=== PATIENT | female | born 1975 | race Caucasian/White ===

== ENCOUNTER 2016-11-03 12:12 | Emergency (ER) | payer OTHER, SELFPAY ==
[2016-11-03 12:19] VITALS: BP 146/96
[2016-11-03] MEDS ORDERED: Ondansetron 4 MG/2 ML SDV IVPUSH ONE (12:40)
[2016-11-03] MEDS ORDERED: Ketorolac 30 MG/ML SDV IVPUSH ONE (12:40)
[2016-11-03] MEDS ORDERED: Lactated Ringers 1,000 ML IV ONE (12:40)
[2016-11-03] MEDS ORDERED: Sodium Chloride 0.9% 10 ML Syringe FLUSH PRN (12:40)
--- NOTE | 2016-11-03 12:46 | EDM.PDOC ---
ED HPI HEADACHE COMPLAINT - General Chief Complaint: Headache Stated Complaint: HEADACHE Time Seen by Provider: 11/03/16 12:27 Source of Information: Reports: Patient History Limitations: Reports: Language barrier (patient primarly speaks cypriot , poor yi) - History of Present Illness INITIAL COMMENTS - FREE TEXT/NARRATIVE: Patient presents for evaluation and treatment of a headache. Headache is located in the frontal side. States that the headache began on Dejuan, 2 days ago. She states that it is a 7 out of 10 and describes it as a pressure. She reports associated symptoms of photophobia, phonophobia, diaphoresis, hot and cold flashes, nausea and vomiting. Reports vomiting only a small amount. She reports some spots in her vision. She also states that she's been coughing and has epigastric abdominal pain. Patient has not taken her temp at home. Patient has been seen in our ER on numerous occasions for the abdominal pain. This is a chronic problem for her and she reports no change with this. Patient reports that she does not have migraines frequently. Patient is known to consume alcohol. She states that she has not had any alcohol since last week. Treatments prior to arrival in the ER include Tylenol and ibuprofen. - Related Data Allergies/ADRs: Allergies Allergy/AdvReac Type Severity Reaction Status Date / Time Penicillins Allergy Severe Airway Verified 08/19/16 20:00 Tightness Sulfa (Sulfonamide Allergy Airway Verified 08/19/16 20:00 Antibiotics) Tightness Home Meds: Home Meds Levothyroxine 125 mcg PO DAILY 10/19/14 [History] Lisinopril/Hydrochlorothiazide [Lisinopril-Hctz 20-12.5 mg Tab] 12.5 - 25 mg PO DAILY 08/03/15 [History] Esomeprazole Magnesium [Nexium] 1 cap PO BID PRN 06/25/16 [History] Levofloxacin [Levaquin] 500 mg PO Q24H #6 tablet 11/03/16 [Rx] Potassium Chloride 20 meq PO DAILY #7 tablet.er 11/03/16 [Rx] Past Medical History HEENT History: Reports: None Cardiovascular History: Reports: High cholesterol, Hypertension Respiratory History: Reports: None Gastrointestinal History: Reports: GERD, Pancreatitis Other Gastrointestinal History: epigastric pain, adhesions Genitourinary History: Reports: Acute renal failure, Pyelonephritis, UTI, recurrent Other Genitourinary History: renal failure 10 yrs ago--was given chemo for thyroid CA. 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 States was washing dishes and lacerated hand. Neurological History: Reports: None Psychiatric History: Reports: Addiction Endocrine/Metabolic History: Reports: Hypothyroidism Hematologic History: Reports: Anemia, Iron deficiency Oncologic (Cancer) History: Reports: Thyroid Other Oncologic History: thyroid removed due to CA. Dermatologic History: Reports: None - Infectious Disease History Infectious Disease History: Reports: None - Past Surgical History Cardiovascular Surgical History: Reports: None GI Surgical History: Reports: Appendectomy, Cholecystectomy, Colonoscopy, EGD Female Surgical History: Reports: Hysterectomy Endocrine Surgical History: Reports: None Musculoskeletal Surgical History: Reports: None Social & Family History - Family History OBGYN: Reports: Endocrine/Metabolic: Reports: Diabetes, type II Immunologic: Reports: None Oncologic: Reports: Breast, Uterine - Tobacco Use Smoking Status *Q: Current Every Day Smoker Years of Tobacco use: 1 Packs/Tins Daily: 0.2 Used Tobacco, but Quit: Yes Month Tobacco Last Used: 2008 Second Hand Smoke Exposure: No - Caffeine Use Caffeine Use: Reports: Energy drinks, Soda - Alcohol Use Days Per Week of Alcohol Use: 7 Number of Drinks Per Day: 1 Total Drinks Per Week: 7 - Recreational Drug Use Recreational Drug Use: No - Living Situation & Occupation Living situation: Reports: Occupation: unemployed ED ROS GENERAL - Review of Systems Review Of Systems: See Below Constitutional: Reports: chills, diaphoresis, other (photophobia, phonophobia). Denies: fever HEENT: Reports: Vision change (reports "spots" it her vision) Respiratory: Reports: Cough GI/Abdominal: Reports: Abdominal pain (chronic, epigastric), Nausea, Vomiting : Denies: dysuria, hematuria - Physical Exam Exam: See Below Exam Limited By: No limitations General Appearance: alert, WD/WN, no apparent distress Ears: normal external exam, normal canal, hearing grossly normal, normal TMs Nose: normal inspection Throat/Mouth: Normal inspection, Normal voice, No airway compromise Head Exam: atraumatic, normocephalic Neck: normal inspection, non-tender, full range of motion Respiratory/Chest: no respiratory distress, lungs clear, normal breath sounds Cardiovascular: normal peripheral pulses, regular rate, rhythm, no murmur Neuro Exam (Abbreviated): alert, oriented, normal cognition Psychiatric: normal affect, normal mood Skin Exam: Warm, Dry, Normal color Course - Vital Signs Last Recorded V/S: Last Vital Signs Temp 38.8 C H 11/03/16 17:20 Pulse 87 11/03/16 12:18 Resp 20 11/03/16 12:18 BP 146/96 H 11/03/16 12:18 Pulse Ox 100 11/03/16 12:18 - Orders/Labs/Meds Orders: Active Orders 24 hr Category Date Time Status CULTURE URINE [RM] Stat Lab 11/03/16 16:45 Results Labs: Laboratory Tests 11/03/16 11/03/16 11/03/16 Range/Units 12:55 12:55 14:10 WBC 11.97 H (3.98-10.04) K/mm3 RBC 4.17 (3.98-5.22) M/mm3 Hgb 13.0 (11.2-15.7) gm/L Hct 38.3 (34.1-44.9) % MCV 91.8 (79.4-94.8) fl MCH 31.2 (25.6-32.2) pg MCHC 33.9 (32.2-35.5) g/dl RDW Std Deviation 51.6 H (36.4-46.3) fL Plt Count 198 (182-369) K/mm3 MPV 10.3 (9.4-12.3) fl Neut % (Auto) 85.1 H (34.0-71.1) % Lymph % (Auto) 6.0 L (19.3-51.7) % Sargent % (Auto) 8.0 (4.7-12.5) % Eos % (Auto) 0.1 L (0.7-5.8) Baso % (Auto) 0.2 (0.1-1.2) % Neut # (Auto) 10.19 H (1.56-6.13) K/mm3 Lymph # (Auto) 0.72 L (1.18-3.74) K/mm3 Sargent # (Auto) 0.96 H (0.24-0.36) K/mm3 Eos # (Auto) 0.01 L (0.04-0.36) K/mm3 Baso # (Auto) 0.02 (0.01-0.08) K/mm3 Manual Slide Review Normal smear Sodium 138 (136-145) mEq/L Potassium 2.8 L 2.9 L (3.5-5.1) mEq/L Chloride 99 (98-107) mEq/L Carbon Dioxide 25 (21-32) mEq/L Anion Gap 16.8 H (5-15) BUN 22 H (7-18) mg/dL Creatinine 1.0 (0.55-1.02) mg/dL Est Cr Clr Drug Dosing 52.64 mL/min Estimated GFR (MDRD) > 60 (>60) mL/min BUN/Creatinine Ratio 22.0 H (14-18) Glucose 120 H (74-106) mg/dL Calcium 9.6 (8.5-10.1) mg/dL Magnesium 2.1 (1.8-2.4) mg/dl Total Bilirubin 0.5 (0.2-1.0) mg/dL AST 46 H (15-37) U/L ALT 63 H (14-59) U/L Alkaline Phosphatase 106 (46-116) U/L C-Reactive Protein (<1.0) mg/dL Total Protein 8.4 H (6.4-8.2) g/dl Albumin 3.5 (3.4-5.0) g/dl Globulin 4.9 gm/dL Albumin/Globulin Ratio 0.7 L (1-2) Urine Color (Yellow) Urine Appearance (Clear) Urine pH (5.0-8.0) Ur Specific [place] (1.005-1.030) Urine Protein (Negative) Urine Glucose (UA) (Negative) Urine Ketones (Negative) Urine Occult Blood (Negative) Urine Nitrite (Negative) Urine Bilirubin (Negative) Urine Urobilinogen (0.2-1.0) Ur Leukocyte Esterase (Negative) Urine RBC (0-5) /hpf Urine WBC (0-5) /hpf Ur Epithelial Cells Ur Squamous Epith Cells (0-5) /hpf Urine Bacteria (FEW) /hpf Urine Mucus (FEW) /hpf Ethyl Alcohol 0.00 (0.00) gm% 11/03/16 11/03/16 Range/Units 14:10 16:45 WBC (3.98-10.04) K/mm3 RBC (3.98-5.22) M/mm3 Hgb (11.2-15.7) gm/L Hct (34.1-44.9) % MCV (79.4-94.8) fl MCH (25.6-32.2) pg MCHC (32.2-35.5) g/dl RDW Std Deviation (36.4-46.3) fL Plt Count (182-369) K/mm3 MPV (9.4-12.3) fl Neut % (Auto) (34.0-71.1) % Lymph % (Auto) (19.3-51.7) % Sargent % (Auto) (4.7-12.5) % Eos % (Auto) (0.7-5.8) Baso % (Auto) (0.1-1.2) % Neut # (Auto) (1.56-6.13) K/mm3 Lymph # (Auto) (1.18-3.74) K/mm3 Sargent # (Auto) (0.24-0.36) K/mm3 Eos # (Auto) (0.04-0.36) K/mm3 Baso # (Auto) (0.01-0.08) K/mm3 Manual Slide Review Sodium (136-145) mEq/L Potassium (3.5-5.1) mEq/L Chloride (98-107) mEq/L Carbon Dioxide (21-32) mEq/L Anion Gap (5-15) BUN (7-18) mg/dL Creatinine (0.55-1.02) mg/dL Est Cr Clr Drug Dosing mL/min Estimated GFR (MDRD) (>60) mL/min BUN/Creatinine Ratio (14-18) Glucose (74-106) mg/dL Calcium (8.5-10.1) mg/dL Magnesium (1.8-2.4) mg/dl Total Bilirubin (0.2-1.0) mg/dL AST (15-37) U/L ALT (14-59) U/L Alkaline Phosphatase (46-116) U/L C-Reactive Protein 54.5 H* (<1.0) mg/dL Total Protein (6.4-8.2) g/dl Albumin (3.4-5.0) g/dl Globulin gm/dL Albumin/Globulin Ratio (1-2) Urine Color Yellow (Yellow) Urine Appearance Slt cloudy H (Clear) Urine pH 7.0 (5.0-8.0) Ur Specific [place] 1.015 (1.005-1.030) Urine Protein 2+ H (Negative) Urine Glucose (UA) Negative (Negative) Urine Ketones Negative (Negative) Urine Occult Blood 2+ H (Negative) Urine Nitrite Positive H (Negative) Urine Bilirubin Negative (Negative) Urine Urobilinogen 4.0 H (0.2-1.0) Ur Leukocyte Esterase 1+ H (Negative) Urine RBC 0-5 (0-5) /hpf Urine WBC 50-75 H (0-5) /hpf Ur Epithelial Cells Not Reportable Ur Squamous Epith Cells 5-10 H (0-5) /hpf Urine Bacteria Moderate H (FEW) /hpf Urine Mucus Few (FEW) /hpf Ethyl Alcohol (0.00) gm% Meds: Medications Discontinued Medications Generic Name Dose Route Start Last Admin Trade Name Dominique PRN Reason Stop Dose Admin Acetaminophen 650 mg 11/03/16 17:09 11/03/16 17:20 Tylenol PO 11/03/16 17:10 650 mg NOW ONE Administration Diphenhydramine HCl 50 mg 11/03/16 13:56 11/03/16 14:02 Benadryl IVPUSH 11/03/16 13:57 50 mg ONETIME ONE Administration Haloperidol Lactate 5 mg 11/03/16 15:06 11/03/16 15:12 Haldol IM 11/03/16 15:07 5 mg ONETIME ONE Administration Lactated Ringer's 1,000 mls @ 999 mls/hr 11/03/16 12:40 11/03/16 12:59 Ringers, Lactated IV 11/03/16 13:40 999 mls/hr .BOLUS ONE Administration Levofloxacin/Dextrose 500 mg/ 100 mls @ 100 mls/hr 11/03/16 17:09 11/03/16 17 :19 Premix IV 11/03/16 18:08 100 mls/hr ONETIME ONE Administration Ketorolac Tromethamine 30 mg 11/03/16 12:40 11/03/16 12:59 Toradol IVPUSH 11/03/16 12:41 30 mg ONETIME ONE Administration Ondansetron HCl 4 mg 11/03/16 12:40 11/03/16 12:59 Zofran IVPUSH 11/03/16 12:41 4 mg ONETIME ONE Administration Orphenadrine Citrate 100 mg 11/03/16 13:56 11/03/16 14:02 Norflex PO 11/03/16 13:57 100 mg NOW STA Administration Potassium Bicarbonate 10 meq 11/03/16 13:31 11/03/16 13:39 Effer-K PO 11/03/16 13:32 10 meq ONETIME ONE Administration Sodium Chloride 10 ml 11/03/16 12:40 11/03/16 12:59 Saline Flush FLUSH 10 ml ASDIRECTED PRN Administration Keep Vein Open - Radiology Interpretation Free Text/Narrative:: Ct of the head without contrast impression per Vrad: Unremarkable study. CT Results Date: 11/03/16 - Re-Assessments/Exams Free Text/Narrative Re-Assessment/Exam: 11/03/16 13:58 Labs have returned. white Blood cell count is mildly elevated at 11.97, hgb is 13.0 platelets are 198. Alcohol is zero. Sodium is 138, potassium is low at 2.8, chloride is 99. Anion gap is 16.8. Glucose is 120. AST and ALT are mildly elevated at 46 and 63 respectively. Magnesium is within normal limits at 2.1. 10 mEq effer-k ordered for the hypokalemia. Reports no pain relief. She is asking for something "stronger for pain." She has been given toradol and a 1L LR bolus thus far. I suspect tension headache. Will give benadryl and norflex. 11/03/16 14:20 Patient was searched on the [place] prescription registry. 16 prescriptions from 3 different prescribers within the last year for controlled substances. Most recently received #60 hydrocortisone-acetaminophen 5/325 on 10-30-16. 11/03/16 15:04 Patient reports a worsening head pain. We will get a CT without contrast to rule out brain bleed as she has not had any pain relief and her symptoms are worsening. I am skeptical of her presentation. She keeps asking for pain medicine. I feel that she is likely drug seeking. We will obtained a head CT without contrast to rule out a brain bleed. Order Haldol 5 mg IM for her headache. Following headache protocol. 11/03/16 16:27 CT returned. Reviewd with patient. No brain bleed 11/03/16 16:44 Reports no change in headache. Now she feels she is developing fevers and chills. 11/03/16 16:55 I had nursing staff recheck temp. Now 101 temporal. Will check influenza and UA. CRP added to labs 11/03/16 17:18 UA returned with 2+ blood, positive nitrites and moderate amount of blood seen on microscopy. Leukocytes. Negative for glucose and ketones. The patient has a urinary tract infection. I will start her on IV Levaquin and have her take Levaquin outpatient as well some potassium for her hypokalemia. I Asked the patient about any urinary symptoms. She denies any dysuria, hematuria, change in urine odor or color. She reports headaches, nausea and chills. 11/03/16 17:48 influenza returned negative. CRP is elevated at 54.5 indicating she likely has a kidney infection. Patient was discharged home with levaquin. Follow-up with PCP this week. Return if symptoms change or worsen. Urine was sent for culture. No previous urine cultures on file for ric. Departure - Departure Time of Disposition: 17:43 Disposition: Home, Self-Care 01 Clinical Impression: Urinary tract infection, Pyelonephritis, Hypokalemia Prescriptions: Levofloxacin [Levaquin] 500 mg PO Q24H #6 tablet Potassium Chloride 20 meq PO DAILY #7 tablet.er Instructions: Urinary Tract Infection, Adult, [id number] Referrals: Enrique Brower Jr, MD [Primary Care Provider] - Forms: ED Department Discharge Additional Instructions: Take the Levaquin as prescribed. One tab daily. Your first dose was given in the ER. Start your prescription tomorrow. Potassium as prescribed. One tab daily. Followup with primary care provider this week for recheck. Make sure you're drinking plenty of fluids. [id number] Tylenol or Motrin as needed for your pain and headache relief. Please return to the ER should your symptoms change or worsen. - My Orders Last 24 Hours: My Active Orders 11/03/16 16:45 CULTURE URINE [RM] Stat - Assessment/Plan Last 24 Hours: My Active Orders 11/03/16 16:45 CULTURE URINE [RM] Stat
[2016-11-03] MEDS ORDERED: Potassium Bicarbonate/Cit Ac 10 MEQ Effervescent Tab PO ONE (13:31)
[2016-11-03] MEDS ORDERED: diphenhydrAMINE 50 MG/ML SDV IVPUSH ONE (13:56)
[2016-11-03] MEDS ORDERED: Orphenadrine 100 MG Tab.ER PO STA (13:56)
[2016-11-03] MEDS ORDERED: Haloperidol Lactate 5 MG/ML SDV IM ONE (15:06)
[2016-11-03] MEDS ORDERED: Acetaminophen 325 MG Tab PO ONE (17:09)
[2016-11-03] MEDS ORDERED: Levofloxacin/Dextrose 5%-Water 500 MG in Premix Bag 1 BAG IV ONE (17:09)
--- NOTE | 2016-11-04 07:43 | CT ---
Head CT Technique: Multiple axial sections through the brain were obtained. Intravenous contrast was not utilized. Comparison: No previous study. Findings: Ventricles along with basal cisterns and sulci over the convexities are within normal limits for the patient's age. No abnormal parenchymal densities are seen. No evidence of intracranial hemorrhage. No midline shift or mass effect is seen. Bone window settings were reviewed which show the visualized sinuses to appear clear. No acute calvarial abnormality is appreciated. Impression: 1. Nothing acute is identified on noncontrast head CT study. Diagnostic code #1 I agree with preliminary report issued by [employer] (preliminary report dictated on 11/03/16, 4:37 PM Central Time)
== END 2016-11-03 18:25 | disposition home or self-care (01) ==
LOC: JD.ED 12:12
DX: R51 Headache (principal); N39.0 Urinary tract infection, site not specified; N12 Tubulo-interstitial nephritis, not specified as acute or chronic; E87.6 Hypokalemia; I10 Essential (primary) hypertension; E78.00 Pure hypercholesterolemia, unspecified; K21.9 Gastro-esophageal reflux disease without esophagitis; M19.90 Unspecified osteoarthritis, unspecified site; G89.29 Other chronic pain; M54.9 Dorsalgia, unspecified; D03.9 Melanoma in situ, unspecified; D50.9 Iron deficiency anemia, unspecified; F17.200 Nicotine dependence, unspecified, uncomplicated
CPT/HCPCS: 36415; 70450; 80053; 81001; 83735; 84132; 85025; 86140; 87086; 87804; 96361; 96365; 96372; 96375; 99284; A9270; G0480; J1200; J1630; J1885; J1956; J2405; J7050; J7120; 87088; 87186

== ENCOUNTER 2017-06-05 10:10 | Emergency (ER) | payer SELFPAY ==
[2017-06-05 10:25] VITALS: BP 144/90
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
--- NOTE | 2017-06-05 11:50 | CR ---
Cervical spine: AP, lateral and odontoid views of the cervical spine were obtained. Comparison: No prior cervical spine study. Vertebral body heights and disc spaces are maintained. Prevertebral soft tissues are normal. No subluxation or fracture is seen. Impression: 1. No abnormality is identified on three-view cervical spine study. Diagnostic code #1
== END 2017-06-05 11:41 | disposition home or self-care (01) ==
LOC: JD.ED 10:10
DX: S16.1XXA Strain of muscle, fascia and tendon at neck level, initial encounter (principal); F17.210 Nicotine dependence, cigarettes, uncomplicated; I10 Essential (primary) hypertension; E78.00 Pure hypercholesterolemia, unspecified; K21.9 Gastro-esophageal reflux disease without esophagitis; E03.9 Hypothyroidism, unspecified; Z86.2 Personal history of diseases of the blood and blood-forming organs and certain disorders involving the immune mechanism; Z79.899 Other long term (current) drug therapy; Z88.0 Allergy status to penicillin; Z88.2 Allergy status to sulfonamides; V49.9XXA Car occupant (driver) (passenger) injured in unspecified traffic accident, initial encounter; Y92.410 Unspecified street and highway as the place of occurrence of the external cause
CPT/HCPCS: 72040; 72040-26; 99283; 99284

== ENCOUNTER 2017-08-17 05:48 | Emergency (ER) | payer SELFPAY ==
[2017-08-17 05:58] VITALS: BP 157/105
[2017-08-17] MEDS ORDERED: Famotidine 20 MG/2 ML SDV IVPUSH ONE (06:11)
[2017-08-17] MEDS ORDERED: Ondansetron 4 MG/2 ML SDV IVPUSH ONE (06:11)
[2017-08-17] MEDS ORDERED: Sodium Chloride 0.9% 1,000 ML IV SCH ×2 (06:15→08:15)
--- NOTE | 2017-08-17 06:15 | EDM.PDOC ---
<Jared Dueñas - Last Filed: 08/17/17 07:32> ED HPI GENERAL MEDICAL PROBLEM - General Chief Complaint: Abdominal Pain Stated Complaint: RIGHT SIDE PAIN Time Seen by Provider: 08/17/17 06:02 Source of Information: Reports: Patient History Limitations: Reports: No Limitations - History of Present Illness INITIAL COMMENTS - FREE TEXT/NARRATIVE: This is a 42-year-old female. She comes this morning because she's been having some upper abdominal pain and some nausea and vomiting. She states she's been having the stomach pain and vomiting for at least a week but apparently yesterday it got markedly worse and this morning she comes to the ER for evaluation. She states she has a history of pancreatitis. She did drink yesterday a little bit. She knows she shouldn't drink because that's what flares up her pancreatitis. She indicates that this pain she is having feels like her pancreatitis again. She denies any fever or chills she denies any diarrhea. She has not vomited up any blood. She does not have a gallbladder it is been removed. Right Upper Abdomen Pain Score (Numeric/FACES): 10 - Related Data Allergies Allergy/AdvReac Type Severity Reaction Status Date / Time Penicillins Allergy Severe Airway Verified 08/17/17 05:55 Tightness Sulfa (Sulfonamide Allergy Airway Verified 08/17/17 05:55 Antibiotics) Tightness Home Meds: Home Meds Levothyroxine 125 mcg PO DAILY 10/19/14 [History] Lisinopril/Hydrochlorothiazide [Lisinopril-Hctz 20-12.5 mg Tab] 12.5 - 25 mg PO DAILY 08/03/15 [History] Ibuprofen 800 mg PO ONCALL PRN 08/17/17 [History] Ondansetron HCl [Zofran] 4 mg PO Q8H PRN #12 tablet 08/17/17 [Rx] traMADol [Ultram] 50 mg PO Q6H PRN #12 tab 08/17/17 [Rx] Past Medical History HEENT History: Reports: None Cardiovascular History: Reports: High Cholesterol, Hypertension Respiratory History: Reports: None Gastrointestinal History: Reports: GERD, Pancreatitis Other Gastrointestinal History: epigastric pain, adhesions Genitourinary History: Reports: Pyelonephritis, UTI, Recurrent Other Genitourinary History: renal failure 10 yrs ago--was given chemo for thyroid CA. 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 States was washing dishes and lacerated hand. Neurological History: Reports: None Psychiatric History: Reports: Addiction Endocrine/Metabolic History: Reports: Hypothyroidism Hematologic History: Reports: Anemia, Iron Deficiency Oncologic (Cancer) History: Reports: Thyroid Other Oncologic History: thyroid removed due to CA. Dermatologic History: Reports: None - Infectious Disease History Infectious Disease History: Reports: None - Past Surgical History GI Surgical History: Reports: Appendectomy, Cholecystectomy, Colonoscopy, EGD Female Surgical History: Reports: Hysterectomy, Salpingo-Oophorectomy Endocrine Surgical History: Reports: None Social & Family History - Family History OBGYN: Reports: Endocrine/Metabolic: Reports: Diabetes, type II Immunologic: Reports: None Oncologic: Reports: Breast, Uterine - Tobacco Use Smoking Status *Q: Never Smoker Years of Tobacco use: 5 Packs/Tins Daily: 0.2 Used Tobacco, but Quit: Yes Month Tobacco Last Used: 2008 Second Hand Smoke Exposure: No - Caffeine Use Caffeine Use: Reports: Coffee, Soda - Alcohol Use Days Per Week of Alcohol Use: 7 Number of Drinks Per Day: 1 Total Drinks Per Week: 7 - Recreational Drug Use Recreational Drug Use: No - Living Situation & Occupation Living situation: Reports: Occupation: Unemployed ED ROS GENERAL - Review of Systems Review Of Systems: See Below Constitutional: Reports: Weakness. Denies: Fever, Chills HEENT: Reports: No Symptoms Respiratory: Reports: No Symptoms Cardiovascular: Reports: No Symptoms Endocrine: Reports: No Symptoms GI/Abdominal: Reports: Abdominal Pain, Nausea, Vomiting. Denies: Black Stool, Bloody Stool, Diarrhea : Reports: No Symptoms Musculoskeletal: Reports: No Symptoms Skin: Reports: No Symptoms Neurological: Reports: No Symptoms Psychiatric: Reports: No Symptoms Hematologic/Lymphatic: Reports: No Symptoms ED EXAM, GI/ABD - Physical Exam Exam: See Below Exam Limited By: No Limitations General Appearance: Alert, WD/WN, Mild Distress Eyes: Bilateral: Normal Appearance Ears: Normal External Exam Nose: Normal Inspection Throat/Mouth: Normal Inspection, Normal Lips, Normal Voice, No Airway Compromise Head: Normocephalic Neck: Supple Respiratory/Chest: No Respiratory Distress, Lungs Clear, Normal Breath Sounds Cardiovascular: Regular Rate, Rhythm, No Murmur GI/Abdominal Exam: Other (Abdomen is slightly distended and she has large, she is tender in the upper quadrants on palpation more so on the right upper quadrant with some mild guarding if I attempt to push too hard, she does not appear to have rebound at this time, I cannot feel any organomegaly due to her size) Back Exam: Full Range of Motion Extremities: Normal Inspection, Normal Range of Motion Neurological: Alert, Oriented Psychiatric: Anxious Skin Exam: Warm, Dry Course - Vital Signs Last Recorded V/S: Last Vital Signs Temp 35.9 C 08/17/17 05:57 Pulse 84 08/17/17 05:57 Resp 18 08/17/17 05:57 BP 157/105 H 08/17/17 05:57 Pulse Ox 99 08/17/17 05:57 - Orders/Labs/Meds Orders: Active Orders 24 hr Category Date Time Status Potassium Chloride [KCl 10 MEQ in Water 100 ML] 10 meq Med 08/17/17 08:15 Active Premix Bag 1 bag IV ASDIRECTED Sodium Chloride 0.9% [Normal Saline] 1,000 ml Med 08/17/17 06:15 Active IV ASDIRECTED Sodium Chloride 0.9% [Normal Saline] 1,000 ml Med 08/17/17 08:15 Active IV ASDIRECTED Medication Orders Sodium Chloride (Normal Saline) 1,000 mls @ 1,000 mls/hr IV ASDIRECTED BIBIANA Last Admin: 08/17/17 06:23 Dose: 1,000 mls/hr Sodium Chloride (Normal Saline) 1,000 mls @ 100 mls/hr IV ASDIRECTED BIBIANA Last Admin: 08/17/17 08:18 Dose: 100 mls/hr Potassium Chloride 10 meq/ (Premix) 100 mls @ 100 mls/hr IV ASDIRECTED BIBIANA Last Admin: 08/17/17 08:19 Dose: 100 mls/hr Labs: Laboratory Tests 08/17/17 08/17/17 Range/Units 06:17 06:17 WBC 5.37 (3.98-10.04) K/mm3 RBC 3.92 L (3.98-5.22) M/mm3 Hgb 12.0 (11.2-15.7) gm/L Hct 35.5 (34.1-44.9) % MCV 90.6 (79.4-94.8) fl MCH 30.6 (25.6-32.2) pg MCHC 33.8 (32.2-35.5) g/dl RDW Std Deviation 43.8 (36.4-46.3) fL Plt Count 225 (182-369) K/mm3 MPV 10.1 (9.4-12.3) fl Neut % (Auto) 46.2 (34.0-71.1) % Lymph % (Auto) 41.2 (19.3-51.7) % [place] % (Auto) 10.2 (4.7-12.5) % Eos % (Auto) 1.3 (0.7-5.8) Baso % (Auto) 0.9 (0.1-1.2) % Neut # (Auto) 2.48 (1.56-6.13) K/mm3 Lymph # (Auto) 2.21 (1.18-3.74) K/mm3 [place] # (Auto) 0.55 H (0.24-0.36) K/mm3 Eos # (Auto) 0.07 (0.04-0.36) K/mm3 Baso # (Auto) 0.05 (0.01-0.08) K/mm3 Sodium 146 H (136-145) mEq/L Potassium 3.3 L (3.5-5.1) mEq/L Chloride 110 H (98-107) mEq/L Carbon Dioxide 22 (21-32) mEq/L Anion Gap 17.3 H (5-15) BUN 20 H (7-18) mg/dL Creatinine 0.7 (0.55-1.02) mg/dL Est Cr Clr Drug Dosing 74.43 mL/min Estimated GFR (MDRD) > 60 (>60) mL/min BUN/Creatinine Ratio 28.6 H (14-18) Glucose 114 H (74-106) mg/dL Calcium 8.4 L (8.5-10.1) mg/dL Total Bilirubin 0.2 (0.2-1.0) mg/dL AST 41 H (15-37) U/L ALT 61 H (14-59) U/L Alkaline Phosphatase 88 (46-116) U/L Total Protein 7.8 (6.4-8.2) g/dl Albumin 3.7 (3.4-5.0) g/dl Globulin 4.1 gm/dL Albumin/Globulin Ratio 0.9 L (1-2) Amylase 73 (25-115) U/L Lipase 434 H (73-393) U/L Ethyl Alcohol 0.06 (0.00) gm% Meds: Medications Generic Name Dose Route Start Last Admin Trade Name Freq PRN Reason Stop Dose Admin Sodium Chloride 1,000 mls @ 1,000 mls/hr 08/17/17 06:15 08/17/17 06:23 Normal Saline IV 1,000 mls/hr ASDIRECTED BIBIANA Administration Sodium Chloride 1,000 mls @ 100 mls/hr 08/17/17 08:15 08/17/17 08:18 Normal Saline IV 100 mls/hr ASDIRECTED BIBIANA Administration Potassium Chloride 10 meq/ 100 mls @ 100 mls/hr 08/17/17 08:15 08/17/17 08:19 Premix IV 100 mls/hr ASDIRECTED BIBIANA Administration Discontinued Medications Generic Name Dose Route Start Last Admin Trade Name Dannyq PRN Reason Stop Dose Admin Famotidine 20 mg 08/17/17 06:11 08/17/17 06:25 Pepcid IVPUSH 08/17/17 06:12 20 mg ONETIME ONE Administration Hydromorphone HCl 0.5 mg 08/17/17 07:18 08/17/17 07:25 Dilaudid IVPUSH 08/17/17 07:19 0.5 mg ONETIME ONE Administration Hydromorphone HCl 0.5 mg 08/17/17 09:01 08/17/17 09:05 Dilaudid IVPUSH 08/17/17 09:02 0.5 mg ONETIME ONE Administration Potassium Chloride/Sodium Chloride 1,000 mls @ 500 mls/hr 08/17/17 07:30 07:37 Normal Saline With 20 Meq Kcl IV 500 mls/hr ASDIRECTED BIBIANA Administration Ondansetron HCl 4 mg 08/17/17 06:11 08/17/17 06:23 Zofran IVPUSH 08/17/17 06:12 4 mg ONETIME ONE Administration - Re-Assessments/Exams Free Text/Narrative Re-Assessment/Exam: 08/17/17 07:26 I spoke to the patient regarding her lab results. Her white count is normal her lipase is 434 she has a slightly low potassium and some mild abnormalities noted was some mildly elevated liver enzymes. She now tells me that she drank very heavily yesterday and that's why her alcohol level this morning is 0.06. I encouraged her not to drink because every time she does he is going to end up was some mild pancreatitis. She seems to understand this. 08/17/17 07:36 The nurses have orders for additional pain medications as she gets another liter of NS with 20 mEq of potassium over the next hour. If all is going well she will be discharged once the fluids are in. If there are complications then the nurses will talk with Dr. Lara and he will take over the patients care. Departure - Departure Disposition: Home, Self-Care 01 Condition: Fair Clinical Impression: Alcohol ingestion, Hypokalemia Acute pancreatitis Qualifiers: Pancreatitis type: unspecified pancreatitis type Acute pancreatitis complication: unspecified Qualified Code(s): K85.90 - Acute pancreatitis without necrosis or infection, unspecified Nausea & vomiting Qualifiers: Vomiting type: unspecified Vomiting Intractability: non-intractable Qualified Code(s): R11.2 - Nausea with vomiting, unspecified Abdominal pain Qualifiers: Abdominal location: right upper quadrant Qualified Code(s): R10.11 - Right upper quadrant pain - Discharge Information Prescriptions: Ondansetron HCl [Zofran] 4 mg PO Q8H PRN #12 tablet PRN Reason: Nausea traMADol [Ultram] 50 mg PO Q6H PRN #12 tab PRN Reason: Pain Instructions: Acute Pancreatitis Referrals: Enrique Brower Jr, MD [Primary Care Provider] - Forms: ED Department Discharge Additional Instructions: Home and rest, stay on Gatorade and Powerade and crackers only for the next 2-3 days, Do not eat meat, vegetables or oil/fatty foods, do not drink alcohol or you will get pancreatitis again, take the medicine for nausea and also medicine for pain as needed, follow up with your doctor this week for recheck, if your symptoms worsen return to the ER - My Orders Last 24 Hours: My Active Orders 08/17/17 08:15 Potassium Chloride [KCl 10 MEQ in Water 100 ML] 10 meq Premix Bag 1 bag IV ASDIRECTED Sodium Chloride 0.9% [Normal Saline] 1,000 ml IV ASDIRECTED - Assessment/Plan Last 24 Hours: My Active Orders 08/17/17 08:15 Potassium Chloride [KCl 10 MEQ in Water 100 ML] 10 meq Premix Bag 1 bag IV ASDIRECTED Sodium Chloride 0.9% [Normal Saline] 1,000 ml IV ASDIRECTED <Jamal Lara - Last Filed: 08/17/17 09:33> Course - Re-Assessments/Exams Free Text/Narrative Re-Assessment/Exam: 08/17/17 09:00 did receive 1 further dose of Dilaudid 0.5 mg IV for relief of pancreatitis pain. Dr. Dueñas has written discharge orders for her and once her potassium infusion has been completed she will be discharged to home. Departure - Departure Time of Disposition: 09:33
[2017-08-17] MEDS ORDERED: HYDROmorphone 0.5 MG/0.5 ML Syringe IVPUSH ONE ×2 (07:18→09:01)
[2017-08-17] MEDS ORDERED: NS + KCl 20mEq/L 1,000 ML IV SCH (07:30)
[2017-08-17] MEDS ORDERED: Potassium Chloride 10 MEQ in Premix Bag 1 BAG IV SCH (08:15)
== END 2017-08-17 09:55 | disposition home or self-care (01) ==
LOC: JD.ED 05:48
DX: K85.90 Acute pancreatitis without necrosis or infection, unspecified (principal); I10 Essential (primary) hypertension; E78.00 Pure hypercholesterolemia, unspecified; E03.9 Hypothyroidism, unspecified; Z79.899 Other long term (current) drug therapy; Z88.0 Allergy status to penicillin; Z88.2 Allergy status to sulfonamides
CPT/HCPCS: 36415; 80053; 82150; 83690; 85025; 96361; 96365; 96375; 96376; 99284; G0480; J1170; J2405; J3480; J7040

== ENCOUNTER 2017-11-19 18:34 | Emergency (ER) | payer SELFPAY ==
[2017-11-19 18:53] VITALS: BP 133/109
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
--- NOTE | 2017-11-20 08:12 | CR ---
Left second finger: Four views centered to the left second finger were obtained. Comparison: No previous study. Soft tissue swelling is identified. Mild degenerative changes noted within the DIP joint. No acute fracture or other bony abnormality is seen. Impression: 1. Soft tissue swelling. 2. Mild degenerative change within the DIP joint. Diagnostic code #3
--- NOTE | 2017-11-20 08:13 | CR ---
Chest: Two views of the chest were obtained. Comparison: Prior chest x-ray of 03/23/16. Heart size and mediastinum are normal. Lungs are clear. Slight scoliosis is noted within the spine. Surgical clips are seen from prior cholecystectomy. Impression: 1. Nothing acute is seen on two-view chest x-ray. Diagnostic code #2
== END 2017-11-19 20:15 | disposition home or self-care (01) ==
LOC: JD.ED 18:34
DX: S63.631A Sprain of interphalangeal joint of left index finger, initial encounter (principal); S20.221A Contusion of right back wall of thorax, initial encounter; S50.11XA Contusion of right forearm, initial encounter; S30.1XXA Contusion of abdominal wall, initial encounter; E78.00 Pure hypercholesterolemia, unspecified; I10 Essential (primary) hypertension; E03.9 Hypothyroidism, unspecified; Z88.0 Allergy status to penicillin; Z88.2 Allergy status to sulfonamides; Z79.899 Other long term (current) drug therapy; Z87.891 Personal history of nicotine dependence; Y04.2XXA Assault by strike against or bumped into by another person, initial encounter
CPT/HCPCS: 71046; 71046-26; 73140-26-F1; 73140-F1; 99283

== ENCOUNTER 2018-01-01 04:42 | Emergency (ER) | payer SELFPAY ==
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
[2018-01-01] MEDS ORDERED: HYDROmorphone 0.5 MG/0.5 ML SYRINGE IVPUSH ONE ×2 (05:04→06:18)
[2018-01-01] MEDS ORDERED: Phenazopyridine 95 MG Tab ONE (05:09)
[2018-01-01] MEDS ORDERED: Phenazopyridine 95 MG Tab PO ONE (05:11)
[2018-01-01] MEDS ORDERED: Sodium Chloride 0.9% 1,000 ML IV SCH (05:15)
[2018-01-01] MEDS ORDERED: Ketorolac 30 MG/ML SDV IVPUSH SCH (05:15)
[2018-01-01] MEDS ORDERED: cefTRIAXone 1 GM in Sodium Chloride 0.9% 100 ML IV ONE (06:16)
[2018-01-01] MEDS ORDERED: Metoclopramide 10 MG/2 ML SDV IVPUSH ONE (06:18)
[2018-01-01] MEDS ORDERED: Dextrose 5%-0.9% NaCl 1,000 ML IV SCH (06:30)
[2018-01-01 08:46] VITALS: BP 145/99
[2018-01-01] MEDS ORDERED: Phenazopyridine 95 MG Tab PO SCH (09:00)
== END 2018-01-01 08:30 | disposition home or self-care (01) ==
LOC: JD.ED 04:42
DX: N39.0 Urinary tract infection, site not specified (principal); E78.00 Pure hypercholesterolemia, unspecified; I10 Essential (primary) hypertension; E03.9 Hypothyroidism, unspecified; Z88.0 Allergy status to penicillin; Z88.2 Allergy status to sulfonamides
CPT/HCPCS: 36415; 80053; 81001; 85007; 85027; 87086; 96361; 96374; 96375; 96376; 99283; A9270; G0480; J0696; J1170; J1885; J2765; J7030; J7040; J7042; 99284

== ENCOUNTER 2018-02-09 02:56 | Inpatient (IN) | payer MEDICAID ==
[2018-02-09] MEDS ORDERED: Ondansetron 4 MG/2 ML SDV IVPUSH ONE ×2 (03:25→04:42)
[2018-02-09] MEDS ORDERED: Sodium Chloride 0.9% 1,000 ML IV SCH (03:30)
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
[2018-02-09] MEDS ORDERED: Potassium Chloride 10 MEQ in Premix Bag 1 BAG IV STA (04:13)
[2018-02-09] MEDS ORDERED: Magnesium Sulfate/Water 2 GM in Premix Bag 1 BAG IV ONE (05:07)
[2018-02-09] MEDS ORDERED: Sodium Chloride 0.9% 1,000 ML IV ONE (05:43)
[2018-02-09] MEDS ORDERED: Famotidine 20 MG/2 ML SDV IVPUSH ONE (05:54)
[2018-02-09] MEDS ORDERED: Alum Hydrox/Mag Hydrox/Simeth 30 ML, Lidocaine 2% 15 ML PO STA ×2 (05:55)
[2018-02-09] MEDS ORDERED: Sodium Chloride 0.9% 500 ML IV ONE (07:22)
[2018-02-09] MEDS ORDERED: Polyethylene Glycol 3350 Powder 17 GM Packet PO PRN (07:23)
[2018-02-09] MEDS ORDERED: Haloperidol Lactate 5 MG/ML SDV IM PRN (07:23)
[2018-02-09] MEDS ORDERED: Bisacodyl 5 MG Tab PO PRN (07:23)
[2018-02-09] MEDS ORDERED: Albuterol/Ipratropium 3.0-0.5 MG/3 ML Neb Soln NEB PRN (07:23)
[2018-02-09] MEDS ORDERED: Docusate Sodium 100 MG Cap PO PRN (07:23)
[2018-02-09] MEDS ORDERED: cloNIDine 0.1 MG Tab PO PRN (07:23)
[2018-02-09] MEDS ORDERED: LORazepam 2 MG/ML SDV IVPUSH PRN (07:31)
[2018-02-09] MEDS ORDERED: hydrALAZINE 20 MG/ML SDV IVPUSH PRN (07:31)
[2018-02-09] MEDS ORDERED: Pantoprazole 40 MG Vial IV ONE (08:00)
[2018-02-09] MEDS: HYDROmorphone 0.5 MG/0.5 ML SYRINGE IVPUSH PRN ×4 (08:06→21:10)
[2018-02-09] MEDS: Metoprolol Tartrate 5 MG/5 ML SDV IVPUSH PRN (08:21)
[2018-02-09] MEDS: Promethazine 12.5 MG in Sodium Chloride 0.9% 50 ML IV PRN (08:29)
[2018-02-09] MEDS ORDERED: QUEtiapine 25 MG Tab PO ONE (08:43)
[2018-02-09] MEDS: Multivitamins,Therapeutic Tab PO SCH (08:55)
[2018-02-09] MEDS: Folic Acid 1 MG Tab PO SCH (08:55)
[2018-02-09] MEDS: Topiramate 25 MG Tab PO SCH ×2 (08:59→20:17)
[2018-02-09] MEDS: Levothyroxine 125 MCG Tab PO SCH (08:59)
[2018-02-09] MEDS ORDERED: Thiamine 100 MG in Sodium Chloride 0.9% 50 ML IV ONE (09:00)
[2018-02-09] MEDS ORDERED: Nicotine 21 MG/24 Hr Patch TRDERM PRN (09:00)
--- NOTE | 2018-02-09 10:01 | PCM.HP ---
H&P History of Present Illness - General Date of Service: 02/09/18 Admit Problem/Dx: Admission Diagnosis/Problem Admission Diagnosis/Problem Hypokalemia Source of Information: Patient, Old Records, Provider, RN Notes Reviewed History Limitations: Reports: No Limitations - History of Present Illness Initial Comments - Free Text/Narative: This is a 42-year-old female with past medical history of hypertension , hyperlipidemia, GERD, history of acute renal failure, osteoarthritis, chronic back pain, hypothyroidism, iron deficiency anemia, fatty liver, and chronic alcohol and opioid dependence who comes in for evaluation of multiple complaints such as retrosternal chest pain, shortness of breath, diffuse body aches and pains, hyperventilation, chills, nausea and vomiting but primarily dry heaving. She also reports abdominal pain associated with watery diarrhea for the past 3 days. She denies eating or drinking unusual diet. Nothing improves or makes her symptoms better. She denies any DTs, Seizures, or Hallucinations. She carries a hx/o cholecystectomy but she denies any recent surgery or abdominal trauma. Patient reports similar history in the past. Per Iddiction, she has had multiple evaluations related to her chief of complaints and most if not all workup were negative. Patient admits to drinking daily, 1L of vodka. She has been drinking a lot this past week with no obvious precipitating factors. Patient denies any history of inpatient treatment. However she had been to outpatient treatment several months ago. But according to her, she stopped going to treatment when her went to retirement in [place]. Her initial workup in the emergency department shows a CBC remarkable for MCH of 32.6%, RDW of 49, platelet of 144, and monocytes of 13%. Her ABG shows a pH of 7.44, PCO2 of 21, PO2 of 79, HCO3 of 14.1, and O2 saturation of 95.3%, on room air. Her chemistry is significant for sodium of 133, potassium of 2.4, chloride of 88, carbon dioxide of 14, anion gap of 32.4, BUN of 25, creatinine of 1.4, glucose of 181, calcium of 8.1, magnesium of 1, AST of 496, ALT of 183, alkaline phosphatase of 168, LA of 7.6, and total protein of 9.5. Her UA is suggestive of moderate dehydration. Her UDS is positive for benzodiazepine. Her STEFANIE level is 0.09. Patient is being admitted for alcohol withdrawal symptoms and evaluation of abdominal pain. She is full code. Chest Pain Score (Numeric/FACES): 8 Upper Abdominal Pain Score (Numeric/FACES): 8 - Related Data Allergies/Adverse Reactions: Allergies Allergy/AdvReac Type Severity Reaction Status Date / Time Penicillins Allergy Severe Airway Verified 02/09/18 03:01 Tightness Sulfa (Sulfonamide Allergy Airway Verified 02/09/18 03:01 Antibiotics) Tightness Home Medications: Home Meds Levothyroxine 125 mcg PO DAILY 10/19/14 [History] Lisinopril/Hydrochlorothiazide [Lisinopril-Hctz 20-12.5 mg Tab] 12.5 - 25 mg PO DAILY 08/03/15 [History] LORazepam [Ativan] 1 mg PO DAILY 02/09/18 [History] Past Medical History HEENT History: Reports: None Cardiovascular History: Reports: High Cholesterol, Hypertension Respiratory History: Reports: None Gastrointestinal History: Reports: GERD Other Gastrointestinal History: epigastric pain, adhesions Genitourinary History: Reports: Acute Renal Failure Other Genitourinary History: renal failure 10 yrs ago--was given chemo for thyroid CA. 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 States was washing dishes and lacerated hand. Neurological History: Reports: None Psychiatric History: Reports: Addiction (alcohol) Endocrine/Metabolic History: Reports: Hypothyroidism, Obesity/BMI 30+ Hematologic History: Reports: Anemia, Iron Deficiency Oncologic (Cancer) History: Reports: Thyroid Other Oncologic History: thyroid removed due to CA. Dermatologic History: Reports: None - Infectious Disease History Infectious Disease History: Reports: None - Past Surgical History GI Surgical History: Reports: Appendectomy, Cholecystectomy, Colonoscopy, EGD Female Surgical History: Reports: Hysterectomy, Other (See Below) (Right ovarian cystectomy) Endocrine Surgical History: Reports: Thyroidectomy (for thyroid CA) Social & Family History - Family History OBGYN: Reports: Endocrine/Metabolic: Reports: Diabetes, type II Immunologic: Reports: None Oncologic: Reports: Breast, Uterine - Tobacco Use Smoking Status *Q: Former Smoker Years of Tobacco use: 19 Packs/Tins Daily: 1 Month/Year Tobacco Last Used: Quit around 2010 - Caffeine Use Caffeine Use: Reports: None - Alcohol Use Days Per Week of Alcohol Use: 5 Number of Drinks Per Day: 10 Total Drinks Per Week: 50 - Recreational Drug Use Recreational Drug Use: Yes Drug Use in Last 12 Months: No Recreational Drug Type: Reports: Methamphetamine (last used around 2007) - Living Situation & Occupation Living situation: Reports: , with Family (Daughter, son). Denies: with Spouse ( in retirement) Occupation: Unemployed H&P Review of Systems - Review of Systems: Review Of Systems: See Below General: Reports: Malaise, Weakness, Decreased Appetite. Denies: Fever, Chills , Fatigue HEENT: Reports: No Symptoms Pulmonary: Reports: Shortness of Breath Cardiovascular: Reports: Chest Pain, Palpitations. Denies: Dyspnea on Exertion , Lightheadedness, Syncope, Claudication, Blood Pressure Problem Gastrointestinal: Reports: Abdominal Pain, Diarrhea, Decreased Appetite, Flatus , Nausea, Vomiting. Denies: Black Stool, Bloody Stool, Distension Genitourinary: Reports: No Symptoms Musculoskeletal: Reports: No Symptoms Skin: Denies: Cyanosis, Jaundice, Mottled, Diaphoresis, Bruising, Rash, Erythema , Wound Psychiatric: Reports: Anxiety. Denies: Depression, Cravings, Hallucinations, Suicidal Ideation Neurological: Reports: Tremors, Gait Disturbance. Denies: Seizure, Difficulty Walking, Weakness Hematologic/Lymphatic: Reports: No Symptoms Immunologic: Reports: No Symptoms Exam - Exam Exam: See Below - Vital Signs Vital Signs: Last Vital Signs Temp 37.3 C 02/09/18 08:11 Pulse 129 H 02/09/18 08:21 Resp 20 02/09/18 08:11 BP 131/89 02/09/18 08:35 Pulse Ox 96 02/09/18 08:11 Weight: 72.121 kg - Exam General: Alert, Oriented, Cooperative, Moderate Distress, Other (smells alcohol) HEENT: Conjunctiva Clear, EACs Clear, Hearing Intact, Mucosa Moist & [place], Nares Patent, Normal Nasal Septum, Posterior Pharynx Clear, Pupils Equal, Pupils Reactive. No: EOMI Neck: Supple, Trachea Midline Lungs: Normal Respiratory Effort, Decreased Breath Sounds Cardiovascular: Tachycardia GI/Abdominal Exam: Normal Bowel Sounds, Soft, No Distention, No Abnormal Bruit, No Mass, Tender (mid abdomen), Hepatomegaly, Splenomegaly. No: Guarding, Rigid , Rebound (Female) Exam: Deferred Rectal (Female) Exam: Deferred Back Exam: Normal Inspection, Decreased Range of Motion Extremities: Normal Inspection, Normal Range of Motion, Non-Tender, No Pedal Edema, Normal Capillary Refill Peripheral Pulses: 2+: Posterior Tibial (L), Posterior Tibial (R), Dorsalis Pedis (L), Dorsalis Pedis (R) Skin: Warm, Dry, Intact Neuro Extensive - Mental Status: Normal Cognition, Memory Intact, Slow Response to Commands Neuro Extensive - Motor, Sensory, Reflexes: CN II-XII Intact (limited due to intoxication), Abnormal Gait Psychiatric: Alert, Normal Affect, Anxious, Withdrawal Symptoms. No: Suicidal Ideation, Hallucinations - Patient Data Lab Results Last 24 hrs: Laboratory Results - last 24 hr 02/09/18 02/09/18 02/09/18 Range/Units 03:10 03:10 03:10 WBC 6.04 (3.98-10.04) K/mm3 RBC 4.66 (3.98-5.22) M/mm3 Hgb 15.2 (11.2-15.7) gm/L Hct 42.8 (34.1-44.9) % MCV 91.8 (79.4-94.8) fl MCH 32.6 H (25.6-32.2) pg MCHC 35.5 (32.2-35.5) g/dl RDW Std Deviation 49.0 H (36.4-46.3) fL Plt Count 144 L (182-369) K/mm3 MPV 10.2 (9.4-12.3) fl Neutrophils % (Manual) 53 (40-60) % Band Neutrophils % 0 (0-10) % Lymphocytes % (Manual) 34 (20-40) % Atypical Lymphs % 0 % Monocytes % (Manual) 13 H (2-10) % Eosinophils % (Manual) 0 L (0.7-5.8) % Basophils % (Manual) 0 L (0.1-1.2) Platelet Estimate Adequate Plt Morphology Comment Normal RBC Morph Comment Normal Puncture Site ABG pH (7.35-7.45) ABG pCO2 (35.0-45.0) mmHg ABG pO2 (80.0-100.0) mmHg ABG HCO3 (22.0-26.0) meq/L ABG O2 Saturation (96.0-97.0) % ABG Base Excess (-2-2.0) Jese Test A-a Gradient mmHg O2 Delivery Device FiO2 (21.00-100.00) % Sodium 133 L (136-145) mEq/L Potassium 2.4 L* (3.5-5.1) mEq/L Chloride 88 L (98-107) mEq/L Carbon Dioxide 14 L (21-32) mEq/L Anion Gap 33.4 H (5-15) BUN 25 H (7-18) mg/dL Creatinine 1.4 H (0.55-1.02) mg/dL Est Cr Clr Drug Dosing TNP Estimated GFR (MDRD) 41 (>60) mL/min BUN/Creatinine Ratio 17.9 (14-18) Glucose 181 H (74-106) mg/dL Lactic Acid (0.4-2.0) mmol/L Calcium 8.1 L (8.5-10.1) mg/dL Magnesium 1.0 L (1.8-2.4) mg/dl Total Bilirubin 1.0 (0.2-1.0) mg/dL AST 496 H (15-37) U/L ALT 183 H (14-59) U/L Alkaline Phosphatase 168 H (46-116) U/L Troponin I < 0.017 (0.00-0.056) ng/mL Total Protein 9.5 H (6.4-8.2) g/dl Albumin 4.6 (3.4-5.0) g/dl Globulin 4.9 gm/dL Albumin/Globulin Ratio 0.9 L (1-2) Lipase 230 (73-393) U/L HCG, Qual (NEGATIVE) Urine Color (Yellow) Urine Appearance (Clear) Urine pH (5.0-8.0) Ur Specific [place] (1.005-1.030) Urine Protein (Negative) Urine Glucose (UA) (Negative) Urine Ketones (Negative) Urine Occult Blood (Negative) Urine Nitrite (Negative) Urine Bilirubin (Negative) Urine Urobilinogen (0.2-1.0) Ur Leukocyte Esterase (Negative) Urine RBC (0-5) /hpf Urine WBC (0-5) /hpf Ur Epithelial Cells (0-5) /hpf Amorphous Sediment (NOT SEEN) /hpf Urine Bacteria (FEW) /hpf Hyaline Casts (0-5) /lpf Urine Mucus (FEW) /hpf Urine Opiates Screen (NEGATIVE) Ur Buprenorphine Scrn (NEGATIVE) Ur Oxycodone Screen (NEGATIVE) Urine Methadone Screen (NEGATIVE) Ur Propoxyphene Screen (NEGATIVE) Ur Barbiturates Screen (NEGATIVE) Ur Tricyclics Screen (NEGATIVE) Ur Phencyclidine Scrn (NEGATIVE) Ur Amphetamine Screen (NEGATIVE) U Methamphetamines Scrn (NEGATIVE) U Benzodiazepines Scrn (NEGATIVE) U Cocaine Metab Screen (NEGATIVE) U Marijuana (THC) Screen (NEGATIVE) Ethyl Alcohol 0.09 (0.00) gm% Ketones (0.0-0.3) mM 02/09/18 02/09/18 02/09/18 Range/Units 03:10 03:44 03:44 WBC (3.98-10.04) K/mm3 RBC (3.98-5.22) M/mm3 Hgb (11.2-15.7) gm/L Hct (34.1-44.9) % MCV (79.4-94.8) fl MCH (25.6-32.2) pg MCHC (32.2-35.5) g/dl RDW Std Deviation (36.4-46.3) fL Plt Count (182-369) K/mm3 MPV (9.4-12.3) fl Neutrophils % (Manual) (40-60) % Band Neutrophils % (0-10) % Lymphocytes % (Manual) (20-40) % Atypical Lymphs % % Monocytes % (Manual) (2-10) % Eosinophils % (Manual) (0.7-5.8) % Basophils % (Manual) (0.1-1.2) Platelet Estimate Plt Morphology Comment RBC Morph Comment Puncture Site ABG pH (7.35-7.45) ABG pCO2 (35.0-45.0) mmHg ABG pO2 (80.0-100.0) mmHg ABG HCO3 (22.0-26.0) meq/L ABG O2 Saturation (96.0-97.0) % ABG Base Excess (-2-2.0) Jese Test A-a Gradient mmHg O2 Delivery Device FiO2 (21.00-100.00) % Sodium (136-145) mEq/L Potassium (3.5-5.1) mEq/L Chloride (98-107) mEq/L Carbon Dioxide (21-32) mEq/L Anion Gap (5-15) BUN (7-18) mg/dL Creatinine (0.55-1.02) mg/dL Est Cr Clr Drug Dosing Estimated GFR (MDRD) (>60) mL/min BUN/Creatinine Ratio (14-18) Glucose (74-106) mg/dL Lactic Acid (0.4-2.0) mmol/L Calcium (8.5-10.1) mg/dL Magnesium (1.8-2.4) mg/dl Total Bilirubin (0.2-1.0) mg/dL AST (15-37) U/L ALT (14-59) U/L Alkaline Phosphatase (46-116) U/L Troponin I (0.00-0.056) ng/mL Total Protein (6.4-8.2) g/dl Albumin (3.4-5.0) g/dl Globulin gm/dL Albumin/Globulin Ratio (1-2) Lipase (73-393) U/L HCG, Qual (NEGATIVE) Urine Color Dark yellow (Yellow) Urine Appearance Slt cloudy H (Clear) Urine pH 6.0 (5.0-8.0) Ur Specific [place] > or = 1.030 (1.005-1.030) Urine Protein 3+ H (Negative) Urine Glucose (UA) Negative (Negative) Urine Ketones Negative (Negative) Urine Occult Blood 1+ H (Negative) Urine Nitrite Negative (Negative) Urine Bilirubin 1+ H (Negative) Urine Urobilinogen 1.0 (0.2-1.0) Ur Leukocyte Esterase Negative (Negative) Urine RBC 0-5 (0-5) /hpf Urine WBC 0-5 (0-5) /hpf Ur Epithelial Cells 0-5 (0-5) /hpf Amorphous Sediment Moderate H (NOT SEEN) /hpf Urine Bacteria Rare (FEW) /hpf Hyaline Casts 0-5 (0-5) /lpf Urine Mucus Many H (FEW) /hpf Urine Opiates Screen Negative (NEGATIVE) Ur Buprenorphine Scrn Negative (NEGATIVE) Ur Oxycodone Screen Negative (NEGATIVE) Urine Methadone Screen Negative (NEGATIVE) Ur Propoxyphene Screen Negative (NEGATIVE) Ur Barbiturates Screen Negative (NEGATIVE) Ur Tricyclics Screen Negative (NEGATIVE) Ur Phencyclidine Scrn Negative (NEGATIVE) Ur Amphetamine Screen Negative (NEGATIVE) U Methamphetamines Scrn Negative (NEGATIVE) U Benzodiazepines Scrn Presumptive positive H (NEGATIVE) U Cocaine Metab Screen Negative (NEGATIVE) U Marijuana (THC) Screen Negative (NEGATIVE) Ethyl Alcohol (0.00) gm% Ketones 0.28 (0.0-0.3) mM 02/09/18 02/09/18 02/09/18 Range/Units 04:45 04:55 07:46 WBC (3.98-10.04) K/mm3 RBC (3.98-5.22) M/mm3 Hgb (11.2-15.7) gm/L Hct (34.1-44.9) % MCV (79.4-94.8) fl MCH (25.6-32.2) pg MCHC (32.2-35.5) g/dl RDW Std Deviation (36.4-46.3) fL Plt Count (182-369) K/mm3 MPV (9.4-12.3) fl Neutrophils % (Manual) (40-60) % Band Neutrophils % (0-10) % Lymphocytes % (Manual) (20-40) % Atypical Lymphs % % Monocytes % (Manual) (2-10) % Eosinophils % (Manual) (0.7-5.8) % Basophils % (Manual) (0.1-1.2) Platelet Estimate Plt Morphology Comment RBC Morph Comment Puncture Site Rt radial ABG pH 7.44 (7.35-7.45) ABG pCO2 21.0 L (35.0-45.0) mmHg ABG pO2 79.0 L (80.0-100.0) mmHg ABG HCO3 14.1 L (22.0-26.0) meq/L ABG O2 Saturation 95.3 L (96.0-97.0) % ABG Base Excess -7.5 L (-2-2.0) Jese Test Positive A-a Gradient 29 mmHg O2 Delivery Device Room air FiO2 21.00 (21.00-100.00) % Sodium (136-145) mEq/L Potassium (3.5-5.1) mEq/L Chloride (98-107) mEq/L Carbon Dioxide (21-32) mEq/L Anion Gap (5-15) BUN (7-18) mg/dL Creatinine (0.55-1.02) mg/dL Est Cr Clr Drug Dosing Estimated GFR (MDRD) (>60) mL/min BUN/Creatinine Ratio (14-18) Glucose (74-106) mg/dL Lactic Acid 7.6 H (0.4-2.0) mmol/L Calcium (8.5-10.1) mg/dL Magnesium (1.8-2.4) mg/dl Total Bilirubin (0.2-1.0) mg/dL AST (15-37) U/L ALT (14-59) U/L Alkaline Phosphatase (46-116) U/L Troponin I (0.00-0.056) ng/mL Total Protein (6.4-8.2) g/dl Albumin (3.4-5.0) g/dl Globulin gm/dL Albumin/Globulin Ratio (1-2) Lipase (73-393) U/L HCG, Qual Negative (NEGATIVE) Urine Color (Yellow) Urine Appearance (Clear) Urine pH (5.0-8.0) Ur Specific [place] (1.005-1.030) Urine Protein (Negative) Urine Glucose (UA) (Negative) Urine Ketones (Negative) Urine Occult Blood (Negative) Urine Nitrite (Negative) Urine Bilirubin (Negative) Urine Urobilinogen (0.2-1.0) Ur Leukocyte Esterase (Negative) Urine RBC (0-5) /hpf Urine WBC (0-5) /hpf Ur Epithelial Cells (0-5) /hpf Amorphous Sediment (NOT SEEN) /hpf Urine Bacteria (FEW) /hpf Hyaline Casts (0-5) /lpf Urine Mucus (FEW) /hpf Urine Opiates Screen (NEGATIVE) Ur Buprenorphine Scrn (NEGATIVE) Ur Oxycodone Screen (NEGATIVE) Urine Methadone Screen (NEGATIVE) Ur Propoxyphene Screen (NEGATIVE) Ur Barbiturates Screen (NEGATIVE) Ur Tricyclics Screen (NEGATIVE) Ur Phencyclidine Scrn (NEGATIVE) Ur Amphetamine Screen (NEGATIVE) U Methamphetamines Scrn (NEGATIVE) U Benzodiazepines Scrn (NEGATIVE) U Cocaine Metab Screen (NEGATIVE) U Marijuana (THC) Screen (NEGATIVE) Ethyl Alcohol (0.00) gm% Ketones (0.0-0.3) mM Result Diagrams: 07/16/18 03:10 02/09/18 03:10 EKG INTERPRETATION EKG Date: 02/09/18 Time: 03:37 Rhythm: Other (Sinus Tachycardia) Rate (Beats/Min): 121 [place]: Normal P-Wave: Present QRS: Normal ST-T: Normal QT: Prolonged Comparison: No Change Problem List Initiated/Reviewed/Updated: Yes Orders Last 24hrs: Active Orders 24 hr Category Date Time Status Patient Status [ADT] Routine ADT 02/09/18 09:37 Active CIWAA Assessment [RC] Q4HR Care 02/09/18 07:23 Active EKG Documentation Completion [RC] STAT Care 02/09/18 03:26 Active Height and Weight [RC] 04 Care 02/09/18 07:23 Active Intake and Output [RC] 04,16 Care 02/09/18 07:23 Active Notify Provider Consults [RC] ASDIRECTED Care 02/09/18 07:27 Active Notify Provider [RC] PRN Care 02/09/18 07:23 Active Oxygen Therapy [RC] PRN Care 02/09/18 07:23 Active RT Aerosol Therapy [RC] ASDIRECTED Care 02/09/18 07:25 Active Up ad Niala [RC] ASDIRECTED Care 02/09/18 07:23 Active VTE/DVT Education [RC] PER UNIT ROUTINE Care 02/09/18 07:23 Active Vital Signs [RC] Q4HR Care 02/09/18 07:23 Active Consult for Substance Abuse [CONS] Routine Cons 02/09/18 08:45 Active Consult to Case Management [CONS] Routine Cons 02/09/18 07:23 Active Consult to Wad Lubricator [CONS] Routine Cons 02/09/18 07:23 Active Consult to Physician [CONS] Routine Cons 02/09/18 07:23 Active Consult to Auto Suspension And Steering Mechanic [CONS] Routine Cons 02/09/18 07:23 Active Consult to Spiritual Care [CONS] Routine Cons 02/09/18 07:23 Active Nothing per Oral Now Diet [DIET] Diet 02/09/18 Breakfast Active Abdomen Pelvis w Cont [CT] Routine Exams 02/09/18 10:00 Ordered Chest 1V Frontal [CR] Stat Exams 02/09/18 03:26 Taken CBC WITH AUTO DIFF [HEME] AM Lab 02/10/18 05:11 Ordered CBC WITH AUTO DIFF [HEME] AM Lab 02/11/18 05:11 Ordered CBC WITH AUTO DIFF [HEME] AM Lab 02/12/18 05:11 Ordered COMPREHENSIVE METABOLIC PN,CMP [CHEM] AM Lab 02/10/18 05:11 Ordered COMPREHENSIVE METABOLIC PN,CMP [CHEM] AM Lab 02/11/18 05:11 Ordered COMPREHENSIVE METABOLIC PN,CMP [CHEM] AM Lab 02/12/18 05:11 Ordered DRUG SCREEN, URINE [URCHEM] Stat Lab 02/09/18 03:44 Ordered MAGNESIUM [CHEM] AM Lab 02/10/18 05:11 Ordered MAGNESIUM [CHEM] AM Lab 02/11/18 05:11 Ordered MAGNESIUM [CHEM] AM Lab 02/12/18 05:11 Ordered UA W/MICROSCOPIC [URIN] Stat Lab 02/09/18 03:44 Ordered Albuterol/Ipratropium [DuoNeb 3.0-0.5 MG/3 ML] Med 02/09/18 07:23 Active 3 ml NEB Q4H PRN Bisacodyl [Dulcolax] Med 02/09/18 07:23 Active 5 mg PO DAILY PRN Docusate Sodium [Colace] Med 02/09/18 07:23 Active 100 mg PO BID PRN Docusate Sodium/Sennosides [Senna Plus] Med 02/09/18 07:23 Active 1 tab PO BID PRN Famotidine [Pepcid] Med 02/09/18 21:00 Active 20 mg PO Q12H Folic Acid Med 02/09/18 09:00 Active 1 mg PO DAILY HYDROmorphone [Dilaudid] Med 02/09/18 07:23 Active 0.25 mg IVPUSH Q2H PRN Haloperidol Lactate [Haldol] Med 02/09/18 07:23 Active 2 mg IM Q4H PRN Ibuprofen [Motrin] Med 02/09/18 07:23 Active 600 mg PO Q6H PRN LORazepam [Ativan] Med 02/09/18 07:31 Active 2 mg IVPUSH Q4H PRN Levothyroxine Med 02/09/18 08:00 Active 125 mcg PO ACBREAKFAST Lisinopril/Hydrochlorothiazide [Lisinopril-Hctz 20-12.5 Med 02/09/18 09:00 Pending mg Tab] 12.5 - 25 mg PO DAILY Magnesium Rep Pharmacy to Dose [Pharmacy to Dose - Med 02/09/18 07:45 Active Magnesium Replacement] 0 dose .XX ASDIRECTED PRN Metoprolol Tartrate [Lopressor] Med 02/09/18 07:31 Active 5 mg IVPUSH Q4H PRN Multivitamins,Therapeutic [Thera] Med 02/09/18 09:00 Active 1 each PO DAILY Nicotine [Habitrol] Med 02/09/18 09:00 Active 21 mg TRDERM DAILY PRN Ondansetron [Zofran] Med 02/09/18 07:23 Active 4 mg IV Q6H PRN Polyethylene Glycol 3350 [MiraLAX] Med 02/09/18 07:23 Active 17 gm PO DAILY PRN Potassium Rep Pharmacy to Dose [Pharmacy to Dose - Med 02/09/18 07:45 Active Potassium Replacement] 0 dose .XX ASDIRECTED PRN Promethazine [Phenergan] 12.5 mg Med 02/09/18 07:23 Active Sodium Chloride 0.9% [Normal Saline] 50 ml IV Q6H QUEtiapine [SEROquel] Med 02/09/18 21:00 Active 50 mg PO BEDTIME Remove Patch Med 02/10/18 09:00 Active 0 ea TRDERM DAILY Thiamine [Vitamin B-1] Med 02/10/18 09:00 Active 100 mg PO DAILY Topiramate [Topamax] Med 02/09/18 09:00 Active 25 mg PO BID chlordiazePOXIDE [Librium] Med 02/09/18 07:23 Active 25 mg PO Q8H PRN cloNIDine [Catapres] Med 02/09/18 07:23 Active 0.1 mg PO Q4H PRN hydrALAZINE [Apresoline] Med 02/09/18 07:31 Active 20 mg IVPUSH Q4H PRN oxyCODONE Med 02/09/18 07:23 Active 5 mg PO Q4H PRN Seizure Precautions [OM.PC] Routine Oth 02/09/18 07:23 Ordered Sequential Compression Device [OM.PC] Per Unit Routine Oth 02/09/18 07:24 Ordered Resuscitation Status Routine Resus Stat 02/09/18 07:23 Ordered Medication Orders Albuterol/Ipratropium (Duoneb 3.0-0.5 Mg/3 Ml) 3 ml NEB Q4H PRN PRN Reason: Shortness Of Breath/wheezing Bisacodyl (Dulcolax) 5 mg PO DAILY PRN PRN Reason: Constipation Chlordiazepoxide HCl (Librium) 25 mg PO Q8H PRN PRN Reason: Withdrawal Symptoms Clonidine HCl (Catapres) 0.1 mg PO Q4H PRN PRN Reason: Agitation Last Admin: 02/09/18 08:34 Dose: 0.1 mg Docusate Sodium (Colace) 100 mg PO BID PRN PRN Reason: Constipation Famotidine (Pepcid) 20 mg PO Q12H [place] Folic Acid (Folic Acid) 1 mg PO DAILY [facility] Stop: 02/11/18 09:01 Last Admin: 02/09/18 08:55 Dose: 1 mg Haloperidol Lactate (Haldol) 2 mg IM Q4H PRN PRN Reason: Agitation Hydralazine HCl (Apresoline) 20 mg IVPUSH Q4H PRN PRN Reason: Hypertension Hydromorphone HCl (Dilaudid) 0.25 mg IVPUSH Q2H PRN PRN Reason: Pain (severe 7-10) Last Admin: 02/09/18 09:27 Dose: 0.25 mg Admin: 02/09/18 08:06 Dose: 0.25 mg Promethazine HCl 12.5 mg/ (Sodium Chloride) 50.5 mls @ 100 mls/hr IV Q6H PRN PRN Reason: Nausea/Vomiting Last Admin: 02/09/18 08:29 Dose: 100 mls/hr Ibuprofen (Motrin) 600 mg PO Q6H PRN PRN Reason: Pain (moderate 4-6) Levothyroxine Sodium (Levothyroxine) 125 mcg PO ACBREAKFAST [facility] Last Admin: 02/09/18 08:59 Dose: 125 mcg Lorazepam (Ativan) 2 mg IVPUSH Q4H PRN PRN Reason: Seizures Magnesium Sulfate (Pharmacy To Dose - Magnesium Replacement) 0 dose .XX ASDIRECTED PRN PRN Reason: RX TO WATCH MAG LEVELS Metoprolol Tartrate (Lopressor) 5 mg IVPUSH Q4H PRN PRN Reason: Tachycardia Last Admin: 02/09/18 08:21 Dose: 5 mg Miscellaneous Information (Remove Patch) 0 ea TRDERM DAILY [facility] Multivitamins (Thera) 1 each PO DAILY [place] Stop: 02/11/18 09:01 Last Admin: 02/09/18 08:55 Dose: 1 each Nicotine (Habitrol) 21 mg TRDERM DAILY PRN PRN Reason: Nicotine Dependence Non-Formulary Medication (Lisinopril/Hydrochlorothiazide [Lisinopril-Hctz 20- 12.5 Mg Tab]) 12.5 - 25 mg PO DAILY [facility] Ondansetron HCl (Zofran) 4 mg IV Q6H PRN PRN Reason: Nausea/Vomiting Oxycodone HCl (Oxycodone) 5 mg PO Q4H PRN PRN Reason: Pain (moderate 4-6) Polyethylene Glycol (Miralax) 17 gm PO DAILY PRN PRN Reason: Constipation Potassium Chloride (Pharmacy To Dose - Potassium Replacement) 0 dose .XX ASDIRECTED PRN PRN Reason: RX TO WATCH K LEVELS Quetiapine Fumarate (Seroquel) 50 mg PO BEDTIME [facility] Senna/Docusate Sodium (Senna Plus) 1 tab PO BID PRN PRN Reason: Constipation Thiamine HCl (Vitamin B-1) 100 mg PO DAILY [facility] Topiramate (Topamax) 25 mg PO BID [facility] Last Admin: 02/09/18 08:59 Dose: 25 mg Assessment/Plan Comment:: Assessment/Plan: Acute: ETOH Withdrawal Symptoms - STEFANIE level 0.09 - [facility] protocol: CIWA score is markedly elevated - Ativan/Librium/Clonidine/Topamax/Seroquel - Hydralazine and IVP BB for HR/BP control - Ativan for Abortive Seizure and Withdrawal Symptoms Opioid and Narcotic Dependence - UDS: Benzo - PDMP of [place] shows high level use of both drugs - Counseled on Substance Abuse - SA/Psych consult Chronic ETOH Use/Dependence - CIWA protocol - SA consult Transaminitis - AST/ALT: 496/183 - Likely 2/2 ETOH Abuse - Hepatitis panel ordered (this may take a week); she reports hx/o untreated hep C infection in the past - Abdomen/Pelvis CT scan report reads severe fatty infiltration throughout the liver - Drinks 1 L of vodka a day Electrolytes Abnormality - Hypokalemia - K 2.4 - 2/2 Poor nutritional state and oral intake - Replete and monitor - Hypomagnesemia - Mg 1.0 - 2/2 Poor nutritional state and oral intake - Replete and monitor Moderate Dehydration - 2/2 ETOH Abuse - BUN/Cr: 33.4/1.4 - US Specific gravity is > or = 1.030 Abdominal Pain - 2/2 Colitis - Abdomen/Pelvis CT scan report reads bowel edema within the right cecum and right colon suggesting colitis. No small bowel dilatation no free fluid or inflammatory changes seen. Chronic: HTN HLD GERD OA/DJD Back Pain Hypothyroidism Hepato-splenomegaly EV Fatty Infiltration 2/2 Chronic ETOH Use Hx/o Hepatitis C Infection w/o Treatment S/p Cholecystectomy Obesity Plan: Admit to ICU MVI, Folic Acid and Thiamine CIWA protocol Screen for DM Thyroid and Lipid Panel Hepatitis Panel Ativan for Abortive Seizure and Withdrawal Symptoms PRN meds for Withdrawal Symptoms Aspiration/Seizure Precautions SW/CM d/c planning SA/Psych consult Code Status: 1
[2018-02-09] MEDS ORDERED: Diatrizoate Meglumine/Diatrizoate Sodium 37% 120 ML Bottle PO ONE (10:06)
[2018-02-09] MEDS ORDERED: Iopamidol 612 MG/ML 100 ML Bottle IVPUSH ONE (10:06)
[2018-02-09] MEDS: Sodium Chloride 0.9% 10 ML Syringe FLUSH ONE ×2 (10:12→12:28)
[2018-02-09] MEDS: oxyCODONE 5 MG Tab PO PRN ×3 (11:01→20:16)
[2018-02-09] MEDS: chlordiazePOXIDE 25 MG Cap PO PRN (11:07)
--- NOTE | 2018-02-09 11:19 | CR ---
Chest: Portable view of the chest was obtained. Comparison: Prior chest x-ray of 11/19/17. Heart size and mediastinum are within normal limits. Lungs are clear with no acute parenchymal change. Bony structures are grossly intact. Minimal scoliosis is incidentally noted. Surgical clips are seen from prior cholecystectomy. Impression: 1. Incidental findings. Nothing acute is appreciated on portable chest x-ray. Diagnostic code #1
--- NOTE | 2018-02-09 11:19 | CT ---
CT abdomen and pelvis Technique: Multiple axial sections were obtained from above the dome of the diaphragm inferiorly through the pubic symphysis. Intravenous and oral contrast was utilized. Delayed images were also obtained through the bladder. Comparison: Prior CT of abdomen and pelvis exam of 02/21/16. Findings: Visualized lung bases show nothing acute. Incidental calcified granuloma is seen within the right base. Severe fatty infiltration is seen throughout the liver which is more prominent than on prior exam. Liver is also generous in size. Surgical clips seen from prior cholecystectomy. Spleen appears within normal limits. Adrenal glands show no nodule. Kidneys show symmetric contrast enhancement without hydronephrosis or mass. Pancreas appears within normal limits. Aorta shows no aneurysmal dilatation. No retroperitoneal adenopathy or mesenteric abnormalities are seen. No pelvic mass or adenopathy is seen. Colon is not well evaluated as no contrast is seen within the colon. There does appear to be bowel wall edema within the cecum and right colon suggesting colitis. No small bowel dilatation is seen. No free fluid or inflammatory change is seen. Impression: 1. Colon not well evaluated due to lack of contrast within the colon. 2. Appearance of wall edema within the cecum and right colon suspicious for colitis. 3. Severe fatty infiltration within the liver as well as hepatomegaly. 4. Other incidental findings as noted above. Diagnostic code #3
[2018-02-09] MEDS: Hydrochlorothiazide 12.5 MG Cap PO SCH (11:32)
[2018-02-09] MEDS: Lisinopril 20 MG Tab PO SCH (11:32)
[2018-02-09] MEDS ORDERED: diphenhydrAMINE 50 MG/ML SDV IVPUSH ONE (12:25)
[2018-02-09] MEDS ORDERED: Saccharomyces Boulardii (Probiotic) 250 MG Cap PO STA (12:48)
[2018-02-09] MEDS: metroNIDAZOLE/Normal Saline 500 MG in Premix Bag 1 BAG IV SCH ×2 (13:16→20:17)
[2018-02-09] MEDS ORDERED: Levofloxacin/Dextrose 5%-Water 500 MG in Premix Bag 1 BAG IV SCH (14:00)
[2018-02-09] MEDS: Famotidine 20 MG Tab PO SCH (20:17)
[2018-02-09] MEDS: QUEtiapine 25 MG Tab PO SCH (20:17)
[2018-02-10] MEDS: oxyCODONE 5 MG Tab PO PRN ×3 (02:18→18:17)
--- NOTE | 2018-02-10 04:59 | CONS ---
CONSULTING PHYSICIAN: Jared Vail MD DATE OF CONSULTATION: 02/09/2018 PSYCHIATRIC CONSULTATION This is a 60-minute inpatient clinical event. IDENTIFICATION: The patient is a 42-year-old female who was admitted to the MICU at [facility] in [place], [place]. She is seen for psychiatric evaluation. CHIEF COMPLAINT: "My stomach was hurting real bad. I have problems with depression." HISTORY OF PRESENT ILLNESS: The patient is a 42-year-old female who reports that she was having physical health issues involving stomach pains and cramping of her extremities. She states that she sought help because her physical health issues were getting so bad. She states that complicating her clinical picture is that she has been drinking alcohol quite heavily. She states that she drinks because "I have depression." She also states that she has anxiety. She states that the alcohol for a long time was the only thing that seemed to help her. She states that she tried to take "depression pills, but they made me feel so much worse." She wants to get help with the depression, but she is afraid that if she takes medications for her depression that she will feel worse again like she did when she took the antidepressants previously. She denies that she is suicidal or homicidal. She denies any psychotic, delusional, or paranoid symptoms, but she does report racing thoughts and ruminations off to the point of distraction. She reports poor sleep patterns and poor memory in general although she is alert and oriented x3. She is open to trying something as long as it will help her feel better and she does recognize that the drinking is an issue and she wants to stop drinking going forward. MEDICATIONS: At time of admission: 1. Ativan 1 mg daily. 2. Antihypertensive. ALLERGIES: 1. Penicillin. 2. Sulfa. PAST MEDICAL HISTORY: 1. History of colitis, particularly in the right cecum. 2. History of hypothyroidism. REVIEW OF SYSTEMS: Aside from GI and endocrine, all other major organ systems are negative at this point in time for acute difficulties or complications. FAMILY PSYCHIATRIC AND CD HISTORY: None reported. PAST PSYCHIATRIC AND CD HISTORY: The patient denies any previous psychiatric hospitalizations or chemical dependency treatments. She reports no past suicide attempts. States that she was taking antidepressants before for depression, but does not remember the names. Currently, taking Ativan for anxiety. SOCIAL HISTORY: The patient was born in [place]. She is currently living in [place] for the past number of years. She is . 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 MENTAL STATUS EXAM: The patient is a 42-year-old soft-spoken female in no apparent distress. Speech is of regular rate and rhythm. The patient is cognitively oriented x3. Psychomotor activity is within normal limits. There is no abnormal motor movements or tics observed. Gait and station are not observed. This patient is lying in bed during the course of the interview. Mood is depressed. Affect is consistent with stated mood, but cooperative overall for the purposes of the inpatient consult. There is no behavioral or stated evidence of acute suicidal or homicidal ideation or acute psychotic, delusional, or paranoid symptoms. Thought processes are significant for racing thoughts and ruminations. However, there are no acute manic symptoms or loose associations evident. Judgment and insight are perhaps poor into the severity of her alcohol dependence, but unimpaired overall. Motivation for help appears good. VITALS: 91/67, 88, 15, 97.8 degrees. IMPRESSION: Rutherford I: 1. Alcohol dependence F10.20. 2. Bipolar affective disease, mixed type F31.60. 3. Anxiety disorder, not otherwise specified F41.9. Rutherford II: None. Rutherford III: 1. Colitis complications particularly in the right cecum. 2. History of hypothyroidism. 3. Signs and symptoms of possible alcohol withdrawal. Rutherford IV: Severe. Rutherford V: 55 to 60. PLAN: 1. Sobriety. 2. AA rep to visit the patient while in unit. 3. CD consult to explore treatment resources for patients that also may be Malaysian-speaking in nature. 4. Pastoral guidance. 5. Ativan per CIWA protocol. 6. Thiamine supplementation. 7. Folic acid supplementation. 8. Begin Seroquel 50 mg at bedtime to help with clarity of thought, sleep initiation, and maintenance and anxiety reduction as well as mood stability. 9. Begin Topamax 25 mg b.i.d. for anxiety reduction and mood instability. 10.We will continue to follow up with the patient on an as-needed basis while she remains on the inpatient MICU. 11.We will follow up with the patient sooner if any complications in the interim. 12.Crisis plan is in place. MMODAL /[id number]
[2018-02-10] MEDS: metroNIDAZOLE/Normal Saline 500 MG in Premix Bag 1 BAG IV SCH (05:16)
[2018-02-10] MEDS: Levothyroxine 125 MCG Tab PO SCH (05:17)
[2018-02-10] MEDS: HYDROmorphone 0.5 MG/0.5 ML SYRINGE IVPUSH PRN ×3 (05:34→15:56)
--- NOTE | 2018-02-10 07:38 | PCM.PN ---
- General Info Date of Service: 02/10/18 Admission Dx/Problem (Free Text): Admission Diagnosis/Problem Admission Diagnosis/Problem Hypokalemia Subjective Update: Follow Up Functional Status: Reports: Pain Controlled, Ambulating, Urinating. Denies: Tolerating Diet - Review of Systems General: Denies: Fever, Chills HEENT: Reports: No Symptoms Pulmonary: Denies: Shortness of Breath Cardiovascular: Denies: Chest Pain Gastrointestinal: Reports: Abdominal Pain, Flatus. Denies: Difficulty Swallowing, Nausea, Vomiting Genitourinary: Reports: No Symptoms Musculoskeletal: Reports: No Symptoms Skin: Denies: Mottled, Pallor, Diaphoresis, Pruritis Neurological: Denies: Confusion, Dizziness, Numbness, Seizure, Tremors, Difficulty Walking, Weakness, Change in Speech, Gait Disturbance Psychiatric: Denies: Depression, Anxiety, Agitation, Cravings, Hallucinations Systems Review Comment:: She did not sleep well last night, only 4 hrs according to her. She still has abdominal pain and rates it at 9/10. She tells me her oral pill is not cutting her pain down and her night nurse informs me she has been asking for pain meds Q2H pretty much overnight. Her CIWA has been zero throughout the night. She is passing gas. Her BP remains in the borderline range. She wants more pain meds and request for a beef broth (omid). Her lipid panel is abnormal TSH is considerably high with FT4 level of 0.38. - Patient Data Vitals - Most Recent: Last Vital Signs Temp 36.8 C 02/10/18 03:45 Pulse 92 02/10/18 03:45 Resp 17 02/10/18 03:45 BP 100/71 02/10/18 03:45 Pulse Ox 96 02/10/18 03:45 Weight - Most Recent: 72.575 kg I&O - Last 24 Hours: Intake & Output 02/09/18 02/10/18 02/10/18 22:59 06:59 14:59 Intake Total 290 210 Output Total 200 1050 Balance 90 -840 Lab Results Last 24 Hours: Laboratory Results - last 24 hr 02/09/18 02/09/18 02/09/18 Range/Units 03:10 03:10 07:46 WBC (3.98-10.04) K/mm3 RBC (3.98-5.22) M/mm3 Hgb (11.2-15.7) gm/L Hct (34.1-44.9) % MCV (79.4-94.8) fl MCH (25.6-32.2) pg MCHC (32.2-35.5) g/dl RDW Std Deviation (36.4-46.3) fL Plt Count (182-369) K/mm3 MPV (9.4-12.3) fl Neut % (Auto) (34.0-71.1) % Lymph % (Auto) (19.3-51.7) % Bertie % (Auto) (4.7-12.5) % Eos % (Auto) (0.7-5.8) Baso % (Auto) (0.1-1.2) % Neut # (Auto) (1.56-6.13) K/mm3 Lymph # (Auto) (1.18-3.74) K/mm3 Bertie # (Auto) (0.24-0.36) K/mm3 Eos # (Auto) (0.04-0.36) K/mm3 Baso # (Auto) (0.01-0.08) K/mm3 Manual Slide Review Hemoglobin A1c 5.30 (4.50-6.20) % Free T4 0.38 L (0.76-1.46) ng/dL TSH 3rd Generation 61.610 H (0.358-3.74) uIU/mL HCG, Qual Negative (NEGATIVE) C.difficile [id number]-[id number] C. difficile Tox (PCR) 02/09/18 02/10/18 Range/Units 13:20 06:35 WBC 3.31 L (3.98-10.04) K/mm3 RBC 3.65 L (3.98-5.22) M/mm3 Hgb 11.9 (11.2-15.7) gm/L Hct 34.7 (34.1-44.9) % MCV 95.1 H (79.4-94.8) fl MCH 32.6 H (25.6-32.2) pg MCHC 34.3 (32.2-35.5) g/dl RDW Std Deviation 50.6 H (36.4-46.3) fL Plt Count 70 L (182-369) K/mm3 MPV 10.6 (9.4-12.3) fl Neut % (Auto) 49.5 (34.0-71.1) % Lymph % (Auto) 36.3 (19.3-51.7) % Bertie % (Auto) 12.7 H (4.7-12.5) % Eos % (Auto) 0.6 L (0.7-5.8) Baso % (Auto) 0.6 (0.1-1.2) % Neut # (Auto) 1.64 (1.56-6.13) K/mm3 Lymph # (Auto) 1.20 (1.18-3.74) K/mm3 Bertie # (Auto) 0.42 H (0.24-0.36) K/mm3 Eos # (Auto) 0.02 L (0.04-0.36) K/mm3 Baso # (Auto) 0.02 (0.01-0.08) K/mm3 Manual Slide Review Abnormal smear Hemoglobin A1c (4.50-6.20) % Free T4 (0.76-1.46) ng/dL TSH 3rd Generation (0.358-3.74) uIU/mL HCG, Qual (NEGATIVE) C.difficile [id number]-[id number] Presumptive negative C. difficile Tox (PCR) Positive H Med Orders - Current: Current Medications Albuterol/Ipratropium (Duoneb 3.0-0.5 Mg/3 Ml) 3 ml NEB Q4H PRN PRN Reason: Shortness Of Breath/wheezing Bisacodyl (Dulcolax) 5 mg PO DAILY PRN PRN Reason: Constipation Chlordiazepoxide HCl (Librium) 25 mg PO Q8H PRN PRN Reason: Withdrawal Symptoms Last Admin: 02/09/18 11:07 Dose: 25 mg Clonidine HCl (Catapres) 0.1 mg PO Q4H PRN PRN Reason: Agitation Last Admin: 02/09/18 08:34 Dose: 0.1 mg Docusate Sodium (Colace) 100 mg PO BID PRN PRN Reason: Constipation Famotidine (Pepcid) 20 mg PO Q12H [facility] Last Admin: 02/09/18 20:17 Dose: 20 mg Folic Acid (Folic Acid) 1 mg PO DAILY [facility] Stop: 02/11/18 09:01 Last Admin: 02/09/18 08:55 Dose: 1 mg Haloperidol Lactate (Haldol) 2 mg IM Q4H PRN PRN Reason: Agitation Hydralazine HCl (Apresoline) 20 mg IVPUSH Q4H PRN PRN Reason: Hypertension Hydrochlorothiazide (Hydrochlorothiazide) 12.5 mg PO DAILY [facility] Last Admin: 02/09/18 11:32 Dose: 12.5 mg Hydromorphone HCl (Dilaudid) 0.25 mg IVPUSH Q2H PRN PRN Reason: Pain (severe 7-10) Last Admin: 02/10/18 05:34 Dose: 0.25 mg Promethazine HCl 12.5 mg/ (Sodium Chloride) 50.5 mls @ 100 mls/hr IV Q6H PRN PRN Reason: Nausea/Vomiting Last Admin: 02/09/18 08:29 Dose: 100 mls/hr Levofloxacin/Dextrose 500 mg/ (Premix) 100 mls @ 100 mls/hr IV Q24H [facility] Last Admin: 02/09/18 14:17 Dose: 100 mls/hr Metronidazole 500 mg/ Premix 100 mls @ 100 mls/hr IV Q8H [facility] Last Admin: 02/10/18 05:16 Dose: 100 mls/hr Ibuprofen (Motrin) 600 mg PO Q6H PRN PRN Reason: Pain (moderate 4-6) Levothyroxine Sodium (Levothyroxine) 125 mcg PO ACBREAKFAST [facility] Last Admin: 02/10/18 05:17 Dose: 125 mcg Lisinopril (Prinivil) 20 mg PO DAILY [facility] Last Admin: 02/09/18 11:32 Dose: 20 mg Lorazepam (Ativan) 2 mg IVPUSH Q4H PRN PRN Reason: Seizures Magnesium Sulfate (Pharmacy To Dose - Magnesium Replacement) 0 dose .XX ASDIRECTED PRN PRN Reason: RX TO WATCH MAG LEVELS Metoprolol Tartrate (Lopressor) 5 mg IVPUSH Q4H PRN PRN Reason: Tachycardia Last Admin: 02/09/18 08:21 Dose: 5 mg Miscellaneous Information (Remove Patch) 0 ea TRDERM DAILY [facility] Multivitamins (Thera) 1 each PO DAILY [facility] Stop: 02/11/18 09:01 Last Admin: 02/09/18 08:55 Dose: 1 each Nicotine (Habitrol) 21 mg TRDERM DAILY PRN PRN Reason: Nicotine Dependence Ondansetron HCl (Zofran) 4 mg IV Q6H PRN PRN Reason: Nausea/Vomiting Oxycodone HCl (Oxycodone) 5 mg PO Q4H PRN PRN Reason: Pain (moderate 4-6) Last Admin: 02/10/18 02:18 Dose: 5 mg Polyethylene Glycol (Miralax) 17 gm PO DAILY PRN PRN Reason: Constipation Potassium Chloride (Pharmacy To Dose - Potassium Replacement) 0 dose .XX ASDIRECTED PRN PRN Reason: RX TO WATCH K LEVELS Quetiapine Fumarate (Seroquel) 50 mg PO BEDTIME [facility] Last Admin: 02/09/18 20:17 Dose: 50 mg Saccharomyces Boulardii (Florastor) 250 mg PO BID [facility] Senna/Docusate Sodium (Senna Plus) 1 tab PO BID PRN PRN Reason: Constipation Thiamine HCl (Vitamin B-1) 100 mg PO DAILY [facility] Topiramate (Topamax) 25 mg PO BID [facility] Last Admin: 02/09/18 20:17 Dose: 25 mg Discontinued Medications Al Hydroxide/Mg Hydroxide 30 (ml/ Lidocaine HCl 15 ml) 0 ml PO ONETIME STA Stop: 02/09/18 05:56 Last Admin: 02/09/18 06:15 Dose: 45 ml Diatrizoate Meglum/Diatrizoate Sod (Gastrografin 37%) 90 ml PO ONETIME ONE Stop: 02/09/18 10:07 Last Admin: 02/09/18 10:19 Dose: 90 ml Diphenhydramine HCl (Benadryl) 50 mg IVPUSH ONETIME ONE Stop: 02/09/18 12:26 Last Admin: 02/09/18 12:29 Dose: 50 mg Famotidine (Pepcid) 20 mg IVPUSH ONETIME ONE Stop: 02/09/18 05:55 Last Admin: 02/09/18 06:16 Dose: 20 mg Sodium Chloride (Normal Saline) 1,000 mls @ 150 mls/hr IV ASDIRECTED [facility] Last Admin: 02/09/18 03:37 Dose: 150 mls/hr Potassium Chloride 10 meq/ (Premix) 100 mls @ 100 mls/hr IV ONETIME STA Stop: 02/09/18 05:12 Last Admin: 02/09/18 04:21 Dose: 100 mls/hr Magnesium Sulfate 2 gm/ Premix 50 mls @ 50 mls/hr IV ONETIME ONE Stop: 02/09/18 06:06 Last Admin: 02/09/18 05:36 Dose: 50 mls/hr Sodium Chloride (Normal Saline) 1,000 mls @ 999 mls/hr IV ONETIME ONE Stop: 02/09/18 06:43 Last Admin: 02/09/18 06:26 Dose: 999 mls/hr Sodium Chloride (Normal Saline) 500 mls @ 999 mls/hr IV .BOLUS ONE Stop: 02/09/18 07:52 Last Admin: 02/09/18 08:07 Dose: 999 mls/hr Thiamine HCl 100 mg/ Sodium (Chloride) 51 mls @ 100 mls/hr IV ONETIME ONE Stop: 02/09/18 09:30 Last Admin: 02/09/18 09:00 Dose: 100 mls/hr Iopamidol (Isovue-300 (61%)) 100 ml IVPUSH ONETIME ONE Stop: 02/09/18 10:07 Last Admin: 02/09/18 10:12 Dose: 100 ml Ondansetron HCl (Zofran) 4 mg IVPUSH ONETIME ONE Stop: 02/09/18 03:26 Last Admin: 02/09/18 03:37 Dose: 4 mg Ondansetron HCl (Zofran) 4 mg IVPUSH ONETIME ONE Stop: 02/09/18 04:43 Last Admin: 02/09/18 04:48 Dose: 4 mg Pantoprazole Sodium (Protonix Iv) 40 mg IV ONETIME ONE Stop: 02/09/18 08:01 Last Admin: 02/09/18 08:20 Dose: 40 mg Quetiapine Fumarate (Seroquel) 50 mg PO ONETIME ONE Stop: 02/09/18 08:44 Last Admin: 02/09/18 08:58 Dose: 50 mg Saccharomyces Boulardii (Florastor) 250 mg PO NOW STA Stop: 02/09/18 12:49 Last Admin: 02/09/18 13:04 Dose: 250 mg Sodium Chloride (Saline Flush) 10 ml FLUSH ONETIME ONE Stop: 02/09/18 10:07 Last Admin: 02/09/18 12:28 Dose: 10 ml - Exam General: Alert, Oriented, Cooperative, No Acute Distress HEENT: Pupils Equal, Pupils Reactive, EOMI, Mucous Membr. Moist/[place] Neck: Supple, Trachea Midline Lungs: Normal Respiratory Effort, Decreased Breath Sounds Cardiovascular: Regular Rate, Regular Rhythm GI/Abdominal Exam: Normal Bowel Sounds, Soft, No Distention, No Abnormal Bruit, No Mass, Tender (RUQ), Hepatomegaly, Splenomegaly (Female) Exam: Deferred Back Exam: Normal Inspection, Decreased Range of Motion Extremities: Normal Inspection, Normal Range of Motion, Non-Tender, No Pedal Edema, Normal Capillary Refill Peripheral Pulses: 2+: Dorsalis Pedis (L), Dorsalis Pedis (R) Skin: Warm, Dry, Intact Neurological: No New Focal Deficit Psy/Mental Status: Alert, Normal Affect, Normal Mood. No: Anxious, Agitated, Suicidal Ideation, Hallucinations, Withdrawal Symptoms - Problem List Review Problem List Initiated/Reviewed/Updated: Yes - My Orders Last 24 Hours: My Active Orders 02/09/18 07:23 CIWAA Assessment [RC] Q4HR Height and Weight [RC] 04 Intake and Output [RC] 04,16 Notify Provider [RC] PRN Oxygen Therapy [RC] PRN Up ad Naila [RC] ASDIRECTED VTE/DVT Education [RC] PER UNIT ROUTINE Vital Signs [RC] Q4HR Consult to Case Management [CONS] Routine Consult to Legal Manager [CONS] Routine Consult to Physician [CONS] Routine Consult to Pipe Out Worker [CONS] Routine Consult to Spiritual Care [CONS] Routine Albuterol/Ipratropium [DuoNeb 3.0-0.5 MG/3 ML] 3 ml NEB Q4H PRN Bisacodyl [Dulcolax] 5 mg PO DAILY PRN Docusate Sodium [Colace] 100 mg PO BID PRN Docusate Sodium/Sennosides [Senna Plus] 1 tab PO BID PRN HYDROmorphone [Dilaudid] 0.25 mg IVPUSH Q2H PRN Haloperidol Lactate [Haldol] 2 mg IM Q4H PRN Ibuprofen [Motrin] 600 mg PO Q6H PRN Ondansetron [Zofran] 4 mg IV Q6H PRN Polyethylene Glycol 3350 [MiraLAX] 17 gm PO DAILY PRN Promethazine [Phenergan] 12.5 mg Sodium Chloride 0.9% [Normal Saline] 50 ml IV Q6H chlordiazePOXIDE [Librium] 25 mg PO Q8H PRN cloNIDine [Catapres] 0.1 mg PO Q4H PRN oxyCODONE 5 mg PO Q4H PRN Seizure Precautions [OM.PC] Routine Resuscitation Status Routine 02/09/18 07:24 Sequential Compression Device [OM.PC] Per Unit Routine 02/09/18 07:25 RT Aerosol Therapy [RC] ASDIRECTED 02/09/18 07:27 Notify Provider Consults [RC] ASDIRECTED 02/09/18 07:31 LORazepam [Ativan] 2 mg IVPUSH Q4H PRN Metoprolol Tartrate [Lopressor] 5 mg IVPUSH Q4H PRN hydrALAZINE [Apresoline] 20 mg IVPUSH Q4H PRN 02/09/18 07:45 Magnesium Rep Pharmacy to Dose [Pharmacy to Dose - Magnesium Replacement] 0 dose .XX ASDIRECTED PRN Potassium Rep Pharmacy to Dose [Pharmacy to Dose - Potassium Replacement] 0 dose .XX ASDIRECTED PRN 02/09/18 07:46 HEPATITIS PANEL (4) [REF] Stat 02/09/18 08:00 Levothyroxine 125 mcg PO ACBREAKFAST 02/09/18 08:45 Consult for Substance Abuse [CONS] Routine 02/09/18 09:00 Folic Acid 1 mg PO DAILY Multivitamins,Therapeutic [Thera] 1 each PO DAILY Nicotine [Habitrol] 21 mg TRDERM DAILY PRN Topiramate [Topamax] 25 mg PO BID 02/09/18 09:37 Patient Status [ADT] Routine 02/09/18 11:30 Hydrochlorothiazide 12.5 mg PO DAILY Lisinopril [Prinivil] 20 mg PO DAILY 02/09/18 13:00 metroNIDAZOLE/Normal Saline [Flagyl 500 MG in NS 100 ML] 500 mg Premix Bag 1 bag IV Q8H 02/09/18 13:20 C DIFFICILE BY PCR W/NAP1 [MOLEC] Stat 02/09/18 14:00 Levofloxacin/Dextrose 5%-Water [Levaquin in D5W 500 MG/100 ML] 500 mg Premix Bag 1 bag IV Q24H 02/09/18 21:00 Famotidine [Pepcid] 20 mg PO Q12H QUEtiapine [SEROquel] 50 mg PO BEDTIME 02/09/18 Breakfast Nothing per Oral Now Diet [DIET] 02/10/18 06:35 COMPREHENSIVE METABOLIC PN,CMP [CHEM] AM LIPID PANEL [CHEM] AM MAGNESIUM [CHEM] AM 02/10/18 09:00 Remove Patch 0 ea TRDERM DAILY Saccharomyces Boulardii [Florastor] 250 mg PO BID Thiamine [Vitamin B-1] 100 mg PO DAILY 02/11/18 05:11 CBC WITH AUTO DIFF [HEME] AM COMPREHENSIVE METABOLIC PN,CMP [CHEM] AM MAGNESIUM [CHEM] AM 02/12/18 05:11 CBC WITH AUTO DIFF [HEME] AM COMPREHENSIVE METABOLIC PN,CMP [CHEM] AM MAGNESIUM [CHEM] AM - Plan Plan:: Assessment/Plan: Acute: ETOH Withdrawal Symptoms - STEFANIE level 0.09 - CIWA protocol: CIWA score has significantly improved due to medications - Ativan/Librium/Clonidine/Topamax/Seroquel - Hydralazine and IVP BB for HR/BP control - Ativan for Abortive Seizure and Withdrawal Symptoms Opioid and Narcotic Dependence - UDS: Benzo - PDMP of [place] shows high level use of both drugs - Counseled on Substance Abuse - SA/Psych consult Chronic ETOH Use/Dependence - CIWA protocol - SA consult Transaminitis, Improving - AST/ALT: 496/183--> now 266/112 - Likely 2/2 ETOH Abuse - Hepatitis panel ordered (this may take a week); she reports hx/o untreated hep C infection in the past - Abdomen/Pelvis CT scan report reads severe fatty infiltration throughout the liver - Drinks 1 L of vodka a day Hypokalemia - K 2.4--> > level this AM - 2/2 Poor nutritional state and oral intake - Replete and monitor Abdominal Pain - 2/2 C. Diff Colitis - D/c IV Levaquin and Flagyl Q8H; Start Oral Vancomycin - Pending Stool studies - Abdomen/Pelvis CT scan report reads bowel edema within the right cecum and right colon suggesting colitis. No small bowel dilatation no free fluid or inflammatory changes seen. Severe Hypothyroidism - 2/2 Non-compliance - TSH 61.61 and FT4 is 0.38 - Per pharmacy she has an rx for levothyroxine of 125 mcg daily - Resume old home dose of 125 mcg po daily Dyslipidemia - Abnormal Lipid Panel - AHA once po with regular meal - Dietay consult - Low dose statin due to abnormal fatty liver Resolved: - S/p Hypomagnesemia - Mg 1.0--> now 2 - 2/2 Poor nutritional state and oral intake - Replete and monitor S/p Moderate Dehydration - 2/2 ETOH Abuse - BUN/Cr: 33.4/1.4 - US Specific gravity is > or = 1.030 Drug Seeking Behavior - Educated patient about narcotics and its side effects Relative Hypotension - 2/2 Medications - Monitor Chronic: HTN HLD GERD OA/DJD Back Pain Hypothyroidism Hepato-splenomegaly EV Fatty Infiltration 2/2 Chronic ETOH Use Hx/o Hepatitis C Infection w/o Treatment S/p Cholecystectomy Obesity Plan: She is much better clinically Continue: MVI, Folic Acid and Thiamine and CIWA protocol Screen for DM is negative: A1C is Consider clear liquid diet this afternoon Hepatitis Panel- pending Ativan for Abortive Seizure and Withdrawal Symptoms PRN meds for Withdrawal Symptoms Isolation Precautions for C. Diff Infection SW/CM d/c planning SA/Psych consult Code Status: 1
[2018-02-10] MEDS: Famotidine 20 MG Tab PO SCH ×2 (08:40→20:39)
[2018-02-10] MEDS: Saccharomyces Boulardii (Probiotic) 250 MG Cap PO SCH ×2 (08:40→20:40)
[2018-02-10] MEDS: Multivitamins,Therapeutic Tab PO SCH (08:40)
[2018-02-10] MEDS: Folic Acid 1 MG Tab PO SCH (08:41)
[2018-02-10] MEDS: chlordiazePOXIDE 25 MG Cap PO PRN ×2 (08:41→20:51)
[2018-02-10] MEDS: Hydrochlorothiazide 12.5 MG Cap PO SCH (08:41)
[2018-02-10] MEDS: Topiramate 25 MG Tab PO SCH ×2 (08:42→20:39)
[2018-02-10] MEDS: Lisinopril 20 MG Tab PO SCH (08:42)
[2018-02-10] MEDS: Thiamine 100 MG Tab PO SCH (08:47)
[2018-02-10] MEDS ORDERED: Levothyroxine 112 MCG Tab PO SCH (09:30)
[2018-02-10] MEDS: Vancomycin 50 MG/ML 150ML Oral Solution Kit PO SCH ×3 (13:33→20:38)
[2018-02-10] MEDS: Potassium Chloride 20 MEQ Tab.ER PO SCH ×3 (13:34→20:38)
[2018-02-10] MEDS: QUEtiapine 25 MG Tab PO SCH (20:39)
[2018-02-10] MEDS: Ibuprofen 600 MG Tab PO PRN (22:46)
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
[2018-02-10] MEDS: Metoprolol Tartrate 5 MG/5 ML SDV IVPUSH PRN (23:22)
[2018-02-11] MEDS: HYDROmorphone 0.5 MG/0.5 ML SYRINGE IVPUSH PRN (00:10)
[2018-02-11] MEDS: Levothyroxine 125 MCG Tab PO SCH (05:53)
[2018-02-11] MEDS: Topiramate 25 MG Tab PO SCH ×2 (08:39→20:47)
[2018-02-11] MEDS: Vancomycin 50 MG/ML 150ML Oral Solution Kit PO SCH ×4 (08:39→20:48)
[2018-02-11] MEDS: Folic Acid 1 MG Tab PO SCH (08:39)
[2018-02-11] MEDS: Thiamine 100 MG Tab PO SCH (08:39)
[2018-02-11] MEDS: Famotidine 20 MG Tab PO SCH ×2 (08:39→20:47)
[2018-02-11] MEDS: Multivitamins,Therapeutic Tab PO SCH (08:39)
[2018-02-11] MEDS: Hydrochlorothiazide 12.5 MG Cap PO SCH (08:39)
[2018-02-11] MEDS: Saccharomyces Boulardii (Probiotic) 250 MG Cap PO SCH ×2 (08:39→20:46)
[2018-02-11] MEDS: oxyCODONE 5 MG Tab PO PRN (08:40)
[2018-02-11] MEDS: Lisinopril 20 MG Tab PO SCH (08:41)
[2018-02-11] MEDS ORDERED: cloNIDine 0.1 MG Tab PO PRN (13:04)
[2018-02-11] MEDS ORDERED: hydrALAZINE 20 MG/ML SDV IVPUSH PRN (13:05)
[2018-02-11] MEDS: Ibuprofen 600 MG Tab PO PRN ×2 (14:35→20:47)
--- NOTE | 2018-02-11 18:25 | PCM.PN ---
- General Info Date of Service: 02/11/18 Functional Status: Reports: Tolerating Diet, Ambulating, Urinating - Review of Systems General: Reports: No Symptoms HEENT: Reports: No Symptoms Pulmonary: Reports: No Symptoms Cardiovascular: Reports: No Symptoms Gastrointestinal: Reports: No Symptoms Genitourinary: Reports: No Symptoms Musculoskeletal: Reports: No Symptoms Skin: Reports: No Symptoms Neurological: Reports: No Symptoms Psychiatric: Reports: No Symptoms - Patient Data Vitals - Most Recent: Last Vital Signs Temp 36.3 C 02/11/18 14:37 Pulse 96 02/11/18 14:37 Resp 20 02/11/18 14:37 BP 117/86 02/11/18 14:37 Pulse Ox 98 02/11/18 14:37 Weight - Most Recent: 72.121 kg I&O - Last 24 Hours: Intake & Output 02/11/18 02/11/18 02/11/18 06:59 14:59 22:59 Intake Total 280 380 300 Output Total 700 300 Balance -420 380 0 Lab Results Last 24 Hours: Laboratory Results - last 24 hr 02/11/18 02/11/18 Range/Units 05:52 05:52 WBC 4.80 (3.98-10.04) K/mm3 RBC 3.97 L (3.98-5.22) M/mm3 Hgb 13.0 (11.2-15.7) gm/L Hct 38.2 (34.1-44.9) % MCV 96.2 H (79.4-94.8) fl MCH 32.7 H (25.6-32.2) pg MCHC 34.0 (32.2-35.5) g/dl RDW Std Deviation 51.7 H (36.4-46.3) fL Plt Count 88 L (182-369) K/mm3 MPV 10.9 (9.4-12.3) fl Neut % (Auto) 61.1 (34.0-71.1) % Lymph % (Auto) 27.9 (19.3-51.7) % [place] % (Auto) 9.2 (4.7-12.5) % Eos % (Auto) 1.0 (0.7-5.8) Baso % (Auto) 0.6 (0.1-1.2) % Neut # (Auto) 2.93 (1.56-6.13) K/mm3 Lymph # (Auto) 1.34 (1.18-3.74) K/mm3 [place] # (Auto) 0.44 H (0.24-0.36) K/mm3 Eos # (Auto) 0.05 (0.04-0.36) K/mm3 Baso # (Auto) 0.03 (0.01-0.08) K/mm3 Manual Slide Review Abnormal smear Sodium 135 L (136-145) mEq/L Potassium 3.7 (3.5-5.1) mEq/L Chloride 101 (98-107) mEq/L Carbon Dioxide 21 (21-32) mEq/L Anion Gap 16.7 H (5-15) BUN 11 (7-18) mg/dL Creatinine 1.0 (0.55-1.02) mg/dL Est Cr Clr Drug Dosing 52.10 mL/min Estimated GFR (MDRD) > 60 (>60) mL/min BUN/Creatinine Ratio 11.0 L (14-18) Glucose 110 H (74-106) mg/dL Calcium 9.2 (8.5-10.1) mg/dL Magnesium 2.1 (1.8-2.4) mg/dl Total Bilirubin 1.0 (0.2-1.0) mg/dL AST 368 H (15-37) U/L ALT 137 H (14-59) U/L Alkaline Phosphatase 133 H (46-116) U/L Total Protein 8.5 H (6.4-8.2) g/dl Albumin 4.2 (3.4-5.0) g/dl Globulin 4.3 gm/dL Albumin/Globulin Ratio 1.0 (1-2) Zi Results Last 24 Hours: Microbiology 02/10/18 16:41 Stool Culture - Preliminary Stool / Feces - Final - Final 02/10/18 16:41 Stool for WBCs - Final Stool / Feces Med Orders - Current: Current Medications Albuterol/Ipratropium (Duoneb 3.0-0.5 Mg/3 Ml) 3 ml NEB Q4H PRN PRN Reason: Shortness Of Breath/wheezing Bisacodyl (Dulcolax) 5 mg PO DAILY PRN PRN Reason: Constipation Chlordiazepoxide HCl (Librium) 25 mg PO Q8H PRN PRN Reason: Withdrawal Symptoms Last Admin: 02/10/18 20:51 Dose: 25 mg Clonidine HCl (Catapres) 0.1 mg PO Q8H PRN PRN Reason: Agitation Docusate Sodium (Colace) 100 mg PO BID PRN PRN Reason: Constipation Famotidine (Pepcid) 20 mg PO Q12H [facility] Last Admin: 02/11/18 08:39 Dose: 20 mg Haloperidol Lactate (Haldol) 2 mg IM Q4H PRN PRN Reason: Agitation Hydralazine HCl (Apresoline) 20 mg IVPUSH Q6H PRN PRN Reason: Hypertension Hydrochlorothiazide (Hydrochlorothiazide) 12.5 mg PO DAILY [facility] Last Admin: 02/11/18 08:39 Dose: 12.5 mg Promethazine HCl 12.5 mg/ (Sodium Chloride) 50.5 mls @ 100 mls/hr IV Q6H PRN PRN Reason: Nausea/Vomiting Last Admin: 02/09/18 08:29 Dose: 100 mls/hr Ibuprofen (Motrin) 600 mg PO Q6H PRN PRN Reason: Pain (moderate 4-6) Last Admin: 02/11/18 14:35 Dose: 600 mg Levothyroxine Sodium (Levothyroxine) 125 mcg PO ACBREAKFAST [facility] Last Admin: 02/11/18 05:53 Dose: 125 mcg Lisinopril (Prinivil) 20 mg PO DAILY [facility] Last Admin: 02/11/18 08:41 Dose: 20 mg Lorazepam (Ativan) 2 mg IVPUSH Q4H PRN PRN Reason: Seizures Metoprolol Tartrate (Lopressor) 5 mg IVPUSH Q4H PRN PRN Reason: Tachycardia Last Admin: 02/10/18 23:22 Dose: 5 mg Miscellaneous Information (Remove Patch) 0 ea TRDERM DAILY [facility] Last Admin: 02/11/18 08:53 Dose: Not Given Nicotine (Habitrol) 21 mg TRDERM DAILY PRN PRN Reason: Nicotine Dependence Ondansetron HCl (Zofran) 4 mg IV Q6H PRN PRN Reason: Nausea/Vomiting Polyethylene Glycol (Miralax) 17 gm PO DAILY PRN PRN Reason: Constipation Quetiapine Fumarate (Seroquel) 50 mg PO BEDTIME [facility] Last Admin: 02/10/18 20:39 Dose: 50 mg Saccharomyces Boulardii (Florastor) 250 mg PO BID [facility] Last Admin: 02/11/18 08:39 Dose: 250 mg Senna/Docusate Sodium (Senna Plus) 1 tab PO BID PRN PRN Reason: Constipation Thiamine HCl (Vitamin B-1) 100 mg PO DAILY [facility] Last Admin: 02/11/18 08:39 Dose: 100 mg Topiramate (Topamax) 25 mg PO BID [facility] Last Admin: 02/11/18 08:39 Dose: 25 mg Vancomycin HCl (First-Vancomycin 50 Compounding Kit) 125 mg PO QID [facility] Last Admin: 02/11/18 17:19 Dose: 125 mg Discontinued Medications Clonidine HCl (Catapres) 0.1 mg PO Q4H PRN PRN Reason: Agitation Last Admin: 02/09/18 08:34 Dose: 0.1 mg Al Hydroxide/Mg Hydroxide 30 (ml/ Lidocaine HCl 15 ml) 0 ml PO ONETIME STA Stop: 02/09/18 05:56 Last Admin: 02/09/18 06:15 Dose: 45 ml Diatrizoate Meglum/Diatrizoate Sod (Gastrografin 37%) 90 ml PO ONETIME ONE Stop: 02/09/18 10:07 Last Admin: 02/09/18 10:19 Dose: 90 ml Diphenhydramine HCl (Benadryl) 50 mg IVPUSH ONETIME ONE Stop: 02/09/18 12:26 Last Admin: 02/09/18 12:29 Dose: 50 mg Famotidine (Pepcid) 20 mg IVPUSH ONETIME ONE Stop: 02/09/18 05:55 Last Admin: 02/09/18 06:16 Dose: 20 mg Folic Acid (Folic Acid) 1 mg PO DAILY [facility] Stop: 02/11/18 09:01 Last Admin: 02/11/18 08:39 Dose: 1 mg Hydralazine HCl (Apresoline) 20 mg IVPUSH Q4H PRN PRN Reason: Hypertension Hydromorphone HCl (Dilaudid) 0.25 mg IVPUSH Q2H PRN PRN Reason: Pain (severe 7-10) Last Admin: 02/11/18 00:10 Dose: 0.25 mg Sodium Chloride (Normal Saline) 1,000 mls @ 150 mls/hr IV ASDIRECTED BIBIANA Last Admin: 02/09/18 03:37 Dose: 150 mls/hr Potassium Chloride 10 meq/ (Premix) 100 mls @ 100 mls/hr IV ONETIME STA Stop: 02/09/18 05:12 Last Admin: 02/09/18 04:21 Dose: 100 mls/hr Magnesium Sulfate 2 gm/ Premix 50 mls @ 50 mls/hr IV ONETIME ONE Stop: 02/09/18 06:06 Last Admin: 02/09/18 05:36 Dose: 50 mls/hr Sodium Chloride (Normal Saline) 1,000 mls @ 999 mls/hr IV ONETIME ONE Stop: 02/09/18 06:43 Last Admin: 02/09/18 06:26 Dose: 999 mls/hr Sodium Chloride (Normal Saline) 500 mls @ 999 mls/hr IV .BOLUS ONE Stop: 02/09/18 07:52 Last Admin: 02/09/18 08:07 Dose: 999 mls/hr Thiamine HCl 100 mg/ Sodium (Chloride) 51 mls @ 100 mls/hr IV ONETIME ONE Stop: 02/09/18 09:30 Last Admin: 02/09/18 09:00 Dose: 100 mls/hr Levofloxacin/Dextrose 500 mg/ (Premix) 100 mls @ 100 mls/hr IV Q24H [facility] Last Admin: 02/09/18 14:17 Dose: 100 mls/hr Metronidazole 500 mg/ Premix 100 mls @ 100 mls/hr IV Q8H [facility] Last Admin: 02/10/18 05:16 Dose: 100 mls/hr Iopamidol (Isovue-300 (61%)) 100 ml IVPUSH ONETIME ONE Stop: 02/09/18 10:07 Last Admin: 02/09/18 10:12 Dose: 100 ml Levothyroxine Sodium (Levothyroxine) 112 mcg PO DAILY@0700 [facility] Magnesium Sulfate (Pharmacy To Dose - Magnesium Replacement) 0 dose .XX ASDIRECTED PRN PRN Reason: RX TO WATCH MAG LEVELS Multivitamins (Thera) 1 each PO DAILY [facility] Stop: 02/11/18 09:01 Last Admin: 02/11/18 08:39 Dose: 1 each Ondansetron HCl (Zofran) 4 mg IVPUSH ONETIME ONE Stop: 02/09/18 03:26 Last Admin: 02/09/18 03:37 Dose: 4 mg Ondansetron HCl (Zofran) 4 mg IVPUSH ONETIME ONE Stop: 02/09/18 04:43 Last Admin: 02/09/18 04:48 Dose: 4 mg Oxycodone HCl (Oxycodone) 5 mg PO Q4H PRN PRN Reason: Pain (moderate 4-6) Last Admin: 02/11/18 08:40 Dose: 5 mg Pantoprazole Sodium (Protonix Iv) 40 mg IV ONETIME ONE Stop: 02/09/18 08:01 Last Admin: 02/09/18 08:20 Dose: 40 mg Potassium Chloride (Pharmacy To Dose - Potassium Replacement) 0 dose .XX ASDIRECTED PRN PRN Reason: RX TO WATCH K LEVELS Potassium Chloride (Klor-Con M20) 40 meq PO Q4H [place] Stop: 02/10/18 21:31 Last Admin: 02/10/18 20:38 Dose: 40 meq Quetiapine Fumarate (Seroquel) 50 mg PO ONETIME ONE Stop: 02/09/18 08:44 Last Admin: 02/09/18 08:58 Dose: 50 mg Saccharomyces Boulardii (Florastor) 250 mg PO NOW STA Stop: 02/09/18 12:49 Last Admin: 02/09/18 13:04 Dose: 250 mg Sodium Chloride (Saline Flush) 10 ml FLUSH ONETIME ONE Stop: 02/09/18 10:07 Last Admin: 02/09/18 12:28 Dose: 10 ml - Exam Quality Assessment: DVT Prophylaxis General: Alert, Oriented, Cooperative HEENT: Pupils Equal, Pupils Reactive Neck: Trachea Midline, No JVD Lungs: Clear to Auscultation, Normal Respiratory Effort Cardiovascular: Regular Rate, Regular Rhythm GI/Abdominal Exam: Normal Bowel Sounds, Soft, Non-Tender, No Organomegaly, No Distention (Female) Exam: Deferred Back Exam: Normal Inspection Extremities: Normal Inspection, Normal Capillary Refill Skin: Warm Neurological: No New Focal Deficit, Normal Gait, Normal Speech Psy/Mental Status: Alert - Problem List Review Problem List Initiated/Reviewed/Updated: Yes - My Orders Last 24 Hours: My Active Orders 02/11/18 13:04 cloNIDine [Catapres] 0.1 mg PO Q8H PRN 02/11/18 13:05 hydrALAZINE [Apresoline] 20 mg IVPUSH Q6H PRN 02/11/18 Dinner Heart Healthy Diet [DIET] - Plan Plan:: Assessment/Plan: Acute: ETOH Withdrawal Symptoms - STEFANIE level 0.09 - CIWA protocol: CIWA score has significantly improved due to medications - Ativan/Librium/Clonidine/Topamax/Seroquel - Hydralazine and IVP BB for HR/BP control - Ativan for Abortive Seizure and Withdrawal Symptoms Opioid and Narcotic Dependence - UDS: Benzo - PDMP of [place] shows high level use of both drugs - Counseled on Substance Abuse - SA/Psych consult Chronic ETOH Use/Dependence - CIWA protocol - SA consult Transaminitis, Improving - AST/ALT: 496/183--> now 266/112 - Likely 2/2 ETOH Abuse - Hepatitis panel ordered (this may take a week); she reports hx/o untreated hep C infection in the past - Abdomen/Pelvis CT scan report reads severe fatty infiltration throughout the liver - Drinks 1 L of vodka a day Hypokalemia - Improving - 2/2 Poor nutritional state and oral intake - Replete and monitor Abdominal Pain - 2/2 C. Diff Colitis - D/c IV Levaquin and Flagyl Q8H; Start Oral Vancomycin - Pending Stool studies - Abdomen/Pelvis CT scan report reads bowel edema within the right cecum and right colon suggesting colitis. No small bowel dilatation no free fluid or inflammatory changes seen. Severe Hypothyroidism - 2/2 Non-compliance - TSH 61.61 and FT4 is 0.38 - Per pharmacy she has an rx for levothyroxine of 125 mcg daily - Resume old home dose of 125 mcg po daily Dyslipidemia - Abnormal Lipid Panel - AHA once po with regular meal - Dietay consult - Low dose statin due to abnormal fatty liver Resolved: - S/p Hypomagnesemia - Mg 1.0--> now 2 - 2/2 Poor nutritional state and oral intake - Replete and monitor S/p Moderate Dehydration - 2/2 ETOH Abuse - BUN/Cr: 33.4/1.4 - US Specific gravity is > or = 1.030 Drug Seeking Behavior - Educated patient about narcotics and its side effects Relative Hypotension - 2/2 Medications - Monitor Chronic: HTN HLD GERD OA/DJD Back Pain Hypothyroidism Hepato-splenomegaly EV Fatty Infiltration 2/2 Chronic ETOH Use Hx/o Hepatitis C Infection w/o Treatment S/p Cholecystectomy Obesity Plan: She is much better clinically Continue: MVI, Folic Acid and Thiamine and CIWA protocol Screen for DM is negative Consider clear liquid diet this afternoon Hepatitis Panel- pending Ativan for Abortive Seizure and Withdrawal Symptoms PRN meds for Withdrawal Symptoms Isolation Precautions for C. Diff Infection SW/CM d/c planning-->[facility] consult today SA/Psych consult Code Status: 1
[2018-02-11] MEDS: QUEtiapine 25 MG Tab PO SCH (20:47)
[2018-02-12] MEDS: Levothyroxine 125 MCG Tab PO SCH (05:52)
[2018-02-12] MEDS: Hydrochlorothiazide 12.5 MG Cap PO SCH (08:04)
[2018-02-12] MEDS: Topiramate 25 MG Tab PO SCH ×2 (08:04→20:14)
[2018-02-12] MEDS: Saccharomyces Boulardii (Probiotic) 250 MG Cap PO SCH ×2 (08:04→20:15)
[2018-02-12] MEDS: Famotidine 20 MG Tab PO SCH ×2 (08:05→20:14)
[2018-02-12] MEDS: Thiamine 100 MG Tab PO SCH (08:05)
[2018-02-12] MEDS: Ibuprofen 600 MG Tab PO PRN ×3 (08:14→22:00)
[2018-02-12] MEDS: Vancomycin 50 MG/ML 150ML Oral Solution Kit PO SCH ×4 (08:29→20:16)
[2018-02-12] MEDS: Lisinopril 20 MG Tab PO SCH (08:30)
[2018-02-12] MEDS: Ondansetron 4 MG/2 ML SDV IV PRN ×2 (09:10→18:03)
[2018-02-12] MEDS ORDERED: Acetaminophen 325 MG Tab PO STA (09:35)
[2018-02-12] MEDS ORDERED: Potassium Chloride 10% 20 MEQ/15 ML Soln 15 ML UD Cup PO SCH (10:30)
[2018-02-12] MEDS: Promethazine 12.5 MG in Sodium Chloride 0.9% 50 ML IV PRN (11:08)
--- NOTE | 2018-02-12 12:52 | PCM.PN ---
- General Info Date of Service: 02/12/18 Functional Status: Reports: Tolerating Diet, Ambulating, Urinating - Review of Systems General: Reports: No Symptoms HEENT: Reports: No Symptoms Pulmonary: Reports: No Symptoms Cardiovascular: Reports: No Symptoms Gastrointestinal: Reports: No Symptoms Genitourinary: Reports: No Symptoms Musculoskeletal: Reports: No Symptoms Skin: Reports: No Symptoms Neurological: Reports: No Symptoms Psychiatric: Reports: No Symptoms - Patient Data Vitals - Most Recent: Last Vital Signs Temp 36.3 C 02/12/18 08:32 Pulse 73 02/12/18 03:00 Resp 18 02/12/18 08:32 BP 105/76 02/12/18 08:32 Pulse Ox 96 02/12/18 08:32 Weight - Most Recent: 72.121 kg I&O - Last 24 Hours: Intake & Output 02/11/18 02/12/18 02/12/18 22:59 06:59 14:59 Intake Total 420 280 120 Output Total 300 460 Balance 120 -180 120 Lab Results Last 24 Hours: Laboratory Results - last 24 hr 02/09/18 02/12/18 02/12/18 Range/Units 07:46 05:48 05:48 WBC 3.77 L (3.98-10.04) K/mm3 RBC 3.89 L (3.98-5.22) M/mm3 Hgb 12.8 (11.2-15.7) gm/L Hct 38.0 (34.1-44.9) % MCV 97.7 H (79.4-94.8) fl MCH 32.9 H (25.6-32.2) pg MCHC 33.7 (32.2-35.5) g/dl RDW Std Deviation 53.3 H (36.4-46.3) fL Plt Count 92 L (182-369) K/mm3 MPV 11.0 (9.4-12.3) fl Neut % (Auto) 51.0 (34.0-71.1) % Lymph % (Auto) 35.8 (19.3-51.7) % [place] % (Auto) 9.5 (4.7-12.5) % Eos % (Auto) 2.4 (0.7-5.8) Baso % (Auto) 0.8 (0.1-1.2) % Neut # (Auto) 1.92 (1.56-6.13) K/mm3 Lymph # (Auto) 1.35 (1.18-3.74) K/mm3 [place] # (Auto) 0.36 (0.24-0.36) K/mm3 Eos # (Auto) 0.09 (0.04-0.36) K/mm3 Baso # (Auto) 0.03 (0.01-0.08) K/mm3 Manual Slide Review Abnormal smear Sodium 140 (136-145) mEq/L Potassium 3.1 L (3.5-5.1) mEq/L Chloride 104 (98-107) mEq/L Carbon Dioxide 23 (21-32) mEq/L Anion Gap 16.1 H (5-15) BUN 10 (7-18) mg/dL Creatinine 0.9 (0.55-1.02) mg/dL Est Cr Clr Drug Dosing 57.89 mL/min Estimated GFR (MDRD) > 60 (>60) mL/min BUN/Creatinine Ratio 11.1 L (14-18) Glucose 98 (74-106) mg/dL Calcium 9.6 (8.5-10.1) mg/dL Magnesium 2.0 (1.8-2.4) mg/dl Total Bilirubin 0.7 (0.2-1.0) mg/dL AST 260 H (15-37) U/L ALT 120 H (14-59) U/L Alkaline Phosphatase 124 H (46-116) U/L Total Protein 7.7 (6.4-8.2) g/dl Albumin 3.8 (3.4-5.0) g/dl Globulin 3.9 gm/dL Albumin/Globulin Ratio 1.0 (1-2) Lipase (73-393) U/L Hepatitis A IgM Ab Negative (Negative) Hep Bs Antigen Negative (Negative) Hep B Core IgM Ab Negative (Negative) Hepatitis C Antibody 0.2 (0.0-0.9) s/co ratio 02/12/18 02/12/18 Range/Units 05:48 10:34 WBC (3.98-10.04) K/mm3 RBC (3.98-5.22) M/mm3 Hgb (11.2-15.7) gm/L Hct (34.1-44.9) % MCV (79.4-94.8) fl MCH (25.6-32.2) pg MCHC (32.2-35.5) g/dl RDW Std Deviation (36.4-46.3) fL Plt Count (182-369) K/mm3 MPV (9.4-12.3) fl Neut % (Auto) (34.0-71.1) % Lymph % (Auto) (19.3-51.7) % [place] % (Auto) (4.7-12.5) % Eos % (Auto) (0.7-5.8) Baso % (Auto) (0.1-1.2) % Neut # (Auto) (1.56-6.13) K/mm3 Lymph # (Auto) (1.18-3.74) K/mm3 [place] # (Auto) (0.24-0.36) K/mm3 Eos # (Auto) (0.04-0.36) K/mm3 Baso # (Auto) (0.01-0.08) K/mm3 Manual Slide Review Sodium (136-145) mEq/L Potassium 3.3 L (3.5-5.1) mEq/L Chloride (98-107) mEq/L Carbon Dioxide (21-32) mEq/L Anion Gap (5-15) BUN (7-18) mg/dL Creatinine (0.55-1.02) mg/dL Est Cr Clr Drug Dosing mL/min Estimated GFR (MDRD) (>60) mL/min BUN/Creatinine Ratio (14-18) Glucose (74-106) mg/dL Calcium (8.5-10.1) mg/dL Magnesium (1.8-2.4) mg/dl Total Bilirubin (0.2-1.0) mg/dL AST (15-37) U/L ALT (14-59) U/L Alkaline Phosphatase (46-116) U/L Total Protein (6.4-8.2) g/dl Albumin (3.4-5.0) g/dl Globulin gm/dL Albumin/Globulin Ratio (1-2) Lipase 362 (73-393) U/L Hepatitis A IgM Ab (Negative) Hep Bs Antigen (Negative) Hep B Core IgM Ab (Negative) Hepatitis C Antibody (0.0-0.9) s/co ratio Zi Results Last 24 Hours: Microbiology 02/10/18 16:41 Stool Culture - Preliminary Stool / Feces - Final - Final 02/10/18 11:15 Cryptosporidium/Giardia - Final Stool / Feces Med Orders - Current: Current Medications Albuterol/Ipratropium (Duoneb 3.0-0.5 Mg/3 Ml) 3 ml NEB Q4H PRN PRN Reason: Shortness Of Breath/wheezing Bisacodyl (Dulcolax) 5 mg PO DAILY PRN PRN Reason: Constipation Chlordiazepoxide HCl (Librium) 25 mg PO Q8H PRN PRN Reason: Withdrawal Symptoms Last Admin: 02/10/18 20:51 Dose: 25 mg Clonidine HCl (Catapres) 0.1 mg PO Q8H PRN PRN Reason: Agitation Docusate Sodium (Colace) 100 mg PO BID PRN PRN Reason: Constipation Famotidine (Pepcid) 20 mg PO Q12H [facility] Last Admin: 02/12/18 08:05 Dose: 20 mg Haloperidol Lactate (Haldol) 2 mg IM Q4H PRN PRN Reason: Agitation Hydralazine HCl (Apresoline) 20 mg IVPUSH Q6H PRN PRN Reason: Hypertension Hydrochlorothiazide (Hydrochlorothiazide) 12.5 mg PO DAILY [facility] Last Admin: 02/12/18 08:04 Dose: 12.5 mg Promethazine HCl 12.5 mg/ (Sodium Chloride) 50.5 mls @ 100 mls/hr IV Q6H PRN PRN Reason: Nausea/Vomiting Last Admin: 02/12/18 11:08 Dose: 100 mls/hr Potassium Chloride 10 meq/ (Premix) 100 mls @ 100 mls/hr IV Q1H [facility] Stop: 02/12/18 16:59 Ibuprofen (Motrin) 600 mg PO Q6H PRN PRN Reason: Pain (moderate 4-6) Last Admin: 02/12/18 08:14 Dose: 600 mg Levothyroxine Sodium (Levothyroxine) 125 mcg PO ACBREAKFAST [facility] Last Admin: 02/12/18 05:52 Dose: 125 mcg Lisinopril (Prinivil) 20 mg PO DAILY [facility] Last Admin: 02/12/18 08:30 Dose: 20 mg Lorazepam (Ativan) 2 mg IVPUSH Q4H PRN PRN Reason: Seizures Metoprolol Tartrate (Lopressor) 5 mg IVPUSH Q4H PRN PRN Reason: Tachycardia Last Admin: 02/10/18 23:22 Dose: 5 mg Miscellaneous Information (Remove Patch) 0 ea TRDERM DAILY [facility] Last Admin: 02/12/18 08:31 Dose: Not Given Nicotine (Habitrol) 21 mg TRDERM DAILY PRN PRN Reason: Nicotine Dependence Ondansetron HCl (Zofran) 4 mg IV Q6H PRN PRN Reason: Nausea/Vomiting Last Admin: 02/12/18 09:10 Dose: 4 mg Polyethylene Glycol (Miralax) 17 gm PO DAILY PRN PRN Reason: Constipation Potassium Chloride (Potassium Chloride Solution) 60 meq PO TID [facility] Stop: 02/13/18 09:01 Last Admin: 02/12/18 11:27 Dose: 60 meq Quetiapine Fumarate (Seroquel) 50 mg PO BEDTIME [facility] Last Admin: 02/11/18 20:47 Dose: 50 mg Saccharomyces Boulardii (Florastor) 250 mg PO BID [facility] Last Admin: 02/12/18 08:04 Dose: 250 mg Senna/Docusate Sodium (Senna Plus) 1 tab PO BID PRN PRN Reason: Constipation Thiamine HCl (Vitamin B-1) 100 mg PO DAILY [facility] Last Admin: 02/12/18 08:05 Dose: 100 mg Topiramate (Topamax) 25 mg PO BID [facility] Last Admin: 02/12/18 08:04 Dose: 25 mg Vancomycin HCl (First-Vancomycin 50 Compounding Kit) 125 mg PO QID [facility] Last Admin: 02/12/18 08:29 Dose: 125 mg Discontinued Medications Acetaminophen (Tylenol) 650 mg PO NOW STA Stop: 02/12/18 09:36 Last Admin: 02/12/18 09:54 Dose: 650 mg Clonidine HCl (Catapres) 0.1 mg PO Q4H PRN PRN Reason: Agitation Last Admin: 02/09/18 08:34 Dose: 0.1 mg Al Hydroxide/Mg Hydroxide 30 (ml/ Lidocaine HCl 15 ml) 0 ml PO ONETIME STA Stop: 02/09/18 05:56 Last Admin: 02/09/18 06:15 Dose: 45 ml Diatrizoate Meglum/Diatrizoate Sod (Gastrografin 37%) 90 ml PO ONETIME ONE Stop: 02/09/18 10:07 Last Admin: 02/09/18 10:19 Dose: 90 ml Diphenhydramine HCl (Benadryl) 50 mg IVPUSH ONETIME ONE Stop: 02/09/18 12:26 Last Admin: 02/09/18 12:29 Dose: 50 mg Famotidine (Pepcid) 20 mg IVPUSH ONETIME ONE Stop: 02/09/18 05:55 Last Admin: 02/09/18 06:16 Dose: 20 mg Folic Acid (Folic Acid) 1 mg PO DAILY [facility] Stop: 02/11/18 09:01 Last Admin: 02/11/18 08:39 Dose: 1 mg Hydralazine HCl (Apresoline) 20 mg IVPUSH Q4H PRN PRN Reason: Hypertension Hydromorphone HCl (Dilaudid) 0.25 mg IVPUSH Q2H PRN PRN Reason: Pain (severe 7-10) Last Admin: 02/11/18 00:10 Dose: 0.25 mg Sodium Chloride (Normal Saline) 1,000 mls @ 150 mls/hr IV ASDIRECTED [facility] Last Admin: 02/09/18 03:37 Dose: 150 mls/hr Potassium Chloride 10 meq/ (Premix) 100 mls @ 100 mls/hr IV ONETIME STA Stop: 02/09/18 05:12 Last Admin: 02/09/18 04:21 Dose: 100 mls/hr Magnesium Sulfate 2 gm/ Premix 50 mls @ 50 mls/hr IV ONETIME ONE Stop: 02/09/18 06:06 Last Admin: 02/09/18 05:36 Dose: 50 mls/hr Sodium Chloride (Normal Saline) 1,000 mls @ 999 mls/hr IV ONETIME ONE Stop: 02/09/18 06:43 Last Admin: 02/09/18 06:26 Dose: 999 mls/hr Sodium Chloride (Normal Saline) 500 mls @ 999 mls/hr IV .BOLUS ONE Stop: 02/09/18 07:52 Last Admin: 02/09/18 08:07 Dose: 999 mls/hr Thiamine HCl 100 mg/ Sodium (Chloride) 51 mls @ 100 mls/hr IV ONETIME ONE Stop: 02/09/18 09:30 Last Admin: 02/09/18 09:00 Dose: 100 mls/hr Levofloxacin/Dextrose 500 mg/ (Premix) 100 mls @ 100 mls/hr IV Q24H [facility] Last Admin: 02/09/18 14:17 Dose: 100 mls/hr Metronidazole 500 mg/ Premix 100 mls @ 100 mls/hr IV Q8H [facility] Last Admin: 02/10/18 05:16 Dose: 100 mls/hr Iopamidol (Isovue-300 (61%)) 100 ml IVPUSH ONETIME ONE Stop: 02/09/18 10:07 Last Admin: 02/09/18 10:12 Dose: 100 ml Levothyroxine Sodium (Levothyroxine) 112 mcg PO DAILY@0700 [facility] Magnesium Sulfate (Pharmacy To Dose - Magnesium Replacement) 0 dose .XX ASDIRECTED PRN PRN Reason: RX TO WATCH MAG LEVELS Multivitamins (Thera) 1 each PO DAILY [facility] Stop: 02/11/18 09:01 Last Admin: 02/11/18 08:39 Dose: 1 each Ondansetron HCl (Zofran) 4 mg IVPUSH ONETIME ONE Stop: 02/09/18 03:26 Last Admin: 02/09/18 03:37 Dose: 4 mg Ondansetron HCl (Zofran) 4 mg IVPUSH ONETIME ONE Stop: 02/09/18 04:43 Last Admin: 02/09/18 04:48 Dose: 4 mg Oxycodone HCl (Oxycodone) 5 mg PO Q4H PRN PRN Reason: Pain (moderate 4-6) Last Admin: 02/11/18 08:40 Dose: 5 mg Pantoprazole Sodium (Protonix Iv) 40 mg IV ONETIME ONE Stop: 02/09/18 08:01 Last Admin: 02/09/18 08:20 Dose: 40 mg Potassium Chloride (Pharmacy To Dose - Potassium Replacement) 0 dose .XX ASDIRECTED PRN PRN Reason: RX TO WATCH K LEVELS Potassium Chloride (Klor-Con M20) 40 meq PO Q4H [facility] Stop: 02/10/18 21:31 Last Admin: 02/10/18 20:38 Dose: 40 meq Quetiapine Fumarate (Seroquel) 50 mg PO ONETIME ONE Stop: 02/09/18 08:44 Last Admin: 02/09/18 08:58 Dose: 50 mg Saccharomyces Boulardii (Florastor) 250 mg PO NOW STA Stop: 02/09/18 12:49 Last Admin: 02/09/18 13:04 Dose: 250 mg Sodium Chloride (Saline Flush) 10 ml FLUSH ONETIME ONE Stop: 02/09/18 10:07 Last Admin: 02/09/18 12:28 Dose: 10 ml - Exam Quality Assessment: DVT Prophylaxis General: Alert, Oriented, Cooperative HEENT: Pupils Equal, Pupils Reactive, EOMI Neck: Trachea Midline, No JVD Lungs: Normal Respiratory Effort Cardiovascular: Regular Rate, Regular Rhythm GI/Abdominal Exam: Normal Bowel Sounds, Soft, Non-Tender, No Organomegaly, No Distention (Female) Exam: Deferred Back Exam: Normal Inspection Extremities: Normal Inspection Skin: Warm Neurological: No New Focal Deficit, Normal Gait, Normal Speech Psy/Mental Status: Alert, Anxious - Problem List Review Problem List Initiated/Reviewed/Updated: Yes - My Orders Last 24 Hours: My Active Orders 02/11/18 13:04 cloNIDine [Catapres] 0.1 mg PO Q8H PRN 02/11/18 13:05 hydrALAZINE [Apresoline] 20 mg IVPUSH Q6H PRN 02/11/18 Dinner Heart Healthy Diet [DIET] 02/12/18 10:30 Potassium Chloride [Potassium Chloride Solution] 60 meq PO TID 02/12/18 13:00 Potassium Chloride [KCl 10 MEQ in Water 100 ML] 10 meq Premix Bag 1 bag IV Q1H - Plan Plan:: Assessment/Plan: Acute: ETOH Withdrawal Symptoms - STEFANIE level 0.09 - CIWA protocol: CIWA score has significantly improved due to medications - Ativan/Librium/Clonidine/Topamax/Seroquel - Hydralazine and IVP BB for HR/BP control - Ativan for Abortive Seizure and Withdrawal Symptoms Opioid and Narcotic Dependence - UDS: Benzo - PDMP of [place] shows high level use of both drugs - Counseled on Substance Abuse - SA/Psych consult Chronic ETOH Use/Dependence - CIWA protocol - SA consult Transaminitis, Improving - AST/ALT: 496/183--> now 266/112 - Likely 2/2 ETOH Abuse - Hepatitis panel ordered (this may take a week); she reports hx/o untreated hep C infection in the past - Abdomen/Pelvis CT scan report reads severe fatty infiltration throughout the liver - Drinks 1 L of vodka a day Hypokalemia - decreased, will replace as needed - 2/2 Poor nutritional state and oral intake - Replete and monitor Abdominal Pain - 2/2 C. Diff Colitis - D/c IV Levaquin and Flagyl Q8H; Start Oral Vancomycin - Pending Stool studies - Abdomen/Pelvis CT scan report reads bowel edema within the right cecum and right colon suggesting colitis. No small bowel dilatation no free fluid or inflammatory changes seen. Severe Hypothyroidism - 2/2 Non-compliance - TSH 61.61 and FT4 is 0.38 - Per pharmacy she has an rx for levothyroxine of 125 mcg daily - Resume old home dose of 125 mcg po daily Dyslipidemia - Abnormal Lipid Panel - AHA once po with regular meal - Dietay consult - Low dose statin due to abnormal fatty liver Resolved: - S/p Hypomagnesemia - Mg 1.0--> now 2 - 2/2 Poor nutritional state and oral intake - Replete and monitor S/p Moderate Dehydration - 2/2 ETOH Abuse - BUN/Cr: 33.4/1.4 - US Specific gravity is > or = 1.030 Drug Seeking Behavior - Educated patient about narcotics and its side effects Relative Hypotension - 2/2 Medications - Monitor Chronic: HTN HLD GERD OA/DJD Back Pain Hypothyroidism Hepato-splenomegaly EV Fatty Infiltration 2/2 Chronic ETOH Use Hx/o Hepatitis C Infection w/o Treatment S/p Cholecystectomy Obesity Plan: Postponed NDSH for lab abnormalities She is much better clinically Continue: MVI, Folic Acid and Thiamine and CIWA protocol Screen for DM is negative Consider clear liquid diet this afternoon Hepatitis Panel- pending Ativan for Abortive Seizure and Withdrawal Symptoms PRN meds for Withdrawal Symptoms Isolation Precautions for C. Diff Infection SW/CM d/c planning-->[place] consult today SA/Psych consult Code Status: 1
[2018-02-12] MEDS: Potassium Chloride 10 MEQ in Premix Bag 1 BAG IV SCH ×4 (13:07→20:49)
[2018-02-12] MEDS: QUEtiapine 25 MG Tab PO SCH (20:14)
[2018-02-12] MEDS ORDERED: Potassium Chloride 20 MEQ Tab.ER PO ONE (20:35)
[2018-02-13] MEDS: Levothyroxine 125 MCG Tab PO SCH (06:18)
[2018-02-13] MEDS: Saccharomyces Boulardii (Probiotic) 250 MG Cap PO SCH (08:18)
[2018-02-13] MEDS: Vancomycin 50 MG/ML 150ML Oral Solution Kit PO SCH ×2 (08:18→12:32)
[2018-02-13] MEDS: Thiamine 100 MG Tab PO SCH (08:19)
[2018-02-13] MEDS: Topiramate 25 MG Tab PO SCH (08:19)
[2018-02-13] MEDS: Famotidine 20 MG Tab PO SCH (08:19)
[2018-02-13] MEDS: Lisinopril 20 MG Tab PO SCH (08:20)
[2018-02-13] MEDS: Hydrochlorothiazide 12.5 MG Cap PO SCH (08:20)
[2018-02-13] MEDS: Ibuprofen 600 MG Tab PO PRN (09:44)
[2018-02-13 12:33] VITALS: BP 118/91
--- NOTE | 2018-02-13 12:38 | PCM.DCSUM1 ---
Discharge Summary - Hospital Course Free Text/Narrative:: The patient has been accepted at [facility] by Dr Staples; she will be treated for alcohol dependence/benzodiazepines as well as depression as indicated. The patient was C Diff positive, prior to confirmation, she received Levoquin and Flagyl. Thus she was treated a total of 5 days including the day of discharge for C Diff. An anticipated DC was postponed to correct her electrolytes which were within normal limit on the day of transfer. Additional adjustment or addition of medication occurred after the psychiatric consult with Dr Vail. The patient also had a consult by the substance abuse counselor, Davye Massey. HPI Initial Comments: This is a 42-year-old female with past medical history of hypertension , hyperlipidemia, GERD, history of acute renal failure, osteoarthritis, chronic back pain, hypothyroidism, iron deficiency anemia, fatty liver, and chronic alcohol and opioid dependence who comes in for evaluation of multiple complaints such as retrosternal chest pain, shortness of breath, diffuse body aches and pains, hyperventilation, chills, nausea and vomiting but primarily dry heaving. She also reports abdominal pain associated with watery diarrhea for the past 3 days. She denies eating or drinking unusual diet. Nothing improves or makes her symptoms better. She denies any DTs, Seizures, or Hallucinations. She carries a hx/o cholecystectomy but she denies any recent surgery or abdominal trauma. Patient reports similar history in the past. Per IES, she has had multiple evaluations related to her chief of complaints and most if not all workup were negative. Patient admits to drinking daily, 1L of vodka. She has been drinking a lot this past week with no obvious precipitating factors. Patient denies any history of inpatient treatment. However she had been to outpatient treatment several months ago. But according to her, she stopped going to treatment when her went to senior living in [place]. Her initial workup in the emergency department shows a CBC remarkable for MCH of 32.6%, RDW of 49, platelet of 144, and monocytes of 13%. Her ABG shows a pH of 7.44, PCO2 of 21, PO2 of 79, HCO3 of 14.1, and O2 saturation of 95.3%, on room air. Her chemistry is significant for sodium of 133, potassium of 2.4, chloride of 88, carbon dioxide of 14, anion gap of 32.4, BUN of 25, creatinine of 1.4, glucose of 181, calcium of 8.1, magnesium of 1, AST of 496, ALT of 183, alkaline phosphatase of 168, LA of 7.6, and total protein of 9.5. Her UA is suggestive of moderate dehydration. Her UDS is positive for benzodiazepine. Her STEFANIE level is 0.09. Patient is being admitted for alcohol withdrawal symptoms and evaluation of abdominal pain. She is full code. Diagnosis: Stroke: No - Discharge Data Discharge Date: 02/13/18 Discharge Disposition: DC/Tfer to Psych Hosp/Unit 65 Condition: Good - Patient Summary/Data Consults: Consultations 02/09/18 07:23 Consult to Case Management [CONS] Routine Consult to Leaf Fat Scraper [CONS] Routine Consult to Physician [CONS] Routine Consult to Safety Glass Installer [CONS] Routine Consult to Spiritual Care [CONS] Routine 02/09/18 08:45 Consult for Substance Abuse [CONS] Routine - Patient Instructions Diet: Heart Healthy Diet Activity: As Tolerated Driving: Do Not Drive Showering/Bathing: May Shower Notify Provider of: Fever, Increased Pain, Nausea and/or Vomiting - Discharge Plan *PRESCRIPTION DRUG MONITORING PROGRAM REVIEWED*: Not Applicable *COPY OF PRESCRIPTION DRUG MONITORING REPORT IN PATIENT HELENA: Not Applicable Prescriptions/Med Rec: Nicotine [Habitrol] 21 mg TRDERM DAILY PRN #14 patch PRN Reason: Nicotine Dependence QUEtiapine [SEROquel] 50 mg PO BEDTIME #30 tablet Saccharomyces Boulardii [Florastor] 250 mg PO BID #60 cap Thiamine [Vitamin B-1] 100 mg PO DAILY #30 tablet Topiramate [Topamax] 25 mg PO BID #60 tablet Vancomycin [First-Vancomycin 50 Compounding Kit] 125 mg PO QID #10 bottle Home Medications: Home Meds Levothyroxine 125 mcg PO DAILY 10/19/14 [History] Lisinopril/Hydrochlorothiazide [Lisinopril-Hctz 20-12.5 mg Tab] 12.5 - 25 mg PO DAILY 08/03/15 [History] Nicotine [Habitrol] 21 mg TRDERM DAILY PRN #14 patch 02/13/18 [Rx] QUEtiapine [SEROquel] 50 mg PO BEDTIME #30 tablet 02/13/18 [Rx] Saccharomyces Boulardii [Florastor] 250 mg PO BID #60 cap 02/13/18 [Rx] Thiamine [Vitamin B-1] 100 mg PO DAILY #30 tablet 02/13/18 [Rx] Topiramate [Topamax] 25 mg PO BID #60 tablet 02/13/18 [Rx] Vancomycin [First-Vancomycin 50 Compounding Kit] 125 mg PO QID #10 bottle [Rx] Patient Handouts: Alcoholic Liver Disease, What You Need to Know About Alcohol Abuse and Dependence, Adult, Hypokalemia, Recovering From Addiction Referrals: PCP,None [Primary Care Provider] - - Discharge Summary/Plan Comment DC Time >30 min.: No Discharge Summary/Plan Comment: Assessment/Plan: Acute: ETOH Withdrawal Symptoms - STEFANIE level 0.09 - CIWA protocol: CIWA score has significantly improved due to medications - Ativan/Librium/Clonidine/Topamax/Seroquel - Hydralazine and IVP BB for HR/BP control - Ativan for Abortive Seizure and Withdrawal Symptoms Opioid and Narcotic Dependence - UDS: Benzo - PDMP of [place] shows high level use of both drugs - Counseled on Substance Abuse - SA/Psych consult Chronic ETOH Use/Dependence - CIWA protocol - SA consult Transaminitis, Improving - AST/ALT: 496/183--> now 266/112 - Likely 2/2 ETOH Abuse - Hepatitis panel ordered (this may take a week); she reports hx/o untreated hep C infection in the past - Abdomen/Pelvis CT scan report reads severe fatty infiltration throughout the liver - Drinks 1 L of vodka a day Hypokalemia - decreased, will replace as needed - 2/2 Poor nutritional state and oral intake - Replete and monitor Abdominal Pain - 2/2 C. Diff Colitis - D/c IV Levaquin and Flagyl Q8H; Start Oral Vancomycin - Pending Stool studies - Abdomen/Pelvis CT scan report reads bowel edema within the right cecum and right colon suggesting colitis. No small bowel dilatation no free fluid or inflammatory changes seen. Severe Hypothyroidism - 2/2 Non-compliance - TSH 61.61 and FT4 is 0.38 - Per pharmacy she has an rx for levothyroxine of 125 mcg daily - Resume old home dose of 125 mcg po daily Dyslipidemia - Abnormal Lipid Panel - AHA once po with regular meal - Dietay consult - Low dose statin due to abnormal fatty liver Resolved: - S/p Hypomagnesemia - Mg 1.0--> now 2 - 2/2 Poor nutritional state and oral intake - Replete and monitor S/p Moderate Dehydration - 2/2 ETOH Abuse - BUN/Cr: 33.4/1.4 - US Specific gravity is > or = 1.030 Drug Seeking Behavior - Educated patient about narcotics and its side effects Relative Hypotension - 2/2 Medications - Monitor Chronic: HTN HLD GERD OA/DJD Back Pain Hypothyroidism Hepato-splenomegaly EV Fatty Infiltration 2/2 Chronic ETOH Use Hx/o Hepatitis C Infection w/o Treatment S/p Cholecystectomy Obesity Plan: Postponed NDSH for lab abnormalities-->corrected; medically stable for transfer via the [facility] for [facility]. She is much better clinically Continue: MVI, Folic Acid and Thiamine and CIWA protocol Screen for DM is negative Consider clear liquid diet this afternoon Hepatitis Panel- pending Ativan for Abortive Seizure and Withdrawal Symptoms PRN meds for Withdrawal Symptoms Isolation Precautions for C. Diff Infection SW/CM d/c planning-->see above. SA/Psych consult Code Status: 1 - General Info Date of Service: 02/09/18 Functional Status: Reports: Pain Controlled, Tolerating Diet, Ambulating, Urinating - Review of Systems General: Reports: No Symptoms HEENT: Reports: No Symptoms Pulmonary: Reports: No Symptoms Cardiovascular: Reports: No Symptoms Gastrointestinal: Reports: No Symptoms Genitourinary: Reports: No Symptoms Musculoskeletal: Reports: No Symptoms Skin: Reports: No Symptoms Neurological: Reports: No Symptoms Psychiatric: Reports: No Symptoms - Patient Data Vitals - Most Recent: Last Vital Signs Temp 36.3 C 02/13/18 12:31 Pulse 80 02/12/18 20:12 Resp 17 02/13/18 12:31 BP 118/91 H 02/13/18 12:31 Pulse Ox 100 02/13/18 12:31 Weight - Most Recent: 72.802 kg I&O - Last 24 hours: Intake & Output 02/12/18 02/13/18 02/13/18 22:59 06:59 14:59 Intake Total 1678 400 120 Output Total 300 200 Balance 1678 100 -80 Lab Results - Last 24 hrs: Laboratory Results - last 24 hr 02/13/18 02/13/18 Range/Units 08:40 08:40 WBC 4.31 (3.98-10.04) K/mm3 RBC 4.03 (3.98-5.22) M/mm3 Hgb 13.3 (11.2-15.7) gm/L Hct 40.2 (34.1-44.9) % MCV 99.8 H (79.4-94.8) fl MCH 33.0 H (25.6-32.2) pg MCHC 33.1 (32.2-35.5) g/dl RDW Std Deviation 57.5 H (36.4-46.3) fL Plt Count 126 L (182-369) K/mm3 MPV 10.4 (9.4-12.3) fl Neut % (Auto) 55.0 (34.0-71.1) % Lymph % (Auto) 29.9 (19.3-51.7) % [place] % (Auto) 10.7 (4.7-12.5) % Eos % (Auto) 3.0 (0.7-5.8) Baso % (Auto) 0.9 (0.1-1.2) % Neut # (Auto) 2.37 (1.56-6.13) K/mm3 Lymph # (Auto) 1.29 (1.18-3.74) K/mm3 [place] # (Auto) 0.46 H (0.24-0.36) K/mm3 Eos # (Auto) 0.13 (0.04-0.36) K/mm3 Baso # (Auto) 0.04 (0.01-0.08) K/mm3 Sodium 139 (136-145) mEq/L Potassium 3.8 (3.5-5.1) mEq/L Chloride 104 (98-107) mEq/L Carbon Dioxide 19 L (21-32) mEq/L Anion Gap 19.8 H (5-15) BUN 10 (7-18) mg/dL Creatinine 1.0 (0.55-1.02) mg/dL Est Cr Clr Drug Dosing 52.10 mL/min Estimated GFR (MDRD) > 60 (>60) mL/min BUN/Creatinine Ratio 10.0 L (14-18) Glucose 111 H (74-106) mg/dL Calcium 9.6 (8.5-10.1) mg/dL Total Bilirubin 0.7 (0.2-1.0) mg/dL AST 240 H (15-37) U/L ALT 130 H (14-59) U/L Alkaline Phosphatase 119 H (46-116) U/L Total Protein 8.0 (6.4-8.2) g/dl Albumin 3.9 (3.4-5.0) g/dl Globulin 4.1 gm/dL Albumin/Globulin Ratio 1.0 (1-2) JORDANA Results - Last 24 hrs: Microbiology 02/10/18 16:41 Stool Culture - Final Stool / Feces - Final - Final 02/10/18 11:15 Cryptosporidium/Giardia - Final Stool / Feces Med Orders - Current: Current Medications Albuterol/Ipratropium (Duoneb 3.0-0.5 Mg/3 Ml) 3 ml NEB Q4H PRN PRN Reason: Shortness Of Breath/wheezing Bisacodyl (Dulcolax) 5 mg PO DAILY PRN PRN Reason: Constipation Chlordiazepoxide HCl (Librium) 25 mg PO Q8H PRN PRN Reason: Withdrawal Symptoms Last Admin: 02/10/18 20:51 Dose: 25 mg Clonidine HCl (Catapres) 0.1 mg PO Q8H PRN PRN Reason: Agitation Docusate Sodium (Colace) 100 mg PO BID PRN PRN Reason: Constipation Famotidine (Pepcid) 20 mg PO Q12H [facility] Last Admin: 02/13/18 08:19 Dose: 20 mg Haloperidol Lactate (Haldol) 2 mg IM Q4H PRN PRN Reason: Agitation Hydralazine HCl (Apresoline) 20 mg IVPUSH Q6H PRN PRN Reason: Hypertension Hydrochlorothiazide (Hydrochlorothiazide) 12.5 mg PO DAILY [facility] Last Admin: 02/13/18 08:20 Dose: 12.5 mg Promethazine HCl 12.5 mg/ (Sodium Chloride) 50.5 mls @ 100 mls/hr IV Q6H PRN PRN Reason: Nausea/Vomiting Last Admin: 02/12/18 11:08 Dose: 100 mls/hr Ibuprofen (Motrin) 600 mg PO Q6H PRN PRN Reason: Pain (moderate 4-6) Last Admin: 02/13/18 09:44 Dose: 600 mg Levothyroxine Sodium (Levothyroxine) 125 mcg PO ACBREAKFAST [facility] Last Admin: 02/13/18 06:18 Dose: 125 mcg Lisinopril (Prinivil) 20 mg PO DAILY [facility] Last Admin: 02/13/18 08:20 Dose: 20 mg Lorazepam (Ativan) 2 mg IVPUSH Q4H PRN PRN Reason: Seizures Metoprolol Tartrate (Lopressor) 5 mg IVPUSH Q4H PRN PRN Reason: Tachycardia Last Admin: 02/10/18 23:22 Dose: 5 mg Miscellaneous Information (Remove Patch) 0 ea TRDERM DAILY [facility] Last Admin: 02/13/18 08:24 Dose: Not Given Nicotine (Habitrol) 21 mg TRDERM DAILY PRN PRN Reason: Nicotine Dependence Ondansetron HCl (Zofran) 4 mg IV Q6H PRN PRN Reason: Nausea/Vomiting Last Admin: 02/12/18 18:03 Dose: 4 mg Polyethylene Glycol (Miralax) 17 gm PO DAILY PRN PRN Reason: Constipation Quetiapine Fumarate (Seroquel) 50 mg PO BEDTIME [facility] Last Admin: 02/12/18 20:14 Dose: 50 mg Saccharomyces Boulardii (Florastor) 250 mg PO BID [facility] Last Admin: 02/13/18 08:18 Dose: 250 mg Senna/Docusate Sodium (Senna Plus) 1 tab PO BID PRN PRN Reason: Constipation Thiamine HCl (Vitamin B-1) 100 mg PO DAILY [facility] Last Admin: 02/13/18 08:19 Dose: 100 mg Topiramate (Topamax) 25 mg PO BID [facility] Last Admin: 02/13/18 08:19 Dose: 25 mg Vancomycin HCl (First-Vancomycin 50 Compounding Kit) 125 mg PO QID [facility] Last Admin: 02/13/18 12:32 Dose: 125 mg Discontinued Medications Acetaminophen (Tylenol) 650 mg PO NOW STA Stop: 02/12/18 09:36 Last Admin: 02/12/18 09:54 Dose: 650 mg Clonidine HCl (Catapres) 0.1 mg PO Q4H PRN PRN Reason: Agitation Last Admin: 02/09/18 08:34 Dose: 0.1 mg Al Hydroxide/Mg Hydroxide 30 (ml/ Lidocaine HCl 15 ml) 0 ml PO ONETIME STA Stop: 02/09/18 05:56 Last Admin: 02/09/18 06:15 Dose: 45 ml Diatrizoate Meglum/Diatrizoate Sod (Gastrografin 37%) 90 ml PO ONETIME ONE Stop: 02/09/18 10:07 Last Admin: 02/09/18 10:19 Dose: 90 ml Diphenhydramine HCl (Benadryl) 50 mg IVPUSH ONETIME ONE Stop: 02/09/18 12:26 Last Admin: 02/09/18 12:29 Dose: 50 mg Famotidine (Pepcid) 20 mg IVPUSH ONETIME ONE Stop: 02/09/18 05:55 Last Admin: 02/09/18 06:16 Dose: 20 mg Folic Acid (Folic Acid) 1 mg PO DAILY [facility] Stop: 02/11/18 09:01 Last Admin: 02/11/18 08:39 Dose: 1 mg Hydralazine HCl (Apresoline) 20 mg IVPUSH Q4H PRN PRN Reason: Hypertension Hydromorphone HCl (Dilaudid) 0.25 mg IVPUSH Q2H PRN PRN Reason: Pain (severe 7-10) Last Admin: 02/11/18 00:10 Dose: 0.25 mg Sodium Chloride (Normal Saline) 1,000 mls @ 150 mls/hr IV ASDIRECTED [facility] Last Admin: 02/09/18 03:37 Dose: 150 mls/hr Potassium Chloride 10 meq/ (Premix) 100 mls @ 100 mls/hr IV ONETIME STA Stop: 02/09/18 05:12 Last Admin: 02/09/18 04:21 Dose: 100 mls/hr Magnesium Sulfate 2 gm/ Premix 50 mls @ 50 mls/hr IV ONETIME ONE Stop: 02/09/18 06:06 Last Admin: 02/09/18 05:36 Dose: 50 mls/hr Sodium Chloride (Normal Saline) 1,000 mls @ 999 mls/hr IV ONETIME ONE Stop: 02/09/18 06:43 Last Admin: 02/09/18 06:26 Dose: 999 mls/hr Sodium Chloride (Normal Saline) 500 mls @ 999 mls/hr IV .BOLUS ONE Stop: 02/09/18 07:52 Last Admin: 02/09/18 08:07 Dose: 999 mls/hr Thiamine HCl 100 mg/ Sodium (Chloride) 51 mls @ 100 mls/hr IV ONETIME ONE Stop: 02/09/18 09:30 Last Admin: 02/09/18 09:00 Dose: 100 mls/hr Levofloxacin/Dextrose 500 mg/ (Premix) 100 mls @ 100 mls/hr IV Q24H [facility] Last Admin: 02/09/18 14:17 Dose: 100 mls/hr Metronidazole 500 mg/ Premix 100 mls @ 100 mls/hr IV Q8H [facility] Last Admin: 02/10/18 05:16 Dose: 100 mls/hr Potassium Chloride 10 meq/ (Premix) 100 mls @ 100 mls/hr IV Q1H [facility] Stop: 02/12/18 16:59 Last Admin: 02/12/18 20:49 Dose: Not Given Iopamidol (Isovue-300 (61%)) 100 ml IVPUSH ONETIME ONE Stop: 02/09/18 10:07 Last Admin: 02/09/18 10:12 Dose: 100 ml Levothyroxine Sodium (Levothyroxine) 112 mcg PO DAILY@0700 [facility] Magnesium Sulfate (Pharmacy To Dose - Magnesium Replacement) 0 dose .XX ASDIRECTED PRN PRN Reason: RX TO WATCH MAG LEVELS Multivitamins (Thera) 1 each PO DAILY [facility] Stop: 02/11/18 09:01 Last Admin: 02/11/18 08:39 Dose: 1 each Ondansetron HCl (Zofran) 4 mg IVPUSH ONETIME ONE Stop: 02/09/18 03:26 Last Admin: 02/09/18 03:37 Dose: 4 mg Ondansetron HCl (Zofran) 4 mg IVPUSH ONETIME ONE Stop: 02/09/18 04:43 Last Admin: 02/09/18 04:48 Dose: 4 mg Oxycodone HCl (Oxycodone) 5 mg PO Q4H PRN PRN Reason: Pain (moderate 4-6) Last Admin: 02/11/18 08:40 Dose: 5 mg Pantoprazole Sodium (Protonix Iv) 40 mg IV ONETIME ONE Stop: 02/09/18 08:01 Last Admin: 02/09/18 08:20 Dose: 40 mg Potassium Chloride (Pharmacy To Dose - Potassium Replacement) 0 dose .XX ASDIRECTED PRN PRN Reason: RX TO WATCH K LEVELS Potassium Chloride (Klor-Con M20) 40 meq PO Q4H [facility] Stop: 02/10/18 21:31 Last Admin: 02/10/18 20:38 Dose: 40 meq Potassium Chloride (Potassium Chloride Solution) 60 meq PO TID [facility] Stop: 02/13/18 09:01 Last Admin: 02/12/18 11:27 Dose: 60 meq Potassium Chloride (Klor-Con M20) 40 meq PO ONETIME ONE Stop: 02/12/18 20:36 Last Admin: 02/12/18 20:46 Dose: 40 meq Quetiapine Fumarate (Seroquel) 50 mg PO ONETIME ONE Stop: 02/09/18 08:44 Last Admin: 02/09/18 08:58 Dose: 50 mg Saccharomyces Boulardii (Florastor) 250 mg PO NOW STA Stop: 02/09/18 12:49 Last Admin: 02/09/18 13:04 Dose: 250 mg Sodium Chloride (Saline Flush) 10 ml FLUSH ONETIME ONE Stop: 02/09/18 10:07 Last Admin: 02/09/18 12:28 Dose: 10 ml - Exam Quality Assessment: Reports: DVT Prophylaxis General: Reports: Alert, Oriented, Cooperative, No Acute Distress HEENT: Reports: Pupils Equal, Pupils Reactive, EOMI Neck: Reports: Supple, Trachea Midline, No JVD Lungs: Reports: Clear to Auscultation, Normal Respiratory Effort Cardiovascular: Reports: Regular Rate, Regular Rhythm GI/Abdominal Exam: Normal Bowel Sounds, Soft, Non-Tender, No Organomegaly, No Distention (Female) Exam: Deferred Rectal (Female) Exam: Deferred Back Exam: Reports: Normal Inspection Extremities: Normal Inspection, Normal Range of Motion, Non-Tender, No Pedal Edema, Normal Capillary Refill Skin: Reports: Warm Neurological: Reports: No New Focal Deficit, Normal Gait, Normal Speech Psy/Mental Status: Reports: Alert, Anxious
== END 2018-02-13 13:21 | DRG 372 ==
LOC: JD.ED 02:56 → JD.MS 06:47 → JD.ICU 09:37
PROVIDERS: ADMIT Internal Medicine; ATTEND Internal Medicine
DX: A04.72 Enterocolitis due to Clostridium difficile, not specified as recurrent (principal); F13.20 Sedative, hypnotic or anxiolytic dependence, uncomplicated; F11.20 Opioid dependence, uncomplicated; F10.239 Alcohol dependence with withdrawal, unspecified; E87.2 Acidosis; N17.9 Acute kidney failure, unspecified; E87.3 Alkalosis; F31.60 Bipolar disorder, current episode mixed, unspecified; I10 Essential (primary) hypertension; E78.5 Hyperlipidemia, unspecified; K21.9 Gastro-esophageal reflux disease without esophagitis; M19.90 Unspecified osteoarthritis, unspecified site; G89.29 Other chronic pain; M54.9 Dorsalgia, unspecified; D50.9 Iron deficiency anemia, unspecified; E86.0 Dehydration; Y90.4 Blood alcohol level of 80-99 mg/100 ml; R74.0 Nonspecific elevation of levels of transaminase and lactic acid dehydrogenase [LDH]; E87.6 Hypokalemia; E83.42 Hypomagnesemia; I95.2 Hypotension due to drugs; R16.2 Hepatomegaly with splenomegaly, not elsewhere classified; K70.0 Alcoholic fatty liver; B19.20 Unspecified viral hepatitis C without hepatic coma; E89.0 Postprocedural hypothyroidism; R73.9 Hyperglycemia, unspecified; F41.9 Anxiety disorder, unspecified; F15.11 Other stimulant abuse, in remission; E78.00 Pure hypercholesterolemia, unspecified; K70.10 Alcoholic hepatitis without ascites; T50.905A Adverse effect of unspecified drugs, medicaments and biological substances, initial encounter; E66.9 Obesity, unspecified; Z68.31 Body mass index [BMI] 31.0-31.9, adult; Z85.850 Personal history of malignant neoplasm of thyroid; Z92.21 Personal history of antineoplastic chemotherapy; Z88.0 Allergy status to penicillin; Z76.5 Malingerer [conscious simulation]; Z91.14 Patient's other noncompliance with medication regimen; Z88.2 Allergy status to sulfonamides; Z90.710 Acquired absence of both cervix and uterus; Z87.891 Personal history of nicotine dependence; Z90.49 Acquired absence of other specified parts of digestive tract; Z79.899 Other long term (current) drug therapy
CPT/HCPCS: 36415; 36600; 71045; 71045-26; 74177; 74177-26; 80053; 80061; 80074; 80306; 81001; 82009; 82803; 83036; 83605; 83690; 83735; 84132; 84439; 84443; 84484; 84703; 85007; 85025; 85027; 87046; 87328; 87329; 87493; 89055; 93005; 93010; 96361; 96365; 96367; 96375; 96376; 99285-25; A9270-GY; C9113; G0480; J1170; J1200; J1956; J2405; J2550; J3370; J3411; J3475; J3480; J3490; J7040; J7050; Q9967

== ENCOUNTER 2018-11-14 09:09 | Inpatient (IN) | payer MEDICAID, OTHER ==
[2018-11-14] MEDS ORDERED: Ondansetron 4 MG/2 ML SDV IVPUSH ONE (09:32)
[2018-11-14] MEDS ORDERED: Sodium Chloride 0.9% 10 ML Syringe FLUSH PRN (09:32)
[2018-11-14] MEDS ORDERED: Sodium Chloride 0.9% 1,000 ML IV STA (09:32)
[2018-11-14] MEDS ORDERED: Pantoprazole 40 MG Vial IVPUSH ONE (09:34)
[2018-11-14] MEDS ORDERED: HYDROmorphone 1 MG/ML Syringe IVPUSH ONE ×2 (09:35→15:09)
[2018-11-14] MEDS ORDERED: Pantoprazole 80 MG in Sodium Chloride 0.9% 100 ML IV SCH (09:45)
--- NOTE | 2018-11-14 10:37 | EDM.PDOC ---
ED HPI GENERAL MEDICAL PROBLEM - General Chief Complaint: Abdominal Pain Stated Complaint: VOMITING BLOOD Time Seen by Provider: 11/14/18 09:17 Source of Information: Reports: Patient History Limitations: Reports: No Limitations - History of Present Illness INITIAL COMMENTS - FREE TEXT/NARRATIVE: The patient presents with upper abdominal pain, nausea, vomiting and bloody emesis. This all started a few days ago after she had taken some niquil for a cold. She says she has not had alcohol or a few months. She has a drinking problem and she quit. She had a cough, congestion and runny nose and took the niquil to help with the symptoms. She then had the pain and vomiting. There is blood tinged emesis but no ace blood. She says she had her gallbladder and appendix removed years ago. She has no diarrhea. She has chills but no fever. She has no chest pain or shortness of breath. Onset: Gradual Duration: Day(s): Location: Reports: Abdomen Quality: Reports: Sharp Severity: Moderate Improves with: Reports: None Worsens with: Reports: None Associated Symptoms: Reports: Fever/Chills, Nausea/Vomiting. Denies: Chest Pain , Cough, Headaches, Shortness of Breath Abdomen Pain Score (Numeric/FACES): 10 - Related Data Allergies Allergy/AdvReac Type Severity Reaction Status Date / Time Penicillins Allergy Severe Airway Verified 11/14/18 09:24 Tightness Sulfa (Sulfonamide Allergy Airway Verified 11/14/18 09:24 Antibiotics) Tightness Home Meds: Home Meds . [No Known Home Meds] 11/14/18 [History] Past Medical History HEENT History: Reports: None Cardiovascular History: Reports: High Cholesterol, Hypertension Respiratory History: Reports: None Gastrointestinal History: Reports: GERD Other Gastrointestinal History: epigastric pain, adhesions Genitourinary History: Reports: Acute Renal Failure Other Genitourinary History: renal failure 10 yrs ago--was given chemo for thyroid CA. BILINGUAL SOCIAL WORKER History: Reports: Other BIL[employer]UAL SOCIAL WORKER History: grav 4 para4, right ovarian cystecomy Musculoskeletal History: Reports: Arthritis, Back Pain, Chronic Other Musculoskeletal History: had bone infection to R) hand 4 yrs ago--states was hospitalized 3 months. States was washing dishes and lacerated hand. Neurological History: Reports: None Psychiatric History: Reports: Addiction Endocrine/Metabolic History: Reports: Hypothyroidism, Obesity/BMI 30+ Hematologic History: Reports: Anemia, Iron Deficiency Oncologic (Cancer) History: Reports: Thyroid Other Oncologic History: thyroid removed due to CA. Dermatologic History: Reports: None - Infectious Disease History Infectious Disease History: Reports: None - Past Surgical History GI Surgical History: Reports: Appendectomy, Cholecystectomy, Colonoscopy, EGD Female Surgical History: Reports: Hysterectomy, Other (See Below) Endocrine Surgical History: Reports: Thyroidectomy Social & Family History - Family History OBGYN: Reports: Endocrine/Metabolic: Reports: Diabetes, type II Immunologic: Reports: None Oncologic: Reports: Breast, Uterine - Tobacco Use Smoking Status *Q: Never Smoker - Caffeine Use Caffeine Use: Reports: Coffee, Energy Drinks, Soda, Tea - Recreational Drug Use Recreational Drug Use: No - Living Situation & Occupation Living situation: Reports: ( is in [facility]), with Family (Daughter, son). Denies: with Spouse ( in [facility]) Occupation: Unemployed ED ROS GENERAL - Review of Systems Review Of Systems: See Below Constitutional: Reports: Chills. Denies: Fever HEENT: Reports: No Symptoms Respiratory: Reports: No Symptoms Cardiovascular: Reports: No Symptoms Endocrine: Reports: No Symptoms GI/Abdominal: Reports: Abdominal Pain, Hematemesis, Nausea, Vomiting. Denies: Diarrhea : Reports: No Symptoms Musculoskeletal: Reports: No Symptoms Skin: Reports: No Symptoms ED EXAM, GI/ABD - Physical Exam Exam: See Below Exam Limited By: No Limitations General Appearance: Alert, No Apparent Distress Ears: Normal External Exam Nose: Normal Inspection Head: Atraumatic, Normocephalic Neck: Normal Inspection Respiratory/Chest: No Respiratory Distress, Lungs Clear, Normal Breath Sounds Cardiovascular: Regular Rate, Rhythm, No Edema, No Murmur GI/Abdominal Exam: Soft, No Organomegaly, No Mass, Tender (Moderate pain upon palpation) Back Exam: Normal Inspection Extremities: Normal Inspection Course - Vital Signs Last Recorded V/S: Last Vital Signs Temp 97.9 F 11/14/18 12:01 Pulse 88 11/14/18 12:01 Resp 16 11/14/18 12:01 BP 131/88 11/14/18 12:01 Pulse Ox 95 11/14/18 12:01 - Orders/Labs/Meds Orders: Active Orders 24 hr Category Date Time Status Peripheral IV Care [RC] . DIRECTED Care 11/14/18 09:33 Active Abdomen Series w Chest 1V [CR] Stat Exams 11/14/18 09:32 Taken INR,PT,PROTHROMBIN TIME [COAG] Stat Lab 11/14/18 12:09 Ordered Pantoprazole [ProTONIX IV] 80 mg Med 11/14/18 12:06 Ordered Sodium Chloride 0.9% [Normal Saline] 100 ml IV ONETIME Potassium Chloride [KCl 10 MEQ in Water 100 ML] 10 meq Med 11/14/18 11:15 Active Premix Bag 1 bag IV ONETIME Sodium Chloride 0.9% [Saline Flush] Med 11/14/18 09:32 Active 10 ml FLUSH ASDIRECTED PRN ED Antiemetic Medication Reflex [OM.PC] Stat Oth 11/14/18 09:33 Ordered Peripheral IV Insertion Adult [OM.PC] Stat Oth 11/14/18 09:32 Ordered Medication Orders Potassium Chloride 10 meq/ (Premix) 100 mls @ 100 mls/hr IV ONETIME ONE Stop: 11/14/18 12:14 Last Admin: 11/14/18 11:11 Dose: 100 mls/hr Pantoprazole Sodium 80 mg/ (Sodium Chloride) 100 mls @ 10 mls/hr IV ONETIME ONE Stop: 11/14/18 22:05 Sodium Chloride (Saline Flush) 10 ml FLUSH ASDIRECTED PRN PRN Reason: Keep Vein Open Last Admin: 11/14/18 11:12 Dose: 10 ml Labs: Laboratory Tests 11/14/18 11/14/18 Range/Units 09:48 09:48 WBC 5.33 (3.98-10.04) K/mm3 RBC 3.42 L (3.98-5.22) M/mm3 Hgb 10.8 L D (11.2-15.7) gm/L Hct 29.6 L (34.1-44.9) % MCV 86.5 (79.4-94.8) fl MCH 31.6 (25.6-32.2) pg MCHC 36.5 H (32.2-35.5) g/dl RDW Std Deviation 47.7 H (36.4-46.3) fL Plt Count 77 L (182-369) K/mm3 MPV 9.3 L (9.4-12.3) fl Neut % (Auto) 76.0 H (34.0-71.1) % Lymph % (Auto) 11.4 L (19.3-51.7) % Evans % (Auto) 11.3 (4.7-12.5) % Eos % (Auto) 0.9 (0.7-5.8) Baso % (Auto) 0.2 (0.1-1.2) % Neut # (Auto) 4.05 (1.56-6.13) K/mm3 Lymph # (Auto) 0.61 L (1.18-3.74) K/mm3 Evans # (Auto) 0.60 H (0.24-0.36) K/mm3 Eos # (Auto) 0.05 (0.04-0.36) K/mm3 Baso # (Auto) 0.01 (0.01-0.08) K/mm3 Manual Slide Review Abnormal smear Sodium 131 L (136-145) mEq/L Potassium 2.2 L* (3.5-5.1) mEq/L Chloride 91 L (98-107) mEq/L Carbon Dioxide 23 (21-32) mEq/L Anion Gap 19.2 H (5-15) BUN 11 (7-18) mg/dL Creatinine 0.9 (0.55-1.02) mg/dL Est Cr Clr Drug Dosing 57.30 mL/min Estimated GFR (MDRD) > 60 (>60) mL/min BUN/Creatinine Ratio 12.2 L (14-18) Glucose 136 H (74-106) mg/dL Calcium 8.5 (8.5-10.1) mg/dL Total Bilirubin 4.8 H (0.2-1.0) mg/dL AST 3690 H (15-37) U/L ALT 2033 H (14-59) U/L Alkaline Phosphatase 269 H (46-116) U/L Total Protein 8.3 H (6.4-8.2) g/dl Albumin 4.0 (3.4-5.0) g/dl Globulin 4.3 gm/dL Albumin/Globulin Ratio 0.9 L (1-2) Lipase 1089 H (73-393) U/L TSH 3rd Generation 50.407 H (0.358-3.74) uIU/mL Ethyl Alcohol 0.06 (0.00) gm% Meds: Medications Generic Name Dose Route Start Last Admin Trade Name Freq PRN Reason Stop Dose Admin Potassium Chloride 10 meq/ 100 mls @ 100 mls/hr 11/14/18 11:15 11/14/18 11:11 Premix IV 11/14/18 12:14 100 mls/hr ONETIME ONE Administration Pantoprazole Sodium 80 mg/ 100 mls @ 10 mls/hr 11/14/18 12:06 Sodium Chloride IV 11/14/18 22:05 ONETIME ONE Sodium Chloride 10 ml 11/14/18 09:32 11/14/18 11:12 Saline Flush FLUSH 10 ml ASDIRECTED PRN Administration Keep Vein Open Discontinued Medications Generic Name Dose Route Start Last Admin Trade Name Dannyq PRN Reason Stop Dose Admin Hydromorphone HCl 1 mg 11/14/18 09:35 11/14/18 09:51 Dilaudid IVPUSH 11/14/18 09:36 1 mg ONETIME ONE Administration Hydromorphone HCl 0.5 mg 11/14/18 11:53 11/14/18 11:59 Dilaudid IVPUSH 11/14/18 11:54 0.5 mg ONETIME ONE Administration Pantoprazole Sodium 80 mg/ 100 mls @ 100 mls/hr 11/14/18 09:45 11/14/18 09:52 Sodium Chloride IV 10 mls/hr Q10H BIB[place] Administration Sodium Chloride 1,000 mls @ 1,000 mls/hr 11/14/18 09:32 11/14/18 09:51 Normal Saline IV 11/14/18 10:31 1,000 mls/hr .BOLUS STA Administration Ondansetron HCl 4 mg 11/14/18 09:32 11/14/18 09:51 Zofran IVPUSH 11/14/18 09:33 4 mg ONETIME ONE Administration Pantoprazole Sodium 80 mg 11/14/18 09:34 11/14/18 09:52 Protonix Iv IVPUSH 11/14/18 09:35 Not Given BOLUS ONE Potassium Chloride 10 meq 11/14/18 11:00 11/14/18 11:12 Potassium Chloride IV 11/14/18 11:01 Not Given ONETIME ONE - Re-Assessments/Exams Free Text/Narrative Re-Assessment/Exam: 11/14/18 10:55 I ordered an IV NS 1L bolus, zofran 4mg IV, dilaudid 1mg IV, protonix 80mg IV push and then a drip at 8mg/hr, labs, and an x-ray of her abdomen. 11/14/18 11:07 Her Hgb is low at 10.8. It has gone down from 13.9 in June. Her platelets have also dropped to 77. Her Na is low at 131. Her K is low at 2.2. Her anion gap is elevated at 19.2. Her glucose is slightly elevated at 136. Her total bili is elevated at 4.8. Her ALT is elevated at 2033. Her AST is not back yet. Her lipase is elevated at 1089. Her TSH is elevated at 50.407. Her ETOH is elevated at 0.06. I ordered 10meq of KCl IV. 11/14/18 12:10 Her AST was elevated at 3690. I went back in to talk to the patient and she did admit to drinking heavily again. I informed her that the drinking she has been doing is affecting her liver almost to the point that she is in liver failure. She needs to stop drinking or she will . She needs to be admitted so I called Dr Guerrero and he agreed to the admission. She will need to go to the ICU. She had more pain so I ordered more dilaudid. Dr Guerrero did want an INR so I have ordered that just to see if her liver is still making clotting factors. Departure - Departure Time of Disposition: 12:20 Disposition: Home, Self-Care 01 Condition: Good Clinical Impression: Hypokalemia, Upper GI bleed, Liver disease due to alcohol, Thrombocytopenia, Alcoholism Pancreatitis Qualifiers: Chronicity: acute Pancreatitis type: alcohol induced Acute pancreatitis complication: no infection or necrosis Qualified Code(s): K85.20 - Alcohol induced acute pancreatitis without necrosis or infection Nausea & vomiting Qualifiers: Vomiting type: unspecified Vomiting Intractability: non-intractable Qualified Code(s): R11.2 - Nausea with vomiting, unspecified Alcohol intoxication Qualifiers: Complication of substance-induced condition: uncomplicated Qualified Code(s): F10.120 - Alcohol abuse with intoxication, uncomplicated - Discharge Information Referrals: Enrique Brower Jr, MD [Primary Care Provider] - Forms: ED Department Discharge - My Orders Last 24 Hours: My Active Orders 11/14/18 09:32 Abdomen Series w Chest 1V [CR] Stat Sodium Chloride 0.9% [Saline Flush] 10 ml FLUSH ASDIRECTED PRN Peripheral IV Insertion Adult [OM.PC] Stat 11/14/18 09:33 Peripheral IV Care [RC] . DIRECTED ED Antiemetic Medication Reflex [OM.PC] Stat 11/14/18 11:15 Potassium Chloride [KCl 10 MEQ in Water 100 ML] 10 meq Premix Bag 1 bag IV ONETIME 11/14/18 12:06 Pantoprazole [ProTONIX IV] 80 mg Sodium Chloride 0.9% [Normal Saline] 100 ml IV ONETIME 11/14/18 12:09 INR,PT,PROTHROMBIN TIME [COAG] Stat - Assessment/Plan Last 24 Hours: My Active Orders 11/14/18 09:32 Abdomen Series w Chest 1V [CR] Stat Sodium Chloride 0.9% [Saline Flush] 10 ml FLUSH ASDIRECTED PRN Peripheral IV Insertion Adult [OM.PC] Stat 11/14/18 09:33 Peripheral IV Care [RC] . DIRECTED ED Antiemetic Medication Reflex [OM.PC] Stat 11/14/18 11:15 Potassium Chloride [KCl 10 MEQ in Water 100 ML] 10 meq Premix Bag 1 bag IV ONETIME 11/14/18 12:06 Pantoprazole [ProTONIX IV] 80 mg Sodium Chloride 0.9% [Normal Saline] 100 ml IV ONETIME 11/14/18 12:09 INR,PT,PROTHROMBIN TIME [COAG] Stat
[2018-11-14] MEDS ORDERED: Potassium Chloride 10 MEQ/5 ML SDV IV ONE (11:00)
[2018-11-14] MEDS ORDERED: Potassium Chloride 10 MEQ in Premix Bag 1 BAG IV ONE (11:15)
[2018-11-14] MEDS ORDERED: HYDROmorphone 0.5 MG/0.5 ML Syringe IVPUSH ONE (11:53)
[2018-11-14] MEDS ORDERED: Pantoprazole 80 MG in Sodium Chloride 0.9% 100 ML IV ONE (12:06)
[2018-11-14] MEDS ORDERED: NS + KCl 20mEq/L 1,000 ML IV ONE (15:00)
[2018-11-14] MEDS: Potassium Chloride 10 MEQ in Premix Bag 1 BAG IV SCH ×7 (15:25→23:46)
[2018-11-14] MEDS ORDERED: Thiamine 100 MG in Sodium Chloride 0.9% 100 ML IV ONE (17:00)
[2018-11-14] MEDS: Thiamine 100 MG in Sodium Chloride 0.9% 100 ML IV ONE ×2 (17:16→17:17)
[2018-11-14] MEDS: HYDROmorphone 1 MG/ML Syringe IVPUSH PRN ×3 (18:09→22:33)
--- NOTE | 2018-11-14 19:54 | PCM.HP ---
H&P History of Present Illness - General Date of Service: 11/14/18 Admit Problem/Dx: Admission Diagnosis/Problem Admission Diagnosis/Problem Hypokalemia Source of Information: Patient - History of Present Illness Initial Comments - Free Text/Narative: 43-year-old female, Who is a poor historian, presents to the emergency room with abdominal pain, nausea, vomiting, and red possibly bloody emesis. Patient states that 3 days ago she started vomiting, and then developed abdominal pain, then yesterday started hematemesis. She states that she was taking red; had initially thought it was the NyQuil. Patient does admit to 2 shots of liquor yesterday morning and NyQuil last night. She states that she went to a drug rehabilitation center a few months ago and has not drunk since then except to use shots. Her blood alcohol level this morning was 0.06. She has had a cough, congestion, and runny nose. She has had an appendectomy and cholecystectomy. She denies any chest pain or shortness of breath. No fever or chills. The emergency room she was given 1 L normal saline bolus, Zofran, Dilaudid, Protonix 80 mg IV push and then a drip was hung at 8 mg per hour. Hemoglobin was 10.8 which is down from 13.9 in June. She has also had a drop in her platelets to 77,000. Potassium was critically low at 2.2 and her eye and iron Was elevated at 19.2 lipase was 1089 and her TSH was 50. She states she has not been taking her medications. Patient received only 10 mEq of KCl IV in the ER. She did admit to drinking heavily for the emergency room physician, but not me. AST is 3690, ALT 2033, alkaline phosphatase 269, bilirubin of 4.8, INR is normal at 1.23 Abdomen Pain Score (Numeric/FACES): 10 - Related Data Allergies/Adverse Reactions: Allergies Allergy/AdvReac Type Severity Reaction Status Date / Time Penicillins Allergy Severe Airway Verified 11/14/18 14:46 Tightness Sulfa (Sulfonamide Allergy Airway Verified 11/14/18 14:46 Antibiotics) Tightness Home Medications: Home Meds . [No Known Home Meds] 11/14/18 [History] Past Medical History HEENT History: Reports: None Cardiovascular History: Reports: High Cholesterol, Hypertension Respiratory History: Reports: None Gastrointestinal History: Reports: GERD, Pancreatitis Other Gastrointestinal History: epigastric pain, adhesions Genitourinary History: Reports: Acute Renal Failure Other Genitourinary History: renal failure 10 yrs ago--was given chemo for thyroid CA. 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 Dermatologic History: Reports: None - Infectious Disease History Infectious Disease History: Reports: None - Past Surgical History GI Surgical History: Reports: Appendectomy, Cholecystectomy, Colonoscopy, EGD Female Surgical History: Reports: Hysterectomy, Other (See Below) Endocrine Surgical History: Reports: Thyroidectomy Social & Family History - Family History OBGYN: Reports: Endocrine/Metabolic: Reports: Diabetes, type II Immunologic: Reports: None Oncologic: Reports: Breast, Uterine - Tobacco Use Smoking Status *Q: Never Smoker - Caffeine Use Caffeine Use: Reports: Coffee, Energy Drinks, Soda - Recreational Drug Use Recreational Drug Use: No - Living Situation & Occupation Living situation: Reports: ( is in [facility]pc), with Family (Daughter, son). Denies: with Spouse ( in fpc) Occupation: Unemployed H&P Review of Systems - Review of Systems: Review Of Systems: ROS reveals no pertinent complaints other than HPI. Exam - Exam Exam: See Below - Vital Signs Vital Signs: Last Vital Signs Temp 97.9 F 11/14/18 12:01 Pulse 88 11/14/18 12:01 Resp 20 11/14/18 16:14 BP 131/88 11/14/18 12:01 Pulse Ox 98 11/14/18 16:14 Weight: 185 lb 4.8 oz - Exam Quality Assessment: Supplemental Oxygen General: Alert, Oriented HEENT: Conjunctiva Clear, EOMI, Hearing Intact, Mucosa Moist & [place] Neck, Posterior Pharynx Clear Neck: Supple, Trachea Midline Lungs: Clear to Auscultation, Normal Respiratory Effort Cardiovascular: Regular Rate, Regular Rhythm, Normal S1, Normal S2 GI/Abdominal Exam: Normal Bowel Sounds, No Mass, Tender. No: Guarding, Rigid, Rebound Back Exam: Normal Inspection Extremities: Normal Inspection, Normal Range of Motion, Non-Tender, No Pedal Edema Skin: Warm, Dry, Intact Neuro Extensive - Mental Status: Alert Neuro Extensive - Motor, Sensory, Reflexes: CN II-XII Intact Psychiatric: Alert, Normal Affect, Normal Mood - Patient Data Lab Results Last 24 hrs: Laboratory Results - last 24 hr 11/14/18 11/14/18 11/14/18 Range/Units 09:48 09:48 09:48 WBC 5.33 (3.98-10.04) K/mm3 RBC 3.42 L (3.98-5.22) M/mm3 Hgb 10.8 L D (11.2-15.7) gm/L Hct 29.6 L (34.1-44.9) % MCV 86.5 (79.4-94.8) fl MCH 31.6 (25.6-32.2) pg MCHC 36.5 H (32.2-35.5) g/dl RDW Std Deviation 47.7 H (36.4-46.3) fL Plt Count 77 L (182-369) K/mm3 MPV 9.3 L (9.4-12.3) fl Neut % (Auto) 76.0 H (34.0-71.1) % Lymph % (Auto) 11.4 L (19.3-51.7) % [place] % (Auto) 11.3 (4.7-12.5) % Eos % (Auto) 0.9 (0.7-5.8) Baso % (Auto) 0.2 (0.1-1.2) % Neut # (Auto) 4.05 (1.56-6.13) K/mm3 Lymph # (Auto) 0.61 L (1.18-3.74) K/mm3 [place] # (Auto) 0.60 H (0.24-0.36) K/mm3 Eos # (Auto) 0.05 (0.04-0.36) K/mm3 Baso # (Auto) 0.01 (0.01-0.08) K/mm3 Manual Slide Review Abnormal smear PT 13.3 H (9.5-12.1) SECONDS INR 1.23 Puncture Site ABG pH (7.35-7.45) ABG pCO2 (35.0-45.0) mmHg ABG pO2 (80.0-100.0) mmHg ABG HCO3 (22.0-26.0) meq/L ABG O2 Saturation (96.0-97.0) % ABG Base Excess (-2-2.0) Jese Test A-a Gradient mmHg O2 Delivery Device Oxygen Flow Rate FiO2 (21.00-100.00) % Sodium 131 L (136-145) mEq/L Potassium 2.2 L* (3.5-5.1) mEq/L Chloride 91 L (98-107) mEq/L Carbon Dioxide 23 (21-32) mEq/L Anion Gap 19.2 H (5-15) BUN 11 (7-18) mg/dL Creatinine 0.9 (0.55-1.02) mg/dL Est Cr Clr Drug Dosing 57.30 mL/min Estimated GFR (MDRD) > 60 (>60) mL/min BUN/Creatinine Ratio 12.2 L (14-18) Glucose 136 H (74-106) mg/dL Calcium 8.5 (8.5-10.1) mg/dL Total Bilirubin 4.8 H (0.2-1.0) mg/dL AST 3690 H (15-37) U/L ALT 2033 H (14-59) U/L Alkaline Phosphatase 269 H (46-116) U/L Total Protein 8.3 H (6.4-8.2) g/dl Albumin 4.0 (3.4-5.0) g/dl Globulin 4.3 gm/dL Albumin/Globulin Ratio 0.9 L (1-2) Lipase 1089 H (73-393) U/L TSH 3rd Generation 50.407 H (0.358-3.74) uIU/mL Ethyl Alcohol 0.06 (0.00) gm% 11/14/18 Range/Units 16:10 WBC (3.98-10.04) K/mm3 RBC (3.98-5.22) M/mm3 Hgb (11.2-15.7) gm/L Hct (34.1-44.9) % MCV (79.4-94.8) fl MCH (25.6-32.2) pg MCHC (32.2-35.5) g/dl RDW Std Deviation (36.4-46.3) fL Plt Count (182-369) K/mm3 MPV (9.4-12.3) fl Neut % (Auto) (34.0-71.1) % Lymph % (Auto) (19.3-51.7) % [place] % (Auto) (4.7-12.5) % Eos % (Auto) (0.7-5.8) Baso % (Auto) (0.1-1.2) % Neut # (Auto) (1.56-6.13) K/mm3 Lymph # (Auto) (1.18-3.74) K/mm3 [place] # (Auto) (0.24-0.36) K/mm3 Eos # (Auto) (0.04-0.36) K/mm3 Baso # (Auto) (0.01-0.08) K/mm3 Manual Slide Review PT (9.5-12.1) SECONDS INR Puncture Site Rt radial ABG pH 7.40 (7.35-7.45) ABG pCO2 42.1 (35.0-45.0) mmHg ABG pO2 79.0 L (80.0-100.0) mmHg ABG HCO3 25.5 (22.0-26.0) meq/L ABG O2 Saturation 96.3 (96.0-97.0) % ABG Base Excess 1.1 (-2-2.0) Jese Test Positive A-a Gradient 22 mmHg O2 Delivery Device Nasal cannula Oxygen Flow Rate 1.0 FiO2 24.00 (21.00-100.00) % Sodium (136-145) mEq/L Potassium (3.5-5.1) mEq/L Chloride (98-107) mEq/L Carbon Dioxide (21-32) mEq/L Anion Gap (5-15) BUN (7-18) mg/dL Creatinine (0.55-1.02) mg/dL Est Cr Clr Drug Dosing mL/min Estimated GFR (MDRD) (>60) mL/min BUN/Creatinine Ratio (14-18) Glucose (74-106) mg/dL Calcium (8.5-10.1) mg/dL Total Bilirubin (0.2-1.0) mg/dL AST (15-37) U/L ALT (14-59) U/L Alkaline Phosphatase (46-116) U/L Total Protein (6.4-8.2) g/dl Albumin (3.4-5.0) g/dl Globulin gm/dL Albumin/Globulin Ratio (1-2) Lipase (73-393) U/L TSH 3rd Generation (0.358-3.74) uIU/mL Ethyl Alcohol (0.00) gm% Result Diagrams: 11/14/18 09:48 11/14/18 09:48 - Problem List (1) Alcoholism SNOMED Code(s): 9961176 ICD Code: F10.20 - ALCOHOL DEPENDENCE, UNCOMPLICATED Status: Acute Current Visit: Yes (2) Hypokalemia SNOMED Code(s): 56204417 ICD Code: E87.6 - HYPOKALEMIA Status: Acute Current Visit: Yes (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 SNOMED Code(s): 46345914 ICD Code: K70.9 - ALCOHOLIC LIVER DISEASE, UNSPECIFIED Status: Acute Current Visit: Yes (4) Pancreatitis SNOMED Code(s): 15821284 ICD Code: K85.90 - ACUTE PANCREATITIS WITHOUT NECROSIS OR INFECTION, UNSP Status: Acute Current Visit: Yes Qualifiers: Chronicity: acute Pancreatitis type: alcohol induced Acute pancreatitis complication: no infection or necrosis Qualified Code(s): K85.20 - Alcohol induced acute pancreatitis without necrosis or infection (5) Thrombocytopenia SNOMED Code(s): 289262451 ICD Code: D69.6 - THROMBOCYTOPENIA, UNSPECIFIED Status: Acute Current Visit: Yes (6) Upper GI bleed SNOMED Code(s): 91049984 ICD Code: K92.2 - GASTROINTESTINAL HEMORRHAGE, UNSPECIFIED Status: Acute Current Visit: Yes Problem List Initiated/Reviewed/Updated: Yes Orders Last 24hrs: Active Orders 24 hr Category Date Time Status Patient Status [ADT] Routine ADT 11/14/18 13:57 Active Bedrest Bathroom Privileges [RC] ASDIRECTED Care 11/14/18 15:35 Active Height and Weight [RC] DAILY Care 11/14/18 15:35 Active Intake and Output [RC] Q2HR Care 11/14/18 15:36 Active Oxygen Therapy [RC] PRN Care 11/14/18 15:35 Active Peripheral IV Care [RC] Q2HR Care 11/14/18 09:33 Active Up With Assistance [RC] ASDIRECTED Care 11/14/18 15:35 Active Urinary Catheter Assessment [RC] ASDIRECTED Care 11/14/18 15:35 Active VTE/DVT Education [RC] PER UNIT ROUTINE Care 11/14/18 15:35 Active Vital Signs [RC] Q4HR Care 11/14/18 15:35 Active Consult to Case Management/Fuel Cell Systems Engineer [CONS] Cons 11/14/18 15:35 Active Routine Nothing per Oral Now Diet [DIET] Diet 11/14/18 Dinner Active Abdomen Series w Chest 1V [CR] Stat Exams 11/14/18 09:32 Taken CBC WITH AUTO DIFF [HEME] AM Lab 11/15/18 05:11 Ordered COMPREHENSIVE METABOLIC PN,CMP [CHEM] AM Lab 11/15/18 05:11 Ordered COMPREHENSIVE METABOLIC PN,CMP [CHEM] Stat Lab 11/14/18 14:35 Ordered HEMOGLOBIN/HEMATOCRIT,HH [HEME] Stat Lab 11/14/18 14:50 Ordered MAGNESIUM [CHEM] Routine Lab 11/14/18 15:35 Ordered PTT,PARTIAL THROMBOPLSTIN TIME [COAG] Routine Lab 11/14/18 15:35 Ordered TRIGLYCERIDES [CHEM] Routine Lab 11/14/18 15:35 Ordered Dextrose 5%-Lactated Ringers 1,000 ml Med 11/14/18 18:00 Active IV ASDIRECTED HYDROmorphone [Dilaudid] Med 11/14/18 15:35 Active 0.5 mg IVPUSH Q2H PRN Levothyroxine Med 11/15/18 06:00 Active 125 mcg PO ACBREAKFAST Ondansetron [Zofran] Med 11/14/18 15:35 Active 4 mg IV Q4H PRN Pantoprazole [ProTONIX IV] 80 mg Med 11/14/18 12:06 Active Sodium Chloride 0.9% [Normal Saline] 100 ml IV ONETIME Sodium Chloride 0.9% [Saline Flush] Med 11/14/18 09:32 Active 10 ml FLUSH ASDIRECTED PRN ED Antiemetic Medication Reflex [OM.PC] Stat Oth 11/14/18 09:33 Ordered Peripheral IV Insertion Adult [OM.PC] Stat Oth 11/14/18 09:32 Ordered Resuscitation Status Routine Resus Stat 11/14/18 14:44 Ordered Medication Orders Hydromorphone HCl (Dilaudid) 0.5 mg IVPUSH Q2H PRN PRN Reason: Pain (severe 7-10) Last Admin: 11/14/18 18:09 Dose: 0.5 mg Pantoprazole Sodium 80 mg/ (Sodium Chloride) 100 mls @ 10 mls/hr IV ONETIME ONE Stop: 11/14/18 22:05 Last Admin: 11/14/18 12:54 Dose: 10 mls/hr Dextrose/Lactated Ringer's (Dextrose 5%-Lactated Ringers) 1,000 mls @ 250 mls/ hr IV ASDIRECTED [facility] Levothyroxine Sodium (Levothyroxine) 125 mcg PO ACBREAKFAST [place] Ondansetron HCl (Zofran) 4 mg IV Q4H PRN PRN Reason: Nausea/Vomiting Sodium Chloride (Saline Flush) 10 ml FLUSH ASDIRECTED PRN PRN Reason: Keep Vein Open Last Admin: 11/14/18 11:12 Dose: 10 ml Assessment/Plan Comment:: Neurologic * GCS 15 * Mild sedation secondary to Dilaudid in the ER * Moderate abdominal pain Cardiovascular * Hypovolemic * Blood pressure stable pulse normal rate * Mean arterial pressure greater than 65 Pulmonary * 2 L nasal cannula O2 to keep sats above 90% Gastrointestinal * Nothing by mouth * Bowel rest until pain-free. * Protonix 80 mg bolus in the emergency room * Emergency room physician switched her to a Protonix drip * This will be switched to IV when we're sure that she is no longer bleeding * Initial bilirubin 4.8, AST 3690, ALT 2033, alkaline phosphatase 289, albumin 4.0, lipase 1089, INR 1.23 Renal * Insure strict ins and outs * Urinary catheter for accurate output * Monitor creatinine and BUN closely. * Initial BUN 11 and creatinine 0.9 Infectious disease * Afebrile, white count 5.33 * Continue monitoring CBC and temp Hematology * Significant change in hemoglobin from June to today. In June hemoglobin was above 13 and today is 10.8. * Platelets have also dropped to 77,000. * DVT prophylaxis with SCDs Electrolytes * Severe hypokalemia of 2.2 * Received 10 units in the emergency room of potassium * Will receive another 4 units KCl rider * Will receive another liter of normal saline with 20 of KCl over 2 hours * After thiamine will switch to D5 LR 250 mL an hour for 1 L then decrease to 150 Length of stay at least 3-4 days.
--- NOTE | 2018-11-14 20:17 | CR ---
Abdominal series: Supine and upright views of the abdomen were obtained as well as frontal view of the chest. Comparison: Prior chest x-ray of 07/06/18 and prior abdominal x-ray of 07/08/16. Heart size and mediastinum are within normal limits. Lungs are clear. No free air is seen. Surgical clips are noted from prior cholecystectomy. Bowel gas pattern appears normal. No soft tissue finding is seen. Calcifications are noted within the pelvis which are felt compatible with phleboliths. No free air is seen. Impression: 1. Nothing acute is seen on abdominal series. Incidental findings. Diagnostic code #2
[2018-11-14] MEDS ORDERED: Magnesium Sulfate/Water 4 GM in Premix Bag 1 BAG IV ONE (21:22)
[2018-11-14] MEDS ORDERED: Sodium Chloride 0.9% 1,000 ML IV ONE (21:32)
[2018-11-14] MEDS: Dextrose 5%-Lactated Ringers 1,000 ML IV SCH (23:18)
[2018-11-15] MEDS: Potassium Chloride 10 MEQ in Premix Bag 1 BAG IV SCH ×7 (00:47→18:20)
[2018-11-15] MEDS: Ondansetron 4 MG/2 ML SDV IV PRN (00:49)
[2018-11-15] MEDS: Dextrose 5%-Lactated Ringers 1,000 ML IV SCH ×2 (03:24→07:25)
[2018-11-15] MEDS: HYDROmorphone 1 MG/ML Syringe IVPUSH PRN ×5 (03:39→20:00)
[2018-11-15] MEDS: Levothyroxine 125 MCG Tab PO SCH (05:30)
[2018-11-15] MEDS: Pantoprazole 80 MG in Sodium Chloride 0.9% 100 ML IV SCH ×2 (06:56→14:17)
[2018-11-15] MEDS: HYDROmorphone 0.5 MG/0.5 ML Syringe IVPUSH PRN ×2 (08:43→10:53)
[2018-11-15] MEDS: Lactated Ringers 1,000 ML IV SCH ×4 (10:53→19:51)
[2018-11-15] MEDS ORDERED: Magnesium Sulfate/Water 4 GM in Premix Bag 1 BAG IV ONE (16:17)
--- NOTE | 2018-11-15 17:54 | PCM.PN ---
- General Info Date of Service: 11/15/18 Admission Dx/Problem (Free Text): Admission Diagnosis/Problem Admission Diagnosis/Problem Hypokalemia Subjective Update: Patient continues to have abdominal pain. She is receiving 1 mg of Dilaudid every 2 hours. She has been on LR at 20 mg a day. Urine output over the afternoon has increased to approximate 50 mL per hour. Functional Status: Denies: Pain Controlled - Review of Systems General: Reports: No Symptoms HEENT: Reports: No Symptoms Pulmonary: Reports: No Symptoms. Denies: Shortness of Breath, Cough Cardiovascular: Reports: No Symptoms. Denies: Chest Pain, Palpitations Gastrointestinal: Reports: Abdominal Pain - Patient Data Vitals - Most Recent: Last Vital Signs Temp 97.5 F 11/15/18 15:41 Pulse 83 11/15/18 15:41 Resp 15 11/15/18 15:41 BP 121/83 11/15/18 15:41 Pulse Ox 97 11/15/18 15:41 Weight - Most Recent: 190 lb 4.8 oz I&O - Last 24 Hours: Intake & Output 11/15/18 11/15/18 11/15/18 06:59 14:59 22:59 Intake Total 2590 3157 Output Total 325 435 100 Balance 2265 2722 -100 Lab Results Last 24 Hours: Laboratory Results - last 24 hr 11/14/18 11/14/18 11/14/18 Range/Units 20:40 20:40 20:40 WBC (3.98-10.04) K/mm3 RBC (3.98-5.22) M/mm3 Hgb 9.4 L (11.2-15.7) gm/L Hct 26.8 L (34.1-44.9) % MCV (79.4-94.8) fl MCH (25.6-32.2) pg MCHC (32.2-35.5) g/dl RDW Std Deviation (36.4-46.3) fL Plt Count (182-369) K/mm3 MPV (9.4-12.3) fl Neut % (Auto) (34.0-71.1) % Lymph % (Auto) (19.3-51.7) % [place] % (Auto) (4.7-12.5) % Eos % (Auto) (0.7-5.8) Baso % (Auto) (0.1-1.2) % Neut # (Auto) (1.56-6.13) K/mm3 Lymph # (Auto) (1.18-3.74) K/mm3 [place] # (Auto) (0.24-0.36) K/mm3 Eos # (Auto) (0.04-0.36) K/mm3 Baso # (Auto) (0.01-0.08) K/mm3 Manual Slide Review APTT 32 H (24-31) SECONDS Sodium 133 L (136-145) mEq/L Potassium 3.0 L (3.5-5.1) mEq/L Chloride 98 (98-107) mEq/L Carbon Dioxide 23 (21-32) mEq/L Anion Gap 15.0 (5-15) BUN 11 (7-18) mg/dL Creatinine 1.0 (0.55-1.02) mg/dL Est Cr Clr Drug Dosing 51.57 mL/min Estimated GFR (MDRD) > 60 (>60) mL/min BUN/Creatinine Ratio 11.0 L (14-18) Glucose 200 H (74-106) mg/dL Calcium 7.1 L (8.5-10.1) mg/dL Magnesium (1.8-2.4) mg/dl Total Bilirubin 4.4 H (0.2-1.0) mg/dL AST 1998 H (15-37) U/L ALT 1503 H (14-59) U/L Alkaline Phosphatase 218 H (46-116) U/L Total Protein 7.0 (6.4-8.2) g/dl Albumin 3.3 L (3.4-5.0) g/dl Globulin 3.7 gm/dL Albumin/Globulin Ratio 0.9 L (1-2) Triglycerides (<150) mg/dL 11/14/18 11/15/18 11/15/18 Range/Units 20:40 05:25 05:25 WBC 4.47 (3.98-10.04) K/mm3 RBC 2.85 L (3.98-5.22) M/mm3 Hgb 9.0 L (11.2-15.7) gm/L Hct 26.0 L (34.1-44.9) % MCV 91.2 (79.4-94.8) fl MCH 31.6 (25.6-32.2) pg MCHC 34.6 (32.2-35.5) g/dl RDW Std Deviation 52.9 H (36.4-46.3) fL Plt Count 60 L (182-369) K/mm3 MPV 9.8 (9.4-12.3) fl Neut % (Auto) 71.6 H (34.0-71.1) % Lymph % (Auto) 11.6 L (19.3-51.7) % [place] % (Auto) 14.3 H (4.7-12.5) % Eos % (Auto) 1.6 (0.7-5.8) Baso % (Auto) 0.2 (0.1-1.2) % Neut # (Auto) 3.20 (1.56-6.13) K/mm3 Lymph # (Auto) 0.52 L (1.18-3.74) K/mm3 [place] # (Auto) 0.64 H (0.24-0.36) K/mm3 Eos # (Auto) 0.07 (0.04-0.36) K/mm3 Baso # (Auto) 0.01 (0.01-0.08) K/mm3 Manual Slide Review Abnormal smear APTT (24-31) SECONDS Sodium 132 L (136-145) mEq/L Potassium 2.9 L (3.5-5.1) mEq/L Chloride 98 (98-107) mEq/L Carbon Dioxide 23 (21-32) mEq/L Anion Gap 13.9 (5-15) BUN 9 (7-18) mg/dL Creatinine 0.9 (0.55-1.02) mg/dL Est Cr Clr Drug Dosing 57.30 mL/min Estimated GFR (MDRD) > 60 (>60) mL/min BUN/Creatinine Ratio 10.0 L (14-18) Glucose 205 H (74-106) mg/dL Calcium 6.9 L (8.5-10.1) mg/dL Magnesium 1.4 L (1.8-2.4) mg/dl Total Bilirubin 3.3 H (0.2-1.0) mg/dL AST 1469 H (15-37) U/L ALT 1256 H (14-59) U/L Alkaline Phosphatase 197 H (46-116) U/L Total Protein 6.5 (6.4-8.2) g/dl Albumin 3.0 L (3.4-5.0) g/dl Globulin 3.5 gm/dL Albumin/Globulin Ratio 0.9 L (1-2) Triglycerides 159 H (<150) mg/dL 11/15/18 11/15/18 Range/Units 05:25 15:35 WBC (3.98-10.04) K/mm3 RBC (3.98-5.22) M/mm3 Hgb (11.2-15.7) gm/L Hct (34.1-44.9) % MCV (79.4-94.8) fl MCH (25.6-32.2) pg MCHC (32.2-35.5) g/dl RDW Std Deviation (36.4-46.3) fL Plt Count (182-369) K/mm3 MPV (9.4-12.3) fl Neut % (Auto) (34.0-71.1) % Lymph % (Auto) (19.3-51.7) % [place] % (Auto) (4.7-12.5) % Eos % (Auto) (0.7-5.8) Baso % (Auto) (0.1-1.2) % Neut # (Auto) (1.56-6.13) K/mm3 Lymph # (Auto) (1.18-3.74) K/mm3 [place] # (Auto) (0.24-0.36) K/mm3 Eos # (Auto) (0.04-0.36) K/mm3 Baso # (Auto) (0.01-0.08) K/mm3 Manual Slide Review APTT (24-31) SECONDS Sodium 133 L (136-145) mEq/L Potassium 3.5 (3.5-5.1) mEq/L Chloride 102 (98-107) mEq/L Carbon Dioxide 23 (21-32) mEq/L Anion Gap 11.5 (5-15) BUN 8 (7-18) mg/dL Creatinine 0.8 (0.55-1.02) mg/dL Est Cr Clr Drug Dosing 64.46 mL/min Estimated GFR (MDRD) > 60 (>60) mL/min BUN/Creatinine Ratio 10.0 L (14-18) Glucose 105 (74-106) mg/dL Calcium 7.3 L (8.5-10.1) mg/dL Magnesium 2.0 1.7 L (1.8-2.4) mg/dl Total Bilirubin (0.2-1.0) mg/dL AST (15-37) U/L ALT (14-59) U/L Alkaline Phosphatase (46-116) U/L Total Protein (6.4-8.2) g/dl Albumin (3.4-5.0) g/dl Globulin gm/dL Albumin/Globulin Ratio (1-2) Triglycerides (<150) mg/dL Med Orders - Current: Current Medications Hydromorphone HCl (Dilaudid) 1 mg IVPUSH Q3H PRN PRN Reason: Pain Last Admin: 11/15/18 17:11 Dose: 1 mg Pantoprazole Sodium 80 mg/ (Sodium Chloride) 100 mls @ 10 mls/hr IV Q10H [facility] Last Admin: 11/15/18 14:17 Dose: 10 mls/hr Lactated Ringer's (Ringers, Lactated) 1,000 mls @ 150 mls/hr IV ASDIRECTED [facility] Last Admin: 11/15/18 15:26 Dose: 150 mls/hr Magnesium Sulfate 4 gm/ Premix 50 mls @ 12.5 mls/hr IV ONETIME ONE Stop: 11/15/18 20:16 Last Admin: 11/15/18 16:38 Dose: 12.5 mls/hr Potassium Chloride 10 meq/ (Premix) 100 mls @ 100 mls/hr IV Q1H [facility] Stop: 11/15/18 18:29 Last Admin: 11/15/18 16:38 Dose: 100 mls/hr Levothyroxine Sodium (Levothyroxine) 125 mcg PO ACBREAKFAST [facility] Last Admin: 11/15/18 05:30 Dose: 125 mcg Ondansetron HCl (Zofran) 4 mg IV Q4H PRN PRN Reason: Nausea/Vomiting Last Admin: 11/15/18 00:49 Dose: 4 mg Sodium Chloride (Saline Flush) 10 ml FLUSH ASDIRECTED PRN PRN Reason: Keep Vein Open Last Admin: 11/14/18 11:12 Dose: 10 ml Discontinued Medications Hydromorphone HCl (Dilaudid) 1 mg IVPUSH ONETIME ONE Stop: 11/14/18 09:36 Last Admin: 11/14/18 09:51 Dose: 1 mg Hydromorphone HCl (Dilaudid) 0.5 mg IVPUSH ONETIME ONE Stop: 11/14/18 11:54 Last Admin: 11/14/18 11:59 Dose: 0.5 mg Hydromorphone HCl (Dilaudid) 1 mg IVPUSH ONETIME ONE Stop: 11/14/18 15:10 Last Admin: 11/14/18 15:20 Dose: 1 mg Hydromorphone HCl (Dilaudid) 0.5 mg IVPUSH Q2H PRN PRN Reason: Pain (severe 7-10) Last Admin: 11/15/18 06:53 Dose: 0.5 mg Hydromorphone HCl (Dilaudid) 0.5 mg IVPUSH Q2H PRN PRN Reason: Pain (severe 7-10) Last Admin: 11/15/18 10:53 Dose: 0.5 mg Pantoprazole Sodium 80 mg/ (Sodium Chloride) 100 mls @ 100 mls/hr IV Q10H [facility] Last Admin: 11/14/18 09:52 Dose: 10 mls/hr Sodium Chloride (Normal Saline) 1,000 mls @ 1,000 mls/hr IV .BOLUS STA Stop: 11/14/18 10:31 Last Admin: 11/14/18 09:51 Dose: 1,000 mls/hr Potassium Chloride 10 meq/ (Premix) 100 mls @ 100 mls/hr IV ONETIME ONE Stop: 11/14/18 12:14 Last Admin: 11/14/18 11:11 Dose: 100 mls/hr Pantoprazole Sodium 80 mg/ (Sodium Chloride) 100 mls @ 10 mls/hr IV ONETIME ONE Stop: 11/14/18 22:05 Last Admin: 11/14/18 12:54 Dose: 10 mls/hr Potassium Chloride/Sodium Chloride (Normal Saline With 20 Meq Kcl) 1,000 mls @ 500 mls/hr IV ONETIME ONE Stop: 11/14/18 16:59 Last Admin: 11/14/18 14:55 Dose: 500 mls/hr Potassium Chloride 10 meq/ (Premix) 100 mls @ 100 mls/hr IV Q1H [facility] Stop: 11/14/18 19:29 Last Admin: 11/14/18 18:50 Dose: 100 mls/hr Thiamine HCl 100 mg/ Sodium (Chloride) 101 mls @ 202 mls/hr IV ONETIME ONE Stop: 11/14/18 17:01 Thiamine HCl 100 mg/ Sodium (Chloride) 101 mls @ 202 mls/hr IV DAILY ONE Stop: 11/14/18 17:44 Last Admin: 11/14/18 17:17 Dose: Not Given Dextrose/Lactated Ringer's (Dextrose 5%-Lactated Ringers) 1,000 mls @ 250 mls/ hr IV ASDIRECTED [facility] Last Admin: 11/15/18 07:25 Dose: 250 mls/hr Potassium Chloride 10 meq/ (Premix) 100 mls @ 100 mls/hr IV Q1H [facility] Stop: 11/15/18 01:29 Last Admin: 11/15/18 00:47 Dose: 100 mls/hr Magnesium Sulfate 4 gm/ Premix 50 mls @ 12.5 mls/hr IV ONETIME ONE Stop: 11/15/18 01:21 Last Admin: 11/14/18 21:50 Dose: 12.5 mls/hr Sodium Chloride (Normal Saline) 1,000 mls @ 999 mls/hr IV ONETIME ONE Stop: 11/14/18 22:32 Last Admin: 11/14/18 21:41 Dose: 999 mls/hr Potassium Chloride 10 meq/ (Premix) 100 mls @ 100 mls/hr IV Q1H [facility] Stop: 11/15/18 11:29 Last Admin: 11/15/18 11:13 Dose: 100 mls/hr Lactated Ringer's (Ringers, Lactated) 1,000 mls @ 250 mls/hr IV ASDIRECTED [facility] Last Admin: 11/15/18 14:00 Dose: 250 mls/hr Ondansetron HCl (Zofran) 4 mg IVPUSH ONETIME ONE Stop: 11/14/18 09:33 Last Admin: 11/14/18 09:51 Dose: 4 mg Pantoprazole Sodium (Protonix Iv) 80 mg IVPUSH BOLUS ONE Stop: 11/14/18 09:35 Last Admin: 11/14/18 09:52 Dose: Not Given Potassium Chloride (Potassium Chloride) 10 meq IV ONETIME ONE Stop: 11/14/18 11:01 Last Admin: 11/14/18 11:12 Dose: Not Given - Exam General: Alert, Oriented Lungs: Clear to Auscultation, Normal Respiratory Effort Cardiovascular: Regular Rate, Regular Rhythm GI/Abdominal Exam: Normal Bowel Sounds, Tender. 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 SNOMED Code(s): 51355842 Code(s): K70.9 - ALCOHOLIC LIVER DISEASE, UNSPECIFIED Status: Acute Current Visit: Yes (4) Pancreatitis SNOMED Code(s): 80897469 Code(s): K85.90 - ACUTE PANCREATITIS WITHOUT NECROSIS OR INFECTION, UNSP Status: Acute Current Visit: Yes Qualifiers: Chronicity: acute Pancreatitis type: alcohol induced Acute pancreatitis complication: no infection or necrosis Qualified Code(s): K85.20 - Alcohol induced acute pancreatitis without necrosis or infection (5) Thrombocytopenia SNOMED Code(s): 995612689 Code(s): D69.6 - THROMBOCYTOPENIA, UNSPECIFIED Status: Acute Current Visit: Yes (6) Upper GI bleed SNOMED Code(s): 70215435 Code(s): K92.2 - GASTROINTESTINAL HEMORRHAGE, UNSPECIFIED Status: Acute Current Visit: Yes - Problem List Review Problem List Initiated/Reviewed/Updated: Yes - My Orders Last 24 Hours: My Active Orders 11/14/18 Dinner Nothing per Oral Now Diet [DIET] 11/15/18 05:00 Pantoprazole [ProTONIX IV] 80 mg Sodium Chloride 0.9% [Normal Saline] 100 ml IV Q10H 11/15/18 06:00 Levothyroxine 125 mcg PO ACBREAKFAST 11/15/18 11:54 HYDROmorphone [Dilaudid] 1 mg IVPUSH Q3H PRN 11/15/18 14:56 Antiembolic Devices [RC] PER UNIT ROUTINE SCD [Sequential Compression Device] [OM.PC] Routine 11/15/18 15:22 Lactated Ringers [Ringers, Lactated] 1,000 ml IV ASDIRECTED 11/15/18 16:17 Magnesium Sulfate/Water [Magnesium Sulfate 4 GM in Water 50 ML] 4 gm Premix Bag 1 bag IV ONETIME 11/15/18 16:19 Consult for Substance Abuse [CONS] Routine 11/15/18 16:30 Potassium Chloride [KCl 10 MEQ in Water 100 ML] 10 meq Premix Bag 1 bag IV Q1H 11/16/18 05:11 CBC WITH AUTO DIFF [HEME] AM CMP [COMPREHENSIVE METABOLIC PN,CMP] [CHEM] AM MAGNESIUM [CHEM] AM - Plan Plan:: Neurologic * GCS 15 * Mild sedation secondary to Dilaudid in the ER * Moderate abdominal pain * Dilaudid 1 mg every 2 hours for pain. Cardiovascular * Hypovolemic * Blood pressure stable, heart rate normal * Mean arterial pressure greater than 65 Pulmonary * 2 L nasal cannula O2 to keep sats above 90% Gastrointestinal * Nothing by mouth * Bowel rest until pain-free. * Protonix 80 mg bolus in the emergency room * Emergency room physician switched her to a Protonix drip * This will be switched to IV bolus when we're sure that she is no longer bleeding * Initial bilirubin 4.8, AST 3690, ALT 2033, alkaline phosphatase 289, albumin 4.0, lipase 1089, INR 1.23 Renal * Insure strict ins and outs * Urinary catheter for accurate output * Monitor creatinine and BUN closely. * Initial BUN 11 and creatinine 0.9 Infectious disease * Afebrile, white count 5.33 * Continue monitoring CBC and temp Hematology * Significant change in hemoglobin from June to today. In June hemoglobin was above 13 and today is 10.8. * Platelets have also dropped to 77,000. * DVT prophylaxis with SCDs * WBC 4.47, hemoglobin of 9.0, platelets 60,000 Electrolytes * Severe hypokalemia of 2.2 - resolved * Sodium 133, potassium 3.5, magnesium 1.7, BUN 8, creatinine 0.8 * Will receive another 20 milliequivalents KCl rider * Magnesium 4 g IV rider * LR 150 mL an hour Length of stay at least 3-4 days.
[2018-11-15] MEDS ORDERED: Temazepam 15 MG Cap PO ONE (21:54)
[2018-11-16] MEDS: Pantoprazole 80 MG in Sodium Chloride 0.9% 100 ML IV SCH ×2 (00:10→14:15)
[2018-11-16] MEDS: Lactated Ringers 1,000 ML IV SCH ×4 (02:20→22:20)
[2018-11-16] MEDS: HYDROmorphone 1 MG/ML Syringe IVPUSH PRN ×4 (04:26→22:21)
[2018-11-16] MEDS: Levothyroxine 125 MCG Tab PO SCH (05:42)
[2018-11-16] MEDS: Ondansetron 4 MG/2 ML SDV IV PRN (10:49)
--- NOTE | 2018-11-16 17:09 | PCM.PN ---
- General Info Date of Service: 11/16/18 Functional Status: Reports: Pain Controlled, Urinating - Review of Systems General: Reports: No Symptoms HEENT: Reports: No Symptoms Pulmonary: Reports: No Symptoms Cardiovascular: Reports: No Symptoms Gastrointestinal: Reports: No Symptoms Genitourinary: Reports: No Symptoms Musculoskeletal: Reports: No Symptoms Skin: Reports: No Symptoms Neurological: Reports: No Symptoms Psychiatric: Reports: No Symptoms - Patient Data Vitals - Most Recent: Last Vital Signs Temp 37.0 C 11/16/18 12:00 Pulse 84 11/16/18 03:00 Resp 16 11/16/18 12:00 BP 97/63 11/16/18 12:00 Pulse Ox 92 L 11/16/18 12:00 Weight - Most Recent: 92.533 kg I&O - Last 24 Hours: Intake & Output 11/16/18 11/16/18 11/16/18 06:59 14:59 22:59 Intake Total 2201 Output Total 215 270 Balance 1985 Lab Results Last 24 Hours: Laboratory Results - last 24 hr 11/16/18 11/16/18 11/16/18 Range/Units 06:22 06:32 06:32 WBC 6.36 (3.98-10.04) K/mm3 RBC 3.00 L (3.98-5.22) M/mm3 Hgb 9.6 L (11.2-15.7) gm/L Hct 28.1 L (34.1-44.9) % MCV 93.7 (79.4-94.8) fl MCH 32.0 (25.6-32.2) pg MCHC 34.2 (32.2-35.5) g/dl RDW Std Deviation 58.0 H (36.4-46.3) fL Plt Count 71 L (182-369) K/mm3 MPV 10.0 (9.4-12.3) fl Neut % (Auto) 73.2 H (34.0-71.1) % Lymph % (Auto) 10.5 L (19.3-51.7) % [place] % (Auto) 11.0 (4.7-12.5) % Eos % (Auto) 3.6 (0.7-5.8) Baso % (Auto) 0.3 (0.1-1.2) % Neut # (Auto) 4.65 (1.56-6.13) K/mm3 Lymph # (Auto) 0.67 L (1.18-3.74) K/mm3 [place] # (Auto) 0.70 H (0.24-0.36) K/mm3 Eos # (Auto) 0.23 (0.04-0.36) K/mm3 Baso # (Auto) 0.02 (0.01-0.08) K/mm3 Manual Slide Review Abnormal smear Sodium 135 L (136-145) mEq/L Potassium 3.8 (3.5-5.1) mEq/L Chloride 102 (98-107) mEq/L Carbon Dioxide 27 (21-32) mEq/L Anion Gap 9.8 (5-15) BUN 7 (7-18) mg/dL Creatinine 0.9 (0.55-1.02) mg/dL Est Cr Clr Drug Dosing 57.30 mL/min Estimated GFR (MDRD) > 60 (>60) mL/min BUN/Creatinine Ratio 7.8 L (14-18) Glucose 96 (74-106) mg/dL Calcium 7.7 L (8.5-10.1) mg/dL Magnesium 2.1 (1.8-2.4) mg/dl Total Bilirubin 3.4 H (0.2-1.0) mg/dL AST 791 H (15-37) U/L ALT 925 H (14-59) U/L Alkaline Phosphatase 185 H (46-116) U/L Total Protein 6.3 L (6.4-8.2) g/dl Albumin 2.9 L (3.4-5.0) g/dl Globulin 3.4 gm/dL Albumin/Globulin Ratio 0.9 L (1-2) Lipase 465 H (73-393) U/L Med Orders - Current: Current Medications Hydromorphone HCl (Dilaudid) 1 mg IVPUSH Q3H PRN PRN Reason: Pain Last Admin: 11/16/18 14:17 Dose: 1 mg Lactated Ringer's (Ringers, Lactated) 1,000 mls @ 150 mls/hr IV ASDIRECTED [facility] Last Admin: 11/16/18 16:03 Dose: 150 mls/hr Levothyroxine Sodium (Levothyroxine) 125 mcg PO ACBREAKFAST [facility] Last Admin: 11/16/18 05:42 Dose: 125 mcg Ondansetron HCl (Zofran) 4 mg IV Q4H PRN PRN Reason: Nausea/Vomiting Last Admin: 11/16/18 10:49 Dose: 4 mg Pantoprazole Sodium (Protonix Iv) 40 mg IV Q12H [facility] Sodium Chloride (Saline Flush) 10 ml FLUSH ASDIRECTED PRN PRN Reason: Keep Vein Open Last Admin: 11/14/18 11:12 Dose: 10 ml Discontinued Medications Hydromorphone HCl (Dilaudid) 1 mg IVPUSH ONETIME ONE Stop: 11/14/18 09:36 Last Admin: 11/14/18 09:51 Dose: 1 mg Hydromorphone HCl (Dilaudid) 0.5 mg IVPUSH ONETIME ONE Stop: 11/14/18 11:54 Last Admin: 11/14/18 11:59 Dose: 0.5 mg Hydromorphone HCl (Dilaudid) 1 mg IVPUSH ONETIME ONE Stop: 11/14/18 15:10 Last Admin: 11/14/18 15:20 Dose: 1 mg Hydromorphone HCl (Dilaudid) 0.5 mg IVPUSH Q2H PRN PRN Reason: Pain (severe 7-10) Last Admin: 11/15/18 06:53 Dose: 0.5 mg Hydromorphone HCl (Dilaudid) 0.5 mg IVPUSH Q2H PRN PRN Reason: Pain (severe 7-10) Last Admin: 11/15/18 10:53 Dose: 0.5 mg Pantoprazole Sodium 80 mg/ (Sodium Chloride) 100 mls @ 100 mls/hr IV Q10H [facility] Last Admin: 11/14/18 09:52 Dose: 10 mls/hr Sodium Chloride (Normal Saline) 1,000 mls @ 1,000 mls/hr IV .BOLUS STA Stop: 11/14/18 10:31 Last Admin: 11/14/18 09:51 Dose: 1,000 mls/hr Potassium Chloride 10 meq/ (Premix) 100 mls @ 100 mls/hr IV ONETIME ONE Stop: 11/14/18 12:14 Last Admin: 11/14/18 11:11 Dose: 100 mls/hr Pantoprazole Sodium 80 mg/ (Sodium Chloride) 100 mls @ 10 mls/hr IV ONETIME ONE Stop: 11/14/18 22:05 Last Admin: 11/14/18 12:54 Dose: 10 mls/hr Potassium Chloride/Sodium Chloride (Normal Saline With 20 Meq Kcl) 1,000 mls @ 500 mls/hr IV ONETIME ONE Stop: 11/14/18 16:59 Last Admin: 11/14/18 14:55 Dose: 500 mls/hr Potassium Chloride 10 meq/ (Premix) 100 mls @ 100 mls/hr IV Q1H [facility] Stop: 11/14/18 19:29 Last Admin: 11/14/18 18:50 Dose: 100 mls/hr Thiamine HCl 100 mg/ Sodium (Chloride) 101 mls @ 202 mls/hr IV ONETIME ONE Stop: 11/14/18 17:01 Thiamine HCl 100 mg/ Sodium (Chloride) 101 mls @ 202 mls/hr IV DAILY ONE Stop: 11/14/18 17:44 Last Admin: 11/14/18 17:17 Dose: Not Given Dextrose/Lactated Ringer's (Dextrose 5%-Lactated Ringers) 1,000 mls @ 250 mls/ hr IV ASDIRECTED [facility] Last Admin: 11/15/18 07:25 Dose: 250 mls/hr Potassium Chloride 10 meq/ (Premix) 100 mls @ 100 mls/hr IV Q1H [facility] Stop: 11/15/18 01:29 Last Admin: 11/15/18 00:47 Dose: 100 mls/hr Magnesium Sulfate 4 gm/ Premix 50 mls @ 12.5 mls/hr IV ONETIME ONE Stop: 11/15/18 01:21 Last Admin: 11/14/18 21:50 Dose: 12.5 mls/hr Sodium Chloride (Normal Saline) 1,000 mls @ 999 mls/hr IV ONETIME ONE Stop: 11/14/18 22:32 Last Admin: 11/14/18 21:41 Dose: 999 mls/hr Pantoprazole Sodium 80 mg/ (Sodium Chloride) 100 mls @ 10 mls/hr IV Q10H [facility] Last Admin: 11/16/18 14:15 Dose: Not Given Potassium Chloride 10 meq/ (Premix) 100 mls @ 100 mls/hr IV Q1H [facility] Stop: 11/15/18 11:29 Last Admin: 11/15/18 11:13 Dose: 100 mls/hr Lactated Ringer's (Ringers, Lactated) 1,000 mls @ 250 mls/hr IV ASDIRECTED [facility] Last Admin: 11/15/18 14:00 Dose: 250 mls/hr Magnesium Sulfate 4 gm/ Premix 50 mls @ 12.5 mls/hr IV ONETIME ONE Stop: 11/15/18 20:16 Last Admin: 11/15/18 16:38 Dose: 12.5 mls/hr Potassium Chloride 10 meq/ (Premix) 100 mls @ 100 mls/hr IV Q1H [facility] Stop: 11/15/18 18:29 Last Admin: 11/15/18 18:20 Dose: 100 mls/hr Ondansetron HCl (Zofran) 4 mg IVPUSH ONETIME ONE Stop: 11/14/18 09:33 Last Admin: 11/14/18 09:51 Dose: 4 mg Pantoprazole Sodium (Protonix Iv) 80 mg IVPUSH BOLUS ONE Stop: 11/14/18 09:35 Last Admin: 11/14/18 09:52 Dose: Not Given Potassium Chloride (Potassium Chloride) 10 meq IV ONETIME ONE Stop: 11/14/18 11:01 Last Admin: 11/14/18 11:12 Dose: Not Given Temazepam (Restoril) 15 mg PO ONETIME ONE Stop: 11/15/18 21:55 Last Admin: 11/15/18 22:02 Dose: 15 mg - Exam Quality Assessment: Urine Catheter, DVT Prophylaxis General: Alert, Oriented, No Acute Distress HEENT: Pupils Equal, Pupils Reactive, EOMI Neck: Trachea Midline, No JVD Lungs: Normal Respiratory Effort Cardiovascular: Regular Rate, Regular Rhythm GI/Abdominal Exam: Normal Bowel Sounds, Soft, Non-Tender, No Organomegaly, No Distention (Female) Exam: Deferred Back Exam: Normal Inspection Extremities: Normal Inspection, Non-Tender, Normal Capillary Refill Skin: Warm Neurological: No New Focal Deficit Psy/Mental Status: Alert, Anxious - Problem List Review Problem List Initiated/Reviewed/Updated: Yes - My Orders Last 24 Hours: My Active Orders 11/16/18 21:00 Pantoprazole [ProTONIX IV] 40 mg IV Q12H - Plan Plan:: Neurologic * GCS 15 * Mild sedation secondary to Dilaudid in the ER * Moderate abdominal pain * Dilaudid 1 mg every 2 hours for pain. Cardiovascular * Hypovolemic * Blood pressure stable, heart rate normal * Mean arterial pressure greater than 65 Pulmonary * 2 L nasal cannula O2 to keep sats above 90% Gastrointestinal * Nothing by mouth * Bowel rest until pain-free. * Protonix 80 mg bolus in the emergency room * Emergency room physician switched her to a Protonix drip * This will be switched to IV bolus when we're sure that she is no longer bleeding * Initial bilirubin 4.8, AST 3690, ALT 2033, alkaline phosphatase 289, albumin 4.0, lipase 1089, INR 1.23 Renal * Insure strict ins and outs * Urinary catheter for accurate output * Monitor creatinine and BUN closely. * Initial BUN 11 and creatinine 0.9 Infectious disease * Afebrile, white count 5.33 * Continue monitoring CBC and temp Hematology * Significant change in hemoglobin from June to today. In June hemoglobin was above 13 and today is 10.8. * Platelets have also dropped to 77,000. * DVT prophylaxis with SCDs * WBC 4.47, hemoglobin of 9.0, platelets 60,000 Electrolytes * Severe hypokalemia of 2.2 - resolved * Sodium 133, potassium 3.5, magnesium 1.7, BUN 8, creatinine 0.8 * Will receive another 20 milliequivalents KCl rider * Magnesium 4 g IV rider * LR 150 mL an hour Length of stay at least 3-4 days. Commitment anticipated; also requires Psych consult prior to DC. Advance diet to clear liquids.
[2018-11-16] MEDS ORDERED: Temazepam 15 MG Cap PO PRN (20:23)
[2018-11-16] MEDS: Pantoprazole 40 MG Vial IV SCH (21:12)
[2018-11-17] MEDS: Lactated Ringers 1,000 ML IV SCH ×3 (05:13→18:34)
[2018-11-17] MEDS: Levothyroxine 125 MCG Tab PO SCH (05:27)
[2018-11-17] MEDS: HYDROmorphone 1 MG/ML Syringe IVPUSH PRN (09:43)
[2018-11-17] MEDS: Pantoprazole 40 MG Vial IV SCH (09:43)
[2018-11-17] MEDS ORDERED: HYDROmorphone 0.5 MG/0.5 ML Syringe IVPUSH PRN (11:24)
[2018-11-17] MEDS ORDERED: Metoprolol Tartrate 5 MG/5 ML SDV IVPUSH PRN (11:29)
[2018-11-17] MEDS ORDERED: hydrALAZINE 20 MG/ML SDV IVPUSH PRN (11:29)
[2018-11-17] MEDS: Multivitamins,Therapeutic Tab PO SCH (11:57)
[2018-11-17] MEDS: Thiamine 100 MG Tab PO SCH (11:57)
[2018-11-17] MEDS: Folic Acid 1 MG Tab PO SCH (11:57)
[2018-11-17] MEDS ORDERED: Magnesium Sulfate/Water 2 GM in Premix Bag 1 BAG IV ONE (14:47)
--- NOTE | 2018-11-17 14:53 | PCM.PN ---
- General Info Date of Service: 11/17/18 Admission Dx/Problem (Free Text): Admission Diagnosis/Problem Admission Diagnosis/Problem Hypokalemia Subjective Update: In to see Lisette. She is laying in bed resting. She reports she feels better but still has abdominal pain. Frequently requesting Dilaudid and she does have a history of narcotic abuse. We will change her pain medications to decrease frequency. Lipase and liver enzymes continued to trend down. I discussed her chronic drinking and initially she denies any alcohol use to me as well. I then told her that her labs and her alcohol test in the emergency room stay otherwise and she told me that she was drinking only a little bit. Will order Dr. Vail consult in addition to Davey Massey consult which is already ordered. Continue IV fluids. She reports she did okay on clear liquids. We'll advance diet to full liquids. Functional Status: Reports: Pain Controlled, Tolerating Diet, Ambulating, Urinating. Denies: New Symptoms - Review of Systems General: Reports: Weakness, Fatigue, Malaise. Denies: Fever, Chills HEENT: Reports: No Symptoms. Denies: Headaches, Sore Throat Pulmonary: Reports: No Symptoms. Denies: Shortness of Breath, Pleuritic Chest Pain, Cough, Sputum, Wheezing Cardiovascular: Reports: No Symptoms. Denies: Chest Pain, Palpitations, Dyspnea on Exertion, Edema, Lightheadedness Gastrointestinal: Reports: Abdominal Pain (upper quadrants ), Decreased Appetite. Denies: Constipation, Diarrhea, Nausea, Vomiting Genitourinary: Reports: No Symptoms. Denies: Pain Musculoskeletal: Reports: No Symptoms Skin: Reports: No Symptoms. Denies: Cyanosis Neurological: Reports: No Symptoms. Denies: Confusion Psychiatric: Reports: No Symptoms - Patient Data Vitals - Most Recent: Last Vital Signs Temp 97.2 F 11/17/18 12:11 Pulse 81 11/17/18 12:11 Resp 11 L 11/17/18 12:11 BP 145/97 H 11/17/18 12:11 Pulse Ox 98 11/17/18 12:11 Weight - Most Recent: 208 lb I&O - Last 24 Hours: Intake & Output 11/16/18 11/17/18 11/17/18 22:59 06:59 14:59 Intake Total 2343 1682 500 Output Total 475 1050 550 Balance 1868 632 -50 Lab Results Last 24 Hours: Laboratory Results - last 24 hr 11/17/18 11/17/18 11/17/18 Range/Units 05:30 11:50 11:50 WBC 7.25 (3.98-10.04) K/mm3 RBC 2.99 L (3.98-5.22) M/mm3 Hgb 9.7 L (11.2-15.7) gm/L Hct 28.4 L (34.1-44.9) % MCV 95.0 H (79.4-94.8) fl MCH 32.4 H (25.6-32.2) pg MCHC 34.2 (32.2-35.5) g/dl RDW Std Deviation 61.0 H (36.4-46.3) fL Plt Count 111 L (182-369) K/mm3 MPV 9.4 (9.4-12.3) fl Neut % (Auto) 73.1 H (34.0-71.1) % Lymph % (Auto) 10.1 L (19.3-51.7) % Runnels % (Auto) 12.0 (4.7-12.5) % Eos % (Auto) 2.9 (0.7-5.8) Baso % (Auto) 0.1 (0.1-1.2) % Neut # (Auto) 5.30 (1.56-6.13) K/mm3 Lymph # (Auto) 0.73 L (1.18-3.74) K/mm3 Runnels # (Auto) 0.87 H (0.24-0.36) K/mm3 Eos # (Auto) 0.21 (0.04-0.36) K/mm3 Baso # (Auto) 0.01 (0.01-0.08) K/mm3 Manual Slide Review Abnormal smear Sodium 140 (136-145) mEq/L Potassium 3.0 L (3.5-5.1) mEq/L Chloride 103 (98-107) mEq/L Carbon Dioxide 26 (21-32) mEq/L Anion Gap 14.0 (5-15) BUN 4 L (7-18) mg/dL Creatinine 0.8 (0.55-1.02) mg/dL Est Cr Clr Drug Dosing 64.46 mL/min Estimated GFR (MDRD) > 60 (>60) mL/min BUN/Creatinine Ratio 5.0 L (14-18) Glucose 115 H (74-106) mg/dL Calcium 8.1 L (8.5-10.1) mg/dL Magnesium 1.6 L (1.8-2.4) mg/dl C-Reactive Protein 6.9 H* (<1.0) mg/dL Lipase 426 H (73-393) U/L Med Orders - Current: Current Medications Folic Acid (Folic Acid) 1 mg PO DAILY [facility] Last Admin: 11/17/18 11:57 Dose: 1 mg Hydralazine HCl (Apresoline) 20 mg IVPUSH Q4H PRN PRN Reason: Hypertension Hydromorphone HCl (Dilaudid) 0.5 mg IVPUSH Q6H PRN PRN Reason: Pain Lactated Ringer's (Ringers, Lactated) 1,000 mls @ 150 mls/hr IV ASDIRECTED [facility] Last Admin: 11/17/18 11:58 Dose: 150 mls/hr Potassium Chloride 10 meq/ (Premix) 100 mls @ 100 mls/hr IV Q1H [place] Stop: 11/17/18 20:59 Magnesium Sulfate 2 gm/ Premix 50 mls @ 25 mls/hr IV ONETIME ONE Stop: 11/17/18 16:46 Levothyroxine Sodium (Levothyroxine) 125 mcg PO ACBREAKFAST [facility] Last Admin: 11/17/18 05:27 Dose: 125 mcg Magnesium Sulfate (Pharmacy To Dose - Magnesium Replacement) 0 dose .XX ASDIRECTED PRN PRN Reason: RX TO WATCH MAG Metoprolol Tartrate (Lopressor) 5 mg IVPUSH Q4H PRN PRN Reason: Tachycardia Multivitamins (Thera) 1 each PO DAILY [facility] Last Admin: 11/17/18 11:57 Dose: 1 each Ondansetron HCl (Zofran) 4 mg IV Q4H PRN PRN Reason: Nausea/Vomiting Last Admin: 11/16/18 10:49 Dose: 4 mg Oxycodone HCl (Oxycontin) 10 mg PO Q12HR [facility] Pantoprazole Sodium (Protonix) 40 mg PO BID [facility] Potassium Chloride (Pharmacy To Dose - Potassium Replacement) 0 dose .XX ASDIRECTED PRN PRN Reason: RX TO WATCH K Sodium Chloride (Saline Flush) 10 ml FLUSH ASDIRECTED PRN PRN Reason: Keep Vein Open Last Admin: 11/14/18 11:12 Dose: 10 ml Thiamine HCl (Vitamin B-1) 100 mg PO DAILY [facility] Last Admin: 11/17/18 11:57 Dose: 100 mg Discontinued Medications Hydromorphone HCl (Dilaudid) 1 mg IVPUSH ONETIME ONE Stop: 11/14/18 09:36 Last Admin: 11/14/18 09:51 Dose: 1 mg Hydromorphone HCl (Dilaudid) 0.5 mg IVPUSH ONETIME ONE Stop: 11/14/18 11:54 Last Admin: 11/14/18 11:59 Dose: 0.5 mg Hydromorphone HCl (Dilaudid) 1 mg IVPUSH ONETIME ONE Stop: 11/14/18 15:10 Last Admin: 11/14/18 15:20 Dose: 1 mg Hydromorphone HCl (Dilaudid) 0.5 mg IVPUSH Q2H PRN PRN Reason: Pain (severe 7-10) Last Admin: 11/15/18 06:53 Dose: 0.5 mg Hydromorphone HCl (Dilaudid) 0.5 mg IVPUSH Q2H PRN PRN Reason: Pain (severe 7-10) Last Admin: 11/15/18 10:53 Dose: 0.5 mg Hydromorphone HCl (Dilaudid) 1 mg IVPUSH Q3H PRN PRN Reason: Pain Last Admin: 11/17/18 09:43 Dose: 1 mg Pantoprazole Sodium 80 mg/ (Sodium Chloride) 100 mls @ 100 mls/hr IV Q10H [place] Last Admin: 11/14/18 09:52 Dose: 10 mls/hr Sodium Chloride (Normal Saline) 1,000 mls @ 1,000 mls/hr IV .BOLUS STA Stop: 11/14/18 10:31 Last Admin: 11/14/18 09:51 Dose: 1,000 mls/hr Potassium Chloride 10 meq/ (Premix) 100 mls @ 100 mls/hr IV ONETIME ONE Stop: 11/14/18 12:14 Last Admin: 11/14/18 11:11 Dose: 100 mls/hr Pantoprazole Sodium 80 mg/ (Sodium Chloride) 100 mls @ 10 mls/hr IV ONETIME ONE Stop: 11/14/18 22:05 Last Admin: 11/14/18 12:54 Dose: 10 mls/hr Potassium Chloride/Sodium Chloride (Normal Saline With 20 Meq Kcl) 1,000 mls @ 500 mls/hr IV ONETIME ONE Stop: 11/14/18 16:59 Last Admin: 11/14/18 14:55 Dose: 500 mls/hr Potassium Chloride 10 meq/ (Premix) 100 mls @ 100 mls/hr IV Q1H [facility] Stop: 11/14/18 19:29 Last Admin: 11/14/18 18:50 Dose: 100 mls/hr Thiamine HCl 100 mg/ Sodium (Chloride) 101 mls @ 202 mls/hr IV ONETIME ONE Stop: 11/14/18 17:01 Thiamine HCl 100 mg/ Sodium (Chloride) 101 mls @ 202 mls/hr IV DAILY ONE Stop: 11/14/18 17:44 Last Admin: 11/14/18 17:17 Dose: Not Given Dextrose/Lactated Ringer's (Dextrose 5%-Lactated Ringers) 1,000 mls @ 250 mls/ hr IV ASDIRECTED [facility] Last Admin: 11/15/18 07:25 Dose: 250 mls/hr Potassium Chloride 10 meq/ (Premix) 100 mls @ 100 mls/hr IV Q1H [facility] Stop: 11/15/18 01:29 Last Admin: 11/15/18 00:47 Dose: 100 mls/hr Magnesium Sulfate 4 gm/ Premix 50 mls @ 12.5 mls/hr IV ONETIME ONE Stop: 11/15/18 01:21 Last Admin: 11/14/18 21:50 Dose: 12.5 mls/hr Sodium Chloride (Normal Saline) 1,000 mls @ 999 mls/hr IV ONETIME ONE Stop: 11/14/18 22:32 Last Admin: 11/14/18 21:41 Dose: 999 mls/hr Pantoprazole Sodium 80 mg/ (Sodium Chloride) 100 mls @ 10 mls/hr IV Q10H [facility] Last Admin: 11/16/18 14:15 Dose: Not Given Potassium Chloride 10 meq/ (Premix) 100 mls @ 100 mls/hr IV Q1H [facility] Stop: 11/15/18 11:29 Last Admin: 11/15/18 11:13 Dose: 100 mls/hr Lactated Ringer's (Ringers, Lactated) 1,000 mls @ 250 mls/hr IV ASDIRECTED [facility] Last Admin: 11/15/18 14:00 Dose: 250 mls/hr Magnesium Sulfate 4 gm/ Premix 50 mls @ 12.5 mls/hr IV ONETIME ONE Stop: 11/15/18 20:16 Last Admin: 11/15/18 16:38 Dose: 12.5 mls/hr Potassium Chloride 10 meq/ (Premix) 100 mls @ 100 mls/hr IV Q1H [facility] Stop: 11/15/18 18:29 Last Admin: 11/15/18 18:20 Dose: 100 mls/hr Ondansetron HCl (Zofran) 4 mg IVPUSH ONETIME ONE Stop: 11/14/18 09:33 Last Admin: 11/14/18 09:51 Dose: 4 mg Pantoprazole Sodium (Protonix Iv) 80 mg IVPUSH BOLUS ONE Stop: 11/14/18 09:35 Last Admin: 11/14/18 09:52 Dose: Not Given Pantoprazole Sodium (Protonix Iv) 40 mg IV Q12H [facility] Last Admin: 11/17/18 09:43 Dose: 40 mg Potassium Chloride (Potassium Chloride) 10 meq IV ONETIME ONE Stop: 11/14/18 11:01 Last Admin: 11/14/18 11:12 Dose: Not Given Temazepam (Restoril) 15 mg PO ONETIME ONE Stop: 11/15/18 21:55 Last Admin: 11/15/18 22:02 Dose: 15 mg Temazepam (Restoril) 15 mg PO BEDTIME PRN PRN Reason: Sleep Last Admin: 11/16/18 21:12 Dose: 15 mg - Exam Quality Assessment: Supplemental Oxygen (1L ), DVT Prophylaxis General: Alert, Oriented, Cooperative, Mild Distress (Reports pain although very sleepy ), Sedated HEENT: Pupils Equal, Pupils Reactive, EOMI, Mucous Membr. Moist/[place] Neck: Supple, Trachea Midline, No JVD Lungs: Clear to Auscultation, Normal Respiratory Effort Cardiovascular: Regular Rhythm, Tachycardia GI/Abdominal Exam: Normal Bowel Sounds, Soft, No Distention, No Abnormal Bruit, Guarding, Tender (Upper quadrants ) (Female) Exam: Deferred Back Exam: Normal Inspection, Full Range of Motion Extremities: Normal Inspection, Normal Range of Motion, Non-Tender, No Pedal Edema, Normal Capillary Refill Peripheral Pulses: 3+: Radial (L), Radial (R), Dorsalis Pedis (L), Dorsalis Pedis (R) Skin: Warm, Dry, Intact Neurological: No New Focal Deficit Psy/Mental Status: Alert - Problem List & Annotations (1) Alcohol intoxication SNOMED Code(s): 79316167 Code(s): F10.129 - ALCOHOL ABUSE WITH INTOXICATION, UNSPECIFIED Status: Resolved Priority: High Current Visit: Yes Qualifiers: Complication of substance-induced condition: uncomplicated Qualified Code(s ): F10.920 - Alcohol use, unspecified with intoxication, uncomplicated (2) Alcoholism SNOMED Code(s): 7901044 Code(s): F10.20 - ALCOHOL DEPENDENCE, UNCOMPLICATED Status: Chronic Priority: High Current Visit: Yes (3) Hypokalemia SNOMED Code(s): 43665200 Code(s): E87.6 - HYPOKALEMIA Status: Acute Priority: High Current Visit : Yes (4) Liver disease due to alcohol SNOMED Code(s): 87582531 Code(s): K70.9 - ALCOHOLIC LIVER DISEASE, UNSPECIFIED Status: Acute Priority: High Current Visit: Yes (5) Nausea & vomiting SNOMED Code(s): 93080551 Code(s): R11.2 - NAUSEA WITH VOMITING, UNSPECIFIED Status: Resolved Priority: High Current Visit: Yes Qualifiers: Vomiting type: unspecified Vomiting Intractability: non-intractable Qualified Code(s): R11.2 - Nausea with vomiting, unspecified (6) Pancreatitis SNOMED Code(s): 34367765 Code(s): K85.90 - ACUTE PANCREATITIS WITHOUT NECROSIS OR INFECTION, UNSP Status: Acute Priority: High Current Visit: Yes Qualifiers: Chronicity: acute Pancreatitis type: alcohol induced Acute pancreatitis complication: no infection or necrosis Qualified Code(s): K85.20 - Alcohol induced acute pancreatitis without necrosis or infection (7) Thrombocytopenia SNOMED Code(s): 305460718 Code(s): D69.6 - THROMBOCYTOPENIA, UNSPECIFIED Status: Acute Priority: High Current Visit: Yes (8) Hypomagnesemia SNOMED Code(s): 214906427 Code(s): E83.42 - HYPOMAGNESEMIA Status: Acute Priority: High Current Visit: Yes (9) Transaminitis SNOMED Code(s): 963601332, 339687040 Code(s): R74.0 - NONSPEC ELEV OF LEVELS OF TRANSAMNS & LACTIC ACID DEHYDRGNSE Status: Acute Current Visit: Yes - Problem List Review Problem List Initiated/Reviewed/Updated: Yes - My Orders Last 24 Hours: My Active Orders 11/17/18 11:24 HYDROmorphone [Dilaudid] 0.5 mg IVPUSH Q6H PRN 11/17/18 11:25 Notify Provider Consults [RC] ASDIRECTED Consult to Physician [CONS] Routine 11/17/18 11:26 Ambulate [RC] QID 11/17/18 11:28 Consult to Occupational Therapy [OT Evaluation and Treatment] [CONS] Routine PT Evaluation and Treatment [CONS] Routine 11/17/18 11:29 Metoprolol Tartrate [Lopressor] 5 mg IVPUSH Q4H PRN hydrALAZINE [Apresoline] 20 mg IVPUSH Q4H PRN 11/17/18 11:30 Pharmacy to Dose - Magnesium R [Pharmacy to Dose - Magnesium Replacement] 0 dose .XX ASDIRECTED PRN Pharmacy to Dose - Potassium R [Pharmacy to Dose - Potassium Replacement] 0 dose .XX ASDIRECTED PRN 11/17/18 12:00 Folic Acid 1 mg PO DAILY Multivitamins,Therapeutic [Thera] 1 each PO DAILY Thiamine [Vitamin B-1] 100 mg PO DAILY 11/17/18 14:47 Magnesium Sulfate/Water [Magnesium Sulfate 2 GM in Water 50 ML] 2 gm Premix Bag 1 bag IV ONETIME 11/17/18 15:00 Potassium Chloride [KCl 10 MEQ in Water 100 ML] 10 meq Premix Bag 1 bag IV Q1H 11/17/18 21:00 Pantoprazole [ProTONIX] 40 mg PO BID oxyCODONE ER [OxyCONTIN] 10 mg PO Q12HR 11/18/18 05:11 CBC WITH AUTO DIFF [HEME] AM CMP [COMPREHENSIVE METABOLIC PN,CMP] [CHEM] AM CRP [C-REACTIVE PROTEIN] [CHEM] AM LIPASE [CHEM] AM MAGNESIUM [CHEM] AM 11/19/18 05:11 CBC WITH AUTO DIFF [HEME] AM CMP [COMPREHENSIVE METABOLIC PN,CMP] [CHEM] AM CRP [C-REACTIVE PROTEIN] [CHEM] AM LIPASE [CHEM] AM MAGNESIUM [CHEM] AM 11/20/18 05:11 CBC WITH AUTO DIFF [HEME] AM CMP [COMPREHENSIVE METABOLIC PN,CMP] [CHEM] AM CRP [C-REACTIVE PROTEIN] [CHEM] AM LIPASE [CHEM] AM MAGNESIUM [CHEM] AM 11/21/18 05:11 CBC WITH AUTO DIFF [HEME] AM CMP [COMPREHENSIVE METABOLIC PN,CMP] [CHEM] AM CRP [C-REACTIVE PROTEIN] [CHEM] AM LIPASE [CHEM] AM MAGNESIUM [CHEM] AM - Plan Plan:: I/P: Acute Pancreatitis -Reports abdominal pain -Longstanding history of ETOH abuse and chronic pancreatitis -Lipase 1089-->465-->426 -Pain medications as ordered -IV fluids as ordered -CRP 6.9 -No leukocytosis -NPO-->clear liquid diet--> advance as tolerated -Maddi's criteria - 1 point at admission (incomplete) -Triglycerides 159 -Ambulate QID Transaminitis/liver failure -AST 3690-->1998-->1469-->791 -ALT 2033-->1503-->1256-->925 -Alk Phos 269-->218-->197-->185 -2/2 chronic ETOH use -IV fluids as ordered -Avoid hepatotoxic meds -PT 13.3; INR 1.23, APTT 32 -Monitor Hypothyroidism -TSH 50.407 -T4 pending -Started on levothyroxine -Has been noted on several prior visits Hypokalemia -Supplemented -Pharmacy to monitor and supplement Hypomagnesemia -Supplemented -Pharmacy to monitor and supplement ETOH abuse -Longstanding history of ETOH abuse -No UDS performed in ED -ETOH 0.06 in ED -Liver enzymes as above -Initially reported to ED provider that she stopped drinking then admitted to drinking heavily once confronted with lab results -Thiamine/Folic Acid/Multivitamin -CM/SW -Psychiatry consult -LAD consult -CIWA protocol -> discontinued Chronic: HLD HTN GERD epigastric pain adhesions renal failure thyroid cancer arthritis chronic back pain addiction hypothyroidism iron deficiency anemia obesity Plan: Admit to ICU -> downgrade to floor Other orders as indicated above Home medications as ordered Routine AM labs CM/SW for discharge planning PT/OT Code status: Full Code; PCP: Dr. Brower
[2018-11-17] MEDS: Potassium Chloride 10 MEQ in Premix Bag 1 BAG IV SCH ×5 (17:20→23:43)
[2018-11-17] MEDS: Pantoprazole 40 MG Tab.CR PO SCH (20:39)
[2018-11-17] MEDS: oxyCODONE ER 10 MG TAB.ER PO SCH (20:40)
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
[2018-11-18] MEDS: Potassium Chloride 10 MEQ in Premix Bag 1 BAG IV SCH ×6 (01:09→19:35)
[2018-11-18] MEDS ORDERED: Lactated Ringers 1,000 ML IV SCH (02:15)
[2018-11-18] MEDS: Levothyroxine 125 MCG Tab PO SCH (06:03)
--- NOTE | 2018-11-18 07:00 | PCM.PN ---
- General Info Date of Service: 11/18/18 Admission Dx/Problem (Free Text): Admission Diagnosis/Problem Admission Diagnosis/Problem Hypokalemia Subjective Update: In to see Lissa with Dr. Tripathi. She reports she still having abdominal pain however she has been tolerating advancement of her diet. Lipase and liver enzymes continue to trend downward. IV fluids have been stopped. Diet is advanced to soft diet. States she did see Davey Massey who is not recommending treatment at this time. She we are still awaiting her see Dr. Vail. She has had good response to adjusted pain medications as she is not requesting Dilaudid nearly as much. Electrolytes have been supplemented. Functional Status: Reports: Pain Controlled, Tolerating Diet, Ambulating, Urinating. Denies: New Symptoms - Review of Systems General: Reports: Weakness, Fatigue. Denies: Fever, Malaise, Chills HEENT: Reports: No Symptoms. Denies: Headaches, Sore Throat Pulmonary: Reports: No Symptoms. Denies: Shortness of Breath, Cough, Sputum, Wheezing Cardiovascular: Reports: No Symptoms. Denies: Chest Pain, Palpitations, Dyspnea on Exertion, Edema Gastrointestinal: Reports: Abdominal Pain (Upper quadrants ), Diarrhea. Denies : Constipation, Nausea, Vomiting Genitourinary: Reports: No Symptoms. Denies: Pain Musculoskeletal: Reports: No Symptoms Skin: Reports: No Symptoms Neurological: Reports: No Symptoms. Denies: Confusion, Difficulty Walking Psychiatric: Reports: No Symptoms - Patient Data Vitals - Most Recent: Last Vital Signs Temp 98.1 F 11/17/18 23:46 Pulse 84 11/18/18 03:43 Resp 16 11/18/18 03:43 BP 136/90 11/18/18 03:43 Pulse Ox 100 11/18/18 03:43 Weight - Most Recent: 206 lb 12.8 oz I&O - Last 24 Hours: Intake & Output 11/17/18 11/18/18 11/18/18 22:59 06:59 14:59 Intake Total 1379 2260 Output Total 650 2100 Balance 729 160 Lab Results Last 24 Hours: Laboratory Results - last 24 hr 11/17/18 11/17/18 11/17/18 Range/Units 11:50 11:50 11:50 WBC 7.25 (3.98-10.04) K/mm3 RBC 2.99 L (3.98-5.22) M/mm3 Hgb 9.7 L (11.2-15.7) gm/L Hct 28.4 L (34.1-44.9) % MCV 95.0 H (79.4-94.8) fl MCH 32.4 H (25.6-32.2) pg MCHC 34.2 (32.2-35.5) g/dl RDW Std Deviation 61.0 H (36.4-46.3) fL Plt Count 111 L (182-369) K/mm3 MPV 9.4 (9.4-12.3) fl Neut % (Auto) 73.1 H (34.0-71.1) % Lymph % (Auto) 10.1 L (19.3-51.7) % [place] % (Auto) 12.0 (4.7-12.5) % Eos % (Auto) 2.9 (0.7-5.8) Baso % (Auto) 0.1 (0.1-1.2) % Neut # (Auto) 5.30 (1.56-6.13) K/mm3 Lymph # (Auto) 0.73 L (1.18-3.74) K/mm3 [place] # (Auto) 0.87 H (0.24-0.36) K/mm3 Eos # (Auto) 0.21 (0.04-0.36) K/mm3 Baso # (Auto) 0.01 (0.01-0.08) K/mm3 Manual Slide Review Abnormal smear Sodium 140 (136-145) mEq/L Potassium 3.0 L (3.5-5.1) mEq/L Chloride 103 (98-107) mEq/L Carbon Dioxide 26 (21-32) mEq/L Anion Gap 14.0 (5-15) BUN 4 L (7-18) mg/dL Creatinine 0.8 (0.55-1.02) mg/dL Est Cr Clr Drug Dosing 64.46 mL/min Estimated GFR (MDRD) > 60 (>60) mL/min BUN/Creatinine Ratio 5.0 L (14-18) Glucose 115 H (74-106) mg/dL Calcium 8.1 L (8.5-10.1) mg/dL Magnesium 1.6 L (1.8-2.4) mg/dl C-Reactive Protein 6.9 H* (<1.0) mg/dL Free T4 0.40 L (0.76-1.46) ng/dL 11/18/18 Range/Units 06:30 WBC 6.53 (3.98-10.04) K/mm3 RBC 3.04 L (3.98-5.22) M/mm3 Hgb 9.6 L (11.2-15.7) gm/L Hct 28.9 L (34.1-44.9) % MCV 95.1 H (79.4-94.8) fl MCH 31.6 (25.6-32.2) pg MCHC 33.2 (32.2-35.5) g/dl RDW Std Deviation 61.2 H (36.4-46.3) fL Plt Count 129 L (182-369) K/mm3 MPV 9.1 L (9.4-12.3) fl Neut % (Auto) 62.4 (34.0-71.1) % Lymph % (Auto) 17.8 L (19.3-51.7) % [place] % (Auto) 14.4 H (4.7-12.5) % Eos % (Auto) 2.8 (0.7-5.8) Baso % (Auto) 1.1 (0.1-1.2) % Neut # (Auto) 4.08 (1.56-6.13) K/mm3 Lymph # (Auto) 1.16 L (1.18-3.74) K/mm3 [place] # (Auto) 0.94 H (0.24-0.36) K/mm3 Eos # (Auto) 0.18 (0.04-0.36) K/mm3 Baso # (Auto) 0.07 (0.01-0.08) K/mm3 Manual Slide Review Sodium (136-145) mEq/L Potassium (3.5-5.1) mEq/L Chloride (98-107) mEq/L Carbon Dioxide (21-32) mEq/L Anion Gap (5-15) BUN (7-18) mg/dL Creatinine (0.55-1.02) mg/dL Est Cr Clr Drug Dosing mL/min Estimated GFR (MDRD) (>60) mL/min BUN/Creatinine Ratio (14-18) Glucose (74-106) mg/dL Calcium (8.5-10.1) mg/dL Magnesium (1.8-2.4) mg/dl C-Reactive Protein (<1.0) mg/dL Free T4 (0.76-1.46) ng/dL Med Orders - Current: Current Medications Folic Acid (Folic Acid) 1 mg PO DAILY [facility] Last Admin: 11/17/18 11:57 Dose: 1 mg Hydralazine HCl (Apresoline) 20 mg IVPUSH Q4H PRN PRN Reason: Hypertension Hydromorphone HCl (Dilaudid) 0.5 mg IVPUSH Q6H PRN PRN Reason: Pain Lactated Ringer's (Ringers, Lactated) 1,000 mls @ 30 mls/hr IV ASDIRECTED [facility] Last Admin: 11/18/18 02:15 Dose: 30 mls/hr Levothyroxine Sodium (Levothyroxine) 125 mcg PO ACBREAKFAST [facility] Last Admin: 11/18/18 06:03 Dose: 125 mcg Magnesium Sulfate (Pharmacy To Dose - Magnesium Replacement) 0 dose .XX ASDIRECTED PRN PRN Reason: RX TO WATCH MAG Metoprolol Tartrate (Lopressor) 5 mg IVPUSH Q4H PRN PRN Reason: Tachycardia Multivitamins (Thera) 1 each PO DAILY [facility] Last Admin: 11/17/18 11:57 Dose: 1 each Ondansetron HCl (Zofran) 4 mg IV Q4H PRN PRN Reason: Nausea/Vomiting Last Admin: 11/16/18 10:49 Dose: 4 mg Oxycodone HCl (Oxycontin) 10 mg PO Q12HR [facility] Last Admin: 11/17/18 20:40 Dose: 10 mg Pantoprazole Sodium (Protonix) 40 mg PO BID [facility] Last Admin: 11/17/18 20:39 Dose: 40 mg Potassium Chloride (Pharmacy To Dose - Potassium Replacement) 0 dose .XX ASDIRECTED PRN PRN Reason: RX TO WATCH K Sodium Chloride (Saline Flush) 10 ml FLUSH ASDIRECTED PRN PRN Reason: Keep Vein Open Last Admin: 11/14/18 11:12 Dose: 10 ml Thiamine HCl (Vitamin B-1) 100 mg PO DAILY [facility] Last Admin: 11/17/18 11:57 Dose: 100 mg Discontinued Medications Hydromorphone HCl (Dilaudid) 1 mg IVPUSH ONETIME ONE Stop: 11/14/18 09:36 Last Admin: 11/14/18 09:51 Dose: 1 mg Hydromorphone HCl (Dilaudid) 0.5 mg IVPUSH ONETIME ONE Stop: 11/14/18 11:54 Last Admin: 11/14/18 11:59 Dose: 0.5 mg Hydromorphone HCl (Dilaudid) 1 mg IVPUSH ONETIME ONE Stop: 11/14/18 15:10 Last Admin: 11/14/18 15:20 Dose: 1 mg Hydromorphone HCl (Dilaudid) 0.5 mg IVPUSH Q2H PRN PRN Reason: Pain (severe 7-10) Last Admin: 11/15/18 06:53 Dose: 0.5 mg Hydromorphone HCl (Dilaudid) 0.5 mg IVPUSH Q2H PRN PRN Reason: Pain (severe 7-10) Last Admin: 11/15/18 10:53 Dose: 0.5 mg Hydromorphone HCl (Dilaudid) 1 mg IVPUSH Q3H PRN PRN Reason: Pain Last Admin: 11/17/18 09:43 Dose: 1 mg Pantoprazole Sodium 80 mg/ (Sodium Chloride) 100 mls @ 100 mls/hr IV Q10H [facility] Last Admin: 11/14/18 09:52 Dose: 10 mls/hr Sodium Chloride (Normal Saline) 1,000 mls @ 1,000 mls/hr IV .BOLUS STA Stop: 11/14/18 10:31 Last Admin: 11/14/18 09:51 Dose: 1,000 mls/hr Potassium Chloride 10 meq/ (Premix) 100 mls @ 100 mls/hr IV ONETIME ONE Stop: 11/14/18 12:14 Last Admin: 11/14/18 11:11 Dose: 100 mls/hr Pantoprazole Sodium 80 mg/ (Sodium Chloride) 100 mls @ 10 mls/hr IV ONETIME ONE Stop: 11/14/18 22:05 Last Admin: 11/14/18 12:54 Dose: 10 mls/hr Potassium Chloride/Sodium Chloride (Normal Saline With 20 Meq Kcl) 1,000 mls @ 500 mls/hr IV ONETIME ONE Stop: 11/14/18 16:59 Last Admin: 11/14/18 14:55 Dose: 500 mls/hr Potassium Chloride 10 meq/ (Premix) 100 mls @ 100 mls/hr IV Q1H [facility] Stop: 11/14/18 19:29 Last Admin: 11/14/18 18:50 Dose: 100 mls/hr Thiamine HCl 100 mg/ Sodium (Chloride) 101 mls @ 202 mls/hr IV ONETIME ONE Stop: 11/14/18 17:01 Thiamine HCl 100 mg/ Sodium (Chloride) 101 mls @ 202 mls/hr IV DAILY ONE Stop: 11/14/18 17:44 Last Admin: 11/14/18 17:17 Dose: Not Given Dextrose/Lactated Ringer's (Dextrose 5%-Lactated Ringers) 1,000 mls @ 250 mls/ hr IV ASDIRECTED [facility] Last Admin: 11/15/18 07:25 Dose: 250 mls/hr Potassium Chloride 10 meq/ (Premix) 100 mls @ 100 mls/hr IV Q1H [facility] Stop: 11/15/18 01:29 Last Admin: 11/15/18 00:47 Dose: 100 mls/hr Magnesium Sulfate 4 gm/ Premix 50 mls @ 12.5 mls/hr IV ONETIME ONE Stop: 11/15/18 01:21 Last Admin: 11/14/18 21:50 Dose: 12.5 mls/hr Sodium Chloride (Normal Saline) 1,000 mls @ 999 mls/hr IV ONETIME ONE Stop: 11/14/18 22:32 Last Admin: 11/14/18 21:41 Dose: 999 mls/hr Pantoprazole Sodium 80 mg/ (Sodium Chloride) 100 mls @ 10 mls/hr IV Q10H [facility] Last Admin: 11/16/18 14:15 Dose: Not Given Potassium Chloride 10 meq/ (Premix) 100 mls @ 100 mls/hr IV Q1H [facility] Stop: 11/15/18 11:29 Last Admin: 11/15/18 11:13 Dose: 100 mls/hr Lactated Ringer's (Ringers, Lactated) 1,000 mls @ 250 mls/hr IV ASDIRECTED [facility] Last Admin: 11/15/18 14:00 Dose: 250 mls/hr Lactated Ringer's (Ringers, Lactated) 1,000 mls @ 150 mls/hr IV ASDIRECTED [facility] Last Admin: 11/17/18 18:34 Dose: 150 mls/hr Magnesium Sulfate 4 gm/ Premix 50 mls @ 12.5 mls/hr IV ONETIME ONE Stop: 11/15/18 20:16 Last Admin: 11/15/18 16:38 Dose: 12.5 mls/hr Potassium Chloride 10 meq/ (Premix) 100 mls @ 100 mls/hr IV Q1H [facility] Stop: 11/15/18 18:29 Last Admin: 11/15/18 18:20 Dose: 100 mls/hr Potassium Chloride 10 meq/ (Premix) 100 mls @ 100 mls/hr IV Q1H [facility] Stop: 11/17/18 20:59 Last Admin: 11/18/18 01:09 Dose: 100 mls/hr Magnesium Sulfate 2 gm/ Premix 50 mls @ 25 mls/hr IV ONETIME ONE Stop: 11/17/18 16:46 Last Admin: 11/17/18 17:13 Dose: 25 mls/hr Ondansetron HCl (Zofran) 4 mg IVPUSH ONETIME ONE Stop: 11/14/18 09:33 Last Admin: 11/14/18 09:51 Dose: 4 mg Pantoprazole Sodium (Protonix Iv) 80 mg IVPUSH BOLUS ONE Stop: 11/14/18 09:35 Last Admin: 11/14/18 09:52 Dose: Not Given Pantoprazole Sodium (Protonix Iv) 40 mg IV Q12H [facility] Last Admin: 11/17/18 09:43 Dose: 40 mg Potassium Chloride (Potassium Chloride) 10 meq IV ONETIME ONE Stop: 11/14/18 11:01 Last Admin: 11/14/18 11:12 Dose: Not Given Temazepam (Restoril) 15 mg PO ONETIME ONE Stop: 11/15/18 21:55 Last Admin: 11/15/18 22:02 Dose: 15 mg Temazepam (Restoril) 15 mg PO BEDTIME PRN PRN Reason: Sleep Last Admin: 11/16/18 21:12 Dose: 15 mg - Exam Quality Assessment: DVT Prophylaxis General: Alert, Oriented, Cooperative, No Acute Distress HEENT: Pupils Equal, Pupils Reactive, EOMI, Mucous Membr. Moist/[place] Neck: Supple, Trachea Midline, No JVD Lungs: Clear to Auscultation, Normal Respiratory Effort Cardiovascular: Regular Rate, Regular Rhythm GI/Abdominal Exam: Normal Bowel Sounds, Soft, No Distention, No Abnormal Bruit, No Mass, Tender (Upper quadrants ) (Female) Exam: Deferred Back Exam: Normal Inspection, Full Range of Motion Extremities: Normal Inspection, Normal Range of Motion, Non-Tender, No Pedal Edema, Normal Capillary Refill Peripheral Pulses: 3+: Radial (L), Radial (R), Dorsalis Pedis (L), Dorsalis Pedis (R) Skin: Warm, Dry, Intact Neurological: No New Focal Deficit Psy/Mental Status: Alert - Problem List & Annotations (1) Alcohol intoxication SNOMED Code(s): 52123752 Code(s): F10.129 - ALCOHOL ABUSE WITH INTOXICATION, UNSPECIFIED Status: Resolved Priority: High Current Visit: Yes Qualifiers: Complication of substance-induced condition: uncomplicated Qualified Code(s ): F10.920 - Alcohol use, unspecified with intoxication, uncomplicated (2) Alcoholism SNOMED Code(s): 8691001 Code(s): F10.20 - ALCOHOL DEPENDENCE, UNCOMPLICATED Status: Chronic Priority: High Current Visit: Yes (3) Hypokalemia SNOMED Code(s): 89095326 Code(s): E87.6 - HYPOKALEMIA Status: Acute Priority: High Current Visit : Yes (4) Liver disease due to alcohol SNOMED Code(s): 97499868 Code(s): K70.9 - ALCOHOLIC LIVER DISEASE, UNSPECIFIED Status: Acute Priority: High Current Visit: Yes (5) Nausea & vomiting SNOMED Code(s): 36336289 Code(s): R11.2 - NAUSEA WITH VOMITING, UNSPECIFIED Status: Resolved Priority: High Current Visit: Yes Qualifiers: Vomiting type: unspecified Vomiting Intractability: non-intractable Qualified Code(s): R11.2 - Nausea with vomiting, unspecified (6) Pancreatitis SNOMED Code(s): 47855526 Code(s): K85.90 - ACUTE PANCREATITIS WITHOUT NECROSIS OR INFECTION, UNSP Status: Acute Priority: High Current Visit: Yes Qualifiers: Chronicity: acute Pancreatitis type: alcohol induced Acute pancreatitis complication: no infection or necrosis Qualified Code(s): K85.20 - Alcohol induced acute pancreatitis without necrosis or infection (7) Thrombocytopenia SNOMED Code(s): 961816438 Code(s): D69.6 - THROMBOCYTOPENIA, UNSPECIFIED Status: Acute Priority: High Current Visit: Yes (8) Hypomagnesemia SNOMED Code(s): 314627650 Code(s): E83.42 - HYPOMAGNESEMIA Status: Acute Priority: High Current Visit: Yes (9) Transaminitis SNOMED Code(s): 161766572, 668155761 Code(s): R74.0 - NONSPEC ELEV OF LEVELS OF TRANSAMNS & LACTIC ACID DEHYDRGNSE Status: Acute Current Visit: Yes - Problem List Review Problem List Initiated/Reviewed/Updated: Yes - My Orders Last 24 Hours: My Active Orders 11/17/18 11:24 HYDROmorphone [Dilaudid] 0.5 mg IVPUSH Q6H PRN 11/17/18 11:25 Notify Provider Consults [RC] ASDIRECTED Consult to Physician [CONS] Routine 11/17/18 11:26 Ambulate [RC] QID 11/17/18 11:28 Consult to Occupational Therapy [OT Evaluation and Treatment] [CONS] Routine PT Evaluation and Treatment [CONS] Routine 11/17/18 11:29 Metoprolol Tartrate [Lopressor] 5 mg IVPUSH Q4H PRN hydrALAZINE [Apresoline] 20 mg IVPUSH Q4H PRN 11/17/18 11:30 Pharmacy to Dose - Magnesium R [Pharmacy to Dose - Magnesium Replacement] 0 dose .XX ASDIRECTED PRN Pharmacy to Dose - Potassium R [Pharmacy to Dose - Potassium Replacement] 0 dose .XX ASDIRECTED PRN 11/17/18 12:00 Folic Acid 1 mg PO DAILY Multivitamins,Therapeutic [Thera] 1 each PO DAILY Thiamine [Vitamin B-1] 100 mg PO DAILY 11/17/18 21:00 Pantoprazole [ProTONIX] 40 mg PO BID oxyCODONE ER [OxyCONTIN] 10 mg PO Q12HR 11/17/18 Dinner Full Liquid Diet [DIET] 11/18/18 06:30 CMP [COMPREHENSIVE METABOLIC PN,CMP] [CHEM] AM CRP [C-REACTIVE PROTEIN] [CHEM] AM LIPASE [CHEM] AM MAGNESIUM [CHEM] AM 11/19/18 05:11 CBC WITH AUTO DIFF [HEME] AM CMP [COMPREHENSIVE METABOLIC PN,CMP] [CHEM] AM CRP [C-REACTIVE PROTEIN] [CHEM] AM LIPASE [CHEM] AM MAGNESIUM [CHEM] AM 11/20/18 05:11 CBC WITH AUTO DIFF [HEME] AM CMP [COMPREHENSIVE METABOLIC PN,CMP] [CHEM] AM CRP [C-REACTIVE PROTEIN] [CHEM] AM LIPASE [CHEM] AM MAGNESIUM [CHEM] AM 11/21/18 05:11 CBC WITH AUTO DIFF [HEME] AM CMP [COMPREHENSIVE METABOLIC PN,CMP] [CHEM] AM CRP [C-REACTIVE PROTEIN] [CHEM] AM LIPASE [CHEM] AM MAGNESIUM [CHEM] AM - Plan Plan:: I/P: Acute Pancreatitis, improving -Reports abdominal pain -Longstanding history of ETOH abuse and chronic pancreatitis -Lipase 1089-->465-->426-->442 -Pain medications as ordered -IV fluids as ordered -CRP 6.9-->5.0 -No leukocytosis -NPO-->clear liquid diet--> advance as tolerated -Maddi's criteria - 1 point at admission (incomplete) -Triglycerides 159 -Ambulate QID Transaminitis/liver failure, improving -AST 3690-->1998-->1469-->791-->306 -ALT 2033-->1503-->1256-->925-->549 -Alk Phos 269-->218-->197-->185-->148 -2/2 chronic ETOH use -IV fluids as ordered -Avoid hepatotoxic meds -PT 13.3; INR 1.23, APTT 32 -Monitor Hypothyroidism -TSH 50.407 -T4 0.4 -Started on levothyroxine -Has been noted on several prior visits Hypokalemia -Supplemented -Pharmacy to monitor and supplement Hypomagnesemia -Supplemented -Pharmacy to monitor and supplement ETOH abuse -Longstanding history of ETOH abuse -No UDS performed in ED -ETOH 0.06 in ED -Liver enzymes as above -Initially reported to ED provider that she stopped drinking then admitted to drinking heavily once confronted with lab results -Thiamine/Folic Acid/Multivitamin -CM/SW -Psychiatry consult -LAD consult -CIWA protocol -> discontinued Chronic: HLD HTN GERD epigastric pain adhesions renal failure thyroid cancer arthritis chronic back pain addiction hypothyroidism iron deficiency anemia obesity Plan: Admit to ICU -> downgrade to floor Other orders as indicated above Home medications as ordered Routine AM labs CM/SW for discharge planning PT/OT Code status: Full Code; PCP: Dr. Brower
[2018-11-18] MEDS: Thiamine 100 MG Tab PO SCH (08:27)
[2018-11-18] MEDS: Multivitamins,Therapeutic Tab PO SCH (08:27)
[2018-11-18] MEDS: Folic Acid 1 MG Tab PO SCH (08:28)
[2018-11-18] MEDS: oxyCODONE ER 10 MG TAB.ER PO SCH ×2 (08:28→20:06)
[2018-11-18] MEDS: Pantoprazole 40 MG Tab.CR PO SCH ×2 (08:28→20:06)
[2018-11-18] MEDS ORDERED: Magnesium Sulfate/Water 4 GM in Premix Bag 1 BAG IV ONE (09:30)
[2018-11-18] MEDS ORDERED: Furosemide 40 MG/4 ML VIAL IVPUSH ONE (10:48)
[2018-11-18] MEDS ORDERED: Caffeine 200 MG Tab PO STA (11:04)
[2018-11-18] MEDS: FLUoxetine 20 MG Cap PO SCH (13:37)
[2018-11-18] MEDS: Caffeine 200 MG Tab PO SCH (18:25)
--- NOTE | 2018-11-18 19:05 | CONS ---
CONSULTING PHYSICIAN: Jared Vail MD DATE OF CONSULTATION: 11/18/2018 This is a 60-minute inpatient telemedicine event. Site where the services are provided is [facility] in [place], [place]. Site where the services are provided from our office is in [facility]. Length of time for this 60-minute inpatient clinical event is 60 minutes. IDENTIFICATION: The patient is a 43-year-old female, who is admitted to the inpatient Med/Surg Unit at [facility] in [place], [place] on 11/14/2018. She is seen for psychiatric consultation per the request of staff attending, Dr. Tripathi and his treatment team. CHIEF COMPLAINT: "Strong depression. I do not have the money to pay for the medications." HISTORY OF PRESENT ILLNESS: The patient is a 43-year-old female who was evidently admitted to the inpatient Med/Surg Unit at [facility] in [place], [place] on 11/14/2018 secondary to complications from pancreatitis involving nausea, vomiting, and emesis. The patient has a history of alcohol dependence and evidently had been sober for some time, but then recently relapsed. The patient is stating that she had been sober for about a year, but relapsed and drank vodka about 4 shots in a day a little over a week ago after learning that her was likely going to be deported. He is currently being detained by [facility] in [place] and she states that he is serving 14 months or as might be deported. The patient states she was struggling with depression because she is very close with her . When she received the news, she relapsed. She states she has also been having some problems with her sons who live in [place]. They are 17 and 18 years of age. She states that she is currently living in [place] with a niece and she is originally from [place]. She states that she is not working now and she also has no documentation and she does not want to be put on medications because of this fact. She states that she has taken depression medications in the past, they have helped her. She also states she has taken thyroid medication and that has really helped her, but the problem is she has been off medications for over a year because "I do not have any money" to buy the medications and she has no medical insurance either because of her status. She states that if she could get on 1 medication only, she would want the thyroid medication because she does state when her thyroid is well regulated, her mood tends to be pretty good and she is able to stay sober. She is denying that she is suicidal or homicidal. She denies any psychotic, delusional, or paranoid symptoms. In talking with the social work team, it is reported that [employer] will be involved with helping the patient get possible access to insurance and [facility] [employer] will help the patient also so she can get the needed medications going forward. For her part, again, the patient is considering going back to [place]. She states she is going to meet with a pest control service representative from the [facility] consulate in the next few weeks to explore the options to return to [place] from. She states she has family down there. Parents still live there and she has children who live there whom she would go to live with if she does decide to return to [place]. MEDICATIONS: At the time of admission, none. ALLERGIES: 1. Penicillin. 2. Sulfa. PAST MEDICAL HISTORY: 1. Hypothyroidism. 2. Pancreatitis. REVIEW OF SYSTEMS: Aside from endocrine and GI, all other major organ systems are negative at this point in time for acute difficulties or complications. FAMILY PSYCHIATRIC AND CD HISTORY: None reported. PAST PSYCHIATRIC AND CD HISTORY: Positive for being committed to the [facility] in [place] for CD treatment within the past couple of years. The patient has not reported any previous suicide attempts or self-injurious behaviors. She states she has been on antidepressant medications that have helped her, but she cannot remember what the names of the medications are. She states she had been sober for a year and then recently relapsed upon receiving bad news involving her 's immigration status. SOCIAL HISTORY: The patient is from [facility], but living in [place], [place] for the past 8 years. She is currently living with her niece in [place]. She is unemployed. She is . Her is being detained by [employer] over in the state of [place]. She was 2 children who are living in [place] with her, 17 and 18-year-old boys, and she has 4 children down in [place]. MENTAL STATUS EXAM: The patient is a 43-year-old female, in no apparent distress. Speech is of regular rate and rhythm. The patient is cognitively oriented. Psychomotor activity is within normal limits. There are no abnormal motor movements or tics observed. Gait and station are not observed. This patient is lying in bed during the course of the inpatient consult. There is no behavioral or stated evidence of acute suicidal or homicidal ideation or acute psychotic, delusional, or paranoid symptoms. Thought process is organized. There are no acute manic symptoms or loose associations evident. Judgment and insight appear unimpaired, but perhaps poor into the severity of her alcohol dependency issues. Motivation for help appears fair. VITALS: 146/96, 94, 18, 98.4 degrees. IMPRESSION: [place] I: 1. Alcohol dependence, F10.20. 2. Depression, not otherwise specified, F32.9. 3. Rule out major depressive disorder, recurrent. [place] II: None. [place] III: 1. Hypothyroidism. 2. Pancreatitis. [place] IV: Severe. [place] V: 55. PLAN: 1. Sobriety. 2. Begin Prozac 20 mg q.a.m. to help with symptoms of depression. 3. Folic acid supplementation. 4. Thiamine supplementation. 5. Recommend the patient's thyroid be managed possibly with Synthroid. This is per primary inpatient medical treatment team discretion. 6. AA rep to visit the patient while on unit. 7. Pastoral guidance. 8. Recommend that [employer] work with the patient to assist her so she can possibly receive needed medications when she is medically stabilized and discharged back to the community. 9. Recommend the patient to follow up with Outpatient Psychiatry to assess overall function and efficacy of her newly initiated antidepressant medication after she is discharged back to the community within 4 weeks. 10.Recommend the patient to follow up with outpatient CD services such as AA once she is medically stabilized and discharged back to community. 11.We will continue to follow up with the patient on an as-needed basis while she remains on the inpatient Med/Surg Unit. 12.We will follow up with the patient sooner if there are any complications in the interim. 13.If the patient is unable to maintain sobriety on her own, then we would recommend sending her to inpatient CD treatment if need be if she presents under similar circumstances going forward. 14.Crisis plan is in place. MMODAL /[id number]
[2018-11-19] MEDS: Levothyroxine 125 MCG Tab PO SCH (06:51)
[2018-11-19] MEDS: Caffeine 200 MG Tab PO SCH (06:52)
[2018-11-19] MEDS: Ondansetron 4 MG/2 ML SDV IV PRN ×2 (08:23→14:28)
[2018-11-19] MEDS: Multivitamins,Therapeutic Tab PO SCH (08:24)
[2018-11-19] MEDS: Thiamine 100 MG Tab PO SCH (08:24)
[2018-11-19] MEDS: Scopolamine 1.5 MG Transdermal Patch TRDERM PRN (08:24)
[2018-11-19] MEDS: Pantoprazole 40 MG Tab.CR PO SCH ×2 (08:24→20:39)
[2018-11-19] MEDS: Folic Acid 1 MG Tab PO SCH (08:24)
[2018-11-19] MEDS: oxyCODONE ER 10 MG TAB.ER PO SCH (08:24)
[2018-11-19] MEDS: FLUoxetine 20 MG Cap PO SCH (08:24)
--- NOTE | 2018-11-19 09:41 | PCM.PN ---
- General Info Date of Service: 11/19/18 Admission Dx/Problem (Free Text): Admission Diagnosis/Problem Admission Diagnosis/Problem Hypokalemia Subjective Update: Lissa reports she vomited a few times yesterday. Dr. Tripathi had tried some caffeine to perk her up which failed. She reports she vomited after taking this every time and they will be discontinued. We have decreased her pain medications as her pain has been pretty well controlled. IV fluids have been re- started. She reports her knees are swollen however we disagree. No pedal edema noted. Lipase has remained stable so this will be discontinued. Functional Status: Reports: Pain Controlled, Tolerating Diet, Ambulating, Urinating. Denies: New Symptoms - Review of Systems General: Reports: Weakness. Denies: Fever, Fatigue, Malaise HEENT: Reports: No Symptoms. Denies: Headaches, Sore Throat Pulmonary: Reports: No Symptoms. Denies: Shortness of Breath, Cough, Sputum, Wheezing Cardiovascular: Reports: No Symptoms. Denies: Chest Pain, Palpitations, Dyspnea on Exertion, Edema Gastrointestinal: Reports: Abdominal Pain (Upper quadrants ). Denies: Constipation, Diarrhea, Nausea, Vomiting (yesterday but none today) Genitourinary: Reports: No Symptoms. Denies: Pain Musculoskeletal: Reports: No Symptoms Skin: Reports: No Symptoms Neurological: Reports: No Symptoms Psychiatric: Reports: No Symptoms - Patient Data Vitals - Most Recent: Last Vital Signs Temp 98.1 F 11/19/18 04:25 Pulse 93 11/19/18 04:25 Resp 20 11/19/18 04:25 BP 137/94 H 11/19/18 04:25 Pulse Ox 93 L 11/19/18 04:25 Weight - Most Recent: 200 lb 14.4 oz I&O - Last 24 Hours: Intake & Output 11/18/18 11/19/18 11/19/18 22:59 06:59 14:59 Intake Total 490 650 Output Total 2400 Balance 490 -1750 Lab Results Last 24 Hours: Laboratory Results - last 24 hr 11/19/18 11/19/18 11/19/18 Range/Units 06:05 06:05 06:05 WBC 6.78 (3.98-10.04) K/mm3 RBC 3.02 L (3.98-5.22) M/mm3 Hgb 9.7 L (11.2-15.7) gm/L Hct 29.1 L (34.1-44.9) % MCV 96.4 H (79.4-94.8) fl MCH 32.1 (25.6-32.2) pg MCHC 33.3 (32.2-35.5) g/dl RDW Std Deviation 68.8 H (36.4-46.3) fL Plt Count 138 L (182-369) K/mm3 MPV 9.4 (9.4-12.3) fl Neut % (Auto) 67.1 (34.0-71.1) % Lymph % (Auto) 16.8 L (19.3-51.7) % [place] % (Auto) 13.7 H (4.7-12.5) % Eos % (Auto) 1.9 (0.7-5.8) Baso % (Auto) 0.1 (0.1-1.2) % Neut # (Auto) 4.54 (1.56-6.13) K/mm3 Lymph # (Auto) 1.14 L (1.18-3.74) K/mm3 [place] # (Auto) 0.93 H (0.24-0.36) K/mm3 Eos # (Auto) 0.13 (0.04-0.36) K/mm3 Baso # (Auto) 0.01 (0.01-0.08) K/mm3 Sodium 140 (136-145) mEq/L Potassium 2.9 L (3.5-5.1) mEq/L Chloride 103 (98-107) mEq/L Carbon Dioxide 29 (21-32) mEq/L Anion Gap 10.9 (5-15) BUN 2 L (7-18) mg/dL Creatinine 0.8 (0.55-1.02) mg/dL Est Cr Clr Drug Dosing 64.46 mL/min Estimated GFR (MDRD) > 60 (>60) mL/min BUN/Creatinine Ratio 2.5 L (14-18) Glucose 92 (74-106) mg/dL Calcium 7.6 L (8.5-10.1) mg/dL Magnesium 1.8 (1.8-2.4) mg/dl Total Bilirubin 1.7 H (0.2-1.0) mg/dL AST 210 H (15-37) U/L ALT 452 H (14-59) U/L Alkaline Phosphatase 146 H (46-116) U/L C-Reactive Protein 4.2 H* (<1.0) mg/dL Total Protein 6.1 L (6.4-8.2) g/dl Albumin 2.7 L (3.4-5.0) g/dl Globulin 3.4 gm/dL Albumin/Globulin Ratio 0.8 L (1-2) Lipase 524 H 524 H (73-393) U/L Med Orders - Current: Current Medications Caffeine (Caffeine) 200 mg PO BID@0700,1800 [facility] Stop: 11/20/18 07:01 Last Admin: 11/19/18 06:52 Dose: 200 mg Fluoxetine HCl (Prozac) 20 mg PO DAILY [facility] Last Admin: 11/19/18 08:24 Dose: 20 mg Folic Acid (Folic Acid) 1 mg PO DAILY [facility] Last Admin: 11/19/18 08:24 Dose: 1 mg Hydralazine HCl (Apresoline) 20 mg IVPUSH Q4H PRN PRN Reason: Hypertension Hydromorphone HCl (Dilaudid) 0.5 mg IVPUSH Q6H PRN PRN Reason: Pain Levothyroxine Sodium (Levothyroxine) 125 mcg PO ACBREAKFAST [facility] Last Admin: 11/19/18 06:51 Dose: 125 mcg Magnesium Sulfate (Pharmacy To Dose - Magnesium Replacement) 0 dose .XX ASDIRECTED PRN PRN Reason: RX TO WATCH MAG Metoprolol Tartrate (Lopressor) 5 mg IVPUSH Q4H PRN PRN Reason: Tachycardia Multivitamins (Thera) 1 each PO DAILY [facility] Last Admin: 11/19/18 08:24 Dose: 1 each Ondansetron HCl (Zofran) 4 mg IV Q4H PRN PRN Reason: Nausea/Vomiting Last Admin: 11/19/18 08:23 Dose: 4 mg Oxycodone HCl (Oxycontin) 10 mg PO Q12HR [facility] Last Admin: 11/19/18 08:24 Dose: 10 mg Pantoprazole Sodium (Protonix) 40 mg PO BID [facility] Last Admin: 11/19/18 08:24 Dose: 40 mg Potassium Chloride (Pharmacy To Dose - Potassium Replacement) 0 dose .XX ASDIRECTED PRN PRN Reason: RX TO WATCH K Scopolamine (Transderm-Scop) 1.5 mg TRDERM Q72H PRN PRN Reason: Nausea Last Admin: 11/19/18 08:24 Dose: 1.5 mg Sodium Chloride (Saline Flush) 10 ml FLUSH ASDIRECTED PRN PRN Reason: Keep Vein Open Last Admin: 11/14/18 11:12 Dose: 10 ml Thiamine HCl (Vitamin B-1) 100 mg PO DAILY [facility] Last Admin: 11/19/18 08:24 Dose: 100 mg Discontinued Medications Caffeine (Caffeine) 200 mg PO NOW STA Stop: 11/18/18 11:05 Last Admin: 11/18/18 12:10 Dose: 200 mg Furosemide (Lasix) 20 mg IVPUSH NOW ONE Stop: 11/18/18 10:49 Last Admin: 11/18/18 11:11 Dose: 20 mg Hydromorphone HCl (Dilaudid) 1 mg IVPUSH ONETIME ONE Stop: 11/14/18 09:36 Last Admin: 11/14/18 09:51 Dose: 1 mg Hydromorphone HCl (Dilaudid) 0.5 mg IVPUSH ONETIME ONE Stop: 11/14/18 11:54 Last Admin: 11/14/18 11:59 Dose: 0.5 mg Hydromorphone HCl (Dilaudid) 1 mg IVPUSH ONETIME ONE Stop: 11/14/18 15:10 Last Admin: 11/14/18 15:20 Dose: 1 mg Hydromorphone HCl (Dilaudid) 0.5 mg IVPUSH Q2H PRN PRN Reason: Pain (severe 7-10) Last Admin: 11/15/18 06:53 Dose: 0.5 mg Hydromorphone HCl (Dilaudid) 0.5 mg IVPUSH Q2H PRN PRN Reason: Pain (severe 7-10) Last Admin: 11/15/18 10:53 Dose: 0.5 mg Hydromorphone HCl (Dilaudid) 1 mg IVPUSH Q3H PRN PRN Reason: Pain Last Admin: 11/17/18 09:43 Dose: 1 mg Pantoprazole Sodium 80 mg/ (Sodium Chloride) 100 mls @ 100 mls/hr IV Q10H [facility] Last Admin: 11/14/18 09:52 Dose: 10 mls/hr Sodium Chloride (Normal Saline) 1,000 mls @ 1,000 mls/hr IV .BOLUS STA Stop: 11/14/18 10:31 Last Admin: 11/14/18 09:51 Dose: 1,000 mls/hr Potassium Chloride 10 meq/ (Premix) 100 mls @ 100 mls/hr IV ONETIME ONE Stop: 11/14/18 12:14 Last Admin: 11/14/18 11:11 Dose: 100 mls/hr Pantoprazole Sodium 80 mg/ (Sodium Chloride) 100 mls @ 10 mls/hr IV ONETIME ONE Stop: 11/14/18 22:05 Last Admin: 11/14/18 12:54 Dose: 10 mls/hr Potassium Chloride/Sodium Chloride (Normal Saline With 20 Meq Kcl) 1,000 mls @ 500 mls/hr IV ONETIME ONE Stop: 11/14/18 16:59 Last Admin: 11/14/18 14:55 Dose: 500 mls/hr Potassium Chloride 10 meq/ (Premix) 100 mls @ 100 mls/hr IV Q1H [facility] Stop: 11/14/18 19:29 Last Admin: 11/14/18 18:50 Dose: 100 mls/hr Thiamine HCl 100 mg/ Sodium (Chloride) 101 mls @ 202 mls/hr IV ONETIME ONE Stop: 11/14/18 17:01 Thiamine HCl 100 mg/ Sodium (Chloride) 101 mls @ 202 mls/hr IV DAILY ONE Stop: 11/14/18 17:44 Last Admin: 11/14/18 17:17 Dose: Not Given Dextrose/Lactated Ringer's (Dextrose 5%-Lactated Ringers) 1,000 mls @ 250 mls/ hr IV ASDIRECTED [facility] Last Admin: 11/15/18 07:25 Dose: 250 mls/hr Potassium Chloride 10 meq/ (Premix) 100 mls @ 100 mls/hr IV Q1H [facility] Stop: 11/15/18 01:29 Last Admin: 11/15/18 00:47 Dose: 100 mls/hr Magnesium Sulfate 4 gm/ Premix 50 mls @ 12.5 mls/hr IV ONETIME ONE Stop: 11/15/18 01:21 Last Admin: 11/14/18 21:50 Dose: 12.5 mls/hr Sodium Chloride (Normal Saline) 1,000 mls @ 999 mls/hr IV ONETIME ONE Stop: 11/14/18 22:32 Last Admin: 11/14/18 21:41 Dose: 999 mls/hr Pantoprazole Sodium 80 mg/ (Sodium Chloride) 100 mls @ 10 mls/hr IV Q10H [facility] Last Admin: 11/16/18 14:15 Dose: Not Given Potassium Chloride 10 meq/ (Premix) 100 mls @ 100 mls/hr IV Q1H [facility] Stop: 11/15/18 11:29 Last Admin: 11/15/18 11:13 Dose: 100 mls/hr Lactated Ringer's (Ringers, Lactated) 1,000 mls @ 250 mls/hr IV ASDIRECTED [facility] Last Admin: 11/15/18 14:00 Dose: 250 mls/hr Lactated Ringer's (Ringers, Lactated) 1,000 mls @ 150 mls/hr IV ASDIRECTED [facility] Last Admin: 11/17/18 18:34 Dose: 150 mls/hr Magnesium Sulfate 4 gm/ Premix 50 mls @ 12.5 mls/hr IV ONETIME ONE Stop: 11/15/18 20:16 Last Admin: 11/15/18 16:38 Dose: 12.5 mls/hr Potassium Chloride 10 meq/ (Premix) 100 mls @ 100 mls/hr IV Q1H [facility] Stop: 11/15/18 18:29 Last Admin: 11/15/18 18:20 Dose: 100 mls/hr Potassium Chloride 10 meq/ (Premix) 100 mls @ 100 mls/hr IV Q1H [facility] Stop: 11/17/18 20:59 Last Admin: 11/18/18 01:09 Dose: 100 mls/hr Magnesium Sulfate 2 gm/ Premix 50 mls @ 25 mls/hr IV ONETIME ONE Stop: 11/17/18 16:46 Last Admin: 11/17/18 17:13 Dose: 25 mls/hr Lactated Ringer's (Ringers, Lactated) 1,000 mls @ 30 mls/hr IV ASDIRECTED [facility] Last Admin: 11/18/18 02:15 Dose: 30 mls/hr Potassium Chloride 10 meq/ (Premix) 100 mls @ 100 mls/hr IV Q1H [facility] Stop: 11/18/18 14:29 Last Admin: 11/18/18 19:35 Dose: 75 mls/hr Magnesium Sulfate 4 gm/ Premix 50 mls @ 12.5 mls/hr IV ONETIME ONE Stop: 11/18/18 13:29 Last Admin: 11/18/18 12:25 Dose: 12.5 mls/hr Ondansetron HCl (Zofran) 4 mg IVPUSH ONETIME ONE Stop: 11/14/18 09:33 Last Admin: 11/14/18 09:51 Dose: 4 mg Pantoprazole Sodium (Protonix Iv) 80 mg IVPUSH BOLUS ONE Stop: 11/14/18 09:35 Last Admin: 11/14/18 09:52 Dose: Not Given Pantoprazole Sodium (Protonix Iv) 40 mg IV Q12H [facility] Last Admin: 11/17/18 09:43 Dose: 40 mg Potassium Chloride (Potassium Chloride) 10 meq IV ONETIME ONE Stop: 11/14/18 11:01 Last Admin: 11/14/18 11:12 Dose: Not Given Temazepam (Restoril) 15 mg PO ONETIME ONE Stop: 11/15/18 21:55 Last Admin: 11/15/18 22:02 Dose: 15 mg Temazepam (Restoril) 15 mg PO BEDTIME PRN PRN Reason: Sleep Last Admin: 11/16/18 21:12 Dose: 15 mg - Exam Quality Assessment: DVT Prophylaxis General: Alert, Oriented, Cooperative, No Acute Distress HEENT: Pupils Equal, Pupils Reactive, EOMI, Mucous Membr. Moist/[place] Neck: Supple, Trachea Midline Lungs: Clear to Auscultation, Normal Respiratory Effort Cardiovascular: Regular Rate, Regular Rhythm GI/Abdominal Exam: Normal Bowel Sounds, Soft, No Distention, Tender (Upper quadrants ). No: Guarding, Rigid, Rebound (Female) Exam: Deferred Extremities: Normal Inspection, Normal Range of Motion, Non-Tender, No Pedal Edema, Normal Capillary Refill Peripheral Pulses: 2+: Radial (L), Radial (R), Dorsalis Pedis (L), Dorsalis Pedis (R) Skin: Warm, Dry, Intact Neurological: No New Focal Deficit Psy/Mental Status: Alert, Normal Affect, Normal Mood - Problem List & Annotations (1) Alcohol intoxication SNOMED Code(s): 94648976 Code(s): F10.129 - ALCOHOL ABUSE WITH INTOXICATION, UNSPECIFIED Status: Resolved Priority: High Current Visit: Yes Qualifiers: Complication of substance-induced condition: uncomplicated Qualified Code(s ): F10.920 - Alcohol use, unspecified with intoxication, uncomplicated (2) Alcoholism SNOMED Code(s): 9276631 Code(s): F10.20 - ALCOHOL DEPENDENCE, UNCOMPLICATED Status: Chronic Priority: High Current Visit: Yes (3) Hypokalemia SNOMED Code(s): 87611085 Code(s): E87.6 - HYPOKALEMIA Status: Acute Priority: High Current Visit : Yes (4) Liver disease due to alcohol SNOMED Code(s): 37470791 Code(s): K70.9 - ALCOHOLIC LIVER DISEASE, UNSPECIFIED Status: Acute Priority: High Current Visit: Yes (5) Nausea & vomiting SNOMED Code(s): 67147947 Code(s): R11.2 - NAUSEA WITH VOMITING, UNSPECIFIED Status: Acute Priority : High Current Visit: Yes Qualifiers: Vomiting type: unspecified Vomiting Intractability: non-intractable Qualified Code(s): R11.2 - Nausea with vomiting, unspecified (6) Pancreatitis SNOMED Code(s): 10539785 Code(s): K85.90 - ACUTE PANCREATITIS WITHOUT NECROSIS OR INFECTION, UNSP Status: Acute Priority: High Current Visit: Yes Qualifiers: Chronicity: acute Pancreatitis type: alcohol induced Acute pancreatitis complication: no infection or necrosis Qualified Code(s): K85.20 - Alcohol induced acute pancreatitis without necrosis or infection (7) Thrombocytopenia SNOMED Code(s): 928782387 Code(s): D69.6 - THROMBOCYTOPENIA, UNSPECIFIED Status: Acute Priority: High Current Visit: Yes (8) Hypomagnesemia SNOMED Code(s): 249944382 Code(s): E83.42 - HYPOMAGNESEMIA Status: Acute Priority: High Current Visit: Yes (9) Transaminitis SNOMED Code(s): 680185534, 798010582 Code(s): R74.0 - NONSPEC ELEV OF LEVELS OF TRANSAMNS & LACTIC ACID DEHYDRGNSE Status: Acute Current Visit: Yes - Problem List Review Problem List Initiated/Reviewed/Updated: Yes - My Orders Last 24 Hours: My Active Orders 11/19/18 07:57 Scopolamine [Transderm-Scop] 1.5 mg TRDERM Q72H PRN 11/20/18 05:11 CBC WITH AUTO DIFF [HEME] AM CMP [COMPREHENSIVE METABOLIC PN,CMP] [CHEM] AM CRP [C-REACTIVE PROTEIN] [CHEM] AM LIPASE [CHEM] AM MAGNESIUM [CHEM] AM 11/21/18 05:11 CBC WITH AUTO DIFF [HEME] AM CMP [COMPREHENSIVE METABOLIC PN,CMP] [CHEM] AM CRP [C-REACTIVE PROTEIN] [CHEM] AM LIPASE [CHEM] AM MAGNESIUM [CHEM] AM - Plan Plan:: I/P: Acute Pancreatitis, improving -Reports abdominal pain -Longstanding history of ETOH abuse and chronic pancreatitis -Lipase 1089-->465-->426-->442-->524 -Pain medications as ordered -IV fluids as ordered -CRP 6.9-->5.0-->4.2 -No leukocytosis -NPO-->clear liquid diet--> advance as tolerated -Maddi's criteria - 1 point at admission (incomplete) -Triglycerides 159 -Ambulate QID Transaminitis/liver failure, improving -AST 3690-->1998-->1469-->791-->306-->210 -ALT 2033-->1503-->1256-->925-->549-->452 -Alk Phos 269-->218-->197-->185-->148-->146 -2/2 chronic ETOH use -IV fluids as ordered -Avoid hepatotoxic meds -PT 13.3; INR 1.23, APTT 32 -Monitor Hypothyroidism -TSH 50.407 -T4 0.4 -Started on levothyroxine -Has been noted on several prior visits -Endocrinology follow-up outpatient Hypokalemia, continued -Supplemented -Pharmacy to monitor and supplement ETOH abuse -Longstanding history of ETOH abuse -No UDS performed in ED -ETOH 0.06 in ED -Liver enzymes as above -Initially reported to ED provider that she stopped drinking then admitted to drinking heavily once confronted with lab results -Thiamine/Folic Acid/Multivitamin -CM/SW -Psychiatry consult -LAD consult -CIWA protocol -> discontinued Resolved: S/P Hypomagnesemia -Supplemented -Pharmacy to monitor and supplement Chronic: HLD HTN GERD epigastric pain adhesions renal failure thyroid cancer arthritis chronic back pain addiction hypothyroidism iron deficiency anemia obesity Plan: Admit to ICU -> downgrade to floor Other orders as indicated above Home medications as ordered Routine AM labs CM/SW for discharge planning PT/OT Code status: Full Code; PCP: Dr. Brower
[2018-11-19] MEDS ORDERED: Potassium Chloride 20 MEQ Tab.ER PO ONE (10:00)
[2018-11-19] MEDS ORDERED: Magnesium Oxide 400 MG Tab PO ONE (10:00)
[2018-11-19] MEDS ORDERED: Sodium Chloride 0.9% 1,000 ML IV SCH (11:00)
[2018-11-19] MEDS: Sodium Chloride 0.9% 1,000 ML IV SCH ×2 (11:18→19:13)
[2018-11-19] MEDS: Potassium Chloride 10 MEQ in Premix Bag 1 BAG IV SCH ×6 (11:18→17:26)
[2018-11-19] MEDS: Acetaminophen/HYDROcodone 325-5 MG Tab PO PRN ×2 (12:18→20:39)
[2018-11-19] MEDS: Dicyclomine 10 MG Cap PO PRN ×3 (14:28→22:02)
[2018-11-19] MEDS: Furosemide 40 MG Tab PO SCH (14:28)
[2018-11-20] MEDS ORDERED: traZODone 50 MG Tab PO ONE (02:02)
[2018-11-20] MEDS: Sodium Chloride 0.9% 1,000 ML IV SCH ×2 (02:55→11:03)
[2018-11-20] MEDS: Furosemide 40 MG Tab PO SCH ×2 (05:21→13:41)
[2018-11-20] MEDS: Dicyclomine 10 MG Cap PO PRN (05:22)
[2018-11-20] MEDS: Levothyroxine 125 MCG Tab PO SCH (05:22)
[2018-11-20] MEDS: Thiamine 100 MG Tab PO SCH (08:40)
[2018-11-20] MEDS: Multivitamins,Therapeutic Tab PO SCH (08:40)
[2018-11-20] MEDS: FLUoxetine 20 MG Cap PO SCH (08:40)
[2018-11-20] MEDS: Pantoprazole 40 MG Tab.CR PO SCH ×2 (08:41→21:19)
[2018-11-20] MEDS: Acetaminophen/HYDROcodone 325-5 MG Tab PO PRN ×3 (08:41→21:24)
[2018-11-20] MEDS: Folic Acid 1 MG Tab PO SCH (08:41)
--- NOTE | 2018-11-20 08:42 | PCM.PN ---
- General Info Date of Service: 11/20/18 Admission Dx/Problem (Free Text): Admission Diagnosis/Problem Admission Diagnosis/Problem Hypokalemia Subjective Update: In to see Lissa. She is tolerating her diet well. She had been advanced to soft diet. Once she is back to regular diet she should be ready for discharge. Discussed plan of care and labs. She reports she feels pretty good. No patient or nursing concerns. Functional Status: Reports: Pain Controlled, Tolerating Diet, Ambulating, Urinating. Denies: New Symptoms - Review of Systems General: Reports: No Symptoms. Denies: Fever, Weakness, Fatigue, Malaise, Chills HEENT: Reports: No Symptoms. Denies: Headaches, Sore Throat Pulmonary: Reports: No Symptoms. Denies: Shortness of Breath, Pleuritic Chest Pain, Cough, Sputum Cardiovascular: Reports: No Symptoms. Denies: Chest Pain, Palpitations, Dyspnea on Exertion, Edema Gastrointestinal: Reports: Abdominal Pain (upper quadrants - improved). Denies : Constipation, Diarrhea, Nausea, Vomiting Genitourinary: Reports: No Symptoms. Denies: Pain Musculoskeletal: Reports: No Symptoms Skin: Reports: No Symptoms. Denies: Cyanosis Neurological: Reports: No Symptoms Psychiatric: Reports: No Symptoms - Patient Data Vitals - Most Recent: Last Vital Signs Temp 98.4 F 11/20/18 05:24 Pulse 72 11/20/18 05:24 Resp 18 11/20/18 05:24 BP 118/81 11/20/18 05:24 Pulse Ox 95 11/20/18 05:24 Weight - Most Recent: 194 lb 11.2 oz I&O - Last 24 Hours: Intake & Output 11/19/18 11/20/18 11/20/18 22:59 06:59 14:59 Intake Total 1725 2873 Output Total 2200 3800 Balance -475 -027 Lab Results Last 24 Hours: Laboratory Results - last 24 hr 11/20/18 11/20/18 Range/Units 07:35 07:35 WBC 9.53 (3.98-10.04) K/mm3 RBC 3.37 L (3.98-5.22) M/mm3 Hgb 10.7 L (11.2-15.7) gm/L Hct 32.5 L (34.1-44.9) % MCV 96.4 H (79.4-94.8) fl MCH 31.8 (25.6-32.2) pg MCHC 32.9 (32.2-35.5) g/dl RDW Std Deviation 70.3 H (36.4-46.3) fL Plt Count 170 L (182-369) K/mm3 MPV 9.6 (9.4-12.3) fl Neut % (Auto) 70.2 (34.0-71.1) % Lymph % (Auto) 15.6 L (19.3-51.7) % [place] % (Auto) 12.4 (4.7-12.5) % Eos % (Auto) 1.2 (0.7-5.8) Baso % (Auto) 0.2 (0.1-1.2) % Neut # (Auto) 6.69 H (1.56-6.13) K/mm3 Lymph # (Auto) 1.49 (1.18-3.74) K/mm3 [place] # (Auto) 1.18 H (0.24-0.36) K/mm3 Eos # (Auto) 0.11 (0.04-0.36) K/mm3 Baso # (Auto) 0.02 (0.01-0.08) K/mm3 Sodium 140 (136-145) mEq/L Potassium 3.4 L (3.5-5.1) mEq/L Chloride 104 (98-107) mEq/L Carbon Dioxide 25 (21-32) mEq/L Anion Gap 14.4 (5-15) BUN 1 L (7-18) mg/dL Creatinine 0.8 (0.55-1.02) mg/dL Est Cr Clr Drug Dosing 64.46 mL/min Estimated GFR (MDRD) > 60 (>60) mL/min BUN/Creatinine Ratio 1.3 L (14-18) Glucose 83 (74-106) mg/dL Calcium 7.9 L (8.5-10.1) mg/dL Magnesium 1.6 L (1.8-2.4) mg/dl Total Bilirubin 1.7 H (0.2-1.0) mg/dL AST 196 H (15-37) U/L ALT 435 H (14-59) U/L Alkaline Phosphatase 143 H (46-116) U/L C-Reactive Protein 4.2 H* (<1.0) mg/dL Total Protein 7.1 (6.4-8.2) g/dl Albumin 3.2 L (3.4-5.0) g/dl Globulin 3.9 gm/dL Albumin/Globulin Ratio 0.8 L (1-2) Med Orders - Current: Current Medications Hydrocodone Bitart/Acetaminophen ([place] 325-5 Mg) 1 tab PO Q6H PRN PRN Reason: Pain Last Admin: 11/19/18 20:39 Dose: 1 tab Dicyclomine HCl (Bentyl) 10 mg PO QIDACANDBED PRN PRN Reason: Abdominal Pain Last Admin: 11/20/18 05:22 Dose: 10 mg Fluoxetine HCl (Prozac) 20 mg PO DAILY [facility] Last Admin: 11/19/18 08:24 Dose: 20 mg Folic Acid (Folic Acid) 1 mg PO DAILY [facility] Last Admin: 11/19/18 08:24 Dose: 1 mg Furosemide (Lasix) 40 mg PO BIDDIURETIC [facility] Stop: 11/21/18 06:01 Last Admin: 11/20/18 05:21 Dose: 40 mg Hydralazine HCl (Apresoline) 20 mg IVPUSH Q4H PRN PRN Reason: Hypertension Hydromorphone HCl (Dilaudid) 0.5 mg IVPUSH Q6H PRN PRN Reason: Pain Sodium Chloride (Normal Saline) 1,000 mls @ 125 mls/hr IV ASDIRECTED [facility] Last Admin: 11/20/18 02:55 Dose: 125 mls/hr Levothyroxine Sodium (Levothyroxine) 125 mcg PO ACBREAKFAST [facility] Last Admin: 11/20/18 05:22 Dose: 125 mcg Magnesium Sulfate (Pharmacy To Dose - Magnesium Replacement) 0 dose .XX ASDIRECTED PRN PRN Reason: RX TO WATCH MAG Metoprolol Tartrate (Lopressor) 5 mg IVPUSH Q4H PRN PRN Reason: Tachycardia Multivitamins (Thera) 1 each PO DAILY [facility] Last Admin: 11/19/18 08:24 Dose: 1 each Ondansetron HCl (Zofran) 4 mg IV Q4H PRN PRN Reason: Nausea/Vomiting Last Admin: 11/19/18 14:28 Dose: 4 mg Pantoprazole Sodium (Protonix) 40 mg PO BID [facility] Last Admin: 11/19/18 20:39 Dose: 40 mg Potassium Chloride (Pharmacy To Dose - Potassium Replacement) 0 dose .XX ASDIRECTED PRN PRN Reason: RX TO WATCH K Scopolamine (Transderm-Scop) 1.5 mg TRDERM Q72H PRN PRN Reason: Nausea Last Admin: 11/19/18 08:24 Dose: 1.5 mg Sodium Chloride (Saline Flush) 10 ml FLUSH ASDIRECTED PRN PRN Reason: Keep Vein Open Last Admin: 11/14/18 11:12 Dose: 10 ml Thiamine HCl (Vitamin B-1) 100 mg PO DAILY [facility] Last Admin: 11/19/18 08:24 Dose: 100 mg Discontinued Medications Caffeine (Caffeine) 200 mg PO BID@0700,1800 [facility] Stop: 11/20/18 07:01 Last Admin: 11/19/18 06:52 Dose: 200 mg Caffeine (Caffeine) 200 mg PO NOW STA Stop: 11/18/18 11:05 Last Admin: 11/18/18 12:10 Dose: 200 mg Furosemide (Lasix) 20 mg IVPUSH NOW ONE Stop: 11/18/18 10:49 Last Admin: 11/18/18 11:11 Dose: 20 mg Hydromorphone HCl (Dilaudid) 1 mg IVPUSH ONETIME ONE Stop: 11/14/18 09:36 Last Admin: 11/14/18 09:51 Dose: 1 mg Hydromorphone HCl (Dilaudid) 0.5 mg IVPUSH ONETIME ONE Stop: 11/14/18 11:54 Last Admin: 11/14/18 11:59 Dose: 0.5 mg Hydromorphone HCl (Dilaudid) 1 mg IVPUSH ONETIME ONE Stop: 11/14/18 15:10 Last Admin: 11/14/18 15:20 Dose: 1 mg Hydromorphone HCl (Dilaudid) 0.5 mg IVPUSH Q2H PRN PRN Reason: Pain (severe 7-10) Last Admin: 11/15/18 06:53 Dose: 0.5 mg Hydromorphone HCl (Dilaudid) 0.5 mg IVPUSH Q2H PRN PRN Reason: Pain (severe 7-10) Last Admin: 11/15/18 10:53 Dose: 0.5 mg Hydromorphone HCl (Dilaudid) 1 mg IVPUSH Q3H PRN PRN Reason: Pain Last Admin: 11/17/18 09:43 Dose: 1 mg Pantoprazole Sodium 80 mg/ (Sodium Chloride) 100 mls @ 100 mls/hr IV Q10H [place] Last Admin: 11/14/18 09:52 Dose: 10 mls/hr Sodium Chloride (Normal Saline) 1,000 mls @ 1,000 mls/hr IV .BOLUS STA Stop: 11/14/18 10:31 Last Admin: 11/14/18 09:51 Dose: 1,000 mls/hr Potassium Chloride 10 meq/ (Premix) 100 mls @ 100 mls/hr IV ONETIME ONE Stop: 11/14/18 12:14 Last Admin: 11/14/18 11:11 Dose: 100 mls/hr Pantoprazole Sodium 80 mg/ (Sodium Chloride) 100 mls @ 10 mls/hr IV ONETIME ONE Stop: 11/14/18 22:05 Last Admin: 11/14/18 12:54 Dose: 10 mls/hr Potassium Chloride/Sodium Chloride (Normal Saline With 20 Meq Kcl) 1,000 mls @ 500 mls/hr IV ONETIME ONE Stop: 11/14/18 16:59 Last Admin: 11/14/18 14:55 Dose: 500 mls/hr Potassium Chloride 10 meq/ (Premix) 100 mls @ 100 mls/hr IV Q1H [place] Stop: 11/14/18 19:29 Last Admin: 11/14/18 18:50 Dose: 100 mls/hr Thiamine HCl 100 mg/ Sodium (Chloride) 101 mls @ 202 mls/hr IV ONETIME ONE Stop: 11/14/18 17:01 Thiamine HCl 100 mg/ Sodium (Chloride) 101 mls @ 202 mls/hr IV DAILY ONE Stop: 11/14/18 17:44 Last Admin: 11/14/18 17:17 Dose: Not Given Dextrose/Lactated Ringer's (Dextrose 5%-Lactated Ringers) 1,000 mls @ 250 mls/ hr IV ASDIRECTED [facility] Last Admin: 11/15/18 07:25 Dose: 250 mls/hr Potassium Chloride 10 meq/ (Premix) 100 mls @ 100 mls/hr IV Q1H [facility] Stop: 11/15/18 01:29 Last Admin: 11/15/18 00:47 Dose: 100 mls/hr Magnesium Sulfate 4 gm/ Premix 50 mls @ 12.5 mls/hr IV ONETIME ONE Stop: 11/15/18 01:21 Last Admin: 11/14/18 21:50 Dose: 12.5 mls/hr Sodium Chloride (Normal Saline) 1,000 mls @ 999 mls/hr IV ONETIME ONE Stop: 11/14/18 22:32 Last Admin: 11/14/18 21:41 Dose: 999 mls/hr Pantoprazole Sodium 80 mg/ (Sodium Chloride) 100 mls @ 10 mls/hr IV Q10H [facility] Last Admin: 11/16/18 14:15 Dose: Not Given Potassium Chloride 10 meq/ (Premix) 100 mls @ 100 mls/hr IV Q1H [facility] Stop: 11/15/18 11:29 Last Admin: 11/15/18 11:13 Dose: 100 mls/hr Lactated Ringer's (Ringers, Lactated) 1,000 mls @ 250 mls/hr IV ASDIRECTED [facility] Last Admin: 11/15/18 14:00 Dose: 250 mls/hr Lactated Ringer's (Ringers, Lactated) 1,000 mls @ 150 mls/hr IV ASDIRECTED [facility] Last Admin: 11/17/18 18:34 Dose: 150 mls/hr Magnesium Sulfate 4 gm/ Premix 50 mls @ 12.5 mls/hr IV ONETIME ONE Stop: 11/15/18 20:16 Last Admin: 11/15/18 16:38 Dose: 12.5 mls/hr Potassium Chloride 10 meq/ (Premix) 100 mls @ 100 mls/hr IV Q1H [facility] Stop: 11/15/18 18:29 Last Admin: 11/15/18 18:20 Dose: 100 mls/hr Potassium Chloride 10 meq/ (Premix) 100 mls @ 100 mls/hr IV Q1H [facility] Stop: 11/17/18 20:59 Last Admin: 11/18/18 01:09 Dose: 100 mls/hr Magnesium Sulfate 2 gm/ Premix 50 mls @ 25 mls/hr IV ONETIME ONE Stop: 11/17/18 16:46 Last Admin: 11/17/18 17:13 Dose: 25 mls/hr Lactated Ringer's (Ringers, Lactated) 1,000 mls @ 30 mls/hr IV ASDIRECTED [facility] Last Admin: 11/18/18 02:15 Dose: 30 mls/hr Potassium Chloride 10 meq/ (Premix) 100 mls @ 100 mls/hr IV Q1H [facility] Stop: 11/18/18 14:29 Last Admin: 11/18/18 19:35 Dose: 75 mls/hr Magnesium Sulfate 4 gm/ Premix 50 mls @ 12.5 mls/hr IV ONETIME ONE Stop: 11/18/18 13:29 Last Admin: 11/18/18 12:25 Dose: 12.5 mls/hr Potassium Chloride 10 meq/ (Premix) 100 mls @ 100 mls/hr IV Q1H [facility] Stop: 11/19/18 15:59 Last Admin: 11/19/18 17:26 Dose: 100 mls/hr Sodium Chloride (Normal Saline) 1,000 mls @ 50 mls/hr IV ASDIRECTED [facility] Magnesium Oxide (Magnesium Oxide) 800 mg PO ONETIME ONE Stop: 11/19/18 10:01 Last Admin: 11/19/18 11:19 Dose: 800 mg Ondansetron HCl (Zofran) 4 mg IVPUSH ONETIME ONE Stop: 11/14/18 09:33 Last Admin: 11/14/18 09:51 Dose: 4 mg Oxycodone HCl (Oxycontin) 10 mg PO Q12HR [facility] Last Admin: 11/19/18 08:24 Dose: 10 mg Pantoprazole Sodium (Protonix Iv) 80 mg IVPUSH BOLUS ONE Stop: 11/14/18 09:35 Last Admin: 11/14/18 09:52 Dose: Not Given Pantoprazole Sodium (Protonix Iv) 40 mg IV Q12H [facility] Last Admin: 11/17/18 09:43 Dose: 40 mg Potassium Chloride (Potassium Chloride) 10 meq IV ONETIME ONE Stop: 11/14/18 11:01 Last Admin: 11/14/18 11:12 Dose: Not Given Potassium Chloride (Klor-Con M20) 40 meq PO ONETIME ONE Stop: 11/19/18 10:01 Last Admin: 11/19/18 11:19 Dose: 40 meq Temazepam (Restoril) 15 mg PO ONETIME ONE Stop: 11/15/18 21:55 Last Admin: 11/15/18 22:02 Dose: 15 mg Temazepam (Restoril) 15 mg PO BEDTIME PRN PRN Reason: Sleep Last Admin: 11/16/18 21:12 Dose: 15 mg Trazodone HCl (Trazodone) 50 mg PO ONETIME ONE Stop: 11/20/18 02:03 Last Admin: 11/20/18 02:17 Dose: 50 mg - Exam Quality Assessment: DVT Prophylaxis General: Alert, Oriented, Cooperative, No Acute Distress HEENT: Pupils Equal, Pupils Reactive, EOMI, Mucous Membr. Moist/[place] Neck: Supple, Trachea Midline Lungs: Clear to Auscultation, Normal Respiratory Effort Cardiovascular: Regular Rate, Regular Rhythm GI/Abdominal Exam: Normal Bowel Sounds, Soft, No Organomegaly, No Distention, Tender (Upper quadrants ) (Female) Exam: Deferred Back Exam: Normal Inspection, Full Range of Motion Extremities: Normal Inspection, Normal Range of Motion, Non-Tender, No Pedal Edema, Normal Capillary Refill Peripheral Pulses: 2+: Radial (L), Radial (R), Dorsalis Pedis (L), Dorsalis Pedis (R) Skin: Warm, Dry, Intact Neurological: No New Focal Deficit Psy/Mental Status: Alert, Normal Affect, Normal Mood - Problem List & Annotations (1) Alcohol intoxication SNOMED Code(s): 93924088 Code(s): F10.129 - ALCOHOL ABUSE WITH INTOXICATION, UNSPECIFIED Status: Resolved Priority: High Current Visit: Yes Qualifiers: Complication of substance-induced condition: uncomplicated Qualified Code(s ): F10.920 - Alcohol use, unspecified with intoxication, uncomplicated (2) Alcoholism SNOMED Code(s): 9610079 Code(s): F10.20 - ALCOHOL DEPENDENCE, UNCOMPLICATED Status: Chronic Priority: High Current Visit: Yes (3) Hypokalemia SNOMED Code(s): 11233033 Code(s): E87.6 - HYPOKALEMIA Status: Acute Priority: High Current Visit : Yes (4) Liver disease due to alcohol SNOMED Code(s): 94403479 Code(s): K70.9 - ALCOHOLIC LIVER DISEASE, UNSPECIFIED Status: Acute Priority: High Current Visit: Yes (5) Nausea & vomiting SNOMED Code(s): 85515949 Code(s): R11.2 - NAUSEA WITH VOMITING, UNSPECIFIED Status: Acute Priority : High Current Visit: Yes Qualifiers: Vomiting type: unspecified Vomiting Intractability: non-intractable Qualified Code(s): R11.2 - Nausea with vomiting, unspecified (6) Pancreatitis SNOMED Code(s): 54773643 Code(s): K85.90 - ACUTE PANCREATITIS WITHOUT NECROSIS OR INFECTION, UNSP Status: Acute Priority: High Current Visit: Yes Qualifiers: Chronicity: acute Pancreatitis type: alcohol induced Acute pancreatitis complication: no infection or necrosis Qualified Code(s): K85.20 - Alcohol induced acute pancreatitis without necrosis or infection (7) Thrombocytopenia SNOMED Code(s): 364614150 Code(s): D69.6 - THROMBOCYTOPENIA, UNSPECIFIED Status: Acute Priority: High Current Visit: Yes (8) Hypomagnesemia SNOMED Code(s): 854451533 Code(s): E83.42 - HYPOMAGNESEMIA Status: Acute Priority: High Current Visit: Yes (9) Transaminitis SNOMED Code(s): 486022182, 934285795 Code(s): R74.0 - NONSPEC ELEV OF LEVELS OF TRANSAMNS & LACTIC ACID DEHYDRGNSE Status: Acute Current Visit: Yes - Problem List Review Problem List Initiated/Reviewed/Updated: Yes - My Orders Last 24 Hours: My Active Orders 11/19/18 07:57 Scopolamine [Transderm-Scop] 1.5 mg TRDERM Q72H PRN 11/19/18 Dinner NPO Now [Nothing per Oral Now Diet] [DIET] 11/21/18 05:11 CBC WITH AUTO DIFF [HEME] AM CMP [COMPREHENSIVE METABOLIC PN,CMP] [CHEM] AM CRP [C-REACTIVE PROTEIN] [CHEM] AM MAGNESIUM [CHEM] AM - Plan Plan:: I/P: Acute Pancreatitis, improving -Reports abdominal pain -Longstanding history of ETOH abuse and chronic pancreatitis -Lipase 1089-->465-->426-->442-->524 -Pain medications as ordered -IV fluids as ordered -CRP 6.9-->5.0-->4.2 -No leukocytosis -NPO-->clear liquid diet -Hamilton's criteria - 1 point at admission (incomplete) -Triglycerides 159 -Ambulate QID Transaminitis/liver failure, improving -AST 3690-->1997-->1469-->791-->306-->210-->196 -ALT 2033-->1503-->1256-->925-->549-->452-->435 -Alk Phos 269-->218-->197-->185-->148-->146-->143 -2/2 chronic ETOH use -IV fluids as ordered -Avoid hepatotoxic meds -PT 13.3; INR 1.23, APTT 32 -Monitor Hypothyroidism -TSH 50.407 -T4 0.4 -Started on levothyroxine -Has been noted on several prior visits -Endocrinology follow-up outpatient Hypokalemia, continued -Supplemented -Pharmacy to monitor and supplement ETOH abuse -Longstanding history of ETOH abuse -No UDS performed in ED -ETOH 0.06 in ED -Liver enzymes as above -Initially reported to ED provider that she stopped drinking then admitted to drinking heavily once confronted with lab results -Thiamine/Folic Acid/Multivitamin -CM/SW -Psychiatry consult -LAD consult -CIWA protocol -> discontinued Hypomagnesemia -Supplemented -Pharmacy to monitor and supplement Chronic: HLD HTN GERD epigastric pain adhesions renal failure thyroid cancer arthritis chronic back pain addiction hypothyroidism iron deficiency anemia obesity Plan: Admit to ICU -> downgrade to floor Other orders as indicated above Home medications as ordered Routine AM labs CM/SW for discharge planning PT/OT Code status: Full Code; PCP: Dr. Brower
[2018-11-20] MEDS ORDERED: Magnesium Sulfate/Water 2 GM in Premix Bag 1 BAG IV ONE (09:30)
[2018-11-20] MEDS: Potassium Chloride 20 MEQ Tab.ER PO SCH ×3 (09:49→16:36)
[2018-11-20] MEDS: Ondansetron 4 MG/2 ML SDV IV PRN (16:41)
[2018-11-20] MEDS: traZODone 50 MG Tab PO PRN (21:19)
[2018-11-21] MEDS: Dicyclomine 10 MG Cap PO PRN ×2 (06:42→17:48)
[2018-11-21] MEDS: Furosemide 40 MG Tab PO SCH (06:44)
[2018-11-21] MEDS: Levothyroxine 125 MCG Tab PO SCH (06:44)
--- NOTE | 2018-11-21 07:09 | PCM.PN ---
- General Info Date of Service: 11/21/18 Admission Dx/Problem (Free Text): Admission Diagnosis/Problem Admission Diagnosis/Problem Hypokalemia Subjective Update: Follow Up Functional Status: Reports: Tolerating Diet, Ambulating, Urinating. Denies: Pain Controlled, New Symptoms - Review of Systems General: Denies: Fever HEENT: Denies: No Symptoms Pulmonary: Denies: Shortness of Breath Gastrointestinal: Reports: Abdominal Pain. Denies: Nausea, Vomiting Genitourinary: Reports: No Symptoms Musculoskeletal: Reports: Back Pain Skin: Denies: Cyanosis, Mottled, Pallor, Diaphoresis, Bruising, Other Neurological: Denies: Confusion, Difficulty Walking, Change in Speech Psychiatric: Denies: Confusion, Anxiety, Agitation, Hallucinations Systems Review Comment:: No significant overnight or acute issues. Slept good last night. She is tolerating current diet. She has been upgraded to regular meal. Her morning labs continue to improve. She has no new complaints. - Patient Data Vitals - Most Recent: Last Vital Signs Temp 37.1 C 11/20/18 19:20 Pulse 76 11/20/18 19:20 Resp 18 11/20/18 19:20 BP 106/58 L 11/20/18 19:20 Pulse Ox 96 11/20/18 19:20 Weight - Most Recent: 88.314 kg I&O - Last 24 Hours: Intake & Output 11/20/18 11/21/18 11/21/18 22:59 06:59 14:59 Intake Total 2211 Output Total 1400 Balance 811 Lab Results Last 24 Hours: Laboratory Results - last 24 hr 11/20/18 11/20/18 11/21/18 Range/Units 07:35 07:35 05:36 WBC 9.53 8.13 (3.98-10.04) K/mm3 RBC 3.37 L 3.09 L (3.98-5.22) M/mm3 Hgb 10.7 L 9.9 L (11.2-15.7) gm/L Hct 32.5 L 30.1 L (34.1-44.9) % MCV 96.4 H 97.4 H (79.4-94.8) fl MCH 31.8 32.0 (25.6-32.2) pg MCHC 32.9 32.9 (32.2-35.5) g/dl RDW Std Deviation 70.3 H 71.1 H (36.4-46.3) fL Plt Count 170 L 149 L (182-369) K/mm3 MPV 9.6 9.7 (9.4-12.3) fl Neut % (Auto) 70.2 65.8 (34.0-71.1) % Lymph % (Auto) 15.6 L 19.9 (19.3-51.7) % Cassia % (Auto) 12.4 12.1 (4.7-12.5) % Eos % (Auto) 1.2 1.8 (0.7-5.8) Baso % (Auto) 0.2 0.2 (0.1-1.2) % Neut # (Auto) 6.69 H 5.34 (1.56-6.13) K/mm3 Lymph # (Auto) 1.49 1.62 (1.18-3.74) K/mm3 Cassia # (Auto) 1.18 H 0.98 H (0.24-0.36) K/mm3 Eos # (Auto) 0.11 0.15 (0.04-0.36) K/mm3 Baso # (Auto) 0.02 0.02 (0.01-0.08) K/mm3 Sodium 140 (136-145) mEq/L Potassium 3.4 L (3.5-5.1) mEq/L Chloride 104 (98-107) mEq/L Carbon Dioxide 25 (21-32) mEq/L Anion Gap 14.4 (5-15) BUN 1 L (7-18) mg/dL Creatinine 0.8 (0.55-1.02) mg/dL Est Cr Clr Drug Dosing 64.46 mL/min Estimated GFR (MDRD) > 60 (>60) mL/min BUN/Creatinine Ratio 1.3 L (14-18) Glucose 83 (74-106) mg/dL Calcium 7.9 L (8.5-10.1) mg/dL Magnesium 1.6 L (1.8-2.4) mg/dl Total Bilirubin 1.7 H (0.2-1.0) mg/dL AST 196 H (15-37) U/L ALT 435 H (14-59) U/L Alkaline Phosphatase 143 H (46-116) U/L C-Reactive Protein 4.2 H* (<1.0) mg/dL Total Protein 7.1 (6.4-8.2) g/dl Albumin 3.2 L (3.4-5.0) g/dl Globulin 3.9 gm/dL Albumin/Globulin Ratio 0.8 L (1-2) 11/21/18 Range/Units 05:36 WBC (3.98-10.04) K/mm3 RBC (3.98-5.22) M/mm3 Hgb (11.2-15.7) gm/L Hct (34.1-44.9) % MCV (79.4-94.8) fl MCH (25.6-32.2) pg MCHC (32.2-35.5) g/dl RDW Std Deviation (36.4-46.3) fL Plt Count (182-369) K/mm3 MPV (9.4-12.3) fl Neut % (Auto) (34.0-71.1) % Lymph % (Auto) (19.3-51.7) % Cassia % (Auto) (4.7-12.5) % Eos % (Auto) (0.7-5.8) Baso % (Auto) (0.1-1.2) % Neut # (Auto) (1.56-6.13) K/mm3 Lymph # (Auto) (1.18-3.74) K/mm3 Cassia # (Auto) (0.24-0.36) K/mm3 Eos # (Auto) (0.04-0.36) K/mm3 Baso # (Auto) (0.01-0.08) K/mm3 Sodium 135 L (136-145) mEq/L Potassium 3.6 (3.5-5.1) mEq/L Chloride 100 (98-107) mEq/L Carbon Dioxide 25 (21-32) mEq/L Anion Gap 13.6 (5-15) BUN 3 L (7-18) mg/dL Creatinine 0.8 (0.55-1.02) mg/dL Est Cr Clr Drug Dosing 64.46 mL/min Estimated GFR (MDRD) > 60 (>60) mL/min BUN/Creatinine Ratio 3.8 L (14-18) Glucose 79 (74-106) mg/dL Calcium 8.0 L (8.5-10.1) mg/dL Magnesium 1.6 L (1.8-2.4) mg/dl Total Bilirubin 1.5 H (0.2-1.0) mg/dL AST 146 H (15-37) U/L ALT 348 H (14-59) U/L Alkaline Phosphatase 130 H (46-116) U/L C-Reactive Protein 3.4 H* (<1.0) mg/dL Total Protein 6.7 (6.4-8.2) g/dl Albumin 3.1 L (3.4-5.0) g/dl Globulin 3.6 gm/dL Albumin/Globulin Ratio 0.9 L (1-2) Med Orders - Current: Current Medications Hydrocodone Bitart/Acetaminophen ([place] 325-5 Mg) 1 tab PO Q6H PRN PRN Reason: Pain Last Admin: 11/20/18 21:24 Dose: 1 tab Dicyclomine HCl (Bentyl) 10 mg PO QIDACANDBED PRN PRN Reason: Abdominal Pain Last Admin: 11/21/18 06:42 Dose: 10 mg Fluoxetine HCl (Prozac) 20 mg PO DAILY COUNT INCLUDES THE [facility] Last Admin: 11/20/18 08:40 Dose: 20 mg Folic Acid (Folic Acid) 1 mg PO DAILY COUNT INCLUDES THE [facility] Last Admin: 11/20/18 08:41 Dose: 1 mg Hydralazine HCl (Apresoline) 20 mg IVPUSH Q4H PRN PRN Reason: Hypertension Hydromorphone HCl (Dilaudid) 0.5 mg IVPUSH Q6H PRN PRN Reason: Pain Levothyroxine Sodium (Levothyroxine) 125 mcg PO ACBREAKFAST COUNT INCLUDES THE [facility] Last Admin: 11/21/18 06:44 Dose: 125 mcg Magnesium Sulfate (Pharmacy To Dose - Magnesium Replacement) 0 dose .XX ASDIRECTED PRN PRN Reason: RX TO WATCH MAG Metoprolol Tartrate (Lopressor) 5 mg IVPUSH Q4H PRN PRN Reason: Tachycardia Miscellaneous Information (Remove Patch) 1 ea TRDERM Q72H COUNT INCLUDES THE [facility] Multivitamins (Thera) 1 each PO DAILY COUNT INCLUDES THE [facility] Last Admin: 11/20/18 08:40 Dose: 1 each Ondansetron HCl (Zofran) 4 mg IV Q4H PRN PRN Reason: Nausea/Vomiting Last Admin: 11/20/18 16:41 Dose: 4 mg Pantoprazole Sodium (Protonix) 40 mg PO BID BIB[place]NA Last Admin: 11/20/18 21:19 Dose: 40 mg Potassium Chloride (Pharmacy To Dose - Potassium Replacement) 0 dose .XX ASDIRECTED PRN PRN Reason: RX TO WATCH K Scopolamine (Transderm-Scop) 1.5 mg TRDERM Q72H PRN PRN Reason: Nausea Last Admin: 11/19/18 08:24 Dose: 1.5 mg Sodium Chloride (Saline Flush) 10 ml FLUSH ASDIRECTED PRN PRN Reason: Keep Vein Open Last Admin: 11/14/18 11:12 Dose: 10 ml Thiamine HCl (Vitamin B-1) 100 mg PO DAILY COUNT INCLUDES THE [facility] Last Admin: 11/20/18 08:40 Dose: 100 mg Trazodone HCl (Trazodone) 50 mg PO BEDTIME PRN PRN Reason: Sleep Last Admin: 11/20/18 21:19 Dose: 50 mg Discontinued Medications Caffeine (Caffeine) 200 mg PO BID@0700,1800 COUNT INCLUDES THE [facility] Stop: 11/20/18 07:01 Last Admin: 11/19/18 06:52 Dose: 200 mg Caffeine (Caffeine) 200 mg PO NOW STA Stop: 11/18/18 11:05 Last Admin: 11/18/18 12:10 Dose: 200 mg Furosemide (Lasix) 20 mg IVPUSH NOW ONE Stop: 11/18/18 10:49 Last Admin: 11/18/18 11:11 Dose: 20 mg Furosemide (Lasix) 40 mg PO BIDDIURETIC BIBIANA Stop: 11/21/18 06:01 Last Admin: 11/21/18 06:44 Dose: 40 mg Hydromorphone HCl (Dilaudid) 1 mg IVPUSH ONETIME ONE Stop: 11/14/18 09:36 Last Admin: 11/14/18 09:51 Dose: 1 mg Hydromorphone HCl (Dilaudid) 0.5 mg IVPUSH ONETIME ONE Stop: 11/14/18 11:54 Last Admin: 11/14/18 11:59 Dose: 0.5 mg Hydromorphone HCl (Dilaudid) 1 mg IVPUSH ONETIME ONE Stop: 11/14/18 15:10 Last Admin: 11/14/18 15:20 Dose: 1 mg Hydromorphone HCl (Dilaudid) 0.5 mg IVPUSH Q2H PRN PRN Reason: Pain (severe 7-10) Last Admin: 11/15/18 06:53 Dose: 0.5 mg Hydromorphone HCl (Dilaudid) 0.5 mg IVPUSH Q2H PRN PRN Reason: Pain (severe 7-10) Last Admin: 11/15/18 10:53 Dose: 0.5 mg Hydromorphone HCl (Dilaudid) 1 mg IVPUSH Q3H PRN PRN Reason: Pain Last Admin: 11/17/18 09:43 Dose: 1 mg Pantoprazole Sodium 80 mg/ (Sodium Chloride) 100 mls @ 100 mls/hr IV Q10H B[place] Last Admin: 11/14/18 09:52 Dose: 10 mls/hr Sodium Chloride (Normal Saline) 1,000 mls @ 1,000 mls/hr IV .BOLUS STA Stop: 11/14/18 10:31 Last Admin: 11/14/18 09:51 Dose: 1,000 mls/hr Potassium Chloride 10 meq/ (Premix) 100 mls @ 100 mls/hr IV ONETIME ONE Stop: 11/14/18 12:14 Last Admin: 11/14/18 11:11 Dose: 100 mls/hr Pantoprazole Sodium 80 mg/ (Sodium Chloride) 100 mls @ 10 mls/hr IV ONETIME ONE Stop: 11/14/18 22:05 Last Admin: 11/14/18 12:54 Dose: 10 mls/hr Potassium Chloride/Sodium Chloride (Normal Saline With 20 Meq Kcl) 1,000 mls @ 500 mls/hr IV ONETIME ONE Stop: 11/14/18 16:59 Last Admin: 11/14/18 14:55 Dose: 500 mls/hr Potassium Chloride 10 meq/ (Premix) 100 mls @ 100 mls/hr IV Q1H [place] Stop: 11/14/18 19:29 Last Admin: 11/14/18 18:50 Dose: 100 mls/hr Thiamine HCl 100 mg/ Sodium (Chloride) 101 mls @ 202 mls/hr IV ONETIME ONE Stop: 11/14/18 17:01 Thiamine HCl 100 mg/ Sodium (Chloride) 101 mls @ 202 mls/hr IV DAILY ONE Stop: 11/14/18 17:44 Last Admin: 11/14/18 17:17 Dose: Not Given Dextrose/Lactated Ringer's (Dextrose 5%-Lactated Ringers) 1,000 mls @ 250 mls/ hr IV ASDIRECTED COUNT INCLUDES THE [facility] Last Admin: 11/15/18 07:25 Dose: 250 mls/hr Potassium Chloride 10 meq/ (Premix) 100 mls @ 100 mls/hr IV Q1H [place] Stop: 11/15/18 01:29 Last Admin: 11/15/18 00:47 Dose: 100 mls/hr Magnesium Sulfate 4 gm/ Premix 50 mls @ 12.5 mls/hr IV ONETIME ONE Stop: 11/15/18 01:21 Last Admin: 11/14/18 21:50 Dose: 12.5 mls/hr Sodium Chloride (Normal Saline) 1,000 mls @ 999 mls/hr IV ONETIME ONE Stop: 11/14/18 22:32 Last Admin: 11/14/18 21:41 Dose: 999 mls/hr Pantoprazole Sodium 80 mg/ (Sodium Chloride) 100 mls @ 10 mls/hr IV Q10H COUNT INCLUDES THE [facility] Last Admin: 11/16/18 14:15 Dose: Not Given Potassium Chloride 10 meq/ (Premix) 100 mls @ 100 mls/hr IV Q1H COUNT INCLUDES THE [facility] Stop: 11/15/18 11:29 Last Admin: 11/15/18 11:13 Dose: 100 mls/hr Lactated Ringer's (Ringers, Lactated) 1,000 mls @ 250 mls/hr IV ASDIRECTED COUNT INCLUDES THE [facility] Last Admin: 11/15/18 14:00 Dose: 250 mls/hr Lactated Ringer's (Ringers, Lactated) 1,000 mls @ 150 mls/hr IV ASDIRECTED COUNT INCLUDES THE [facility] Last Admin: 11/17/18 18:34 Dose: 150 mls/hr Magnesium Sulfate 4 gm/ Premix 50 mls @ 12.5 mls/hr IV ONETIME ONE Stop: 11/15/18 20:16 Last Admin: 11/15/18 16:38 Dose: 12.5 mls/hr Potassium Chloride 10 meq/ (Premix) 100 mls @ 100 mls/hr IV Q1H COUNT INCLUDES THE [facility] Stop: 11/15/18 18:29 Last Admin: 11/15/18 18:20 Dose: 100 mls/hr Potassium Chloride 10 meq/ (Premix) 100 mls @ 100 mls/hr IV Q1H [place] Stop: 11/17/18 20:59 Last Admin: 11/18/18 01:09 Dose: 100 mls/hr Magnesium Sulfate 2 gm/ Premix 50 mls @ 25 mls/hr IV ONETIME ONE Stop: 11/17/18 16:46 Last Admin: 11/17/18 17:13 Dose: 25 mls/hr Lactated Ringer's (Ringers, Lactated) 1,000 mls @ 30 mls/hr IV ASDIRECTED BIB[place]NA Last Admin: 11/18/18 02:15 Dose: 30 mls/hr Potassium Chloride 10 meq/ (Premix) 100 mls @ 100 mls/hr IV Q1H COUNT INCLUDES THE [facility] Stop: 11/18/18 14:29 Last Admin: 11/18/18 19:35 Dose: 75 mls/hr Magnesium Sulfate 4 gm/ Premix 50 mls @ 12.5 mls/hr IV ONETIME ONE Stop: 11/18/18 13:29 Last Admin: 11/18/18 12:25 Dose: 12.5 mls/hr Potassium Chloride 10 meq/ (Premix) 100 mls @ 100 mls/hr IV Q1H COUNT INCLUDES THE [facility] Stop: 11/19/18 15:59 Last Admin: 11/19/18 17:26 Dose: 100 mls/hr Sodium Chloride (Normal Saline) 1,000 mls @ 125 mls/hr IV ASDIRECTED COUNT INCLUDES THE [facility] Last Admin: 11/20/18 11:03 Dose: 125 mls/hr Sodium Chloride (Normal Saline) 1,000 mls @ 50 mls/hr IV ASDIRECTED [place] Magnesium Sulfate 2 gm/ Premix 50 mls @ 25 mls/hr IV ONETIME ONE Stop: 11/20/18 11:29 Last Admin: 11/20/18 09:50 Dose: 25 mls/hr Magnesium Oxide (Magnesium Oxide) 800 mg PO ONETIME ONE Stop: 11/19/18 10:01 Last Admin: 11/19/18 11:19 Dose: 800 mg Ondansetron HCl (Zofran) 4 mg IVPUSH ONETIME ONE Stop: 11/14/18 09:33 Last Admin: 11/14/18 09:51 Dose: 4 mg Oxycodone HCl (Oxycontin) 10 mg PO Q12HR [place] Last Admin: 11/19/18 08:24 Dose: 10 mg Pantoprazole Sodium (Protonix Iv) 80 mg IVPUSH BOLUS ONE Stop: 11/14/18 09:35 Last Admin: 11/14/18 09:52 Dose: Not Given Pantoprazole Sodium (Protonix Iv) 40 mg IV Q12H [place] Last Admin: 11/17/18 09:43 Dose: 40 mg Potassium Chloride (Potassium Chloride) 10 meq IV ONETIME ONE Stop: 11/14/18 11:01 Last Admin: 11/14/18 11:12 Dose: Not Given Potassium Chloride (Klor-Con M20) 40 meq PO ONETIME ONE Stop: 11/19/18 10:01 Last Admin: 11/19/18 11:19 Dose: 40 meq Potassium Chloride (Klor-Con M20) 40 meq PO Q4H [place] Stop: 11/20/18 17:16 Last Admin: 11/20/18 16:36 Dose: 40 meq Temazepam (Restoril) 15 mg PO ONETIME ONE Stop: 11/15/18 21:55 Last Admin: 11/15/18 22:02 Dose: 15 mg Temazepam (Restoril) 15 mg PO BEDTIME PRN PRN Reason: Sleep Last Admin: 11/16/18 21:12 Dose: 15 mg Trazodone HCl (Trazodone) 50 mg PO ONETIME ONE Stop: 11/20/18 02:03 Last Admin: 11/20/18 02:17 Dose: 50 mg - Exam General: Alert, Oriented, Cooperative, No Acute Distress, Other (Obese) HEENT: Pupils Equal, Pupils Reactive, EOMI, Mucous Membr. Moist/[place] Neck: Supple, Other (short and thick) Lungs: Clear to Auscultation, Normal Respiratory Effort, Decreased Breath Sounds Cardiovascular: Regular Rate, Regular Rhythm GI/Abdominal Exam: Normal Bowel Sounds, Soft, No Organomegaly, No Distention, No Abnormal Bruit, Pelvis Stable, Tender, Other (right upper tenderness). No: Guarding, Rigid, Rebound (Female) Exam: Deferred Back Exam: Normal Inspection, Decreased Range of Motion Extremities: Normal Inspection, Normal Range of Motion, Non-Tender, No Pedal Edema, Normal Capillary Refill Skin: Warm, Dry, Intact, Ecchymosis (at injection/IV access line) Neurological: No New Focal Deficit. No: Normal Gait Psy/Mental Status: Alert, Normal Affect, Normal Mood - Problem List Review Problem List Initiated/Reviewed/Updated: Yes - My Orders Last 24 Hours: My Active Orders 11/20/18 20:41 traZODone 50 mg PO BEDTIME PRN 11/20/18 Dinner Soft Diet [DIET] - Plan Plan:: I/P: Acute Pancreatitis, Continues to improve -Reports abdominal pain -Longstanding history of ETOH abuse and chronic pancreatitis -Lipase 1089-->465-->426-->442-->524 -Pain medications as ordered -IV fluids as ordered -CRP 6.9-->5.0-->4.2-->3.4 -No leukocytosis -NPO-->clear liquid diet-->soft-->just advanced to regular -Maddi's criteria - 1 point at admission (incomplete) -Triglycerides 159 -Ambulate QID Transaminitis/liver failure, Continue to improve -AST 3690-->1997-->1469-->791-->306-->210-->196-->146 -ALT 2033-->1503-->1256-->925-->549-->452-->435-->348 -Alk Phos 269-->218-->197-->185-->148-->146-->143-->130 -2/2 chronic ETOH use -IV fluids as ordered -Avoid hepatotoxic meds -PT 13.3; INR 1.23, APTT 32 -Monitor Hypothyroidism -Patient [id number]; likely contributory to her obesity -TSH 50.407 -T4 0.4 -Continue levothyroxine -Has been noted on several prior visits -Endocrinology follow-up outpatient Hypomagnesemia, Persisted -Supplemented -Pharmacy to monitor and supplement Resolved: S/p Hypokalemia, continued -Supplemented -Pharmacy to monitor and supplement S/p ETOH abuse -Longstanding history of ETOH abuse -No UDS performed in ED -ETOH 0.06 in ED -Liver enzymes as above -Initially reported to ED provider that she stopped drinking then admitted to drinking heavily once confronted with lab results -Thiamine/Folic Acid/Multivitamin -CM/SW -Psychiatry consult -LAD consult -CIWA protocol -> discontinued Chronic: HLD HTN GERD epigastric pain adhesions renal failure thyroid cancer arthritis chronic back pain addiction hypothyroidism iron deficiency anemia obesity Plan: She remains clinically stable Other orders as indicated above Routine AM labs CM/SW for discharge planning Continue with routine ambulation Code status: Full Code; PCP: Dr. Brower Possible discharge in AM
[2018-11-21] MEDS: Thiamine 100 MG Tab PO SCH (09:01)
[2018-11-21] MEDS: Acetaminophen/HYDROcodone 325-5 MG Tab PO PRN ×3 (09:01→21:24)
[2018-11-21] MEDS: FLUoxetine 20 MG Cap PO SCH (09:01)
[2018-11-21] MEDS: Multivitamins,Therapeutic Tab PO SCH (09:01)
[2018-11-21] MEDS: Folic Acid 1 MG Tab PO SCH (09:01)
[2018-11-21] MEDS: Pantoprazole 40 MG Tab.CR PO SCH ×2 (09:02→20:34)
[2018-11-21] MEDS ORDERED: Magnesium Sulfate/Water 4 GM in Premix Bag 1 BAG IV ONE (10:30)
[2018-11-21] MEDS: Potassium Chloride 20 MEQ Tab.ER PO SCH ×3 (10:49→17:49)
[2018-11-21] MEDS: Ondansetron 4 MG/2 ML SDV IV PRN (14:19)
[2018-11-21] MEDS: traZODone 50 MG Tab PO PRN (20:36)
[2018-11-22] MEDS: Levothyroxine 125 MCG Tab PO SCH (05:05)
[2018-11-22] MEDS: Acetaminophen/HYDROcodone 325-5 MG Tab PO PRN ×3 (05:13→18:57)
--- NOTE | 2018-11-22 08:50 | PCM.PN ---
- General Info Date of Service: 11/22/18 Admission Dx/Problem (Free Text): Admission Diagnosis/Problem Admission Diagnosis/Problem Hypokalemia Subjective Update: Follow Up Functional Status: Reports: Pain Controlled, Tolerating Diet, Ambulating, Urinating. Denies: New Symptoms - Review of Systems General: Denies: Fever, Weakness, Fatigue, Chills, Appetite HEENT: Reports: No Symptoms Pulmonary: Denies: Shortness of Breath, Hemoptysis, Wheezing Cardiovascular: Denies: Chest Pain, Dyspnea on Exertion, Orthopnea, Lightheadedness Gastrointestinal: Reports: Abdominal Pain, Decreased Appetite, Flatus, Nausea. Denies: Vomiting Genitourinary: Reports: No Symptoms, Hematuria Musculoskeletal: Reports: No Symptoms Skin: Denies: Cyanosis, Diaphoresis, Dryness, Bruising, Rash Neurological: Denies: Dizziness, Weakness, Gait Disturbance Psychiatric: Denies: Depression, Agitation, Hallucinations Systems Review Comment:: She is did not tolerate lunch and supper yesterday. Her lipase is elevated this AM at 771. She still complains of right upper abdominal pain. No fever or chills noted overnight. - Patient Data Vitals - Most Recent: Last Vital Signs Temp 37.2 C 11/22/18 05:04 Pulse 77 11/22/18 05:04 Resp 20 11/22/18 05:04 BP 122/72 11/22/18 05:04 Pulse Ox 95 11/22/18 05:04 Weight - Most Recent: 84.051 kg I&O - Last 24 Hours: Intake & Output 11/21/18 11/22/18 11/22/18 22:59 06:59 14:59 Intake Total 910 1000 Balance 910 1000 Lab Results Last 24 Hours: Laboratory Results - last 24 hr 11/22/18 Range/Units 06:51 Lipase 771 H (73-393) U/L Med Orders - Current: Current Medications Hydrocodone Bitart/Acetaminophen ([place] 325-5 Mg) 1 tab PO Q6H PRN PRN Reason: Pain Last Admin: 11/22/18 05:13 Dose: 1 tab Dicyclomine HCl (Bentyl) 10 mg PO QIDACANDBED PRN PRN Reason: Abdominal Pain Last Admin: 11/21/18 17:48 Dose: 10 mg Fluoxetine HCl (Prozac) 20 mg PO DAILY [place] Last Admin: 11/21/18 09:01 Dose: 20 mg Folic Acid (Folic Acid) 1 mg PO DAILY [facility] Last Admin: 11/21/18 09:01 Dose: 1 mg Hydralazine HCl (Apresoline) 20 mg IVPUSH Q4H PRN PRN Reason: Hypertension Hydromorphone HCl (Dilaudid) 0.5 mg IVPUSH Q6H PRN PRN Reason: Pain Levothyroxine Sodium (Levothyroxine) 125 mcg PO ACBREAKFAST [facility] Last Admin: 11/22/18 05:05 Dose: 125 mcg Magnesium Sulfate (Pharmacy To Dose - Magnesium Replacement) 0 dose .XX ASDIRECTED PRN PRN Reason: RX TO WATCH MAG Metoprolol Tartrate (Lopressor) 5 mg IVPUSH Q4H PRN PRN Reason: Tachycardia Miscellaneous Information (Remove Patch) 1 ea TRDERM Q72H [facility] Multivitamins (Thera) 1 each PO DAILY [facility] Last Admin: 11/21/18 09:01 Dose: 1 each Ondansetron HCl (Zofran) 4 mg IV Q4H PRN PRN Reason: Nausea/Vomiting Last Admin: 11/21/18 14:19 Dose: 4 mg Pantoprazole Sodium (Protonix) 40 mg PO BID [facility] Last Admin: 11/21/18 20:34 Dose: 40 mg Potassium Chloride (Pharmacy To Dose - Potassium Replacement) 0 dose .XX ASDIRECTED PRN PRN Reason: RX TO WATCH K Scopolamine (Transderm-Scop) 1.5 mg TRDERM Q72H PRN PRN Reason: Nausea Last Admin: 11/19/18 08:24 Dose: 1.5 mg Sodium Chloride (Saline Flush) 10 ml FLUSH ASDIRECTED PRN PRN Reason: Keep Vein Open Last Admin: 11/14/18 11:12 Dose: 10 ml Thiamine HCl (Vitamin B-1) 100 mg PO DAILY [facility] Last Admin: 11/21/18 09:01 Dose: 100 mg Trazodone HCl (Trazodone) 50 mg PO BEDTIME PRN PRN Reason: Sleep Last Admin: 11/21/18 20:36 Dose: 50 mg Discontinued Medications Caffeine (Caffeine) 200 mg PO BID@0700,1800 [facility] Stop: 11/20/18 07:01 Last Admin: 11/19/18 06:52 Dose: 200 mg Caffeine (Caffeine) 200 mg PO NOW STA Stop: 11/18/18 11:05 Last Admin: 11/18/18 12:10 Dose: 200 mg Furosemide (Lasix) 20 mg IVPUSH NOW ONE Stop: 11/18/18 10:49 Last Admin: 11/18/18 11:11 Dose: 20 mg Furosemide (Lasix) 40 mg PO BIDDIURETIC [place] Stop: 11/21/18 06:01 Last Admin: 11/21/18 06:44 Dose: 40 mg Hydromorphone HCl (Dilaudid) 1 mg IVPUSH ONETIME ONE Stop: 11/14/18 09:36 Last Admin: 11/14/18 09:51 Dose: 1 mg Hydromorphone HCl (Dilaudid) 0.5 mg IVPUSH ONETIME ONE Stop: 11/14/18 11:54 Last Admin: 11/14/18 11:59 Dose: 0.5 mg Hydromorphone HCl (Dilaudid) 1 mg IVPUSH ONETIME ONE Stop: 11/14/18 15:10 Last Admin: 11/14/18 15:20 Dose: 1 mg Hydromorphone HCl (Dilaudid) 0.5 mg IVPUSH Q2H PRN PRN Reason: Pain (severe 7-10) Last Admin: 11/15/18 06:53 Dose: 0.5 mg Hydromorphone HCl (Dilaudid) 0.5 mg IVPUSH Q2H PRN PRN Reason: Pain (severe 7-10) Last Admin: 11/15/18 10:53 Dose: 0.5 mg Hydromorphone HCl (Dilaudid) 1 mg IVPUSH Q3H PRN PRN Reason: Pain Last Admin: 11/17/18 09:43 Dose: 1 mg Pantoprazole Sodium 80 mg/ (Sodium Chloride) 100 mls @ 100 mls/hr IV Q10H [place] Last Admin: 11/14/18 09:52 Dose: 10 mls/hr Sodium Chloride (Normal Saline) 1,000 mls @ 1,000 mls/hr IV .BOLUS STA Stop: 11/14/18 10:31 Last Admin: 11/14/18 09:51 Dose: 1,000 mls/hr Potassium Chloride 10 meq/ (Premix) 100 mls @ 100 mls/hr IV ONETIME ONE Stop: 11/14/18 12:14 Last Admin: 11/14/18 11:11 Dose: 100 mls/hr Pantoprazole Sodium 80 mg/ (Sodium Chloride) 100 mls @ 10 mls/hr IV ONETIME ONE Stop: 11/14/18 22:05 Last Admin: 11/14/18 12:54 Dose: 10 mls/hr Potassium Chloride/Sodium Chloride (Normal Saline With 20 Meq Kcl) 1,000 mls @ 500 mls/hr IV ONETIME ONE Stop: 11/14/18 16:59 Last Admin: 11/14/18 14:55 Dose: 500 mls/hr Potassium Chloride 10 meq/ (Premix) 100 mls @ 100 mls/hr IV Q1H [facility] Stop: 11/14/18 19:29 Last Admin: 11/14/18 18:50 Dose: 100 mls/hr Thiamine HCl 100 mg/ Sodium (Chloride) 101 mls @ 202 mls/hr IV ONETIME ONE Stop: 11/14/18 17:01 Thiamine HCl 100 mg/ Sodium (Chloride) 101 mls @ 202 mls/hr IV DAILY ONE Stop: 11/14/18 17:44 Last Admin: 11/14/18 17:17 Dose: Not Given Dextrose/Lactated Ringer's (Dextrose 5%-Lactated Ringers) 1,000 mls @ 250 mls/ hr IV ASDIRECTED [facility] Last Admin: 11/15/18 07:25 Dose: 250 mls/hr Potassium Chloride 10 meq/ (Premix) 100 mls @ 100 mls/hr IV Q1H [facility] Stop: 11/15/18 01:29 Last Admin: 11/15/18 00:47 Dose: 100 mls/hr Magnesium Sulfate 4 gm/ Premix 50 mls @ 12.5 mls/hr IV ONETIME ONE Stop: 11/15/18 01:21 Last Admin: 11/14/18 21:50 Dose: 12.5 mls/hr Sodium Chloride (Normal Saline) 1,000 mls @ 999 mls/hr IV ONETIME ONE Stop: 11/14/18 22:32 Last Admin: 11/14/18 21:41 Dose: 999 mls/hr Pantoprazole Sodium 80 mg/ (Sodium Chloride) 100 mls @ 10 mls/hr IV Q10H [facility] Last Admin: 11/16/18 14:15 Dose: Not Given Potassium Chloride 10 meq/ (Premix) 100 mls @ 100 mls/hr IV Q1H [facility] Stop: 11/15/18 11:29 Last Admin: 11/15/18 11:13 Dose: 100 mls/hr Lactated Ringer's (Ringers, Lactated) 1,000 mls @ 250 mls/hr IV ASDIRECTED [facility] Last Admin: 11/15/18 14:00 Dose: 250 mls/hr Lactated Ringer's (Ringers, Lactated) 1,000 mls @ 150 mls/hr IV ASDIRECTED [facility] Last Admin: 11/17/18 18:34 Dose: 150 mls/hr Magnesium Sulfate 4 gm/ Premix 50 mls @ 12.5 mls/hr IV ONETIME ONE Stop: 11/15/18 20:16 Last Admin: 11/15/18 16:38 Dose: 12.5 mls/hr Potassium Chloride 10 meq/ (Premix) 100 mls @ 100 mls/hr IV Q1H [facility] Stop: 11/15/18 18:29 Last Admin: 11/15/18 18:20 Dose: 100 mls/hr Potassium Chloride 10 meq/ (Premix) 100 mls @ 100 mls/hr IV Q1H [facility] Stop: 11/17/18 20:59 Last Admin: 11/18/18 01:09 Dose: 100 mls/hr Magnesium Sulfate 2 gm/ Premix 50 mls @ 25 mls/hr IV ONETIME ONE Stop: 11/17/18 16:46 Last Admin: 11/17/18 17:13 Dose: 25 mls/hr Lactated Ringer's (Ringers, Lactated) 1,000 mls @ 30 mls/hr IV ASDIRECTED [facility] Last Admin: 11/18/18 02:15 Dose: 30 mls/hr Potassium Chloride 10 meq/ (Premix) 100 mls @ 100 mls/hr IV Q1H [facility] Stop: 11/18/18 14:29 Last Admin: 11/18/18 19:35 Dose: 75 mls/hr Magnesium Sulfate 4 gm/ Premix 50 mls @ 12.5 mls/hr IV ONETIME ONE Stop: 11/18/18 13:29 Last Admin: 11/18/18 12:25 Dose: 12.5 mls/hr Potassium Chloride 10 meq/ (Premix) 100 mls @ 100 mls/hr IV Q1H [facility] Stop: 11/19/18 15:59 Last Admin: 11/19/18 17:26 Dose: 100 mls/hr Sodium Chloride (Normal Saline) 1,000 mls @ 125 mls/hr IV ASDIRECTED [facility] Last Admin: 11/20/18 11:03 Dose: 125 mls/hr Sodium Chloride (Normal Saline) 1,000 mls @ 50 mls/hr IV ASDIRECTED [facility] Magnesium Sulfate 2 gm/ Premix 50 mls @ 25 mls/hr IV ONETIME ONE Stop: 11/20/18 11:29 Last Admin: 11/20/18 09:50 Dose: 25 mls/hr Magnesium Sulfate 4 gm/ Premix 50 mls @ 12.5 mls/hr IV ONETIME ONE Stop: 11/21/18 14:29 Last Admin: 11/21/18 10:49 Dose: 12.5 mls/hr Magnesium Oxide (Magnesium Oxide) 800 mg PO ONETIME ONE Stop: 11/19/18 10:01 Last Admin: 11/19/18 11:19 Dose: 800 mg Ondansetron HCl (Zofran) 4 mg IVPUSH ONETIME ONE Stop: 11/14/18 09:33 Last Admin: 11/14/18 09:51 Dose: 4 mg Oxycodone HCl (Oxycontin) 10 mg PO Q12HR [facility] Last Admin: 11/19/18 08:24 Dose: 10 mg Pantoprazole Sodium (Protonix Iv) 80 mg IVPUSH BOLUS ONE Stop: 11/14/18 09:35 Last Admin: 11/14/18 09:52 Dose: Not Given Pantoprazole Sodium (Protonix Iv) 40 mg IV Q12H [facility] Last Admin: 11/17/18 09:43 Dose: 40 mg Potassium Chloride (Potassium Chloride) 10 meq IV ONETIME ONE Stop: 11/14/18 11:01 Last Admin: 11/14/18 11:12 Dose: Not Given Potassium Chloride (Klor-Con M20) 40 meq PO ONETIME ONE Stop: 11/19/18 10:01 Last Admin: 11/19/18 11:19 Dose: 40 meq Potassium Chloride (Klor-Con M20) 40 meq PO Q4H [facility] Stop: 11/20/18 17:16 Last Admin: 11/20/18 16:36 Dose: 40 meq Potassium Chloride (Klor-Con M20) 40 meq PO Q4H [place] Stop: 11/21/18 18:31 Last Admin: 11/21/18 17:49 Dose: 40 meq Temazepam (Restoril) 15 mg PO ONETIME ONE Stop: 11/15/18 21:55 Last Admin: 11/15/18 22:02 Dose: 15 mg Temazepam (Restoril) 15 mg PO BEDTIME PRN PRN Reason: Sleep Last Admin: 11/16/18 21:12 Dose: 15 mg Trazodone HCl (Trazodone) 50 mg PO ONETIME ONE Stop: 11/20/18 02:03 Last Admin: 11/20/18 02:17 Dose: 50 mg - Exam General: Alert, Oriented, Cooperative, No Acute Distress, Mild Distress, Other ( Obese) HEENT: Pupils Equal, Pupils Reactive, EOMI, Mucous Membr. Moist/[place] Neck: Supple, Carotid Bruit, Other (short and thick) Lungs: Clear to Auscultation Cardiovascular: Regular Rate, Regular Rhythm GI/Abdominal Exam: Normal Bowel Sounds, Soft, No Organomegaly, No Distention, No Abnormal Bruit, No Mass, Pelvis Stable, Tender (right upper quadrant) (Female) Exam: Deferred Back Exam: Normal Inspection, Decreased Range of Motion Extremities: Normal Inspection, Normal Range of Motion, Non-Tender, No Pedal Edema, Normal Capillary Refill, Pedal Edema, Slow Capillary Refill Peripheral Pulses: 2+: Dorsalis Pedis (L), Dorsalis Pedis (R) Skin: Warm, Dry, Intact, Ecchymosis (upper extremity) Neurological: No New Focal Deficit, Normal Gait Psy/Mental Status: Alert, Normal Affect, Normal Mood. No: Agitated, Suicidal Ideation, Hallucinations - Problem List Review Problem List Initiated/Reviewed/Updated: Yes - My Orders Last 24 Hours: My Active Orders 11/22/18 08:45 CBC WITH AUTO DIFF [HEME] Routine CMP [COMPREHENSIVE METABOLIC PN,CMP] [CHEM] Urgent 11/22/18 08:48 CRP [C-REACTIVE PROTEIN] [CHEM] Urgent 11/23/18 05:11 CBC WITH AUTO DIFF [HEME] AM CMP [COMPREHENSIVE METABOLIC PN,CMP] [CHEM] AM CRP [C-REACTIVE PROTEIN] [CHEM] AM LIPASE [CHEM] AM 11/24/18 05:11 CMP [COMPREHENSIVE METABOLIC PN,CMP] [CHEM] AM 11/25/18 05:11 CMP [COMPREHENSIVE METABOLIC PN,CMP] [CHEM] AM - Plan Plan:: I/P: Acute Persistent Abdominal Pain with Food Intolerance - Has hx/o Cholecystectomy - DDx: PUD and Gastroparesis - PPI and Scopolamine Patch - Dr. Vazquez consult for further eval Pancreatitis, Starting to go up now -Reports abdominal pain -Longstanding history of ETOH abuse and chronic pancreatitis -Lipase 1089-->465-->426-->442-->524-->771 -Pain medications as ordered -IV fluids as ordered -CRP 6.9-->5.0-->4.2-->3.4-->3.1 -No leukocytosis -PO status; keep at clear liquids -[place]'s criteria - 1 point at admission (incomplete) -Triglycerides 159 -Abdominal U/S -Ambulate QID -Dr. Vazquez consult for further evaluation Transaminitis/liver failure, Continue to improve -AST 3690-->1998-->1469-->791-->306-->210-->196-->146-->123 -ALT 2033-->1503-->1256-->925-->549-->452-->435-->348-->300 -Alk Phos 269-->218-->197-->185-->148-->146-->143-->130-->128 -2/2 chronic ETOH use -IV fluids as ordered -Avoid hepatotoxic meds -PT 13.3; INR 1.23, APTT 32 -Monitor Hypothyroidism, Unchanged -Patient [id number]; likely contributory to her obesity -TSH 50.407 -T4 0.4 -Continue levothyroxine -Has been noted on several prior visits -Endocrinology follow-up outpatient Hypomagnesemia, Persisted -Supplemented -Magnesium Oxide 400 mg po BID -Pharmacy to monitor and supplement Resolved: S/p Hypokalemia, continued -Supplemented -Pharmacy to monitor and supplement S/p ETOH abuse -Longstanding history of ETOH abuse -No UDS performed in ED -ETOH 0.06 in ED -Liver enzymes as above -Initially reported to ED provider that she stopped drinking then admitted to drinking heavily once confronted with lab results -Thiamine/Folic Acid/Multivitamin -CM/SW -Psychiatry consult -LAD consult -CIWA protocol -> discontinued Chronic: HLD HTN GERD epigastric pain adhesions renal failure thyroid cancer arthritis chronic back pain addiction hypothyroidism iron deficiency anemia obesity Plan: She remains clinically stable Other orders as indicated above Routine AM labs CM/SW for discharge planning Continue with routine ambulation Dr. Vazquez Consult Code status: Full Code; PCP: Dr. Brower Possible discharge in AM
[2018-11-22] MEDS: Bumetanide 1 MG/4 ML MDV IVPUSH SCH ×3 (09:25→14:22)
[2018-11-22] MEDS: [UNRECOGNIZED DRUG - REMARK] TRDERM SCH (09:25)
[2018-11-22] MEDS: Multivitamins,Therapeutic Tab PO SCH (09:26)
[2018-11-22] MEDS: FLUoxetine 20 MG Cap PO SCH (09:26)
[2018-11-22] MEDS: Thiamine 100 MG Tab PO SCH (09:26)
[2018-11-22] MEDS: Folic Acid 1 MG Tab PO SCH (09:26)
[2018-11-22] MEDS: Pantoprazole 40 MG Tab.CR PO SCH ×2 (09:26→20:20)
[2018-11-22] MEDS: Scopolamine 1.5 MG Transdermal Patch TRDERM PRN (09:34)
[2018-11-22] MEDS: Dicyclomine 10 MG Cap PO PRN ×2 (09:34→18:04)
[2018-11-22] MEDS: Ondansetron 4 MG/2 ML SDV IV PRN (09:34)
--- NOTE | 2018-11-22 13:25 | US ---
Limited abdominal ultrasound: Multiple real-time images of the upper right abdomen were obtained. Comparison: Prior CT abdomen and pelvis exam of 02/09/18. Findings: Liver is echogenic as compared to the kidney which is compatible with fatty infiltration which is seen on prior CT exam. Right kidney shows no hydronephrosis or mass. Previous cholecystectomy is noted. No biliary duct dilatation is seen. Pancreas is obscured from bowel gas. Inferior vena cava is patent. Portal vein shows normal hepatopedal flow. Right kidney length: 11.0 cm Impression: 1. Diffuse fatty infiltration within the liver which is noted on prior CT exam. 2. Nonvisualized pancreas due to bowel gas. 3. Prior cholecystectomy. Nothing acute is appreciated on right upper quadrant abdominal ultrasound. Diagnostic code #2
--- NOTE | 2018-11-22 15:36 | PCM.CONSN ---
- General Info Date of Service: 11/22/18 - Patient Data Vitals - Most Recent: Last Vital Signs Temp 97.9 F 11/22/18 07:56 Pulse 90 11/22/18 07:56 Resp 14 11/22/18 07:56 BP 110/83 11/22/18 07:56 Pulse Ox 96 11/22/18 07:56 Weight - Most Recent: 84.051 kg I&O - Last 24 Hours: Intake & Output 11/21/18 11/22/18 11/22/18 23:59 07:59 15:59 Intake Total 910 1000 300 Balance 910 1000 300 Lab Results Last 24 Hours: Laboratory Results - last 24 hr 11/22/18 11/22/18 11/22/18 Range/Units 06:51 06:51 06:51 WBC 9.65 (3.98-10.04) K/mm3 RBC 3.07 L (3.98-5.22) M/mm3 Hgb 9.9 L (11.2-15.7) gm/L Hct 30.5 L (34.1-44.9) % MCV 99.3 H (79.4-94.8) fl MCH 32.2 (25.6-32.2) pg MCHC 32.5 (32.2-35.5) g/dl RDW Std Deviation 71.3 H (36.4-46.3) fL Plt Count 174 L (182-369) K/mm3 MPV 9.9 (9.4-12.3) fl Neut % (Auto) 65.4 (34.0-71.1) % Lymph % (Auto) 19.3 (19.3-51.7) % [place] % (Auto) 13.1 H (4.7-12.5) % Eos % (Auto) 1.3 (0.7-5.8) Baso % (Auto) 0.5 (0.1-1.2) % Neut # (Auto) 6.31 H (1.56-6.13) K/mm3 Lymph # (Auto) 1.86 (1.18-3.74) K/mm3 [place] # (Auto) 1.26 H (0.24-0.36) K/mm3 Eos # (Auto) 0.13 (0.04-0.36) K/mm3 Baso # (Auto) 0.05 (0.01-0.08) K/mm3 Sodium 137 (136-145) mEq/L Potassium 4.5 (3.5-5.1) mEq/L Chloride 104 (98-107) mEq/L Carbon Dioxide 23 (21-32) mEq/L Anion Gap 14.5 (5-15) BUN 5 L (7-18) mg/dL Creatinine 1.0 (0.55-1.02) mg/dL Est Cr Clr Drug Dosing 51.57 mL/min Estimated GFR (MDRD) > 60 (>60) mL/min BUN/Creatinine Ratio 5.0 L (14-18) Glucose 85 (74-106) mg/dL Calcium 8.6 (8.5-10.1) mg/dL Total Bilirubin 1.3 H (0.2-1.0) mg/dL AST 123 H (15-37) U/L ALT 300 H (14-59) U/L Alkaline Phosphatase 128 H (46-116) U/L C-Reactive Protein 3.1 H* (<1.0) mg/dL Total Protein 7.0 (6.4-8.2) g/dl Albumin 3.2 L (3.4-5.0) g/dl Globulin 3.8 gm/dL Albumin/Globulin Ratio 0.8 L (1-2) Lipase 771 H (73-393) U/L Med Orders - Current: Current Medications Hydrocodone Bitart/Acetaminophen ([place] 325-5 Mg) 1 tab PO Q6H PRN PRN Reason: Pain Last Admin: 11/22/18 12:47 Dose: 1 tab Bumetanide (Bumex) 0.5 mg IVPUSH BIDDIURETIC [facility] Stop: 11/23/18 14:01 Last Admin: 11/22/18 14:22 Dose: Not Given Dicyclomine HCl (Bentyl) 10 mg PO QIDACANDBED PRN PRN Reason: Abdominal Pain Last Admin: 11/22/18 09:34 Dose: 10 mg Fluoxetine HCl (Prozac) 20 mg PO DAILY [facility] Last Admin: 11/22/18 09:26 Dose: 20 mg Folic Acid (Folic Acid) 1 mg PO DAILY [facility] Last Admin: 11/22/18 09:26 Dose: 1 mg Hydralazine HCl (Apresoline) 20 mg IVPUSH Q4H PRN PRN Reason: Hypertension Hydromorphone HCl (Dilaudid) 0.5 mg IVPUSH Q6H PRN PRN Reason: Pain Levothyroxine Sodium (Levothyroxine) 125 mcg PO ACBREAKFAST [facility] Last Admin: 11/22/18 05:05 Dose: 125 mcg Magnesium Oxide (Magnesium Oxide) 400 mg PO BID [facility] Magnesium Sulfate (Pharmacy To Dose - Magnesium Replacement) 0 dose .XX ASDIRECTED PRN PRN Reason: RX TO WATCH MAG Metoprolol Tartrate (Lopressor) 5 mg IVPUSH Q4H PRN PRN Reason: Tachycardia Miscellaneous Information (Remove Patch) 1 ea TRDERM Q72H [facility] Last Admin: 11/22/18 09:25 Dose: Not Given Multivitamins (Thera) 1 each PO DAILY [facility] Last Admin: 11/22/18 09:26 Dose: 1 each Ondansetron HCl (Zofran) 4 mg IV Q4H PRN PRN Reason: Nausea/Vomiting Last Admin: 11/22/18 09:34 Dose: 4 mg Pantoprazole Sodium (Protonix) 40 mg PO BID [facility] Last Admin: 11/22/18 09:26 Dose: 40 mg Potassium Chloride (Pharmacy To Dose - Potassium Replacement) 0 dose .XX ASDIRECTED PRN PRN Reason: RX TO WATCH K Scopolamine (Transderm-Scop) 1.5 mg TRDERM Q72H PRN PRN Reason: Nausea Last Admin: 11/22/18 09:34 Dose: 1.5 mg Sodium Chloride (Saline Flush) 10 ml FLUSH ASDIRECTED PRN PRN Reason: Keep Vein Open Last Admin: 11/14/18 11:12 Dose: 10 ml Thiamine HCl (Vitamin B-1) 100 mg PO DAILY [facility] Last Admin: 11/22/18 09:26 Dose: 100 mg Trazodone HCl (Trazodone) 50 mg PO BEDTIME PRN PRN Reason: Sleep Last Admin: 11/21/18 20:36 Dose: 50 mg Discontinued Medications Caffeine (Caffeine) 200 mg PO BID@0700,1800 [facility] Stop: 11/20/18 07:01 Last Admin: 11/19/18 06:52 Dose: 200 mg Caffeine (Caffeine) 200 mg PO NOW STA Stop: 11/18/18 11:05 Last Admin: 11/18/18 12:10 Dose: 200 mg Furosemide (Lasix) 20 mg IVPUSH NOW ONE Stop: 11/18/18 10:49 Last Admin: 11/18/18 11:11 Dose: 20 mg Furosemide (Lasix) 40 mg PO BIDDIURETIC [facility] Stop: 11/21/18 06:01 Last Admin: 11/21/18 06:44 Dose: 40 mg Hydromorphone HCl (Dilaudid) 1 mg IVPUSH ONETIME ONE Stop: 11/14/18 09:36 Last Admin: 11/14/18 09:51 Dose: 1 mg Hydromorphone HCl (Dilaudid) 0.5 mg IVPUSH ONETIME ONE Stop: 11/14/18 11:54 Last Admin: 11/14/18 11:59 Dose: 0.5 mg Hydromorphone HCl (Dilaudid) 1 mg IVPUSH ONETIME ONE Stop: 11/14/18 15:10 Last Admin: 11/14/18 15:20 Dose: 1 mg Hydromorphone HCl (Dilaudid) 0.5 mg IVPUSH Q2H PRN PRN Reason: Pain (severe 7-10) Last Admin: 11/15/18 06:53 Dose: 0.5 mg Hydromorphone HCl (Dilaudid) 0.5 mg IVPUSH Q2H PRN PRN Reason: Pain (severe 7-10) Last Admin: 11/15/18 10:53 Dose: 0.5 mg Hydromorphone HCl (Dilaudid) 1 mg IVPUSH Q3H PRN PRN Reason: Pain Last Admin: 11/17/18 09:43 Dose: 1 mg Pantoprazole Sodium 80 mg/ (Sodium Chloride) 100 mls @ 100 mls/hr IV Q10H [facility] Last Admin: 11/14/18 09:52 Dose: 10 mls/hr Sodium Chloride (Normal Saline) 1,000 mls @ 1,000 mls/hr IV .BOLUS STA Stop: 11/14/18 10:31 Last Admin: 11/14/18 09:51 Dose: 1,000 mls/hr Potassium Chloride 10 meq/ (Premix) 100 mls @ 100 mls/hr IV ONETIME ONE Stop: 11/14/18 12:14 Last Admin: 11/14/18 11:11 Dose: 100 mls/hr Pantoprazole Sodium 80 mg/ (Sodium Chloride) 100 mls @ 10 mls/hr IV ONETIME ONE Stop: 11/14/18 22:05 Last Admin: 11/14/18 12:54 Dose: 10 mls/hr Potassium Chloride/Sodium Chloride (Normal Saline With 20 Meq Kcl) 1,000 mls @ 500 mls/hr IV ONETIME ONE Stop: 11/14/18 16:59 Last Admin: 11/14/18 14:55 Dose: 500 mls/hr Potassium Chloride 10 meq/ (Premix) 100 mls @ 100 mls/hr IV Q1H [facility] Stop: 11/14/18 19:29 Last Admin: 11/14/18 18:50 Dose: 100 mls/hr Thiamine HCl 100 mg/ Sodium (Chloride) 101 mls @ 202 mls/hr IV ONETIME ONE Stop: 11/14/18 17:01 Thiamine HCl 100 mg/ Sodium (Chloride) 101 mls @ 202 mls/hr IV DAILY ONE Stop: 11/14/18 17:44 Last Admin: 11/14/18 17:17 Dose: Not Given Dextrose/Lactated Ringer's (Dextrose 5%-Lactated Ringers) 1,000 mls @ 250 mls/ hr IV ASDIRECTED [facility] Last Admin: 11/15/18 07:25 Dose: 250 mls/hr Potassium Chloride 10 meq/ (Premix) 100 mls @ 100 mls/hr IV Q1H [facility] Stop: 11/15/18 01:29 Last Admin: 11/15/18 00:47 Dose: 100 mls/hr Magnesium Sulfate 4 gm/ Premix 50 mls @ 12.5 mls/hr IV ONETIME ONE Stop: 11/15/18 01:21 Last Admin: 11/14/18 21:50 Dose: 12.5 mls/hr Sodium Chloride (Normal Saline) 1,000 mls @ 999 mls/hr IV ONETIME ONE Stop: 11/14/18 22:32 Last Admin: 11/14/18 21:41 Dose: 999 mls/hr Pantoprazole Sodium 80 mg/ (Sodium Chloride) 100 mls @ 10 mls/hr IV Q10H [facility] Last Admin: 11/16/18 14:15 Dose: Not Given Potassium Chloride 10 meq/ (Premix) 100 mls @ 100 mls/hr IV Q1H [facility] Stop: 11/15/18 11:29 Last Admin: 11/15/18 11:13 Dose: 100 mls/hr Lactated Ringer's (Ringers, Lactated) 1,000 mls @ 250 mls/hr IV ASDIRECTED [facility] Last Admin: 11/15/18 14:00 Dose: 250 mls/hr Lactated Ringer's (Ringers, Lactated) 1,000 mls @ 150 mls/hr IV ASDIRECTED [facility] Last Admin: 11/17/18 18:34 Dose: 150 mls/hr Magnesium Sulfate 4 gm/ Premix 50 mls @ 12.5 mls/hr IV ONETIME ONE Stop: 11/15/18 20:16 Last Admin: 11/15/18 16:38 Dose: 12.5 mls/hr Potassium Chloride 10 meq/ (Premix) 100 mls @ 100 mls/hr IV Q1H [facility] Stop: 11/15/18 18:29 Last Admin: 11/15/18 18:20 Dose: 100 mls/hr Potassium Chloride 10 meq/ (Premix) 100 mls @ 100 mls/hr IV Q1H [facility] Stop: 11/17/18 20:59 Last Admin: 11/18/18 01:09 Dose: 100 mls/hr Magnesium Sulfate 2 gm/ Premix 50 mls @ 25 mls/hr IV ONETIME ONE Stop: 11/17/18 16:46 Last Admin: 11/17/18 17:13 Dose: 25 mls/hr Lactated Ringer's (Ringers, Lactated) 1,000 mls @ 30 mls/hr IV ASDIRECTED [facility] Last Admin: 11/18/18 02:15 Dose: 30 mls/hr Potassium Chloride 10 meq/ (Premix) 100 mls @ 100 mls/hr IV Q1H [facility] Stop: 11/18/18 14:29 Last Admin: 11/18/18 19:35 Dose: 75 mls/hr Magnesium Sulfate 4 gm/ Premix 50 mls @ 12.5 mls/hr IV ONETIME ONE Stop: 11/18/18 13:29 Last Admin: 11/18/18 12:25 Dose: 12.5 mls/hr Potassium Chloride 10 meq/ (Premix) 100 mls @ 100 mls/hr IV Q1H [facility] Stop: 11/19/18 15:59 Last Admin: 11/19/18 17:26 Dose: 100 mls/hr Sodium Chloride (Normal Saline) 1,000 mls @ 125 mls/hr IV ASDIRECTED [facility] Last Admin: 11/20/18 11:03 Dose: 125 mls/hr Sodium Chloride (Normal Saline) 1,000 mls @ 50 mls/hr IV ASDIRECTED [facility] Magnesium Sulfate 2 gm/ Premix 50 mls @ 25 mls/hr IV ONETIME ONE Stop: 11/20/18 11:29 Last Admin: 11/20/18 09:50 Dose: 25 mls/hr Magnesium Sulfate 4 gm/ Premix 50 mls @ 12.5 mls/hr IV ONETIME ONE Stop: 11/21/18 14:29 Last Admin: 11/21/18 10:49 Dose: 12.5 mls/hr Magnesium Oxide (Magnesium Oxide) 800 mg PO ONETIME ONE Stop: 11/19/18 10:01 Last Admin: 11/19/18 11:19 Dose: 800 mg Ondansetron HCl (Zofran) 4 mg IVPUSH ONETIME ONE Stop: 11/14/18 09:33 Last Admin: 11/14/18 09:51 Dose: 4 mg Oxycodone HCl (Oxycontin) 10 mg PO Q12HR [facility] Last Admin: 11/19/18 08:24 Dose: 10 mg Pantoprazole Sodium (Protonix Iv) 80 mg IVPUSH BOLUS ONE Stop: 11/14/18 09:35 Last Admin: 11/14/18 09:52 Dose: Not Given Pantoprazole Sodium (Protonix Iv) 40 mg IV Q12H [facility] Last Admin: 11/17/18 09:43 Dose: 40 mg Potassium Chloride (Potassium Chloride) 10 meq IV ONETIME ONE Stop: 11/14/18 11:01 Last Admin: 11/14/18 11:12 Dose: Not Given Potassium Chloride (Klor-Con M20) 40 meq PO ONETIME ONE Stop: 11/19/18 10:01 Last Admin: 11/19/18 11:19 Dose: 40 meq Potassium Chloride (Klor-Con M20) 40 meq PO Q4H [facility] Stop: 11/20/18 17:16 Last Admin: 11/20/18 16:36 Dose: 40 meq Potassium Chloride (Klor-Con M20) 40 meq PO Q4H [facility] Stop: 11/21/18 18:31 Last Admin: 11/21/18 17:49 Dose: 40 meq Temazepam (Restoril) 15 mg PO ONETIME ONE Stop: 11/15/18 21:55 Last Admin: 11/15/18 22:02 Dose: 15 mg Temazepam (Restoril) 15 mg PO BEDTIME PRN PRN Reason: Sleep Last Admin: 11/16/18 21:12 Dose: 15 mg Trazodone HCl (Trazodone) 50 mg PO ONETIME ONE Stop: 11/20/18 02:03 Last Admin: 11/20/18 02:17 Dose: 50 mg Consult PN Assessment/Plan Procedures: Procedures ACUTE HEPATITIS PANEL (02/09/18) AGENT NOS ASSAY W/OPTIC (05/23/16) ASSAY OF AMYLASE (08/17/17) ASSAY OF FREE THYROXINE (02/09/18) ASSAY OF GGT (01/31/16) ASSAY OF LACTIC ACID (02/09/18) ASSAY OF LIPASE (07/06/18) ASSAY OF MAGNESIUM (07/06/18) ASSAY OF PROLACTIN (03/22/16) ASSAY OF SERUM POTASSIUM (02/09/18) ASSAY OF TROPONIN QUANT (07/06/18) ASSAY THYROID STIM HORMONE (02/09/18) BL SMEAR W/DIFF WBC COUNT (07/06/18) BLOOD CULTURE FOR BACTERIA (03/23/16) BLOOD GASES ANY COMBINATION (02/09/18) C DIFF AMPLIFIED PROBE (02/09/18) C-REACTIVE PROTEIN (11/03/16) CARCINOEMBRYONIC ANTIGEN (03/22/16) CHEST X-RAY 1 VIEW FRONTAL (03/23/16) CHEST X-RAY 2VW FRONTAL&LATL (03/22/16) CHORIONIC GONADOTROPIN ASSAY (02/09/18) CHORIONIC GONADOTROPIN TEST (10/27/15) COLONOSCOPY AND BIOPSY (06/26/16) COMPLETE CBC AUTOMATED (07/06/18) COMPLETE CBC W/AUTO DIFF WBC (02/09/18) COMPREHEN METABOLIC PANEL (07/06/18) COMPUTER DX MAMMOGRAM ADD-ON (03/22/16) CRYPTOSPORIDIUM AG IA (02/09/18) CT ABD & PELV W/CONTRAST (02/09/18) CT ANGIOGRAPHY CHEST (07/06/18) CT HEAD/BRAIN W/O DYE (11/03/16) DRUG TEST PRSMV INSTRMNT (02/09/18) EGD BIOPSY SINGLE/MULTIPLE (06/26/16) ELECTROCARDIOGRAM TRACING (07/06/18) EMERGENCY DEPT VISIT (07/06/18) EMERGENCY DEPT VISIT (01/01/18) EMERGENCY DEPT VISIT (08/17/17) EMERGENCY DEPT VISIT (08/19/16) EMERGENCY DEPT VISIT (07/10/16) EMERGENCY DEPT VISIT (03/23/16) EMERGENCY DEPT VISIT (02/21/16) EMERGENCY DEPT VISIT (11/05/15) EMERGENCY DEPT VISIT (10/27/15) EMERGENCY DEPT VISIT (05/19/15) EMERGENCY DEPT VISIT (03/06/15) EMERGENCY DEPT VISIT (10/19/14) EMERGENCY DEPT VISIT (04/21/14) EMERGENCY DEPT VISIT (03/27/14) EVALUATE PT USE OF INHALER (02/09/15) EXTREMITY STUDY (07/06/18) FIBRIN DEGRADATION QUANT (07/06/18) GIARDIA AG IA (02/09/18) GLUCOSE BLOOD TEST (03/23/16) GLYCOSYLATED HEMOGLOBIN TEST (02/09/18) HELICOBACTER PYLORI ANTIBODY (05/22/16) HYDRATE IV INFUSION ADD-ON (07/06/18) IMMUNOASSAY TUMOR CA 125 (03/22/16) INFLUENZA ASSAY W/OPTIC (11/03/16) LEUKOCYTE ASSESSMENT FECAL (02/09/18) LIPID PANEL (02/09/18) PROTHROMBIN TIME (07/06/18) RBC SED RATE AUTOMATED (01/23/16) ROUTINE VENIPUNCTURE (07/06/18) STOOL CULTR AEROBIC BACT EA (02/09/18) TEST FOR ACETONE/KETONES (02/09/18) THER/PROPH/DIAG INJ IV PUSH (07/06/18) THER/PROPH/DIAG INJ SC/IM (11/03/16) THER/PROPH/DIAG IV INF INIT (02/09/18) THROMBOPLASTIN TIME PARTIAL (07/06/18) TISSUE EXAM BY PATHOLOGIST (06/26/16) TX/PRO/DX INJ NEW DRUG ADDON (02/09/18) TX/PRO/DX INJ SAME DRUG OUTFITTER CABIN (07/06/18) TX/PROPH/DG ADDL SEQ IV INF (02/09/18) URINALYSIS AUTO W/SCOPE (02/09/18) URINE CULTURE/COLONY COUNT (01/01/18) US COMPL JOINT R-T W/IMG (04/24/16) VANOMYCIN DNA AMP PROBE (05/23/16) WITHDRAWAL OF ARTERIAL BLOOD (02/09/18) X-RAY EXAM CHEST 1 VIEW (02/09/18) X-RAY EXAM CHEST 2 VIEWS (07/06/18) X-RAY EXAM NECK SPINE 2-3 VW (06/05/17) X-RAY EXAM OF ABDOMEN (07/08/16) X-RAY EXAM OF ABDOMEN (05/13/16) X-RAY EXAM OF ABDOMEN (12/17/13) X-RAY EXAM OF ANKLE (05/19/15) X-RAY EXAM OF FINGER(S) (11/19/17) Problem List Initiated/Reviewed/Updated: Yes My Orders Last 24 Hours: My Active Orders 11/22/18 15:33 Verify Patient Consent Obtain [RC] ASDIRECTED 11/22/18 15:35 Schedule Procedure [COMM] Routine 11/22/18 Dinner Nothing per Oral After Midnight Diet [DIET] Plan: surgical consult dictated ALICIA
[2018-11-22] MEDS: traZODone 50 MG Tab PO PRN (20:20)
[2018-11-22] MEDS: Magnesium Oxide 400 MG Tab PO SCH (20:20)
[2018-11-23] MEDS: Bumetanide 1 MG/4 ML MDV IVPUSH SCH ×2 (05:37→14:52)
[2018-11-23] MEDS: Levothyroxine 125 MCG Tab PO SCH (06:19)
--- NOTE | 2018-11-23 07:31 | PCM.PREANE ---
Preanesthetic Assessment - Anesthesia/Transfusion/Family Hx Anesthesia History: Prior Anesthesia Without Reaction Family History of Anesthesia Reaction: No Transfusion History: Prior Transfusion Without Reaction - Review of Systems General: Other (ETOH abuse, increased liver enzymes, resolved hypokalemia and hypomagnesemia) Pulmonary: No Symptoms Cardiovascular: Other (HTN,) Gastrointestinal: Abdominal Pain Neurological: No Symptoms, Difficulty Walking Other: Reports: Easy Bleeding, Easy Bruising, Diabetes, Liver Problems ( elevated liver enzymes, acute pancreatitis, ), Thyroid Problems (history of thyroid cancer and thyroid removed) - Physical Assessment NPO Status Date: 11/23/18 NPO Status Time: 00:00 Pulse: 79 O2 Sat by Pulse Oximetry: 94 Respiratory Rate: 16 Blood Pressure: 99/60 Temperature: 36.8 C Vital Signs: Last Vital Signs Temp 36.8 C 11/23/18 05:32 Pulse 79 11/23/18 05:32 Resp 16 11/23/18 05:32 BP 99/60 11/23/18 05:35 Pulse Ox 94 L 11/23/18 05:32 Height: 1.52 m Weight: 83.007 kg ASA Class: 3 Mental Status: Alert & Oriented x3 Airway Class: Mallampati = 2 Dentition: Reports: Normal Dentition Thyro-Mental Finger Breadths: 3 Mouth Opening Finger Breadths: 3 ROM/Head Extension: Full Lungs: Clear to Auscultation, Normal Respiratory Effort Cardiovascular: Regular Rate, Regular Rhythm - Lab Values: Laboratory Last Values WBC 10.09 K/mm3 (3.98-10.04) H 11/23/18 06:26 RBC 3.40 M/mm3 (3.98-5.22) L 11/23/18 06:26 Hgb 10.9 gm/L (11.2-15.7) L 11/23/18 06:26 Hct 33.7 % (34.1-44.9) L 11/23/18 06:26 MCV 99.1 fl (79.4-94.8) H 11/23/18 06:26 MCH 32.1 pg (25.6-32.2) 11/23/18 06:26 MCHC 32.3 g/dl (32.2-35.5) 11/23/18 06:26 RDW Std Deviation 70.6 fL (36.4-46.3) H 11/23/18 06:26 Plt Count 221 K/mm3 (182-369) 11/23/18 06:26 MPV 10.0 fl (9.4-12.3) 11/23/18 06:26 Neut % (Auto) 68.3 % (34.0-71.1) 11/23/18 06:26 Lymph % (Auto) 18.9 % (19.3-51.7) L 11/23/18 06:26 [place] % (Auto) 10.2 % (4.7-12.5) 11/23/18 06:26 Eos % (Auto) 1.8 (0.7-5.8) 11/23/18 06:26 Baso % (Auto) 0.4 % (0.1-1.2) 11/23/18 06:26 Neut # (Auto) 6.89 K/mm3 (1.56-6.13) H 11/23/18 06:26 Lymph # (Auto) 1.91 K/mm3 (1.18-3.74) 11/23/18 06:26 [place] # (Auto) 1.03 K/mm3 (0.24-0.36) H 11/23/18 06:26 Eos # (Auto) 0.18 K/mm3 (0.04-0.36) 11/23/18 06:26 Baso # (Auto) 0.04 K/mm3 (0.01-0.08) 11/23/18 06:26 Manual Slide Review Abnormal smear 11/17/18 11:50 PT 13.3 SECONDS (9.5-12.1) H 11/14/18 09:48 INR 1.23 11/14/18 09:48 APTT 32 SECONDS (24-31) H 11/14/18 20:40 Puncture Site Rt radial 11/14/18 16:10 ABG pH 7.40 (7.35-7.45) 11/14/18 16:10 ABG pCO2 42.1 mmHg (35.0-45.0) 11/14/18 16:10 ABG pO2 79.0 mmHg (80.0-100.0) L 11/14/18 16:10 ABG HCO3 25.5 meq/L (22.0-26.0) 11/14/18 16:10 ABG O2 Saturation 96.3 % (96.0-97.0) 11/14/18 16:10 ABG Base Excess 1.1 (-2-2.0) 11/14/18 16:10 Jese Test Positive 11/14/18 16:10 A-a Gradient 22 mmHg 11/14/18 16:10 O2 Delivery Device Nasal cannula 11/14/18 16:10 Oxygen Flow Rate 1.0 11/14/18 16:10 FiO2 24.00 % (21.00-100.00) 11/14/18 16:10 Sodium 137 mEq/L (136-145) 11/22/18 06:51 Potassium 4.5 mEq/L (3.5-5.1) 11/22/18 06:51 Chloride 104 mEq/L (98-107) 11/22/18 06:51 Carbon Dioxide 23 mEq/L (21-32) 11/22/18 06:51 Anion Gap 14.5 (5-15) 11/22/18 06:51 BUN 5 mg/dL (7-18) L 11/22/18 06:51 Creatinine 1.0 mg/dL (0.55-1.02) 11/22/18 06:51 Est Cr Clr Drug Dosing 51.57 mL/min 11/22/18 06:51 Estimated GFR (MDRD) > 60 mL/min (>60) 11/22/18 06:51 BUN/Creatinine Ratio 5.0 (14-18) L 11/22/18 06:51 Glucose 85 mg/dL (74-106) 11/22/18 06:51 Calcium 8.6 mg/dL (8.5-10.1) 11/22/18 06:51 Magnesium 1.6 mg/dl (1.8-2.4) L 11/21/18 05:36 Total Bilirubin 1.3 mg/dL (0.2-1.0) H 11/22/18 06:51 AST 123 U/L (15-37) H 11/22/18 06:51 ALT 300 U/L (14-59) H 11/22/18 06:51 Alkaline Phosphatase 128 U/L (46-116) H 11/22/18 06:51 C-Reactive Protein 3.1 mg/dL (<1.0) H* 11/22/18 06:51 Total Protein 7.0 g/dl (6.4-8.2) 11/22/18 06:51 Albumin 3.2 g/dl (3.4-5.0) L 11/22/18 06:51 Globulin 3.8 gm/dL 11/22/18 06:51 Albumin/Globulin Ratio 0.8 (1-2) L 11/22/18 06:51 Triglycerides 159 mg/dL (<150) H 11/14/18 20:40 Lipase 771 U/L (73-393) H 11/22/18 06:51 Free T4 0.40 ng/dL (0.76-1.46) L 11/17/18 11:50 TSH 3rd Generation 50.407 uIU/mL (0.358-3.74) H 11/14/18 09:48 Ethyl Alcohol 0.06 gm% (0.00) 11/14/18 09:48 - Allergies Allergies/Adverse Reactions: Allergies Allergy/AdvReac Type Severity Reaction Status Date / Time Penicillins Allergy Severe Airway Verified 11/14/18 14:46 Tightness Sulfa (Sulfonamide Allergy Airway Verified 11/14/18 14:46 Antibiotics) Tightness - Blood Product(s) Available: None - Anesthesia Plan Pre-Op Medication Ordered: None - Acknowledgements Anesthesia Type Planned: MAC Pt an Appropriate Candidate for the Planned Anesthesia: Yes Alternatives and Risks of Anesthesia Discussed w Pt/Guardian: Yes Pt/Guardian Understands and Agrees with Anesthesia Plan: Yes PreAnesthesia Questionnaire HEENT History: Reports: None Cardiovascular History: Reports: High Cholesterol, Hypertension Respiratory History: Reports: None Gastrointestinal History: Reports: GERD, Pancreatitis Other Gastrointestinal History: epigastric pain, adhesions Genitourinary History: Reports: Acute Renal Failure Other Genitourinary History: renal failure 10 yrs ago--was given chemo for thyroid CA. [employer] History: Reports: Other OB/BYN History: grav 4 para4, right ovarian cystecomy Musculoskeletal History: Reports: Arthritis, Back Pain, Chronic Other Musculoskeletal History: had bone infection to R) hand 4 yrs ago--states was hospitalized 3 months Neurological History: Reports: None Psychiatric History: Reports: Addiction Endocrine/Metabolic History: Reports: Hypothyroidism, Obesity/BMI 30+ Hematologic History: Reports: Anemia, Iron Deficiency Oncologic (Cancer) History: Reports: Thyroid Other Oncologic History: thyroid removed due to CA. Dermatologic History: Reports: None - Infectious Disease History Infectious Disease History: Reports: None - Past Surgical History GI Surgical History: Reports: Appendectomy, Cholecystectomy, Colonoscopy, EGD Female Surgical History: Reports: Hysterectomy, Other (See Below) Endocrine Surgical History: Reports: Thyroidectomy - SUBSTANCE USE Smoking Status *Q: Never Smoker Recreational Drug Use History: No - HOME MEDS Home Medications: Home Meds . [No Known Home Meds] 11/14/18 [History] - CURRENT (IN HOUSE) MEDS Current Meds: Current Medications Hydrocodone Bitart/Acetaminophen ([place] 325-5 Mg) 1 tab PO Q6H PRN PRN Reason: Pain Last Admin: 11/22/18 18:57 Dose: 1 tab Bumetanide (Bumex) 0.5 mg IVPUSH BIDDIURETIC [facility] Stop: 11/23/18 14:01 Last Admin: 11/23/18 05:37 Dose: 0.5 mg Dicyclomine HCl (Bentyl) 10 mg PO QIDACANDBED PRN PRN Reason: Abdominal Pain Last Admin: 11/22/18 18:04 Dose: 10 mg Fluoxetine HCl (Prozac) 20 mg PO DAILY [facility] Last Admin: 11/22/18 09:26 Dose: 20 mg Folic Acid (Folic Acid) 1 mg PO DAILY [facility] Last Admin: 11/22/18 09:26 Dose: 1 mg Hydralazine HCl (Apresoline) 20 mg IVPUSH Q4H PRN PRN Reason: Hypertension Hydromorphone HCl (Dilaudid) 0.5 mg IVPUSH Q6H PRN PRN Reason: Pain Levothyroxine Sodium (Levothyroxine) 125 mcg PO ACBREAKFAST [facility] Last Admin: 11/23/18 06:19 Dose: Not Given Magnesium Oxide (Magnesium Oxide) 400 mg PO BID [facility] Last Admin: 11/22/18 20:20 Dose: 400 mg Magnesium Sulfate (Pharmacy To Dose - Magnesium Replacement) 0 dose .XX ASDIRECTED PRN PRN Reason: RX TO WATCH MAG Metoprolol Tartrate (Lopressor) 5 mg IVPUSH Q4H PRN PRN Reason: Tachycardia Miscellaneous Information (Remove Patch) 1 ea TRDERM Q72H [facility] Last Admin: 11/22/18 09:25 Dose: Not Given Multivitamins (Thera) 1 each PO DAILY [facility] Last Admin: 11/22/18 09:26 Dose: 1 each Ondansetron HCl (Zofran) 4 mg IV Q4H PRN PRN Reason: Nausea/Vomiting Last Admin: 11/22/18 09:34 Dose: 4 mg Pantoprazole Sodium (Protonix) 40 mg PO BID [facility] Last Admin: 11/22/18 20:20 Dose: 40 mg Potassium Chloride (Pharmacy To Dose - Potassium Replacement) 0 dose .XX ASDIRECTED PRN PRN Reason: RX TO WATCH K Scopolamine (Transderm-Scop) 1.5 mg TRDERM Q72H PRN PRN Reason: Nausea Last Admin: 11/22/18 09:34 Dose: 1.5 mg Sodium Chloride (Saline Flush) 10 ml FLUSH ASDIRECTED PRN PRN Reason: Keep Vein Open Last Admin: 11/14/18 11:12 Dose: 10 ml Thiamine HCl (Vitamin B-1) 100 mg PO DAILY [facility] Last Admin: 11/22/18 09:26 Dose: 100 mg Trazodone HCl (Trazodone) 50 mg PO BEDTIME PRN PRN Reason: Sleep Last Admin: 11/22/18 20:20 Dose: 50 mg Discontinued Medications Caffeine (Caffeine) 200 mg PO BID@0700,1800 [facility] Stop: 11/20/18 07:01 Last Admin: 11/19/18 06:52 Dose: 200 mg Caffeine (Caffeine) 200 mg PO NOW STA Stop: 11/18/18 11:05 Last Admin: 11/18/18 12:10 Dose: 200 mg Furosemide (Lasix) 20 mg IVPUSH NOW ONE Stop: 11/18/18 10:49 Last Admin: 11/18/18 11:11 Dose: 20 mg Furosemide (Lasix) 40 mg PO BIDDIURETIC [facility] Stop: 11/21/18 06:01 Last Admin: 11/21/18 06:44 Dose: 40 mg Hydromorphone HCl (Dilaudid) 1 mg IVPUSH ONETIME ONE Stop: 11/14/18 09:36 Last Admin: 11/14/18 09:51 Dose: 1 mg Hydromorphone HCl (Dilaudid) 0.5 mg IVPUSH ONETIME ONE Stop: 11/14/18 11:54 Last Admin: 11/14/18 11:59 Dose: 0.5 mg Hydromorphone HCl (Dilaudid) 1 mg IVPUSH ONETIME ONE Stop: 11/14/18 15:10 Last Admin: 11/14/18 15:20 Dose: 1 mg Hydromorphone HCl (Dilaudid) 0.5 mg IVPUSH Q2H PRN PRN Reason: Pain (severe 7-10) Last Admin: 11/15/18 06:53 Dose: 0.5 mg Hydromorphone HCl (Dilaudid) 0.5 mg IVPUSH Q2H PRN PRN Reason: Pain (severe 7-10) Last Admin: 11/15/18 10:53 Dose: 0.5 mg Hydromorphone HCl (Dilaudid) 1 mg IVPUSH Q3H PRN PRN Reason: Pain Last Admin: 11/17/18 09:43 Dose: 1 mg Pantoprazole Sodium 80 mg/ (Sodium Chloride) 100 mls @ 100 mls/hr IV Q10H [facility] Last Admin: 11/14/18 09:52 Dose: 10 mls/hr Sodium Chloride (Normal Saline) 1,000 mls @ 1,000 mls/hr IV .BOLUS STA Stop: 11/14/18 10:31 Last Admin: 11/14/18 09:51 Dose: 1,000 mls/hr Potassium Chloride 10 meq/ (Premix) 100 mls @ 100 mls/hr IV ONETIME ONE Stop: 11/14/18 12:14 Last Admin: 11/14/18 11:11 Dose: 100 mls/hr Pantoprazole Sodium 80 mg/ (Sodium Chloride) 100 mls @ 10 mls/hr IV ONETIME ONE Stop: 11/14/18 22:05 Last Admin: 11/14/18 12:54 Dose: 10 mls/hr Potassium Chloride/Sodium Chloride (Normal Saline With 20 Meq Kcl) 1,000 mls @ 500 mls/hr IV ONETIME ONE Stop: 11/14/18 16:59 Last Admin: 11/14/18 14:55 Dose: 500 mls/hr Potassium Chloride 10 meq/ (Premix) 100 mls @ 100 mls/hr IV Q1H [facility] Stop: 11/14/18 19:29 Last Admin: 11/14/18 18:50 Dose: 100 mls/hr Thiamine HCl 100 mg/ Sodium (Chloride) 101 mls @ 202 mls/hr IV ONETIME ONE Stop: 11/14/18 17:01 Thiamine HCl 100 mg/ Sodium (Chloride) 101 mls @ 202 mls/hr IV DAILY ONE Stop: 11/14/18 17:44 Last Admin: 11/14/18 17:17 Dose: Not Given Dextrose/Lactated Ringer's (Dextrose 5%-Lactated Ringers) 1,000 mls @ 250 mls/ hr IV ASDIRECTED [facility] Last Admin: 11/15/18 07:25 Dose: 250 mls/hr Potassium Chloride 10 meq/ (Premix) 100 mls @ 100 mls/hr IV Q1H [facility] Stop: 11/15/18 01:29 Last Admin: 11/15/18 00:47 Dose: 100 mls/hr Magnesium Sulfate 4 gm/ Premix 50 mls @ 12.5 mls/hr IV ONETIME ONE Stop: 11/15/18 01:21 Last Admin: 11/14/18 21:50 Dose: 12.5 mls/hr Sodium Chloride (Normal Saline) 1,000 mls @ 999 mls/hr IV ONETIME ONE Stop: 11/14/18 22:32 Last Admin: 11/14/18 21:41 Dose: 999 mls/hr Pantoprazole Sodium 80 mg/ (Sodium Chloride) 100 mls @ 10 mls/hr IV Q10H [facility] Last Admin: 11/16/18 14:15 Dose: Not Given Potassium Chloride 10 meq/ (Premix) 100 mls @ 100 mls/hr IV Q1H [facility] Stop: 11/15/18 11:29 Last Admin: 11/15/18 11:13 Dose: 100 mls/hr Lactated Ringer's (Ringers, Lactated) 1,000 mls @ 250 mls/hr IV ASDIRECTED [facility] Last Admin: 11/15/18 14:00 Dose: 250 mls/hr Lactated Ringer's (Ringers, Lactated) 1,000 mls @ 150 mls/hr IV ASDIRECTED [facility] Last Admin: 11/17/18 18:34 Dose: 150 mls/hr Magnesium Sulfate 4 gm/ Premix 50 mls @ 12.5 mls/hr IV ONETIME ONE Stop: 11/15/18 20:16 Last Admin: 11/15/18 16:38 Dose: 12.5 mls/hr Potassium Chloride 10 meq/ (Premix) 100 mls @ 100 mls/hr IV Q1H [facility] Stop: 11/15/18 18:29 Last Admin: 11/15/18 18:20 Dose: 100 mls/hr Potassium Chloride 10 meq/ (Premix) 100 mls @ 100 mls/hr IV Q1H [facility] Stop: 11/17/18 20:59 Last Admin: 11/18/18 01:09 Dose: 100 mls/hr Magnesium Sulfate 2 gm/ Premix 50 mls @ 25 mls/hr IV ONETIME ONE Stop: 11/17/18 16:46 Last Admin: 11/17/18 17:13 Dose: 25 mls/hr Lactated Ringer's (Ringers, Lactated) 1,000 mls @ 30 mls/hr IV ASDIRECTED [facility] Last Admin: 11/18/18 02:15 Dose: 30 mls/hr Potassium Chloride 10 meq/ (Premix) 100 mls @ 100 mls/hr IV Q1H [facility] Stop: 11/18/18 14:29 Last Admin: 11/18/18 19:35 Dose: 75 mls/hr Magnesium Sulfate 4 gm/ Premix 50 mls @ 12.5 mls/hr IV ONETIME ONE Stop: 11/18/18 13:29 Last Admin: 11/18/18 12:25 Dose: 12.5 mls/hr Potassium Chloride 10 meq/ (Premix) 100 mls @ 100 mls/hr IV Q1H [facility] Stop: 11/19/18 15:59 Last Admin: 11/19/18 17:26 Dose: 100 mls/hr Sodium Chloride (Normal Saline) 1,000 mls @ 125 mls/hr IV ASDIRECTED [facility] Last Admin: 11/20/18 11:03 Dose: 125 mls/hr Sodium Chloride (Normal Saline) 1,000 mls @ 50 mls/hr IV ASDIRECTED [facility] Magnesium Sulfate 2 gm/ Premix 50 mls @ 25 mls/hr IV ONETIME ONE Stop: 11/20/18 11:29 Last Admin: 11/20/18 09:50 Dose: 25 mls/hr Magnesium Sulfate 4 gm/ Premix 50 mls @ 12.5 mls/hr IV ONETIME ONE Stop: 11/21/18 14:29 Last Admin: 11/21/18 10:49 Dose: 12.5 mls/hr Magnesium Oxide (Magnesium Oxide) 800 mg PO ONETIME ONE Stop: 11/19/18 10:01 Last Admin: 11/19/18 11:19 Dose: 800 mg Ondansetron HCl (Zofran) 4 mg IVPUSH ONETIME ONE Stop: 11/14/18 09:33 Last Admin: 11/14/18 09:51 Dose: 4 mg Oxycodone HCl (Oxycontin) 10 mg PO Q12HR [facility] Last Admin: 11/19/18 08:24 Dose: 10 mg Pantoprazole Sodium (Protonix Iv) 80 mg IVPUSH [facility]OL[facility] ONE Stop: 11/14/18 09:35 Last Admin: 11/14/18 09:52 Dose: Not Given Pantoprazole Sodium (Protonix Iv) 40 mg IV Q12H [facility] Last Admin: 11/17/18 09:43 Dose: 40 mg Potassium Chloride (Potassium Chloride) 10 meq IV ONETIME ONE Stop: 11/14/18 11:01 Last Admin: 11/14/18 11:12 Dose: Not Given Potassium Chloride (Klor-Con M20) 40 meq PO ONETIME ONE Stop: 11/19/18 10:01 Last Admin: 11/19/18 11:19 Dose: 40 meq Potassium Chloride (Klor-Con M20) 40 meq PO Q4H [facility] Stop: 11/20/18 17:16 Last Admin: 11/20/18 16:36 Dose: 40 meq Potassium Chloride (Klor-Con M20) 40 meq PO Q4H [facility] Stop: 11/21/18 18:31 Last Admin: 11/21/18 17:49 Dose: 40 meq Temazepam (Restoril) 15 mg PO ONETIME ONE Stop: 11/15/18 21:55 Last Admin: 11/15/18 22:02 Dose: 15 mg Temazepam (Restoril) 15 mg PO BEDTIME PRN PRN Reason: Sleep Last Admin: 11/16/18 21:12 Dose: 15 mg Trazodone HCl (Trazodone) 50 mg PO ONETIME ONE Stop: 11/20/18 02:03 Last Admin: 11/20/18 02:17 Dose: 50 mg
[2018-11-23] MEDS ORDERED: Propofol 200 MG/20 ML SDV ONE (07:38)
[2018-11-23] MEDS ORDERED: Midazolam 1 MG/ML 2 ML SDV ONE (07:38)
--- NOTE | 2018-11-23 07:53 | CONS ---
CONSULTING PHYSICIAN: Moreno Vazquez MD DATE OF CONSULTATION: 11/22/2018 HISTORY OF PRESENT ILLNESS: This is a 43-year-old female who I was asked to see because of persistent abdominal pain now and during her hospitalization. She was placed in the hospital on because of abdominal pain and vomiting blood. She had been known abuser of alcohol, but had been she states free of the drug until about 2 days prior to coming into the hospital when she took 2 shots of vodka and developed abdominal pain and back pain. She then took 2 shots of NyQuil to help this and it became worse, vomited blood, came into the ER and was admitted with a diagnosis of alcoholic induced pancreatitis. Patient has a history of drinking heavy and about 2 years ago had been in the hospital with pancreatitis. CT scan done at that time was unremarkable outside of enlarged liver. The patient was treated, but her lipase came down initially. Initially, the lipase was 1809, came down to 524 and then gradually increased to 771. She has had a history of cholecystectomy, appendectomy and hysterectomy. The patient describes the pain as constant, steady throughout the day. It seems to be worse when she is up and about. With efforts to feed her, she has vomited. She says that when she first came in, she had some black tarry stools. Hemoglobin has been stable throughout the hospitalization 9.6 and 9.9 and no report of transfusions. The patient does admit to having history of pancreatitis also due to alcohol. She is also noted to have elevated bilirubin as high as 4.8. In this hospitalization, it has slowly come down to 1.3. She states that she has been jaundiced for some time. The workup of this is not clear whether she is looked at whether she has hepatitis or has had a liver biopsy. Review of the records does not indicate this is the case. The patient also has had a low platelet count when she first came in to 77, now to 174. PAST MEDICAL HISTORY: The patient's past medical history in addition to what has been said there is that of acute renal failure, gastroesophageal reflux disease, chronic arthritis in the back, has had pregnancies in the past, hypothyroidism and history of total thyroidectomy for treatment of thyroid cancer about 10 years ago, iron deficiency anemia and of course history of appendectomy, cholecystectomy, hysterectomy and thyroidectomy. SOCIAL HISTORY: She does use recreational drugs, but does not smoke. Usually uses amphetamine, last reported about 2007. She was a former smoker. MEDICATIONS: Per medication reconciliation form. C-reactive protein has been high at 6.9. Liver enzymes have been quite high for a while when she first came in; 1000 AST and ALT about a 1000 and these values has come down to 123 and 300 respectively. REVIEW OF SYSTEMS: No chest pain, shortness of breath, cough, hoarseness, wheezing, fainting, weakness, numbness, or convulsions. She does have nausea and vomiting, inability eating, chronic abdominal pain as described above. She does have little swelling in the legs she states. MEDICATIONS: Per medication reconciliation form. PHYSICAL EXAMINATION: GENERAL: Reveals an alert, cooperative female in no acute distress at this time. VITAL SIGNS: Weight of 84 kg, BMI in the 30s, blood pressure 110/83, pulse 90, temperature 98.9. HEENT: Eyes show some jaundice. Ears unremarkable. NECK: Supple. Surgical scar in the neck. LUNGS: Breath sounds equal. No rales or rhonchi. HEART: Heart tones, regular rate. No S3, S4, jugular venous distention. ABDOMEN: Shows little distention over the abdomen with tenderness over the liver at the right upper quadrant and left upper quadrant and the epigastrium. Questionable enlarged liver and spleen. EXTREMITIES: Lower extremities unremarkable. No spider angiomata. There is slight edema in the legs. PSYCHIATRIC: Exam normal. SKIN: Warm and dry. No sensorineural deficit. ASSESSMENT: Abdominal pain, nausea, and vomiting. May be due to enlarged liver compressing on the stomach and/or gastritis. She does have elevated bilirubin and complete workup at present is not there. I suspect it is due to her liver disease. She does have smoldering pancreatitis, and whether her pain is due to that or some of abdominal problem is unclear. Lipase is elevated. RECOMMENDATION: Upper GI endoscopy. Discussed this with the patient, risks and complications. She understands and consents. MMLENY /[id number]
--- NOTE | 2018-11-23 08:45 | PCM.OPNOTE ---
- General Post-Op/Procedure Note Date of Surgery/Procedure: 11/23/18 Operative Procedure(s): EGD with bx Pre Op Diagnosis: nausea and vomiting and abdominal pain Post-Op Diagnosis: Same Anesthesia Technique: MAC Primary Surgeon: Moreno Vazquez EBL in mLs: 0 Complications: None Condition: Good Free Text/Narrative:: Intake & Output 11/22/18 11/23/18 11/23/18 23:59 07:59 15:59 Intake Total 970 300 Balance 970 300
--- NOTE | 2018-11-23 08:46 | PCM48HPAN ---
Post Anesthesia Note - EVALUATION WITHIN 48HRS OF ANESTHETIC Vital Signs in Normal Range: Yes Patient Participated in Evaluation: Yes Respiratory Function Stable: Yes Airway Patent: Yes Cardiovascular Function Stable: Yes Hydration Status Stable: Yes Pain Control Satisfactory: Yes Nausea and Vomiting Control Satisfactory: Yes Mental Status Recovered: Yes Pulse Rate: 94 SaO2: 95 Resp Rate: 16 Temperature: 36.6 C Blood Pressure: 85/54
[2018-11-23] MEDS: Pantoprazole 40 MG Tab.CR PO SCH ×2 (08:57→20:00)
[2018-11-23] MEDS: Multivitamins,Therapeutic Tab PO SCH (08:57)
[2018-11-23] MEDS: FLUoxetine 20 MG Cap PO SCH (08:57)
[2018-11-23] MEDS: Thiamine 100 MG Tab PO SCH (08:57)
[2018-11-23] MEDS: Magnesium Oxide 400 MG Tab PO SCH ×2 (08:57→20:00)
[2018-11-23] MEDS: Folic Acid 1 MG Tab PO SCH (08:57)
[2018-11-23] MEDS: Acetaminophen/HYDROcodone 325-5 MG Tab PO PRN (08:57)
[2018-11-23] MEDS: Sodium Chloride 0.9% 1,000 ML IV SCH (14:53)
[2018-11-23] MEDS: Ketorolac 30 MG/ML SDV IVPUSH PRN ×2 (14:53→21:15)
--- NOTE | 2018-11-23 14:57 | PCM.PN ---
- General Info Date of Service: 11/23/18 Admission Dx/Problem (Free Text): Admission Diagnosis/Problem Admission Diagnosis/Problem Hypokalemia Subjective Update: Follow Up Functional Status: Reports: Ambulating, Urinating. Denies: Pain Controlled, Tolerating Diet Pain Score: 7 - Review of Systems General: Denies: Fever, Chills HEENT: Reports: No Symptoms Pulmonary: Denies: Shortness of Breath, Wheezing Cardiovascular: Denies: Palpitations, Lightheadedness Gastrointestinal: Reports: Abdominal Pain, Decreased Appetite, Flatus, Nausea. Denies: Vomiting Genitourinary: Reports: No Symptoms Musculoskeletal: Reports: No Symptoms Skin: Reports: Bruising. Denies: Cyanosis, Jaundice, Mottled, Pallor, Diaphoresis Neurological: Denies: Confusion, Difficulty Walking, Weakness, Gait Disturbance Psychiatric: Denies: Depression, Anxiety, Agitation Systems Review Comment:: Patient EGD was unremarkable but still not able to tolerate regular meal. We are concern at this point with gastroparesis. She has no other complaints. She is afebrile with slightly elevated WBC level. - Patient Data Vitals - Most Recent: Last Vital Signs Temp 36.6 C 11/23/18 08:46 Pulse 79 11/23/18 09:31 Resp 16 11/23/18 08:46 BP 107/75 11/23/18 09:31 Pulse Ox 97 11/23/18 09:31 Weight - Most Recent: 83.007 kg I&O - Last 24 Hours: Intake & Output 11/22/18 11/23/18 11/23/18 22:59 06:59 14:59 Intake Total 970 300 Balance 970 300 Lab Results Last 24 Hours: Laboratory Results - last 24 hr 11/23/18 11/23/18 Range/Units 06:26 06:26 WBC 10.09 H (3.98-10.04) K/mm3 RBC 3.40 L (3.98-5.22) M/mm3 Hgb 10.9 L (11.2-15.7) gm/L Hct 33.7 L (34.1-44.9) % MCV 99.1 H (79.4-94.8) fl MCH 32.1 (25.6-32.2) pg MCHC 32.3 (32.2-35.5) g/dl RDW Std Deviation 70.6 H (36.4-46.3) fL Plt Count 221 (182-369) K/mm3 MPV 10.0 (9.4-12.3) fl Neut % (Auto) 68.3 (34.0-71.1) % Lymph % (Auto) 18.9 L (19.3-51.7) % [place] % (Auto) 10.2 (4.7-12.5) % Eos % (Auto) 1.8 (0.7-5.8) Baso % (Auto) 0.4 (0.1-1.2) % Neut # (Auto) 6.89 H (1.56-6.13) K/mm3 Lymph # (Auto) 1.91 (1.18-3.74) K/mm3 [place] # (Auto) 1.03 H (0.24-0.36) K/mm3 Eos # (Auto) 0.18 (0.04-0.36) K/mm3 Baso # (Auto) 0.04 (0.01-0.08) K/mm3 Sodium 136 (136-145) mEq/L Potassium 3.6 (3.5-5.1) mEq/L Chloride 100 (98-107) mEq/L Carbon Dioxide 25 (21-32) mEq/L Anion Gap 14.6 (5-15) BUN 8 (7-18) mg/dL Creatinine 1.1 H (0.55-1.02) mg/dL Est Cr Clr Drug Dosing 46.88 mL/min Estimated GFR (MDRD) 54 (>60) mL/min BUN/Creatinine Ratio 7.3 L (14-18) Glucose 82 (74-106) mg/dL Calcium 9.3 (8.5-10.1) mg/dL Magnesium 1.8 (1.8-2.4) mg/dl Total Bilirubin 1.5 H (0.2-1.0) mg/dL AST 125 H (15-37) U/L ALT 275 H (14-59) U/L Alkaline Phosphatase 139 H (46-116) U/L C-Reactive Protein 3.0 H* (<1.0) mg/dL Total Protein 7.8 (6.4-8.2) g/dl Albumin 3.6 (3.4-5.0) g/dl Globulin 4.2 gm/dL Albumin/Globulin Ratio 0.9 L (1-2) Lipase 734 H (73-393) U/L Med Orders - Current: Current Medications Hydrocodone Bitart/Acetaminophen ([place] 325-5 Mg) 1 tab PO Q6H PRN PRN Reason: Pain Last Admin: 11/23/18 08:57 Dose: 1 tab Dicyclomine HCl (Bentyl) 10 mg PO QIDACANDBED PRN PRN Reason: Abdominal Pain Last Admin: 11/22/18 18:04 Dose: 10 mg Fluoxetine HCl (Prozac) 20 mg PO DAILY [facility] Last Admin: 11/23/18 08:57 Dose: 20 mg Folic Acid (Folic Acid) 1 mg PO DAILY [facility] Last Admin: 11/23/18 08:57 Dose: 1 mg Hydralazine HCl (Apresoline) 20 mg IVPUSH Q4H PRN PRN Reason: Hypertension Hydromorphone HCl (Dilaudid) 0.5 mg IVPUSH Q6H PRN PRN Reason: Pain Sodium Chloride (Normal Saline) 1,000 mls @ 25 mls/hr IV ASDIRECTED [facility] Last Admin: 11/23/18 14:53 Dose: 25 mls/hr Ketorolac Tromethamine (Toradol) 30 mg IVPUSH Q6H PRN PRN Reason: Pain Last Admin: 11/23/18 14:53 Dose: 30 mg Levothyroxine Sodium (Levothyroxine) 125 mcg PO ACBREAKFAST [facility] Last Admin: 11/23/18 06:19 Dose: Not Given Magnesium Oxide (Magnesium Oxide) 400 mg PO BID [facility] Last Admin: 11/23/18 08:57 Dose: 400 mg Magnesium Sulfate (Pharmacy To Dose - Magnesium Replacement) 0 dose .XX ASDIRECTED PRN PRN Reason: RX TO WATCH MAG Metoprolol Tartrate (Lopressor) 5 mg IVPUSH Q4H PRN PRN Reason: Tachycardia Miscellaneous Information (Remove Patch) 1 ea TRDERM Q72H [facility] Last Admin: 11/22/18 09:25 Dose: Not Given Multivitamins (Thera) 1 each PO DAILY [facility] Last Admin: 11/23/18 08:57 Dose: 1 each Ondansetron HCl (Zofran) 4 mg IV Q4H PRN PRN Reason: Nausea/Vomiting Last Admin: 11/22/18 09:34 Dose: 4 mg Pantoprazole Sodium (Protonix) 40 mg PO BID [facility] Last Admin: 11/23/18 08:57 Dose: 40 mg Potassium Chloride (Pharmacy To Dose - Potassium Replacement) 0 dose .XX ASDIRECTED PRN PRN Reason: RX TO WATCH K Scopolamine (Transderm-Scop) 1.5 mg TRDERM Q72H PRN PRN Reason: Nausea Last Admin: 11/22/18 09:34 Dose: 1.5 mg Sodium Chloride (Saline Flush) 10 ml FLUSH ASDIRECTED PRN PRN Reason: Keep Vein Open Last Admin: 11/14/18 11:12 Dose: 10 ml Thiamine HCl (Vitamin B-1) 100 mg PO DAILY [facility] Last Admin: 11/23/18 08:57 Dose: 100 mg Trazodone HCl (Trazodone) 50 mg PO BEDTIME PRN PRN Reason: Sleep Last Admin: 11/22/18 20:20 Dose: 50 mg Discontinued Medications Bumetanide (Bumex) 0.5 mg IVPUSH BIDDIURETIC [facility] Stop: 11/23/18 14:01 Last Admin: 11/23/18 14:52 Dose: 0.5 mg Caffeine (Caffeine) 200 mg PO BID@0700,1800 [facility] Stop: 11/20/18 07:01 Last Admin: 11/19/18 06:52 Dose: 200 mg Caffeine (Caffeine) 200 mg PO NOW STA Stop: 11/18/18 11:05 Last Admin: 11/18/18 12:10 Dose: 200 mg Furosemide (Lasix) 20 mg IVPUSH NOW ONE Stop: 11/18/18 10:49 Last Admin: 11/18/18 11:11 Dose: 20 mg Furosemide (Lasix) 40 mg PO BIDDIURETIC [facility] Stop: 11/21/18 06:01 Last Admin: 11/21/18 06:44 Dose: 40 mg Hydromorphone HCl (Dilaudid) 1 mg IVPUSH ONETIME ONE Stop: 11/14/18 09:36 Last Admin: 11/14/18 09:51 Dose: 1 mg Hydromorphone HCl (Dilaudid) 0.5 mg IVPUSH ONETIME ONE Stop: 11/14/18 11:54 Last Admin: 11/14/18 11:59 Dose: 0.5 mg Hydromorphone HCl (Dilaudid) 1 mg IVPUSH ONETIME ONE Stop: 11/14/18 15:10 Last Admin: 11/14/18 15:20 Dose: 1 mg Hydromorphone HCl (Dilaudid) 0.5 mg IVPUSH Q2H PRN PRN Reason: Pain (severe 7-10) Last Admin: 11/15/18 06:53 Dose: 0.5 mg Hydromorphone HCl (Dilaudid) 0.5 mg IVPUSH Q2H PRN PRN Reason: Pain (severe 7-10) Last Admin: 11/15/18 10:53 Dose: 0.5 mg Hydromorphone HCl (Dilaudid) 1 mg IVPUSH Q3H PRN PRN Reason: Pain Last Admin: 11/17/18 09:43 Dose: 1 mg Pantoprazole Sodium 80 mg/ (Sodium Chloride) 100 mls @ 100 mls/hr IV Q10H [facility] Last Admin: 11/14/18 09:52 Dose: 10 mls/hr Sodium Chloride (Normal Saline) 1,000 mls @ 1,000 mls/hr IV .BOLUS STA Stop: 11/14/18 10:31 Last Admin: 11/14/18 09:51 Dose: 1,000 mls/hr Potassium Chloride 10 meq/ (Premix) 100 mls @ 100 mls/hr IV ONETIME ONE Stop: 11/14/18 12:14 Last Admin: 11/14/18 11:11 Dose: 100 mls/hr Pantoprazole Sodium 80 mg/ (Sodium Chloride) 100 mls @ 10 mls/hr IV ONETIME ONE Stop: 11/14/18 22:05 Last Admin: 11/14/18 12:54 Dose: 10 mls/hr Potassium Chloride/Sodium Chloride (Normal Saline With 20 Meq Kcl) 1,000 mls @ 500 mls/hr IV ONETIME ONE Stop: 11/14/18 16:59 Last Admin: 11/14/18 14:55 Dose: 500 mls/hr Potassium Chloride 10 meq/ (Premix) 100 mls @ 100 mls/hr IV Q1H [facility] Stop: 11/14/18 19:29 Last Admin: 11/14/18 18:50 Dose: 100 mls/hr Thiamine HCl 100 mg/ Sodium (Chloride) 101 mls @ 202 mls/hr IV ONETIME ONE Stop: 11/14/18 17:01 Thiamine HCl 100 mg/ Sodium (Chloride) 101 mls @ 202 mls/hr IV DAILY ONE Stop: 11/14/18 17:44 Last Admin: 11/14/18 17:17 Dose: Not Given Dextrose/Lactated Ringer's (Dextrose 5%-Lactated Ringers) 1,000 mls @ 250 mls/ hr IV ASDIRECTED [facility] Last Admin: 11/15/18 07:25 Dose: 250 mls/hr Potassium Chloride 10 meq/ (Premix) 100 mls @ 100 mls/hr IV Q1H [facility] Stop: 11/15/18 01:29 Last Admin: 11/15/18 00:47 Dose: 100 mls/hr Magnesium Sulfate 4 gm/ Premix 50 mls @ 12.5 mls/hr IV ONETIME ONE Stop: 11/15/18 01:21 Last Admin: 11/14/18 21:50 Dose: 12.5 mls/hr Sodium Chloride (Normal Saline) 1,000 mls @ 999 mls/hr IV ONETIME ONE Stop: 11/14/18 22:32 Last Admin: 11/14/18 21:41 Dose: 999 mls/hr Pantoprazole Sodium 80 mg/ (Sodium Chloride) 100 mls @ 10 mls/hr IV Q10H [facility] Last Admin: 11/16/18 14:15 Dose: Not Given Potassium Chloride 10 meq/ (Premix) 100 mls @ 100 mls/hr IV Q1H [facility] Stop: 11/15/18 11:29 Last Admin: 11/15/18 11:13 Dose: 100 mls/hr Lactated Ringer's (Ringers, Lactated) 1,000 mls @ 250 mls/hr IV ASDIRECTED [facility] Last Admin: 11/15/18 14:00 Dose: 250 mls/hr Lactated Ringer's (Ringers, Lactated) 1,000 mls @ 150 mls/hr IV ASDIRECTED [facility] Last Admin: 11/17/18 18:34 Dose: 150 mls/hr Magnesium Sulfate 4 gm/ Premix 50 mls @ 12.5 mls/hr IV ONETIME ONE Stop: 11/15/18 20:16 Last Admin: 11/15/18 16:38 Dose: 12.5 mls/hr Potassium Chloride 10 meq/ (Premix) 100 mls @ 100 mls/hr IV Q1H [facility] Stop: 11/15/18 18:29 Last Admin: 11/15/18 18:20 Dose: 100 mls/hr Potassium Chloride 10 meq/ (Premix) 100 mls @ 100 mls/hr IV Q1H [facility] Stop: 11/17/18 20:59 Last Admin: 11/18/18 01:09 Dose: 100 mls/hr Magnesium Sulfate 2 gm/ Premix 50 mls @ 25 mls/hr IV ONETIME ONE Stop: 11/17/18 16:46 Last Admin: 11/17/18 17:13 Dose: 25 mls/hr Lactated Ringer's (Ringers, Lactated) 1,000 mls @ 30 mls/hr IV ASDIRECTED [facility] Last Admin: 11/18/18 02:15 Dose: 30 mls/hr Potassium Chloride 10 meq/ (Premix) 100 mls @ 100 mls/hr IV Q1H [facility] Stop: 11/18/18 14:29 Last Admin: 11/18/18 19:35 Dose: 75 mls/hr Magnesium Sulfate 4 gm/ Premix 50 mls @ 12.5 mls/hr IV ONETIME ONE Stop: 11/18/18 13:29 Last Admin: 11/18/18 12:25 Dose: 12.5 mls/hr Potassium Chloride 10 meq/ (Premix) 100 mls @ 100 mls/hr IV Q1H [facility] Stop: 11/19/18 15:59 Last Admin: 11/19/18 17:26 Dose: 100 mls/hr Sodium Chloride (Normal Saline) 1,000 mls @ 125 mls/hr IV ASDIRECTED [facility] Last Admin: 11/20/18 11:03 Dose: 125 mls/hr Sodium Chloride (Normal Saline) 1,000 mls @ 50 mls/hr IV ASDIRECTED [facility] Magnesium Sulfate 2 gm/ Premix 50 mls @ 25 mls/hr IV ONETIME ONE Stop: 11/20/18 11:29 Last Admin: 11/20/18 09:50 Dose: 25 mls/hr Magnesium Sulfate 4 gm/ Premix 50 mls @ 12.5 mls/hr IV ONETIME ONE Stop: 11/21/18 14:29 Last Admin: 11/21/18 10:49 Dose: 12.5 mls/hr Magnesium Oxide (Magnesium Oxide) 800 mg PO ONETIME ONE Stop: 11/19/18 10:01 Last Admin: 11/19/18 11:19 Dose: 800 mg Midazolam HCl (Versed 1 Mg/Ml) Confirm Administered Dose 2 mg .ROUTE .STK-MED ONE Stop: 11/23/18 07:39 Ondansetron HCl (Zofran) 4 mg IVPUSH ONETIME ONE Stop: 11/14/18 09:33 Last Admin: 11/14/18 09:51 Dose: 4 mg Oxycodone HCl (Oxycontin) 10 mg PO Q12HR [facility] Last Admin: 11/19/18 08:24 Dose: 10 mg Pantoprazole Sodium (Protonix Iv) 80 mg IVPUSH BOLUS ONE Stop: 11/14/18 09:35 Last Admin: 11/14/18 09:52 Dose: Not Given Pantoprazole Sodium (Protonix Iv) 40 mg IV Q12H [facility] Last Admin: 11/17/18 09:43 Dose: 40 mg Potassium Chloride (Potassium Chloride) 10 meq IV ONETIME ONE Stop: 11/14/18 11:01 Last Admin: 11/14/18 11:12 Dose: Not Given Potassium Chloride (Klor-Con M20) 40 meq PO ONETIME ONE Stop: 11/19/18 10:01 Last Admin: 11/19/18 11:19 Dose: 40 meq Potassium Chloride (Klor-Con M20) 40 meq PO Q4H [facility] Stop: 11/20/18 17:16 Last Admin: 11/20/18 16:36 Dose: 40 meq Potassium Chloride (Klor-Con M20) 40 meq PO Q4H [facility] Stop: 11/21/18 18:31 Last Admin: 11/21/18 17:49 Dose: 40 meq Propofol (Diprivan 20 Ml) Confirm Administered Dose 200 mg .ROUTE .STK-MED ONE Stop: 11/23/18 07:39 Temazepam (Restoril) 15 mg PO ONETIME ONE Stop: 11/15/18 21:55 Last Admin: 11/15/18 22:02 Dose: 15 mg Temazepam (Restoril) 15 mg PO BEDTIME PRN PRN Reason: Sleep Last Admin: 11/16/18 21:12 Dose: 15 mg Trazodone HCl (Trazodone) 50 mg PO ONETIME ONE Stop: 11/20/18 02:03 Last Admin: 11/20/18 02:17 Dose: 50 mg - Exam General: Alert, Oriented, Cooperative, No Acute Distress, Other (Obese) HEENT: Pupils Equal, Pupils Reactive, EOMI, Mucous Membr. Moist/[place] Neck: Supple, Other (short and thick) Lungs: Clear to Auscultation, Normal Respiratory Effort Cardiovascular: Regular Rate, Regular Rhythm GI/Abdominal Exam: Normal Bowel Sounds, Soft, No Organomegaly, No Distention, No Abnormal Bruit, No Mass, Pelvis Stable, Tender (right upper tenderness). No : Guarding, Rigid, Rebound (Female) Exam: Deferred Back Exam: Normal Inspection, Decreased Range of Motion Extremities: Normal Inspection, Normal Range of Motion, Non-Tender, No Pedal Edema, Normal Capillary Refill Peripheral Pulses: 2+: Dorsalis Pedis (L), Dorsalis Pedis (R) Skin: Warm, Dry, Intact, Ecchymosis Neurological: No New Focal Deficit, Normal Gait Psy/Mental Status: Alert, Normal Affect, Normal Mood - Problem List Review Problem List Initiated/Reviewed/Updated: Yes - My Orders Last 24 Hours: My Active Orders 11/22/18 21:00 Magnesium Oxide 400 mg PO BID 11/23/18 14:38 Ketorolac [Toradol] 30 mg IVPUSH Q6H PRN 11/23/18 14:45 Sodium Chloride 0.9% [Normal Saline] 1,000 ml IV ASDIRECTED 11/23/18 Dinner NPO After Midnight [Nothing per Oral After Midnight Diet] [DIET] 11/24/18 05:11 CMP [COMPREHENSIVE METABOLIC PN,CMP] [CHEM] AM MG [MAGNESIUM] [CHEM] AM 11/24/18 12:00 Gastric Empty Study [NM] Routine 11/25/18 05:11 CMP [COMPREHENSIVE METABOLIC PN,CMP] [CHEM] AM MG [MAGNESIUM] [CHEM] AM - Plan Plan:: I/P: Acute Persistent Abdominal Pain with Food Intolerance - Has hx/o Cholecystectomy - DDx: Gastroparesis - PPI and Scopolamine Patch - Dr. Vazquez consult for further eval - S/p EGD with unremarkable findings - Gastric emptying study in AM - NPO midnight and avoid drugs that could affect motility study Pancreatitis, Unchanged -Reports abdominal pain -Longstanding history of ETOH abuse and chronic pancreatitis -Lipase 1089-->465-->426-->442-->524-->771-->7734 -Pain medications as ordered -IV fluids as ordered -CRP 6.9-->5.0-->4.2-->3.4-->3.1-->3.0 -No leukocytosis -PO status; keep at clear liquids -Maddi's criteria - 1 point at admission (incomplete) -Triglycerides 159 -Abdominal U/S -Ambulate QID -Dr. Vazquez consult for further evaluation Transaminitis/liver failure, Continue to improve -AST 3690-->1998-->1469-->791-->306-->210-->196-->146-->123-->125 -ALT 2033-->1503-->1256-->925-->549-->452-->435-->348-->300-->275 -Alk Phos 269-->218-->197-->185-->148-->146-->143-->130-->128-->139 -2/2 chronic ETOH use -IV fluids as ordered -Avoid hepatotoxic meds -PT 13.3; INR 1.23, APTT 32 -Monitor Hypothyroidism, Unchanged -Patient [id number]; likely contributory to her obesity -TSH 50.407 -T4 0.4 -Continue levothyroxine -Has been noted on several prior visits -Endocrinology follow-up outpatient Resolved: S/p Hypokalemia, continued -Supplemented -Pharmacy to monitor and supplement S/p ETOH abuse -Longstanding history of ETOH abuse -No UDS performed in ED -ETOH 0.06 in ED -Liver enzymes as above -Initially reported to ED provider that she stopped drinking then admitted to drinking heavily once confronted with lab results -Thiamine/Folic Acid/Multivitamin -CM/SW -Psychiatry consult -LAD consult -CIWA protocol -> discontinued S/p Hypomagnesemia, Persisted -Supplemented -Magnesium Oxide 400 mg po BID -Pharmacy to monitor and supplement Chronic: HLD HTN GERD epigastric pain adhesions renal failure thyroid cancer arthritis chronic back pain addiction hypothyroidism iron deficiency anemia obesity Plan: She remains clinically stable Other orders as indicated above Routine AM labs Clear liquid diet for now CM/SW for discharge planning Continue with routine ambulation Dr. Taylor kumar Code status: Full Code; PCP: Dr. Brower Hold discharge; pending gastric emptying study result
[2018-11-24] MEDS: Ketorolac 30 MG/ML SDV IVPUSH PRN ×2 (03:21→09:21)
[2018-11-24] MEDS: Levothyroxine 125 MCG Tab PO SCH (05:31)
--- NOTE | 2018-11-24 07:39 | OR ---
DATE OF OPERATION: 11/23/2018 SURGEON: Moreno Vazquez MD PREOPERATIVE DIAGNOSIS: Abdominal pain, nausea, and vomiting. POSTOPERATIVE DIAGNOSIS: Abdominal pain, nausea, and vomiting. OPERATION PERFORMED: Esophagogastroduodenoscopy with biopsy. FINDINGS: Undigested food particles in the stomach and duodenal bulb. No active ulcerations were noted and there was an absence of gastric motility. GE junction was obscured by food particles as was the hiatus, cardia, and fundus. Antrum did not show any, and duodenal bulb and pyloric channel did not show any active ulceration. The findings were consistent with gastroparesis. ANESTHESIA: Procedure done under IV sedation. DESCRIPTION OF PROCEDURE: The patient taken to the endoscopy room, placed in a supine position, connected to monitoring equipment, given IV sedation. The patient placed in left lateral position with bite block and video Olympus gastroscope placed in the posterior oropharynx under direct vision, threaded past the cricopharyngeus, down the esophagus, and into the stomach which was passed through undigested food particles to where the pylorus was situated. This was then advanced through the pylorus into the second portion of the duodenum. Second portion of the duodenum was free of any pathology as was the duodenal bulb, although there were some food particles which obscured all the detail of the duodenal bulb. Pyloric channel was unremarkable. Antrum did not show any acute pathology. Biopsies of the antrum were performed. J-maneuver showed undigested food particles obscuring the cardia and the fundus. Did not inflate the stomach for fear of aspiration. The scope was withdrawn to the GE junction which was not clearly visualized because of being obscured with food particles. It was noted that there was no gastric motility whatsoever. The rest of esophagus was viewed as the scope withdrawn and also lacked little motility. The patient tolerated the procedure, sent to recovery room in a stable condition, and specimen sent to pathology in a labeled container. ESTIMATED BLOOD LOSS: MMODAL /[id number]
--- NOTE | 2018-11-24 08:58 | PCM.PN ---
- General Info Date of Service: 11/24/18 Admission Dx/Problem (Free Text): Admission Diagnosis/Problem Admission Diagnosis/Problem Hypokalemia Subjective Update: Follow Up Functional Status: Reports: Ambulating, Urinating. Denies: Pain Controlled, New Symptoms - Review of Systems General: Denies: Fever, Chills HEENT: Reports: No Symptoms Pulmonary: Denies: Shortness of Breath Cardiovascular: Denies: Chest Pain, Dyspnea on Exertion, Lightheadedness Gastrointestinal: Reports: Abdominal Pain, Nausea. Denies: Vomiting Genitourinary: Denies: Dysuria Musculoskeletal: Denies: Neck Pain Skin: Reports: Bruising. Denies: Cyanosis, Mottled, Pallor, Diaphoresis Neurological: Denies: Confusion, Weakness, Gait Disturbance Psychiatric: Denies: Depression, Anxiety, Agitation, Hallucinations Systems Review Comment:: No overnight or acute issues. She still has abdominal pain with mild nausea. She has no other complaints. - Patient Data Vitals - Most Recent: Last Vital Signs Temp 36.8 C 11/24/18 07:37 Pulse 72 11/24/18 07:37 Resp 14 11/24/18 07:37 BP 105/76 11/24/18 07:37 Pulse Ox 95 11/24/18 07:37 Weight - Most Recent: 82.826 kg I&O - Last 24 Hours: Intake & Output 11/23/18 11/24/18 11/24/18 22:59 06:59 14:59 Intake Total 2019 900 Balance 2019 900 Lab Results Last 24 Hours: Laboratory Results - last 24 hr 11/24/18 Range/Units 06:35 Sodium 135 L (136-145) mEq/L Potassium 3.5 (3.5-5.1) mEq/L Chloride 100 (98-107) mEq/L Carbon Dioxide 24 (21-32) mEq/L Anion Gap 14.5 (5-15) BUN 10 (7-18) mg/dL Creatinine 1.0 (0.55-1.02) mg/dL Est Cr Clr Drug Dosing 51.57 mL/min Estimated GFR (MDRD) > 60 (>60) mL/min BUN/Creatinine Ratio 10.0 L (14-18) Glucose 80 (74-106) mg/dL Calcium 8.6 (8.5-10.1) mg/dL Magnesium 5.1 H (1.8-2.4) mg/dl Total Bilirubin 1.5 H (0.2-1.0) mg/dL AST 110 H (15-37) U/L ALT 213 H (14-59) U/L Alkaline Phosphatase 119 H (46-116) U/L Total Protein 7.3 (6.4-8.2) g/dl Albumin 3.3 L (3.4-5.0) g/dl Globulin 4.0 gm/dL Albumin/Globulin Ratio 0.8 L (1-2) Med Orders - Current: Current Medications Hydrocodone Bitart/Acetaminophen ([place] 325-5 Mg) 1 tab PO Q6H PRN PRN Reason: Pain Last Admin: 11/23/18 08:57 Dose: 1 tab Dicyclomine HCl (Bentyl) 10 mg PO QIDACANDBED PRN PRN Reason: Abdominal Pain Last Admin: 11/22/18 18:04 Dose: 10 mg Fluoxetine HCl (Prozac) 20 mg PO DAILY [facility] Last Admin: 11/23/18 08:57 Dose: 20 mg Folic Acid (Folic Acid) 1 mg PO DAILY [facility] Last Admin: 11/23/18 08:57 Dose: 1 mg Hydralazine HCl (Apresoline) 20 mg IVPUSH Q4H PRN PRN Reason: Hypertension Hydromorphone HCl (Dilaudid) 0.5 mg IVPUSH Q6H PRN PRN Reason: Pain Sodium Chloride (Normal Saline) 1,000 mls @ 25 mls/hr IV ASDIRECTED [facility] Last Admin: 11/23/18 14:53 Dose: 25 mls/hr Ketorolac Tromethamine (Toradol) 30 mg IVPUSH Q6H PRN PRN Reason: Pain Last Admin: 11/24/18 03:21 Dose: 30 mg Levothyroxine Sodium (Levothyroxine) 125 mcg PO ACBREAKFAST [facility] Last Admin: 11/24/18 05:31 Dose: Not Given Magnesium Oxide (Magnesium Oxide) 400 mg PO BID [facility] Last Admin: 11/23/18 20:00 Dose: 400 mg Magnesium Sulfate (Pharmacy To Dose - Magnesium Replacement) 0 dose .XX ASDIRECTED PRN PRN Reason: RX TO WATCH MAG Metoprolol Tartrate (Lopressor) 5 mg IVPUSH Q4H PRN PRN Reason: Tachycardia Miscellaneous Information (Remove Patch) 1 ea TRDERM Q72H [facility] Last Admin: 11/22/18 09:25 Dose: Not Given Multivitamins (Thera) 1 each PO DAILY [facility] Last Admin: 11/23/18 08:57 Dose: 1 each Ondansetron HCl (Zofran) 4 mg IV Q4H PRN PRN Reason: Nausea/Vomiting Last Admin: 11/22/18 09:34 Dose: 4 mg Pantoprazole Sodium (Protonix) 40 mg PO BID [facility] Last Admin: 11/23/18 20:00 Dose: 40 mg Potassium Chloride (Pharmacy To Dose - Potassium Replacement) 0 dose .XX ASDIRECTED PRN PRN Reason: RX TO WATCH K Scopolamine (Transderm-Scop) 1.5 mg TRDERM Q72H PRN PRN Reason: Nausea Last Admin: 11/22/18 09:34 Dose: 1.5 mg Sodium Chloride (Saline Flush) 10 ml FLUSH ASDIRECTED PRN PRN Reason: Keep Vein Open Last Admin: 11/14/18 11:12 Dose: 10 ml Thiamine HCl (Vitamin B-1) 100 mg PO DAILY [facility] Last Admin: 11/23/18 08:57 Dose: 100 mg Trazodone HCl (Trazodone) 50 mg PO BEDTIME PRN PRN Reason: Sleep Last Admin: 11/22/18 20:20 Dose: 50 mg Discontinued Medications Bumetanide (Bumex) 0.5 mg IVPUSH BIDDIURETIC [place] Stop: 11/23/18 14:01 Last Admin: 11/23/18 14:52 Dose: 0.5 mg Caffeine (Caffeine) 200 mg PO BID@0700,1800 [facility] Stop: 11/20/18 07:01 Last Admin: 11/19/18 06:52 Dose: 200 mg Caffeine (Caffeine) 200 mg PO NOW STA Stop: 11/18/18 11:05 Last Admin: 11/18/18 12:10 Dose: 200 mg Furosemide (Lasix) 20 mg IVPUSH NOW ONE Stop: 11/18/18 10:49 Last Admin: 11/18/18 11:11 Dose: 20 mg Furosemide (Lasix) 40 mg PO BIDDIURETIC [place] Stop: 11/21/18 06:01 Last Admin: 11/21/18 06:44 Dose: 40 mg Hydromorphone HCl (Dilaudid) 1 mg IVPUSH ONETIME ONE Stop: 11/14/18 09:36 Last Admin: 11/14/18 09:51 Dose: 1 mg Hydromorphone HCl (Dilaudid) 0.5 mg IVPUSH ONETIME ONE Stop: 11/14/18 11:54 Last Admin: 11/14/18 11:59 Dose: 0.5 mg Hydromorphone HCl (Dilaudid) 1 mg IVPUSH ONETIME ONE Stop: 11/14/18 15:10 Last Admin: 11/14/18 15:20 Dose: 1 mg Hydromorphone HCl (Dilaudid) 0.5 mg IVPUSH Q2H PRN PRN Reason: Pain (severe 7-10) Last Admin: 11/15/18 06:53 Dose: 0.5 mg Hydromorphone HCl (Dilaudid) 0.5 mg IVPUSH Q2H PRN PRN Reason: Pain (severe 7-10) Last Admin: 11/15/18 10:53 Dose: 0.5 mg Hydromorphone HCl (Dilaudid) 1 mg IVPUSH Q3H PRN PRN Reason: Pain Last Admin: 11/17/18 09:43 Dose: 1 mg Pantoprazole Sodium 80 mg/ (Sodium Chloride) 100 mls @ 100 mls/hr IV Q10H [facility] Last Admin: 11/14/18 09:52 Dose: 10 mls/hr Sodium Chloride (Normal Saline) 1,000 mls @ 1,000 mls/hr IV .BOLUS STA Stop: 11/14/18 10:31 Last Admin: 11/14/18 09:51 Dose: 1,000 mls/hr Potassium Chloride 10 meq/ (Premix) 100 mls @ 100 mls/hr IV ONETIME ONE Stop: 11/14/18 12:14 Last Admin: 11/14/18 11:11 Dose: 100 mls/hr Pantoprazole Sodium 80 mg/ (Sodium Chloride) 100 mls @ 10 mls/hr IV ONETIME ONE Stop: 11/14/18 22:05 Last Admin: 11/14/18 12:54 Dose: 10 mls/hr Potassium Chloride/Sodium Chloride (Normal Saline With 20 Meq Kcl) 1,000 mls @ 500 mls/hr IV ONETIME ONE Stop: 11/14/18 16:59 Last Admin: 11/14/18 14:55 Dose: 500 mls/hr Potassium Chloride 10 meq/ (Premix) 100 mls @ 100 mls/hr IV Q1H [facility] Stop: 11/14/18 19:29 Last Admin: 11/14/18 18:50 Dose: 100 mls/hr Thiamine HCl 100 mg/ Sodium (Chloride) 101 mls @ 202 mls/hr IV ONETIME ONE Stop: 11/14/18 17:01 Thiamine HCl 100 mg/ Sodium (Chloride) 101 mls @ 202 mls/hr IV DAILY ONE Stop: 11/14/18 17:44 Last Admin: 11/14/18 17:17 Dose: Not Given Dextrose/Lactated Ringer's (Dextrose 5%-Lactated Ringers) 1,000 mls @ 250 mls/ hr IV ASDIRECTED [facility] Last Admin: 11/15/18 07:25 Dose: 250 mls/hr Potassium Chloride 10 meq/ (Premix) 100 mls @ 100 mls/hr IV Q1H [facility] Stop: 11/15/18 01:29 Last Admin: 11/15/18 00:47 Dose: 100 mls/hr Magnesium Sulfate 4 gm/ Premix 50 mls @ 12.5 mls/hr IV ONETIME ONE Stop: 11/15/18 01:21 Last Admin: 11/14/18 21:50 Dose: 12.5 mls/hr Sodium Chloride (Normal Saline) 1,000 mls @ 999 mls/hr IV ONETIME ONE Stop: 11/14/18 22:32 Last Admin: 11/14/18 21:41 Dose: 999 mls/hr Pantoprazole Sodium 80 mg/ (Sodium Chloride) 100 mls @ 10 mls/hr IV Q10H [facility] Last Admin: 11/16/18 14:15 Dose: Not Given Potassium Chloride 10 meq/ (Premix) 100 mls @ 100 mls/hr IV Q1H [facility] Stop: 11/15/18 11:29 Last Admin: 11/15/18 11:13 Dose: 100 mls/hr Lactated Ringer's (Ringers, Lactated) 1,000 mls @ 250 mls/hr IV ASDIRECTED [facility] Last Admin: 11/15/18 14:00 Dose: 250 mls/hr Lactated Ringer's (Ringers, Lactated) 1,000 mls @ 150 mls/hr IV ASDIRECTED [facility] Last Admin: 11/17/18 18:34 Dose: 150 mls/hr Magnesium Sulfate 4 gm/ Premix 50 mls @ 12.5 mls/hr IV ONETIME ONE Stop: 11/15/18 20:16 Last Admin: 11/15/18 16:38 Dose: 12.5 mls/hr Potassium Chloride 10 meq/ (Premix) 100 mls @ 100 mls/hr IV Q1H [place] Stop: 11/15/18 18:29 Last Admin: 11/15/18 18:20 Dose: 100 mls/hr Potassium Chloride 10 meq/ (Premix) 100 mls @ 100 mls/hr IV Q1H [place] Stop: 11/17/18 20:59 Last Admin: 11/18/18 01:09 Dose: 100 mls/hr Magnesium Sulfate 2 gm/ Premix 50 mls @ 25 mls/hr IV ONETIME ONE Stop: 11/17/18 16:46 Last Admin: 11/17/18 17:13 Dose: 25 mls/hr Lactated Ringer's (Ringers, Lactated) 1,000 mls @ 30 mls/hr IV ASDIRECTED [facility] Last Admin: 11/18/18 02:15 Dose: 30 mls/hr Potassium Chloride 10 meq/ (Premix) 100 mls @ 100 mls/hr IV Q1H [place] Stop: 11/18/18 14:29 Last Admin: 11/18/18 19:35 Dose: 75 mls/hr Magnesium Sulfate 4 gm/ Premix 50 mls @ 12.5 mls/hr IV ONETIME ONE Stop: 11/18/18 13:29 Last Admin: 11/18/18 12:25 Dose: 12.5 mls/hr Potassium Chloride 10 meq/ (Premix) 100 mls @ 100 mls/hr IV Q1H [place] Stop: 11/19/18 15:59 Last Admin: 11/19/18 17:26 Dose: 100 mls/hr Sodium Chloride (Normal Saline) 1,000 mls @ 125 mls/hr IV ASDIRECTED [facility] Last Admin: 11/20/18 11:03 Dose: 125 mls/hr Sodium Chloride (Normal Saline) 1,000 mls @ 50 mls/hr IV ASDIRECTED [facility] Magnesium Sulfate 2 gm/ Premix 50 mls @ 25 mls/hr IV ONETIME ONE Stop: 11/20/18 11:29 Last Admin: 11/20/18 09:50 Dose: 25 mls/hr Magnesium Sulfate 4 gm/ Premix 50 mls @ 12.5 mls/hr IV ONETIME ONE Stop: 11/21/18 14:29 Last Admin: 11/21/18 10:49 Dose: 12.5 mls/hr Magnesium Oxide (Magnesium Oxide) 800 mg PO ONETIME ONE Stop: 11/19/18 10:01 Last Admin: 11/19/18 11:19 Dose: 800 mg Midazolam HCl (Versed 1 Mg/Ml) Confirm Administered Dose 2 mg .ROUTE .STK-MED ONE Stop: 11/23/18 07:39 Ondansetron HCl (Zofran) 4 mg IVPUSH ONETIME ONE Stop: 11/14/18 09:33 Last Admin: 11/14/18 09:51 Dose: 4 mg Oxycodone HCl (Oxycontin) 10 mg PO Q12HR [facility] Last Admin: 11/19/18 08:24 Dose: 10 mg Pantoprazole Sodium (Protonix Iv) 80 mg IVPUSH BOLUS ONE Stop: 11/14/18 09:35 Last Admin: 11/14/18 09:52 Dose: Not Given Pantoprazole Sodium (Protonix Iv) 40 mg IV Q12H [facility] Last Admin: 11/17/18 09:43 Dose: 40 mg Potassium Chloride (Potassium Chloride) 10 meq IV ONETIME ONE Stop: 11/14/18 11:01 Last Admin: 11/14/18 11:12 Dose: Not Given Potassium Chloride (Klor-Con M20) 40 meq PO ONETIME ONE Stop: 11/19/18 10:01 Last Admin: 11/19/18 11:19 Dose: 40 meq Potassium Chloride (Klor-Con M20) 40 meq PO Q4H [facility] Stop: 11/20/18 17:16 Last Admin: 11/20/18 16:36 Dose: 40 meq Potassium Chloride (Klor-Con M20) 40 meq PO Q4H [facility] Stop: 11/21/18 18:31 Last Admin: 11/21/18 17:49 Dose: 40 meq Propofol (Diprivan 20 Ml) Confirm Administered Dose 200 mg .ROUTE .STK-MED ONE Stop: 11/23/18 07:39 Temazepam (Restoril) 15 mg PO ONETIME ONE Stop: 11/15/18 21:55 Last Admin: 11/15/18 22:02 Dose: 15 mg Temazepam (Restoril) 15 mg PO BEDTIME PRN PRN Reason: Sleep Last Admin: 11/16/18 21:12 Dose: 15 mg Trazodone HCl (Trazodone) 50 mg PO ONETIME ONE Stop: 11/20/18 02:03 Last Admin: 11/20/18 02:17 Dose: 50 mg - Exam General: Alert, Oriented, Cooperative, No Acute Distress, Other (Obese) HEENT: Pupils Equal, Pupils Reactive, EOMI, Mucous Membr. Moist/[place] Neck: Supple, Other (short and thick) Lungs: Normal Respiratory Effort, Decreased Breath Sounds Cardiovascular: Regular Rate, Regular Rhythm GI/Abdominal Exam: Normal Bowel Sounds, Soft, Non-Tender, No Organomegaly, No Distention, No Abnormal Bruit, No Mass (Female) Exam: Deferred Back Exam: Normal Inspection, Decreased Range of Motion Extremities: Normal Inspection, Normal Range of Motion, Non-Tender, No Pedal Edema, Normal Capillary Refill Peripheral Pulses: 2+: Dorsalis Pedis (L), Dorsalis Pedis (R) Skin: Warm, Dry, Intact, Ecchymosis Neurological: No New Focal Deficit Psy/Mental Status: Alert, Normal Affect, Normal Mood - Problem List Review Problem List Initiated/Reviewed/Updated: Yes - My Orders Last 24 Hours: My Active Orders 11/23/18 14:38 Ketorolac [Toradol] 30 mg IVPUSH Q6H PRN 11/23/18 14:45 Sodium Chloride 0.9% [Normal Saline] 1,000 ml IV ASDIRECTED 11/23/18 Dinner NPO After Midnight [Nothing per Oral After Midnight Diet] [DIET] 11/24/18 12:00 Gastric Empty Study [NM] Routine 11/25/18 05:11 CMP [COMPREHENSIVE METABOLIC PN,CMP] [CHEM] AM MG [MAGNESIUM] [CHEM] AM - Plan Plan:: I/P: Acute Persistent Abdominal Pain with Food Intolerance - Unclear in etiology - Has hx/o Cholecystectomy - DDx: Gastroparesis - PPI and Scopolamine Patch - Dr. Vazquez consult for further eval - S/p EGD with unremarkable findings - Gastric emptying study: Upper limits of normal for slow gastric emptying. Emptying of 41%. Pancreatitis, Unchanged -Reports abdominal pain -Longstanding history of ETOH abuse and chronic pancreatitis -Lipase 1089-->465-->426-->442-->524-->771-->7734 -Pain medications as ordered -IV fluids as ordered -CRP 6.9-->5.0-->4.2-->3.4-->3.1-->3.0 -No leukocytosis -PO status; keep at clear liquids -Milan's criteria - 1 point at admission (incomplete) -Triglycerides 159 -Abdominal U/S -Ambulate QID -Dr. Vazquez consult for further evaluation Transaminitis/liver failure, Continue to improve -AST 3690-->1998-->1469-->791-->306-->210-->196-->146-->123-->125-->110 -ALT 2033-->1503-->1256-->925-->549-->452-->435-->348-->300-->275-->213 -Alk Phos 269-->218-->197-->185-->148-->146-->143-->130-->128-->139-->119 -2/2 chronic ETOH use -IV fluids as ordered -Avoid hepatotoxic meds -PT 13.3; INR 1.23, APTT 32 -Monitor Hypothyroidism, Unchanged -Patient [id number]; likely contributory to her obesity -TSH 50.407 -T4 0.4 -Continue levothyroxine -Has been noted on several prior visits -Endocrinology follow-up outpatient Resolved: S/p Hypokalemia, continued -Supplemented -Pharmacy to monitor and supplement S/p ETOH abuse -Longstanding history of ETOH abuse -No UDS performed in ED -ETOH 0.06 in ED -Liver enzymes as above -Initially reported to ED provider that she stopped drinking then admitted to drinking heavily once confronted with lab results -Thiamine/Folic Acid/Multivitamin -CM/SW -Psychiatry consult -LAD consult -CIWA protocol -> discontinued S/p Hypomagnesemia, Persisted -Supplemented -Magnesium Oxide 400 mg po BID -Pharmacy to monitor and supplement Chronic: HLD HTN GERD epigastric pain adhesions renal failure thyroid cancer arthritis chronic back pain addiction hypothyroidism iron deficiency anemia obesity Plan: She remains clinically stable Other orders as indicated above Routine AM labs May advance to soft diet CM/SW for discharge planning Continue with routine ambulation Dr. Vazquez following Recommend GI eval after discharge Code status: Full Code; PCP: Dr. Brower Abdominal CT scan in AM Discharge in AM Patient understood there is nothing else I could offer her here. She needs outpatient GI evaluation after discharge.
[2018-11-24] MEDS: Folic Acid 1 MG Tab PO SCH (09:08)
[2018-11-24] MEDS: Magnesium Oxide 400 MG Tab PO SCH ×2 (09:08→20:16)
[2018-11-24] MEDS: Thiamine 100 MG Tab PO SCH (09:09)
[2018-11-24] MEDS: FLUoxetine 20 MG Cap PO SCH (09:09)
[2018-11-24] MEDS: Multivitamins,Therapeutic Tab PO SCH (09:09)
[2018-11-24] MEDS: Pantoprazole 40 MG Tab.CR PO SCH ×2 (09:09→20:16)
[2018-11-24] MEDS ORDERED: Potassium Chloride 20 MEQ Tab.ER PO ONE (15:00)
--- NOTE | 2018-11-24 15:08 | NM ---
Gastric emptying study Technique: 1.0 mCi of technetium 99m sulfur colloid was scrambled in one egg with 4 ounces of water. Patient ingested the mixture and scintigraphic imaging obtained. Findings: Emptying of 41% noted at 123 minutes. This finding is at the upper limits of normal for slow gastric emptying. Impression: 1. Findings as noted above. Diagnostic code #2
[2018-11-24] MEDS: Acetaminophen/HYDROcodone 325-5 MG Tab PO PRN ×2 (15:30→21:37)
[2018-11-24] MEDS: Ondansetron 4 MG/2 ML SDV IV PRN (15:37)
[2018-11-24] MEDS: Sodium Chloride 0.9% 1,000 ML IV SCH (19:42)
[2018-11-24] MEDS: traZODone 50 MG Tab PO PRN (21:37)
[2018-11-25] MEDS: Levothyroxine 125 MCG Tab PO SCH (06:46)
[2018-11-25] MEDS ORDERED: Iopamidol 755 Mg/ML 200 ML Bottle IV ONE (09:29)
[2018-11-25] MEDS ORDERED: Diatrizoate Meglumine/Diatrizoate Sodium 37% 120 ML Bottle PO ONE (09:29)
[2018-11-25] MEDS ORDERED: Sodium Chloride 0.9% 10 ML Syringe FLUSH PRN (09:29)
[2018-11-25 09:35] VITALS: BP 138/91
[2018-11-25] MEDS: Thiamine 100 MG Tab PO SCH (10:34)
[2018-11-25] MEDS: Folic Acid 1 MG Tab PO SCH (10:34)
[2018-11-25] MEDS: Magnesium Oxide 400 MG Tab PO SCH (10:34)
[2018-11-25] MEDS: Acetaminophen/HYDROcodone 325-5 MG Tab PO PRN (10:34)
[2018-11-25] MEDS: Multivitamins,Therapeutic Tab PO SCH (10:34)
[2018-11-25] MEDS: FLUoxetine 20 MG Cap PO SCH (10:35)
[2018-11-25] MEDS: Pantoprazole 40 MG Tab.CR PO SCH (10:35)
--- NOTE | 2018-11-25 10:53 | CT ---
CT abdomen Technique: Multiple axial sections were obtained from above the dome of the diaphragm inferiorly to slightly below the iliac crests. Intravenous and oral contrast was utilized. Comparison: Previous right upper quadrant abdominal ultrasound of 11/22/[address] abdomen and pelvis study of 02/09/18. Findings: Small portion of the visualized lung bases show slight atelectasis Fatty infiltration is noted within the liver which does not appear as severe as on prior CT exam. No focal abnormality is seen within the liver. Spleen appears within normal limits. Surgical clips are seen from prior cholecystectomy. Adrenal glands show no nodule. Pancreas is within normal limits. No abnormal inflammatory change is seen around the pancreas. Aorta shows no aneurysm. No retroperitoneal adenopathy or mesenteric abnormalities are seen. Right and left kidneys show symmetric contrast enhancement with no hydronephrosis or mass. Inflammatory change is seen around the right colon with mild areas of bowel wall thickening. Findings most likely due to mild colitis. Bone window settings were reviewed which appear within normal limits for the patient's age. Impression: 1. Mild inflammatory change with areas of bowel wall thickening within the right colon most likely representing a mild nonspecific colitis. 2. Fatty infiltration seen within the liver which is not as severe as on prior CT exam. 3. Pancreas appears within normal limits. Other incidental findings as noted above. Diagnostic code #3
--- NOTE | 2018-11-25 13:30 | PCM.DCSUM1 ---
Discharge Summary - Hospital Course HPI Initial Comments: 43-year-old female, Who is a poor historian, presents to the emergency room with abdominal pain, nausea, vomiting, and red possibly bloody emesis. Patient states that 3 days ago she started vomiting, and then developed abdominal pain, then yesterday started hematemesis. She states that she was taking red; had initially thought it was the NyQuil. Patient does admit to 2 shots of liquor yesterday morning and NyQuil last night. She states that she went to a drug rehabilitation center a few months ago and has not drunk since then except to use shots. Her blood alcohol level this morning was 0.06. She has had a cough, congestion, and runny nose. She has had an appendectomy and cholecystectomy. She denies any chest pain or shortness of breath. No fever or chills. The emergency room she was given 1 L normal saline bolus, Zofran, Dilaudid, Protonix 80 mg IV push and then a drip was hung at 8 mg per hour. Hemoglobin was 10.8 which is down from 13.9 in June. She has also had a drop in her platelets to 77,000. Potassium was critically low at 2.2 and her eye and iron Was elevated at 19.2 lipase was 1089 and her TSH was 50. She states she has not been taking her medications. Patient received only 10 mEq of KCl IV in the ER. She did admit to drinking heavily for the emergency room physician, but not me. AST is 3690, ALT 2033, alkaline phosphatase 269, bilirubin of 4.8, INR is normal at 1.23 Diagnosis: Stroke: No Modified [place] Scale: No Symptoms at All Modified Carbon Scale Score: 0 - Discharge Data Discharge Date: 11/25/18 Discharge Disposition: Home, Self-Care 01 Condition: Good - Discharge Diagnosis/Problem(s) (1) Alcohol abuse SNOMED Code(s): 82106146 ICD Code: F10.10 - ALCOHOL ABUSE, UNCOMPLICATED Status: Acute (2) Hypomagnesemia SNOMED Code(s): 848095291 ICD Code: E83.42 - HYPOMAGNESEMIA Status: Acute (3) Hypokalemia SNOMED Code(s): 48154060 ICD Code: E87.6 - HYPOKALEMIA Status: Acute (4) Hypothyroidism SNOMED Code(s): 01732960 ICD Code: E03.9 - HYPOTHYROIDISM, UNSPECIFIED Status: Acute (5) Non-adherence to medical treatment SNOMED Code(s): 021231695 ICD Code: Z91.19 - PATIENT'S NONCOMPLIANCE W OTH MEDICAL TREATMENT AND REGIMEN Status: Acute (6) Pancreatitis, alcoholic, acute SNOMED Code(s): 871190248 ICD Code: K85.20 - ALCOHOL INDUCED ACUTE PANCREATITIS WITHOUT NECROSIS OR INFCT Status: Acute (7) Abdominal pain SNOMED Code(s): 84892449 ICD Code: R10.9 - UNSPECIFIED ABDOMINAL PAIN Status: Acute Qualifiers: Abdominal location: upper abdomen, unspecified Qualified Code(s): R10.10 - Upper abdominal pain, unspecified (8) Colitis SNOMED Code(s): 92304710 ICD Code: K52.9 - NONINFECTIVE GASTROENTERITIS AND COLITIS, UNSPECIFIED Status: Acute (9) Transaminitis SNOMED Code(s): 165103203, 663426264 ICD Code: R74.0 - NONSPEC ELEV OF LEVELS OF TRANSAMNS & LACTIC ACID DEHYDRGNSE Status: Acute (10) Fatty liver, alcoholic SNOMED Code(s): 51910577 ICD Code: K70.0 - ALCOHOLIC FATTY LIVER Status: Chronic - Patient Summary/Data Operative Procedure(s) Performed: EGD with bx Complications: None Consults: Consultations 11/14/18 15:35 Consult to Case Management/Gsa Coordinator [CONS] Routine 11/15/18 16:19 Consult for Substance Abuse [CONS] Routine 11/17/18 11:25 Consult to Physician [CONS] Routine 11/17/18 11:28 Consult to Occupational Therapy [OT Evaluation and Treatment] [CONS] Routine PT Evaluation and Treatment [CONS] Routine 11/18/18 17:10 Consult to Spiritual Care [CONS] Routine 11/22/18 11:02 Consult to Physician [CONS] Routine Labs Pending at D/C: None Recommended Follow-up Testing/Procedures: Repeat labs. GI referral and GS follow up Planned Operative Procedure(s) after DC: None Hospital Course: Patient was primarily admitted due to acute pancreatitis from alcohol abuse. She carried a hx/o alcohol abuse and medical non-compliance. She was prodived with intravenous fluids, bowel rest, pain and prn medications until his lipase improves. Her diet was also started - Patient Instructions Diet: Heart Healthy Diet, Usual Diet as Tolerated, Weight Loss Diet Activity: As Tolerated Driving: Do Not Drive Showering/Bathing: May Shower Notify Provider of: Fever, Increased Pain, Swelling and Redness, Nausea and/or Vomiting Other/Special Instructions: - Please take all new medications as directed. - Resume all home medications and routine home activities as tolerated. - Continue with low fat diet for 1 week. - Recommend outpatient GI eval for lingering abdominal pain. - Follow up with Dr. Vazquez or General Surgery in 2 weeks. - Recommend follow up CBC, CMP and Mg in 1 week through your PCP's office. - Absolutely avoid alcohol! - Call or follow up with your PCP for any questions or concerns after discharge. - Follow up with your PCP in 1 week with repeat labs. - If you experience mental health crisis call 911 and go to the nearest medical facility and seek help. - Come back or seek immediate care should your symptoms persist or get worse - Discharge Plan *PRESCRIPTION DRUG MONITORING PROGRAM REVIEWED*: Not Applicable *COPY OF PRESCRIPTION DRUG MONITORING REPORT IN PATIENT HELENA: Not Applicable Prescriptions/Med Rec: Acetaminophen/HYDROcodone [Westpoint 325-5 MG] 1 tab PO Q8H PRN #12 tablet PRN Reason: Pain Dicyclomine [Bentyl] 10 mg PO QIDACANDBED PRN #20 cap PRN Reason: Abdominal Pain FLUoxetine HCl [Prozac] 20 mg PO DAILY #30 capsule Levofloxacin [Levaquin] 500 mg PO DAILY #7 tablet Levothyroxine 125 mcg PO ACBREAKFAST #30 tablet Magnesium Oxide 400 mg PO BID #8 tablet metroNIDAZOLE [Flagyl] 500 mg PO Q8H #21 tab Ondansetron [Zofran ODT] 4 mg PO Q6H PRN #15 tab.dis PRN Reason: Nausea/Vomiting Saccharomyces Boulardii [Florastor] 250 mg PO TID #30 capsule Scopolamine [Transderm-Scop] 1.5 mg TRDERM Q72H PRN #3 patch PRN Reason: Nausea/Vomiting Sennosides/Docusate Sodium [Senokot-S Tablet] 1 each PO DAILY #10 tablet Home Medications: Home Meds Acetaminophen/HYDROcodone [Westpoint 325-5 MG] 1 tab PO Q8H PRN #12 tablet 11/25/18 [Rx] Dicyclomine [Bentyl] 10 mg PO QIDACANDBED PRN #20 cap 11/25/18 [Rx] FLUoxetine HCl [Prozac] 20 mg PO DAILY #30 capsule 11/25/18 [Rx] Levofloxacin [Levaquin] 500 mg PO DAILY #7 tablet 11/25/18 [Rx] Levothyroxine 125 mcg PO ACBREAKFAST #30 tablet 11/25/18 [Rx] Magnesium Oxide 400 mg PO BID #8 tablet 11/25/18 [Rx] Ondansetron [Zofran ODT] 4 mg PO Q6H PRN #15 tab.dis 11/25/18 [Rx] Saccharomyces Boulardii [Florastor] 250 mg PO TID #30 capsule 11/25/18 [Rx] Scopolamine [Transderm-Scop] 1.5 mg TRDERM Q72H PRN #3 patch 11/25/18 [Rx] Sennosides/Docusate Sodium [Senokot-S Tablet] 1 each PO DAILY #10 tablet [Rx] metroNIDAZOLE [Flagyl] 500 mg PO Q8H #21 tab 11/25/18 [Rx] Oxygen Therapy Mode: Room Air Patient Handouts: Alcoholic Liver Disease, [id number], What You Need to Know About Alcohol Abuse and Dependence, Adult, Acute Pancreatitis, [id number], Hypomagnesemia, Hypokalemia, Hypothyroidism, Nausea and Vomiting, Adult, Easy-to -Read, Colitis, Fatty Liver, Obesity, Adult, [id number] Referrals: Enrique Brower Jr, MD [Primary Care Provider] - 12/01/18 2:30 pm (Please follow- up with your primary care provider, Dr. Enrique Brower, on FridayDecember 01 at 2: 30pm. ) - Discharge Summary/Plan Comment DC Time >30 min.: Yes (45 mins) Discharge Summary/Plan Comment: Discharge to Home - General Info Date of Service: 11/25/18 Admission Dx/Problem (Free Text: Admission Diagnosis/Problem Admission Diagnosis/Problem Hypokalemia Subjective Update: Follow Up Functional Status: Reports: Pain Controlled, Tolerating Diet, Ambulating, Urinating, Incentive Spirometry. Denies: New Symptoms - Review of Systems General: Denies: Fever, Weakness, Night Sweats HEENT: Reports: No Symptoms Pulmonary: Denies: Shortness of Breath Cardiovascular: Denies: Chest Pain Gastrointestinal: Reports: Abdominal Pain, Flatus. Denies: Diarrhea, Nausea, Vomiting Genitourinary: Reports: No Symptoms Musculoskeletal: Reports: No Symptoms Skin: Reports: Bruising. Denies: Cyanosis, Jaundice, Mottled, Diaphoresis Neurological: Denies: Confusion, Difficulty Walking, Weakness Psychiatric: Denies: Depression, Mood Lability, Anxiety, Agitation, Cravings, Hallucinations, Suicidal Ideation, Homicidal Ideation Systems Review Comment: No significant overnight or acute issues. Her pain is controlled but still has lingering abdominal but tolerating soft diet. She has no other complaints. Her lipase is is now down to 492 this AM. - Patient Data Vitals - Most Recent: Last Vital Signs Temp 36.6 C 11/25/18 09:28 Pulse 87 11/25/18 09:28 Resp 16 11/25/18 09:28 BP 138/91 H 11/25/18 09:28 Pulse Ox 97 11/25/18 09:28 Weight - Most Recent: 83.121 kg I&O - Last 24 hours: Intake & Output 11/24/18 11/25/18 11/25/18 22:59 06:59 14:59 Intake Total 1128 1033 Balance 1128 1033 Lab Results - Last 24 hrs: Laboratory Results - last 24 hr 11/25/18 11/25/18 Range/Units 06:36 06:36 WBC 7.23 (3.98-10.04) K/mm3 RBC 3.08 L (3.98-5.22) M/mm3 Hgb 9.8 L (11.2-15.7) gm/L Hct 30.7 L (34.1-44.9) % MCV 99.7 H (79.4-94.8) fl MCH 31.8 (25.6-32.2) pg MCHC 31.9 L (32.2-35.5) g/dl RDW Std Deviation 68.2 H (36.4-46.3) fL Plt Count 218 (182-369) K/mm3 MPV 9.9 (9.4-12.3) fl Neut % (Auto) 67.9 (34.0-71.1) % Lymph % (Auto) 18.8 L (19.3-51.7) % [place] % (Auto) 11.1 (4.7-12.5) % Eos % (Auto) 1.5 (0.7-5.8) Baso % (Auto) 0.4 (0.1-1.2) % Neut # (Auto) 4.91 (1.56-6.13) K/mm3 Lymph # (Auto) 1.36 (1.18-3.74) K/mm3 [place] # (Auto) 0.80 H (0.24-0.36) K/mm3 Eos # (Auto) 0.11 (0.04-0.36) K/mm3 Baso # (Auto) 0.03 (0.01-0.08) K/mm3 Sodium 137 (136-145) mEq/L Potassium 4.0 (3.5-5.1) mEq/L Chloride 104 (98-107) mEq/L Carbon Dioxide 24 (21-32) mEq/L Anion Gap 13.0 (5-15) BUN 10 (7-18) mg/dL Creatinine 0.9 (0.55-1.02) mg/dL Est Cr Clr Drug Dosing 57.30 mL/min Estimated GFR (MDRD) > 60 (>60) mL/min BUN/Creatinine Ratio 11.1 L (14-18) Glucose 76 (74-106) mg/dL Calcium 8.6 (8.5-10.1) mg/dL Magnesium 2.0 (1.8-2.4) mg/dl Total Bilirubin 1.3 H (0.2-1.0) mg/dL AST 102 H (15-37) U/L ALT 172 H (14-59) U/L Alkaline Phosphatase 115 (46-116) U/L Total Protein 7.2 (6.4-8.2) g/dl Albumin 3.2 L (3.4-5.0) g/dl Globulin 4.0 gm/dL Albumin/Globulin Ratio 0.8 L (1-2) Lipase 493 H (73-393) U/L Med Orders - Current: Current Medications Hydrocodone Bitart/Acetaminophen (Westpoint 325-5 Mg) 1 tab PO Q6H PRN PRN Reason: Pain Last Admin: 11/25/18 10:34 Dose: 1 tab Dicyclomine HCl (Bentyl) 10 mg PO QIDACANDBED PRN PRN Reason: Abdominal Pain Last Admin: 11/22/18 18:04 Dose: 10 mg Fluoxetine HCl (Prozac) 20 mg PO DAILY [facility] Last Admin: 11/25/18 10:35 Dose: 20 mg Folic Acid (Folic Acid) 1 mg PO DAILY [facility] Last Admin: 11/25/18 10:34 Dose: 1 mg Hydralazine HCl (Apresoline) 20 mg IVPUSH Q4H PRN PRN Reason: Hypertension Hydromorphone HCl (Dilaudid) 0.5 mg IVPUSH Q6H PRN PRN Reason: Pain Sodium Chloride (Normal Saline) 1,000 mls @ 25 mls/hr IV ASDIRECTED [facility] Last Admin: 11/24/18 19:42 Dose: 25 mls/hr Ketorolac Tromethamine (Toradol) 30 mg IVPUSH Q6H PRN PRN Reason: Pain Last Admin: 11/24/18 09:21 Dose: 30 mg Levothyroxine Sodium (Levothyroxine) 125 mcg PO ACBREAKFAST [facility] Last Admin: 11/25/18 06:46 Dose: Not Given Magnesium Oxide (Magnesium Oxide) 400 mg PO BID [facility] Last Admin: 11/25/18 10:34 Dose: 400 mg Magnesium Sulfate (Pharmacy To Dose - Magnesium Replacement) 0 dose .XX ASDIRECTED PRN PRN Reason: RX TO WATCH MAG Metoprolol Tartrate (Lopressor) 5 mg IVPUSH Q4H PRN PRN Reason: Tachycardia Miscellaneous Information (Remove Patch) 1 ea TRDERM Q72H [facility] Last Admin: 11/22/18 09:25 Dose: Not Given Multivitamins (Thera) 1 each PO DAILY [facility] Last Admin: 11/25/18 10:34 Dose: 1 each Ondansetron HCl (Zofran) 4 mg IV Q4H PRN PRN Reason: Nausea/Vomiting Last Admin: 11/24/18 15:37 Dose: 4 mg Pantoprazole Sodium (Protonix) 40 mg PO BID [facility] Last Admin: 11/25/18 10:35 Dose: 40 mg Potassium Chloride (Pharmacy To Dose - Potassium Replacement) 0 dose .XX ASDIRECTED PRN PRN Reason: RX TO WATCH K Scopolamine (Transderm-Scop) 1.5 mg TRDERM Q72H PRN PRN Reason: Nausea Last Admin: 11/22/18 09:34 Dose: 1.5 mg Sodium Chloride (Saline Flush) 10 ml FLUSH ASDIRECTED PRN PRN Reason: Keep Vein Open Last Admin: 11/14/18 11:12 Dose: 10 ml Thiamine HCl (Vitamin B-1) 100 mg PO DAILY [place] Last Admin: 11/25/18 10:34 Dose: 100 mg Trazodone HCl (Trazodone) 50 mg PO BEDTIME PRN PRN Reason: Sleep Last Admin: 11/24/18 21:37 Dose: 50 mg Discontinued Medications Bumetanide (Bumex) 0.5 mg IVPUSH BIDDIURETIC [place] Stop: 11/23/18 14:01 Last Admin: 11/23/18 14:52 Dose: 0.5 mg Caffeine (Caffeine) 200 mg PO BID@0700,1800 [place] Stop: 11/20/18 07:01 Last Admin: 11/19/18 06:52 Dose: 200 mg Caffeine (Caffeine) 200 mg PO NOW STA Stop: 11/18/18 11:05 Last Admin: 11/18/18 12:10 Dose: 200 mg Diatrizoate Meglum/Diatrizoate Sod (Gastrografin 37%) 120 ml PO ONETIME ONE Stop: 11/25/18 09:30 Last Admin: 11/25/18 10:20 Dose: 30 ml Furosemide (Lasix) 20 mg IVPUSH NOW ONE Stop: 11/18/18 10:49 Last Admin: 11/18/18 11:11 Dose: 20 mg Furosemide (Lasix) 40 mg PO BIDDIURETIC [place] Stop: 11/21/18 06:01 Last Admin: 11/21/18 06:44 Dose: 40 mg Hydromorphone HCl (Dilaudid) 1 mg IVPUSH ONETIME ONE Stop: 11/14/18 09:36 Last Admin: 11/14/18 09:51 Dose: 1 mg Hydromorphone HCl (Dilaudid) 0.5 mg IVPUSH ONETIME ONE Stop: 11/14/18 11:54 Last Admin: 11/14/18 11:59 Dose: 0.5 mg Hydromorphone HCl (Dilaudid) 1 mg IVPUSH ONETIME ONE Stop: 11/14/18 15:10 Last Admin: 11/14/18 15:20 Dose: 1 mg Hydromorphone HCl (Dilaudid) 0.5 mg IVPUSH Q2H PRN PRN Reason: Pain (severe 7-10) Last Admin: 11/15/18 06:53 Dose: 0.5 mg Hydromorphone HCl (Dilaudid) 0.5 mg IVPUSH Q2H PRN PRN Reason: Pain (severe 7-10) Last Admin: 11/15/18 10:53 Dose: 0.5 mg Hydromorphone HCl (Dilaudid) 1 mg IVPUSH Q3H PRN PRN Reason: Pain Last Admin: 11/17/18 09:43 Dose: 1 mg Pantoprazole Sodium 80 mg/ (Sodium Chloride) 100 mls @ 100 mls/hr IV Q10H [place] Last Admin: 11/14/18 09:52 Dose: 10 mls/hr Sodium Chloride (Normal Saline) 1,000 mls @ 1,000 mls/hr IV .BOLUS STA Stop: 11/14/18 10:31 Last Admin: 11/14/18 09:51 Dose: 1,000 mls/hr Potassium Chloride 10 meq/ (Premix) 100 mls @ 100 mls/hr IV ONETIME ONE Stop: 11/14/18 12:14 Last Admin: 11/14/18 11:11 Dose: 100 mls/hr Pantoprazole Sodium 80 mg/ (Sodium Chloride) 100 mls @ 10 mls/hr IV ONETIME ONE Stop: 11/14/18 22:05 Last Admin: 11/14/18 12:54 Dose: 10 mls/hr Potassium Chloride/Sodium Chloride (Normal Saline With 20 Meq Kcl) 1,000 mls @ 500 mls/hr IV ONETIME ONE Stop: 11/14/18 16:59 Last Admin: 11/14/18 14:55 Dose: 500 mls/hr Potassium Chloride 10 meq/ (Premix) 100 mls @ 100 mls/hr IV Q1H [place] Stop: 11/14/18 19:29 Last Admin: 11/14/18 18:50 Dose: 100 mls/hr Thiamine HCl 100 mg/ Sodium (Chloride) 101 mls @ 202 mls/hr IV ONETIME ONE Stop: 11/14/18 17:01 Thiamine HCl 100 mg/ Sodium (Chloride) 101 mls @ 202 mls/hr IV DAILY ONE Stop: 11/14/18 17:44 Last Admin: 11/14/18 17:17 Dose: Not Given Dextrose/Lactated Ringer's (Dextrose 5%-Lactated Ringers) 1,000 mls @ 250 mls/ hr IV ASDIRECTED [facility] Last Admin: 11/15/18 07:25 Dose: 250 mls/hr Potassium Chloride 10 meq/ (Premix) 100 mls @ 100 mls/hr IV Q1H [place] Stop: 11/15/18 01:29 Last Admin: 11/15/18 00:47 Dose: 100 mls/hr Magnesium Sulfate 4 gm/ Premix 50 mls @ 12.5 mls/hr IV ONETIME ONE Stop: 11/15/18 01:21 Last Admin: 11/14/18 21:50 Dose: 12.5 mls/hr Sodium Chloride (Normal Saline) 1,000 mls @ 999 mls/hr IV ONETIME ONE Stop: 11/14/18 22:32 Last Admin: 11/14/18 21:41 Dose: 999 mls/hr Pantoprazole Sodium 80 mg/ (Sodium Chloride) 100 mls @ 10 mls/hr IV Q10H [facility] Last Admin: 11/16/18 14:15 Dose: Not Given Potassium Chloride 10 meq/ (Premix) 100 mls @ 100 mls/hr IV Q1H [facility] Stop: 11/15/18 11:29 Last Admin: 11/15/18 11:13 Dose: 100 mls/hr Lactated Ringer's (Ringers, Lactated) 1,000 mls @ 250 mls/hr IV ASDIRECTED [facility] Last Admin: 11/15/18 14:00 Dose: 250 mls/hr Lactated Ringer's (Ringers, Lactated) 1,000 mls @ 150 mls/hr IV ASDIRECTED [facility] Last Admin: 11/17/18 18:34 Dose: 150 mls/hr Magnesium Sulfate 4 gm/ Premix 50 mls @ 12.5 mls/hr IV ONETIME ONE Stop: 11/15/18 20:16 Last Admin: 11/15/18 16:38 Dose: 12.5 mls/hr Potassium Chloride 10 meq/ (Premix) 100 mls @ 100 mls/hr IV Q1H [facility] Stop: 11/15/18 18:29 Last Admin: 11/15/18 18:20 Dose: 100 mls/hr Potassium Chloride 10 meq/ (Premix) 100 mls @ 100 mls/hr IV Q1H [facility] Stop: 11/17/18 20:59 Last Admin: 11/18/18 01:09 Dose: 100 mls/hr Magnesium Sulfate 2 gm/ Premix 50 mls @ 25 mls/hr IV ONETIME ONE Stop: 11/17/18 16:46 Last Admin: 11/17/18 17:13 Dose: 25 mls/hr Lactated Ringer's (Ringers, Lactated) 1,000 mls @ 30 mls/hr IV ASDIRECTED [facility] Last Admin: 11/18/18 02:15 Dose: 30 mls/hr Potassium Chloride 10 meq/ (Premix) 100 mls @ 100 mls/hr IV Q1H [facility] Stop: 11/18/18 14:29 Last Admin: 11/18/18 19:35 Dose: 75 mls/hr Magnesium Sulfate 4 gm/ Premix 50 mls @ 12.5 mls/hr IV ONETIME ONE Stop: 11/18/18 13:29 Last Admin: 11/18/18 12:25 Dose: 12.5 mls/hr Potassium Chloride 10 meq/ (Premix) 100 mls @ 100 mls/hr IV Q1H [facility] Stop: 11/19/18 15:59 Last Admin: 11/19/18 17:26 Dose: 100 mls/hr Sodium Chloride (Normal Saline) 1,000 mls @ 125 mls/hr IV ASDIRECTED [facility] Last Admin: 11/20/18 11:03 Dose: 125 mls/hr Sodium Chloride (Normal Saline) 1,000 mls @ 50 mls/hr IV ASDIRECTED [facility] Magnesium Sulfate 2 gm/ Premix 50 mls @ 25 mls/hr IV ONETIME ONE Stop: 11/20/18 11:29 Last Admin: 11/20/18 09:50 Dose: 25 mls/hr Magnesium Sulfate 4 gm/ Premix 50 mls @ 12.5 mls/hr IV ONETIME ONE Stop: 11/21/18 14:29 Last Admin: 11/21/18 10:49 Dose: 12.5 mls/hr Iopamidol (Isovue-370 (76%)) 200 ml IV ONETIME ONE Stop: 11/25/18 09:30 Last Admin: 11/25/18 10:21 Dose: 100 ml Magnesium Oxide (Magnesium Oxide) 800 mg PO ONETIME ONE Stop: 11/19/18 10:01 Last Admin: 11/19/18 11:19 Dose: 800 mg Midazolam HCl (Versed 1 Mg/Ml) Confirm Administered Dose 2 mg .ROUTE .STK-MED ONE Stop: 11/23/18 07:39 Ondansetron HCl (Zofran) 4 mg IVPUSH ONETIME ONE Stop: 11/14/18 09:33 Last Admin: 11/14/18 09:51 Dose: 4 mg Oxycodone HCl (Oxycontin) 10 mg PO Q12HR [place] Last Admin: 11/19/18 08:24 Dose: 10 mg Pantoprazole Sodium (Protonix Iv) 80 mg IVPUSH BOLUS ONE Stop: 11/14/18 09:35 Last Admin: 11/14/18 09:52 Dose: Not Given Pantoprazole Sodium (Protonix Iv) 40 mg IV Q12H [place] Last Admin: 11/17/18 09:43 Dose: 40 mg Potassium Chloride (Potassium Chloride) 10 meq IV ONETIME ONE Stop: 11/14/18 11:01 Last Admin: 11/14/18 11:12 Dose: Not Given Potassium Chloride (Klor-Con M20) 40 meq PO ONETIME ONE Stop: 11/19/18 10:01 Last Admin: 11/19/18 11:19 Dose: 40 meq Potassium Chloride (Klor-Con M20) 40 meq PO Q4H [place] Stop: 11/20/18 17:16 Last Admin: 11/20/18 16:36 Dose: 40 meq Potassium Chloride (Klor-Con M20) 40 meq PO Q4H [place] Stop: 11/21/18 18:31 Last Admin: 11/21/18 17:49 Dose: 40 meq Potassium Chloride (Klor-Con M20) 40 meq PO ONETIME ONE Stop: 11/24/18 15:01 Last Admin: 11/24/18 15:30 Dose: 40 meq Propofol (Diprivan 20 Ml) Confirm Administered Dose 200 mg .ROUTE .STK-MED ONE Stop: 11/23/18 07:39 Sodium Chloride (Saline Flush) 10 ml FLUSH ONETIME PRN PRN Reason: IV FLUSH Stop: 11/25/18 12:00 Last Admin: 11/25/18 10:21 Dose: 10 ml Temazepam (Restoril) 15 mg PO ONETIME ONE Stop: 11/15/18 21:55 Last Admin: 11/15/18 22:02 Dose: 15 mg Temazepam (Restoril) 15 mg PO BEDTIME PRN PRN Reason: Sleep Last Admin: 11/16/18 21:12 Dose: 15 mg Trazodone HCl (Trazodone) 50 mg PO ONETIME ONE Stop: 11/20/18 02:03 Last Admin: 11/20/18 02:17 Dose: 50 mg - Exam General: Reports: Alert, Oriented, Cooperative, No Acute Distress HEENT: Reports: Pupils Equal, Pupils Reactive, EOMI, Mucous Membr. Moist/[place] Neck: Reports: Supple Lungs: Reports: Normal Respiratory Effort, Decreased Breath Sounds Cardiovascular: Reports: Regular Rate, Regular Rhythm GI/Abdominal Exam: Normal Bowel Sounds, Soft, No Organomegaly, No Distention, No Mass, Tender (mid-upper abdomen), Other (obese). No: Distended, Guarding, Rigid (Female) Exam: Deferred Rectal (Female) Exam: Deferred Back Exam: Reports: Normal Inspection, Decreased Range of Motion Extremities: Normal Inspection, Normal Range of Motion, Non-Tender, No Pedal Edema, Normal Capillary Refill Skin: Reports: Warm, Dry, Intact, Ecchymosis Neurological: Reports: No New Focal Deficit, Normal Gait Psy/Mental Status: Reports: Alert, Normal Affect, Normal Mood
[2018-11-25] MEDS: [UNRECOGNIZED DRUG - REMARK] TRDERM SCH (14:45)
== END 2018-11-25 15:50 | disposition home or self-care (01) | DRG 640 ==
LOC: JD.ED 09:09 → JD.ICU 13:57 → JD.MS 11-17 09:04
PROVIDERS: ADMIT Internal Medicine Cardiovascular Disease; ATTEND Internal Medicine Cardiovascular Disease
PROC: 0DD78ZX Extraction of Stomach, Pylorus, Via Natural or Artificial Opening Endoscopic, Diagnostic (ICD-10-PCS; principal; 2018-11-23)
DX: E87.6 Hypokalemia (principal); K85.20 Alcohol induced acute pancreatitis without necrosis or infection; F31.60 Bipolar disorder, current episode mixed, unspecified; K92.2 Gastrointestinal hemorrhage, unspecified; K86.0 Alcohol-induced chronic pancreatitis; E83.42 Hypomagnesemia; K52.9 Noninfective gastroenteritis and colitis, unspecified; K70.0 Alcoholic fatty liver; E78.00 Pure hypercholesterolemia, unspecified; K21.9 Gastro-esophageal reflux disease without esophagitis; M19.90 Unspecified osteoarthritis, unspecified site; M54.9 Dorsalgia, unspecified; G89.29 Other chronic pain; E66.9 Obesity, unspecified; D50.9 Iron deficiency anemia, unspecified; E89.0 Postprocedural hypothyroidism; D69.6 Thrombocytopenia, unspecified; E86.1 Hypovolemia; F41.9 Anxiety disorder, unspecified; F10.229 Alcohol dependence with intoxication, unspecified; K70.40 Alcoholic hepatic failure without coma; I10 Essential (primary) hypertension; K31.84 Gastroparesis; Z87.891 Personal history of nicotine dependence; Z90.710 Acquired absence of both cervix and uterus; Z92.21 Personal history of antineoplastic chemotherapy; Z88.0 Allergy status to penicillin; Z88.2 Allergy status to sulfonamides; Z91.19 Patient's noncompliance with other medical treatment and regimen; Z85.850 Personal history of malignant neoplasm of thyroid; Z90.49 Acquired absence of other specified parts of digestive tract
CPT/HCPCS: 00731; 36415; 36600; 51702; 74022; 74022-26; 74160; 74160-26; 76705; 76705-26; 78264; 78264-26; 80048; 80053; 82803; 83690; 83735; 84439; 84443; 84478; 85014; 85018; 85025; 85610; 85730; 86140; 96365; 96366; 96367; 96375; 96376; 97110-GO; 97116-GP; 97162-GP; 97166-GO; 97530-GO; 99285; 99285-25; A9270-GY; A9541; C9113; G0480; J1170; J1885; J1940; J2250; J2405; J2704; J3411; J3475; J3480; J3490; J7030; J7040; J7042; J7120; Q9963; Q9967

== ENCOUNTER 2019-01-13 09:57 | Emergency (ER) | payer OTHER ==
[2019-01-13 10:07] VITALS: BP 153/110
[2019-01-13] MEDS ORDERED: Sodium Chloride 0.9% 10 ML Syringe FLUSH PRN (11:17)
[2019-01-13] MEDS ORDERED: Iopamidol 612 MG/ML 100 ML Bottle IVPUSH ONE (11:24)
--- NOTE | 2019-01-13 11:25 | EDM.PDOC ---
ED HPI GENERAL MEDICAL PROBLEM - General Chief Complaint: Upper Extremity Injury/Pain Stated Complaint: FELL Time Seen by Provider: 01/13/19 11:03 Source of Information: Reports: Patient, Old Records History Limitations: Reports: No Limitations - History of Present Illness INITIAL COMMENTS - FREE TEXT/NARRATIVE: 43-year-old female presents for evaluation and treatment of injuries sustained from a fall. Reportedly the patient fell on Friday and is down about 3- 4 stairs. Patient states that she lost her balance and fell. She denies any alcohol was involved. She reports she had lost consciousness with the fall and has had several syncopal episodes since the fall. She is currently complaining of a headache, neck pain, chest pain, left shoulder pain and left upper quadrant abdominal pain. She has significant bruising to her left shoulder, left anterior superior chest and over her sternum. She reports vision changes which she describes as decreased vision when looking to the right lateral gaze. Reports nausea and vomiting. She denies any pain in her legs and hematuria. Review the patient's records shows she has been seen in the ER numerous occasions. Has a history of alcohol and marijuana abuse. C-collar applied upon arrival to the ER. Duration: Day(s): (2) Location: Reports: Head, Neck, Chest, Abdomen, Upper Extremity, Left Associated Symptoms: Reports: Nausea/Vomiting, Shortness of Breath, Syncope - Related Data Allergies Allergy/AdvReac Type Severity Reaction Status Date / Time Penicillins Allergy Severe Airway Verified 01/13/19 10:07 Tightness Sulfa (Sulfonamide Allergy Airway Verified 01/13/19 10:07 Antibiotics) Tightness Home Meds: Home Meds FLUoxetine HCl [Prozac] 20 mg PO DAILY #30 capsule 11/25/18 [Rx] Levothyroxine 125 mcg PO ACBREAKFAST #30 tablet 11/25/18 [Rx] Past Medical History HEENT History: Reports: None Cardiovascular History: Reports: High Cholesterol, Hypertension Respiratory History: Reports: None Gastrointestinal History: Reports: GERD, Pancreatitis Other Gastrointestinal History: epigastric pain, adhesions Genitourinary History: Reports: Acute Renal Failure Other Genitourinary History: renal failure 10 yrs ago--was given chemo for thyroid CA. AGRICULTURE INTERN History: Reports: Other AGRICULTURE INTERN History: grav 4 para4, right ovarian cystecomy Musculoskeletal History: Reports: Arthritis, Back Pain, Chronic Other Musculoskeletal History: had bone infection to R) hand 4 yrs ago--states was hospitalized 3 months Neurological History: Reports: None Psychiatric History: Reports: Addiction Endocrine/Metabolic History: Reports: Hypothyroidism, Obesity/BMI 30+ Hematologic History: Reports: Anemia, Iron Deficiency Immunologic History: Reports: None Oncologic (Cancer) History: Reports: Thyroid Other Oncologic History: thyroid removed due to CA. Dermatologic History: Reports: None - Infectious Disease History Infectious Disease History: Reports: None - Past Surgical History Head Surgeries/Procedures: Reports: None GI Surgical History: Reports: Appendectomy, Cholecystectomy, Colonoscopy, EGD Female Surgical History: Reports: Hysterectomy, Other (See Below) Endocrine Surgical History: Reports: Thyroidectomy Social & Family History - Family History OBGYN: Reports: Endocrine/Metabolic: Reports: Diabetes, type II Immunologic: Reports: None Oncologic: Reports: Breast, Uterine - Tobacco Use Smoking Status *Q: Never Smoker - Caffeine Use Caffeine Use: Reports: None - Recreational Drug Use Recreational Drug Use: No - Living Situation & Occupation Living situation: Reports: ( is in snf), with Family (Daughter, son). Denies: with Spouse ( in snf) Occupation: Unemployed Review of Systems - Review of Systems Review Of Systems: See Below Eyes: Reports: Vision Change Nose: Denies: Epistaxis Respiratory: Reports: Shortness of Breath Cardiovascular: Reports: Chest Pain GI/Abdominal: Reports: Abdominal Pain, Nausea, Vomiting Genitourinary: Denies: Hematuria Musculoskeletal: Reports: Neck Pain, Shoulder Pain. Denies: Back Pain, Leg Pain Skin: Reports: Bruising (right knee, sternum, left shoulder, left superior chest ) Neurological: Reports: Headache, Syncope ED EXAM, GENERAL - Physical Exam Exam: See Below Exam Limited By: No Limitations General Appearance: Alert, WD/WN, No Apparent Distress Eye Exam: Bilateral Eye: EOMI, Normal Inspection, PERRL Ears: Normal External Exam, Normal Canal, Hearing Grossly Normal, Normal TMs Nose: Normal Inspection, No Blood Throat/Mouth: Normal Inspection, Normal Lips, Normal Teeth, Normal Voice, No Airway Compromise Head: Other (tenderness to the left temporal and inferior parietal area) Neck: Normal Inspection, Supple, Tender Lateral Respiratory/Chest: No Respiratory Distress, Lungs Clear, Normal Breath Sounds, Other (tenderness to palpation to the sternum and the left superior lateral chest) Cardiovascular: Normal Peripheral Pulses, Regular Rate, Rhythm, No Murmur GI/Abdominal: Normal Bowel Sounds, Soft, Tender (LUQ) Back Exam: Normal Inspection. No: Vertebral Tenderness Extremities: Normal Inspection (no obvious deformities), Limited Range of Motion (left shoulder), Other (pain to palpation to the left shoulder) Neurological: Alert, Oriented, Normal Cognition, Normal Gait Psychiatric: Normal Affect, Normal Mood Skin Exam: Warm, Dry, Ecchymosis (extensive ecchymosis to the left shoulder and left superior lateral chest [id number] in diamter; small 3cm ecchymosis to the sternum, small ecchymosis to the right knee) Course - Vital Signs Last Recorded V/S: Last Vital Signs Temp 96.5 F 01/13/19 10:05 Pulse 102 H 01/13/19 10:05 Resp 16 01/13/19 10:05 BP 153/110 H 01/13/19 10:05 Pulse Ox 98 01/13/19 10:05 - Orders/Labs/Meds Orders: Active Orders 24 hr Category Date Time Status Peripheral IV Care [RC] . DIRECTED Care 01/13/19 11:18 Active Sodium Chloride 0.9% [Saline Flush] Med 01/13/19 11:17 Active 10 ml FLUSH ASDIRECTED PRN Durable Medical Equipment for Discharge [DME for Oth 01/13/19 13:05 Ordered Discharge] [COMM] Stat Peripheral IV Insertion Adult [OM.PC] Routine Oth 01/13/19 11:17 Ordered Medication Orders Sodium Chloride (Saline Flush) 10 ml FLUSH ASDIRECTED PRN PRN Reason: Keep Vein Open Last Admin: 01/13/19 11:49 Dose: 10 ml Labs: Laboratory Tests 01/13/19 01/13/19 01/13/19 Range/Units 11:45 11:45 11:45 WBC (3.98-10.04) K/mm3 RBC (3.98-5.22) M/mm3 Hgb (11.2-15.7) gm/L Hct (34.1-44.9) % MCV (79.4-94.8) fl MCH (25.6-32.2) pg MCHC (32.2-35.5) g/dl RDW Std Deviation (36.4-46.3) fL Plt Count (182-369) K/mm3 MPV (9.4-12.3) fl Neut % (Auto) (34.0-71.1) % Lymph % (Auto) (19.3-51.7) % [place] % (Auto) (4.7-12.5) % Eos % (Auto) (0.7-5.8) Baso % (Auto) (0.1-1.2) % Neut # (Auto) (1.56-6.13) K/mm3 Lymph # (Auto) (1.18-3.74) K/mm3 [place] # (Auto) (0.24-0.36) K/mm3 Eos # (Auto) (0.04-0.36) K/mm3 Baso # (Auto) (0.01-0.08) K/mm3 Manual Slide Review Sodium (136-145) mEq/L Potassium (3.5-5.1) mEq/L Chloride (98-107) mEq/L Carbon Dioxide (21-32) mEq/L Anion Gap (5-15) BUN (7-18) mg/dL Creatinine (0.55-1.02) mg/dL Est Cr Clr Drug Dosing mL/min Estimated GFR (MDRD) (>60) mL/min BUN/Creatinine Ratio (14-18) Glucose (74-106) mg/dL Calcium (8.5-10.1) mg/dL Total Bilirubin (0.2-1.0) mg/dL AST (15-37) U/L ALT (14-59) U/L Alkaline Phosphatase (46-116) U/L Total Protein (6.4-8.2) g/dl Albumin (3.4-5.0) g/dl Globulin gm/dL Albumin/Globulin Ratio (1-2) Lipase (73-393) U/L Urine Color Yellow (Yellow) Urine Appearance Clear (Clear) Urine pH 7.0 (5.0-8.0) Ur Specific [place] 1.015 (1.005-1.030) Urine Protein 1+ H (Negative) Urine Glucose (UA) Negative (Negative) Urine Ketones Negative (Negative) Urine Occult Blood 3+ H (Negative) Urine Nitrite Negative (Negative) Urine Bilirubin Negative (Negative) Urine Urobilinogen 1.0 (0.2-1.0) Ur Leukocyte Esterase Negative (Negative) Urine RBC 5-10 H (0-5) /hpf Urine WBC 0-5 (0-5) /hpf Ur Squamous Epith Cells 0-5 (0-5) /hpf Urine Bacteria Few (FEW) /hpf Urine Mucus Few (FEW) /hpf Urine HCG, Qual Negative (NEGATIVE) Urine Opiates Screen Negative (NNERIN=237) Ur Buprenorphine Scrn Negative (CUTOFF=10) Ur Oxycodone Screen Negative (GAW4YK=318) Urine Methadone Screen Negative (FMVWJV=127) Ur Propoxyphene Screen Negative (FOYYPT=865) Ur Barbiturates Screen Negative (IRQYIQ=378) Ur Tricyclics Screen Negative (JXYWZA=351) Ur Phencyclidine Scrn Negative (CUTOFF=25) Ur Amphetamine Screen Negative (YVOUPO=649) U Methamphetamines Scrn Negative (MWWFJS=034) U Benzodiazepines Scrn Negative (ZTYAFI=696) U Cocaine Metab Screen Negative (ORPZDM=124) U Marijuana (THC) Screen Negative (CUTOFF=50) Ethyl Alcohol (0.00) gm% 01/13/19 01/13/19 Range/Units 11:50 11:50 WBC 4.64 (3.98-10.04) K/mm3 RBC 4.07 (3.98-5.22) M/mm3 Hgb 12.8 D (11.2-15.7) gm/L Hct 37.5 (34.1-44.9) % MCV 92.1 D (79.4-94.8) fl MCH 31.4 (25.6-32.2) pg MCHC 34.1 (32.2-35.5) g/dl RDW Std Deviation 45.3 (36.4-46.3) fL Plt Count 99 L D (182-369) K/mm3 MPV 9.9 (9.4-12.3) fl Neut % (Auto) 63.0 (34.0-71.1) % Lymph % (Auto) 24.1 (19.3-51.7) % [place] % (Auto) 10.8 (4.7-12.5) % Eos % (Auto) 1.5 (0.7-5.8) Baso % (Auto) 0.6 (0.1-1.2) % Neut # (Auto) 2.92 (1.56-6.13) K/mm3 Lymph # (Auto) 1.12 L (1.18-3.74) K/mm3 [place] # (Auto) 0.50 H (0.24-0.36) K/mm3 Eos # (Auto) 0.07 (0.04-0.36) K/mm3 Baso # (Auto) 0.03 (0.01-0.08) K/mm3 Manual Slide Review Abnormal smear Sodium 139 (136-145) mEq/L Potassium 3.0 L (3.5-5.1) mEq/L Chloride 100 (98-107) mEq/L Carbon Dioxide 22 (21-32) mEq/L Anion Gap 20.0 H (5-15) BUN 10 (7-18) mg/dL Creatinine 0.8 (0.55-1.02) mg/dL Est Cr Clr Drug Dosing 64.46 mL/min Estimated GFR (MDRD) > 60 (>60) mL/min BUN/Creatinine Ratio 12.5 L (14-18) Glucose 81 (74-106) mg/dL Calcium 9.5 (8.5-10.1) mg/dL Total Bilirubin 0.8 (0.2-1.0) mg/dL AST 111 H (15-37) U/L ALT 56 (14-59) U/L Alkaline Phosphatase 113 (46-116) U/L Total Protein 9.1 H (6.4-8.2) g/dl Albumin 4.4 (3.4-5.0) g/dl Globulin 4.7 gm/dL Albumin/Globulin Ratio 0.9 L (1-2) Lipase 205 (73-393) U/L Urine Color (Yellow) Urine Appearance (Clear) Urine pH (5.0-8.0) Ur Specific [place] (1.005-1.030) Urine Protein (Negative) Urine Glucose (UA) (Negative) Urine Ketones (Negative) Urine Occult Blood (Negative) Urine Nitrite (Negative) Urine Bilirubin (Negative) Urine Urobilinogen (0.2-1.0) Ur Leukocyte Esterase (Negative) Urine RBC (0-5) /hpf Urine WBC (0-5) /hpf Ur Squamous Epith Cells (0-5) /hpf Urine Bacteria (FEW) /hpf Urine Mucus (FEW) /hpf Urine HCG, Qual (NEGATIVE) Urine Opiates Screen (FCSMWW=915) Ur Buprenorphine Scrn (CUTOFF=10) Ur Oxycodone Screen (WSN6LT=771) Urine Methadone Screen (EOYFBB=651) Ur Propoxyphene Screen (XGZEBH=617) Ur Barbiturates Screen (FXIVXM=878) Ur Tricyclics Screen (WWAHOI=858) Ur Phencyclidine Scrn (CUTOFF=25) Ur Amphetamine Screen (UGUALH=734) U Methamphetamines Scrn (URHGYN=288) U Benzodiazepines Scrn (SUGUCC=731) U Cocaine Metab Screen (IVLGFM=242) U Marijuana (THC) Screen (CUTOFF=50) Ethyl Alcohol 0.05 (0.00) gm% Meds: Medications Generic Name Dose Route Start Last Admin Trade Name Freq PRN Reason Stop Dose Admin Sodium Chloride 10 ml 01/13/19 11:17 01/13/19 11:49 Saline Flush FLUSH 10 ml ASDIRECTED PRN Administration Keep Vein Open Discontinued Medications Generic Name Dose Route Start Last Admin Trade Name Freq PRN Reason Stop Dose Admin Iopamidol 100 ml 01/13/19 11:24 01/13/19 12:29 Isovue-300 (61%) IVPUSH 01/13/19 11:25 100 ml ONETIME ONE Administration Potassium Chloride 40 meq 01/13/19 13:12 01/13/19 13:22 Klor-Con M20 PO 01/13/19 13:13 40 meq ONETIME ONE Administration Sodium Chloride 10 ml 01/13/19 11:24 01/13/19 12:30 Saline Flush FLUSH 01/13/19 11:25 10 ml ONETIME ONE Administration - Radiology Interpretation Free Text/Narrative:: Head CT Technique: Multiple axial sections through the brain were obtained. Intravenous contrast was not utilized. Comparison: Prior head CT study of 11/03/16. Findings: Ventricles along with basal cisterns and sulci over the convexities are within normal limits for the patient's age. No abnormal parenchymal densities are seen. No evidence of intracranial hemorrhage. No midline shift or mass effect is seen. Bone window settings were reviewed which show minimal mucosal thickening within the left maxillary sinus which is felt to be incidental. No acute calvarial abnormality is seen. Impression: 1. Sinus finding believed to be incidental. 2. No acute intracranial abnormality is identified. CT cervical spine Technique: Multiple axial sections were obtained from above C1 inferiorly to the top of T2. Reconstructed sagittal and coronal images were reviewed. Comparison: Prior CT cervical spine study of 07/04/13. Findings: Vertebral body heights and disc spaces are maintained. Vertebral bodies and posterior arches are intact with no fracture being. No bony central lower bony neural foraminal. No abnormal subluxation is seen on the reconstructed sagittal images. Impression: 1. No abnormality is appreciated on CT study of the cervical spine. CT chest Technique: Multiple axial sections were obtained from above the lung apices inferiorly through the lung bases. Intravenous contrast was utilized. Comparison: Prior CT chest performed as a pulmonary angiogram protocol dated 05/14. Findings: Mediastinum and hilar regions show no adenopathy or mass. No pericardial thickening is seen. Lungs are clear with no acute parenchymal change. No pleural effusions or pneumothorax is seen. Bone window settings shows no discrete rib fracture. Vertebral body heights are maintained within the thoracic spine. Reconstructed sagittal images of the sternum appear to be intact. Impression: 1. Nothing acute is seen on CT study of the chest. CT abdomen and pelvis Technique: Multiple axial sections were obtained from above the dome of the diaphragm inferiorly through the pubic symphysis. Intravenous contrast was utilized. No oral contrast has been given. Delayed images were obtained to the bladder. Comparison: Prior CT abdomen and pelvis exam 02/09/18. Findings: Fatty infiltration is seen within the liver. Spleen appears within normal limits. Adrenal glands show no nodule. Gallbladder not seen with surgical clips compatible with prior cholecystectomy. Pancreas appears within normal limits. Aorta shows no aneurysm. Kidneys show symmetric contrast enhancement without hydronephrosis or mass. No retroperitoneal adenopathy or mesenteric abnormalities are seen. Appendix not visualized. Surgical clips seen within the right lower abdomen. No pelvic mass or adenopathy is seen. Delayed images show contrast within the distal ureters and within the bladder. Bone window settings were reviewed showing no discrete abnormality. Impression: 1. Fatty infiltration within the liver. Nothing acute is appreciated on CT study of the abdomen and pelvis. Left shoulder: 3 views left shoulder were obtained. Comparison: No prior shoulder exam. Large calcification is seen off the lateral shoulder most likely representing a large calcification within the subdeltoid bursa. Glenohumeral joint and acromioclavicular joint appears unremarkable. There is minimal cortical irregularity off the superior distal clavicle possibly due to small chip fracture. No additional abnormality is seen. Impression: 1. Small chip fracture off the superior distal clavicle which most likely is acute. 2. Large calcification most likely bursal in location. This is most likely due to calcific bursitis. - Re-Assessments/Exams Free Text/Narrative Re-Assessment/Exam: 01/13/19 13:10 Reviewed the imaging and lab results with the patient. Will place in sling. Potassium given. Will discharge home at this time. Discharge instructions as documented. Departure - Departure Time of Disposition: 13:08 Disposition: Home, Self-Care 01 Condition: Fair Clinical Impression: Fracture, clavicle, Hypokalemia - Discharge Information *PRESCRIPTION DRUG MONITORING PROGRAM REVIEWED*: Yes *COPY OF PRESCRIPTION DRUG MONITORING REPORT IN PATIENT HELENA: No Instructions: Clavicle Fracture, [id number], Shoulder Pain, [id number] Referrals: Enrique Brower Jr, MD [Primary Care Provider] - Chris Galarza DO [Physician] - Forms: ED Department Discharge Additional Instructions: Follow-up with ortho or PCP for the small chip fracture off your distal clavicle. Call [phone] to schedule with one of these providers. OTC tylenol or motrin as needed for pain. Ice the area 4-6 times a day for 10-15 minutes to help with swelling. Sling on at all times. Please return to the ER should your symptoms change or worsen. - My Orders Last 24 Hours: My Active Orders 01/13/19 11:17 Sodium Chloride 0.9% [Saline Flush] 10 ml FLUSH ASDIRECTED PRN Peripheral IV Insertion Adult [OM.PC] Routine 01/13/19 11:18 Peripheral IV Care [RC] . DIRECTED 01/13/19 13:05 Durable Medical Equipment for Discharge [DME for Discharge] [COMM] Stat - Assessment/Plan Last 24 Hours: My Active Orders 01/13/19 11:17 Sodium Chloride 0.9% [Saline Flush] 10 ml FLUSH ASDIRECTED PRN Peripheral IV Insertion Adult [OM.PC] Routine 01/13/19 11:18 Peripheral IV Care [RC] . DIRECTED 01/13/19 13:05 Durable Medical Equipment for Discharge [DME for Discharge] [COMM] Stat
[2019-01-13] MEDS: Sodium Chloride 0.9% 10 ML Syringe FLUSH ONE ×2 (11:54→12:30)
--- NOTE | 2019-01-13 13:05 | CT ---
CT cervical spine Technique: Multiple axial sections were obtained from above C1 inferiorly to the top of T2. Reconstructed sagittal and coronal images were reviewed. Comparison: Prior CT cervical spine study of 07/04/13. Findings: Vertebral body heights and disc spaces are maintained. Vertebral bodies and posterior arches are intact with no fracture being seen. No bony central or bony neural foraminal stenosis. No abnormal subluxation is seen on the reconstructed sagittal images. Impression: 1. No abnormality is appreciated on CT study of the cervical spine. Diagnostic code #1
--- NOTE | 2019-01-13 13:05 | CT ---
CT chest Technique: Multiple axial sections were obtained from above the lung apices inferiorly through the lung bases. Intravenous contrast was utilized. Comparison: Prior CT chest performed as a pulmonary angiogram protocol dated 07/06/18. Findings: Mediastinum and hilar regions show no adenopathy or mass. No pericardial thickening is seen. Lungs are clear with no acute parenchymal change. No pleural effusions or pneumothorax is seen. Bone window settings shows no discrete rib fracture. Vertebral body heights are maintained within the thoracic spine. Reconstructed sagittal images of the sternum appear to be intact. Impression: 1. Nothing acute is seen on CT study of the chest. Diagnostic code #1 CT abdomen and pelvis Technique: Multiple axial sections were obtained from above the dome of the diaphragm inferiorly through the pubic symphysis. Intravenous contrast was utilized. No oral contrast has been given. Delayed images were obtained to the bladder. Comparison: Prior CT abdomen and pelvis exam 02/09/18. Findings: Fatty infiltration is seen within the liver. Spleen appears within normal limits. Adrenal glands show no nodule. Gallbladder not seen with surgical clips compatible with prior cholecystectomy. Pancreas appears within normal limits. Aorta shows no aneurysm. Kidneys show symmetric contrast enhancement without hydronephrosis or mass. No retroperitoneal adenopathy or mesenteric abnormalities are seen. Appendix not visualized. Surgical clips seen within the right lower abdomen. No pelvic mass or adenopathy is seen. Delayed images show contrast within the distal ureters and within the bladder. Bone window settings were reviewed showing no discrete abnormality. Impression: 1. Fatty infiltration within the liver. Nothing acute is appreciated on CT study of the abdomen and pelvis. Diagnostic code #2
--- NOTE | 2019-01-13 13:05 | CT ---
Head CT Technique: Multiple axial sections through the brain were obtained. Intravenous contrast was not utilized. Comparison: Prior head CT study of 11/03/16. Findings: Ventricles along with basal cisterns and sulci over the convexities are within normal limits for the patient's age. No abnormal parenchymal densities are seen. No evidence of intracranial hemorrhage. No midline shift or mass effect is seen. Bone window settings were reviewed which show minimal mucosal thickening within the left maxillary sinus which is felt to be incidental. No acute calvarial abnormality is seen. Impression: 1. Sinus finding believed to be incidental. 2. No acute intracranial abnormality is identified. Diagnostic code #1
[2019-01-13] MEDS ORDERED: Potassium Chloride 20 MEQ Tab.ER PO ONE (13:12)
--- NOTE | 2019-01-13 13:12 | CR ---
Left shoulder: Three views of the left shoulder were obtained. Comparison: No prior shoulder exam. Large calcification is seen off the lateral shoulder most likely representing a large calcification within the subdeltoid bursa. Glenohumeral joint and acromioclavicular joint appear unremarkable. There is minimal cortical irregularity off the superior distal clavicle possibly due to small chip fracture. No additional abnormality is seen. Impression: 1. Small chip fracture off the superior distal clavicle which most likely is acute. 2. Large calcification most likely bursal in location. This is most likely due to calcific bursitis. Diagnostic code #3
== END 2019-01-13 13:30 | disposition home or self-care (01) ==
LOC: JD.ED 09:57
DX: S42.032A Displaced fracture of lateral end of left clavicle, initial encounter for closed fracture (principal); E87.6 Hypokalemia; I10 Essential (primary) hypertension; E78.00 Pure hypercholesterolemia, unspecified; K21.9 Gastro-esophageal reflux disease without esophagitis; E03.9 Hypothyroidism, unspecified; Z88.0 Allergy status to penicillin; Z88.2 Allergy status to sulfonamides; Z79.899 Other long term (current) drug therapy; W19.XXXA Unspecified fall, initial encounter
CPT/HCPCS: 36415; 70450; 71260; 72125; 73030; 74177; 80053; 80306; 81001; 81025; 83690; 85025; 99284; A9270; G0480; Q9967

== ENCOUNTER 2019-04-11 14:44 | Emergency (ER) | payer SELFPAY ==
[2019-04-11 15:08] VITALS: BP 121/106; PULSE 92
[2019-04-11] MEDS ORDERED: Ondansetron 4 MG Tab.DIS PO ONE (15:15)
[2019-04-11] MEDS ORDERED: Famotidine 20 MG Tab PO ONE (15:15)
--- NOTE | 2019-04-11 16:08 | EDM.PDOC ---
ED HPI GENERAL MEDICAL PROBLEM - General Chief Complaint: Abdominal Pain Stated Complaint: ABDOMINAL PAIN Time Seen by Provider: 04/11/19 15:00 Source of Information: Reports: Patient History Limitations: Reports: No Limitations - History of Present Illness INITIAL COMMENTS - FREE TEXT/NARRATIVE: The patient presents with nausea, vomiting and abdominal pain. This has been going on for over a week. She says she has been vomiting blood at times. She quit drinking alcohol months ago. She has no fever or chills. She does have generalized weakness. She has no chest pain or shortness of breath. She has no dysuria. She is supposed to see a GI specialist in [place] for pancreatitis but she cannot make it. She does not drive, her was deported and her son is working 7 days per week. Onset: Gradual Duration: Week(s): Location: Reports: Abdomen Quality: Reports: Sharp Severity: Moderate Improves with: Reports: None Worsens with: Reports: None Associated Symptoms: Reports: Nausea/Vomiting. Denies: Chest Pain, Cough, Fever /Chills, Headaches, Shortness of Breath Right Upper Abdomen Pain Score (Numeric/FACES): 9 - Related Data Allergies Allergy/AdvReac Type Severity Reaction Status Date / Time Penicillins Allergy Severe Airway Verified 01/13/19 10:07 Tightness Sulfa (Sulfonamide Allergy Airway Verified 01/13/19 10:07 Antibiotics) Tightness Home Meds: Home Meds Levothyroxine 125 mcg PO ACBREAKFAST #30 tablet 11/25/18 [Rx] Omeprazole Magnesium [Prilosec Otc] 20 mg PO DAILY #15 tablet. 04/11/19 [Rx] Ondansetron [Zofran ODT] 4 mg SL Q6H PRN 04/11/19 [History] Potassium Chloride 20 meq PO DAILY #30 tablet.er 04/11/19 [Rx] Past Medical History HEENT History: Reports: None Cardiovascular History: Reports: High Cholesterol, Hypertension Respiratory History: Reports: None Gastrointestinal History: Reports: GERD, Pancreatitis Other Gastrointestinal History: epigastric pain, adhesions Genitourinary History: Reports: Acute Renal Failure Other Genitourinary History: renal failure 10 yrs ago--was given chemo for thyroid CA. ASSISTED LIVING HOME DIRECTOR History: Reports: Other ASSISTED LIVING HOME DIRECTOR History: grav 4 para4, right ovarian cystecomy Musculoskeletal History: Reports: Arthritis, Back Pain, Chronic Other Musculoskeletal History: had bone infection to R) hand 4 yrs ago--states was hospitalized 3 months Neurological History: Reports: None Psychiatric History: Reports: Addiction Endocrine/Metabolic History: Reports: Hypothyroidism, Obesity/BMI 30+ Hematologic History: Reports: Anemia, Iron Deficiency Immunologic History: Reports: None Oncologic (Cancer) History: Reports: Thyroid Other Oncologic History: thyroid removed due to CA. Dermatologic History: Reports: None - Infectious Disease History Infectious Disease History: Reports: None - Past Surgical History Head Surgeries/Procedures: Reports: None GI Surgical History: Reports: Appendectomy, Cholecystectomy, Colonoscopy, EGD Female Surgical History: Reports: Hysterectomy, Other (See Below) Endocrine Surgical History: Reports: Thyroidectomy Social & Family History - Family History OBGYN: Reports: Endocrine/Metabolic: Reports: Diabetes, type II Immunologic: Reports: None Oncologic: Reports: Breast, Uterine - Tobacco Use Smoking Status *Q: Never Smoker - Caffeine Use Caffeine Use: Reports: Soda, Tea - Recreational Drug Use Recreational Drug Use: No - Living Situation & Occupation Living situation: Reports: ( is in skilled nursing), with Family (Daughter, son). Denies: with Spouse ( in skilled nursing) Occupation: Unemployed ED ROS GENERAL - Review of Systems Review Of Systems: See Below Constitutional: Reports: No Symptoms HEENT: Reports: No Symptoms Respiratory: Reports: No Symptoms Cardiovascular: Reports: No Symptoms Endocrine: Reports: No Symptoms GI/Abdominal: Reports: Abdominal Pain, Hematemesis, Nausea, Vomiting : Reports: No Symptoms Musculoskeletal: Reports: No Symptoms ED EXAM, GI/ABD - Physical Exam Exam: See Below Exam Limited By: No Limitations General Appearance: Alert, No Apparent Distress Ears: Normal External Exam Nose: Normal Inspection Head: Atraumatic, Normocephalic Neck: Normal Inspection Respiratory/Chest: No Respiratory Distress, Lungs Clear, Normal Breath Sounds Cardiovascular: Regular Rate, Rhythm, No Edema, No Murmur GI/Abdominal Exam: Soft, No Organomegaly, No Mass, Tender (Mild tenderness to the epigastric region) Course - Vital Signs Last Recorded V/S: Last Vital Signs Temp 97.7 F 04/11/19 15:05 Pulse 92 04/11/19 15:05 Resp 20 04/11/19 15:05 BP 121/106 H 04/11/19 15:05 Pulse Ox 96 04/11/19 15:05 - Orders/Labs/Meds Orders: Active Orders 24 hr Category Date Time Status DRUG SCREEN, URINE [URCHEM] Stat Lab 04/11/19 16:30 Received UA W/MICROSCOPIC [URIN] Stat Lab 04/11/19 16:30 Results Labs: Laboratory Tests 04/11/19 04/11/19 04/11/19 Range/Units 15:27 15:27 16:30 WBC 5.14 (3.98-10.04) K/mm3 RBC 3.62 L (3.98-5.22) M/mm3 Hgb 11.3 D (11.2-15.7) gm/L Hct 33.4 L (34.1-44.9) % MCV 92.3 (79.4-94.8) fl MCH 31.2 (25.6-32.2) pg MCHC 33.8 (32.2-35.5) g/dl RDW Std Deviation 53.0 H (36.4-46.3) fL Plt Count 83 L (182-369) K/mm3 MPV 10.6 (9.4-12.3) fl Neut % (Auto) 69.7 (34.0-71.1) % Lymph % (Auto) 21.6 (19.3-51.7) % [place] % (Auto) 6.2 (4.7-12.5) % Eos % (Auto) 1.9 (0.7-5.8) Baso % (Auto) 0.4 (0.1-1.2) % Neut # (Auto) 3.58 (1.56-6.13) K/mm3 Lymph # (Auto) 1.11 L (1.18-3.74) K/mm3 [place] # (Auto) 0.32 (0.24-0.36) K/mm3 Eos # (Auto) 0.10 (0.04-0.36) K/mm3 Baso # (Auto) 0.02 (0.01-0.08) K/mm3 Manual Slide Review Abnormal smear Sodium 137 (136-145) mEq/L Potassium 2.7 L (3.5-5.1) mEq/L Chloride 99 (98-107) mEq/L Carbon Dioxide 22 (21-32) mEq/L Anion Gap 18.7 H (5-15) BUN 10 (7-18) mg/dL Creatinine 1.0 (0.55-1.02) mg/dL Est Cr Clr Drug Dosing 51.57 mL/min Estimated GFR (MDRD) > 60 (>60) mL/min BUN/Creatinine Ratio 10.0 L (14-18) Glucose 100 (74-106) mg/dL Calcium 9.6 (8.5-10.1) mg/dL Magnesium 1.8 (1.8-2.4) mg/dl Total Bilirubin 0.9 (0.2-1.0) mg/dL AST 177 H (15-37) U/L ALT 77 H (14-59) U/L Alkaline Phosphatase 126 H (46-116) U/L Total Protein 8.6 H (6.4-8.2) g/dl Albumin 4.3 (3.4-5.0) g/dl Globulin 4.3 gm/dL Albumin/Globulin Ratio 1.0 (1-2) Lipase 244 (73-393) U/L Urine Color Dark yellow (Yellow) Urine Appearance Clear (Clear) Urine pH 7.0 (5.0-8.0) Ur Specific [place] 1.020 (1.005-1.030) Urine Protein 2+ H (Negative) Urine Glucose (UA) Negative (Negative) Urine Ketones Trace H (Negative) Urine Occult Blood Negative (Negative) Urine Nitrite Negative (Negative) Urine Bilirubin 1+ H (Negative) Urine Urobilinogen 1.0 (0.2-1.0) Ur Leukocyte Esterase Negative (Negative) Ethyl Alcohol 0.00 (0.00) gm% Meds: Medications Discontinued Medications Generic Name Dose Route Start Last Admin Trade Name Freq PRN Reason Stop Dose Admin Famotidine 20 mg 04/11/19 15:15 04/11/19 16:28 Pepcid PO 04/11/19 15:16 20 mg ONETIME ONE Administration Ondansetron HCl 4 mg 04/11/19 15:15 04/11/19 16:28 Zofran Odt PO 04/11/19 15:16 4 mg ONETIME ONE Administration Potassium Chloride 20 meq 04/11/19 16:36 04/11/19 16:40 Klor-Con M20 PO 04/11/19 16:37 20 meq ONETIME ONE Administration - Re-Assessments/Exams Free Text/Narrative Re-Assessment/Exam: 04/11/19 16:08 I ordered labs, zofran and pepcid. 04/11/19 16:49 Her CBC looks good. Her K is low at 2.7. I have ordered 20meq of Kcl. Her anion gap is elevated at 18.7. Her AST is elevated at 177 and ALT is elevated at 77. That is much improved from months ago when she was admitted. Her alk phos is elevated at 126. Her lipase is normal. I will get her on some potassium, prilosec and some ultram for pain. Departure - Departure Time of Disposition: 16:55 Disposition: Home, Self-Care 01 Condition: Good Clinical Impression: Hypokalemia Gastritis Qualifiers: Gastritis type: unspecified gastritis Chronicity: chronic Gastritis bleeding: without bleeding Qualified Code(s): K29.50 - Unspecified chronic gastritis without bleeding - Discharge Information *PRESCRIPTION DRUG MONITORING PROGRAM REVIEWED*: No *COPY OF PRESCRIPTION DRUG MONITORING REPORT IN PATIENT HELENA: No Prescriptions: Omeprazole Magnesium [Prilosec Otc] 20 mg PO DAILY #15 tablet. Potassium Chloride 20 meq PO DAILY #30 tablet.er Referrals: Enrique Brower Jr, MD [Primary Care Provider] - 1 Week Forms: ED Department Discharge Additional Instructions: Take the prilosec daily. Take the potassium daily. Take the hydrocodone as needed for pain. Follow up with your doctor within a week. - My Orders Last 24 Hours: My Active Orders 04/11/19 16:30 DRUG SCREEN, URINE [URCHEM] Stat UA W/MICROSCOPIC [URIN] Stat - Assessment/Plan Last 24 Hours: My Active Orders 04/11/19 16:30 DRUG SCREEN, URINE [URCHEM] Stat UA W/MICROSCOPIC [URIN] Stat
[2019-04-11] MEDS ORDERED: Potassium Chloride 20 MEQ Tab.ER PO ONE (16:36)
== END 2019-04-11 17:18 | disposition home or self-care (01) ==
LOC: JD.ED 14:44
DX: K29.50 Unspecified chronic gastritis without bleeding (principal); E87.6 Hypokalemia; I10 Essential (primary) hypertension; K21.9 Gastro-esophageal reflux disease without esophagitis; E03.9 Hypothyroidism, unspecified; Z85.850 Personal history of malignant neoplasm of thyroid; Z88.0 Allergy status to penicillin; Z88.2 Allergy status to sulfonamides; Z79.899 Other long term (current) drug therapy
CPT/HCPCS: 36415; 80053; 80306; 80320; 81001; 83690; 83735; 85025; 99284; A9270; 99283; G0480

== ENCOUNTER 2019-05-05 14:55 | Emergency (ER) | payer SELFPAY ==
[2019-05-05 15:13] VITALS: BP 140/95; PULSE 110
[2019-05-05] MEDS ORDERED: Ondansetron 4 MG/2 ML SDV IVPUSH ONE (15:45)
[2019-05-05] MEDS ORDERED: Sodium Chloride 0.9% 10 ML Syringe FLUSH PRN (15:45)
[2019-05-05] MEDS ORDERED: Sodium Chloride 0.9% 1,000 ML IV SCH (15:45)
[2019-05-05] MEDS ORDERED: HYDROmorphone 0.5 MG/0.5 ML Syringe IVPUSH ONE ×2 (15:45→18:46)
--- NOTE | 2019-05-05 15:48 | EDM.PDOC ---
ED HPI GENERAL MEDICAL PROBLEM - General Chief Complaint: Abdominal Pain Stated Complaint: VOMITING AND PAIN Time Seen by Provider: 05/05/19 15:30 Source of Information: Reports: Patient, RN Notes Reviewed - History of Present Illness INITIAL COMMENTS - FREE TEXT/NARRATIVE: 43-year-old female comes in with abdominal pain, nausea vomiting. She states she became ill about 4 days ago with upper abdominal discomfort radiating to her back, nausea and vomiting. She does drink alcohol, sounds like hard liquor daily. Her last alcohol yesterday, none today. She is not aware of fever or chills. No chest pain or difficulty breathing. She has had no appetite, not eating today, not drinking much water. History of previous cholecystectomy about 10 years ago and also prior appendectomy. History of pancreatitis. History of alcohol abuse. Upper Abdomen Pain Score (Numeric/FACES): 10 - Related Data Allergies Allergy/AdvReac Type Severity Reaction Status Date / Time Penicillins Allergy Severe Airway Verified 05/05/19 15:12 Tightness Sulfa (Sulfonamide Allergy Airway Verified 05/05/19 15:12 Antibiotics) Tightness Home Meds: Home Meds Levothyroxine 125 mcg PO ACBREAKFAST #30 tablet 11/25/18 [Rx] Omeprazole Magnesium [Prilosec Otc] 20 mg PO DAILY #15 tablet. 04/11/19 [Rx] Ondansetron [Zofran ODT] 4 mg SL Q6H PRN 04/11/19 [History] Potassium Chloride 20 meq PO DAILY #30 tablet.er 04/11/19 [Rx] Famotidine [Pepcid] 20 mg PO BID #30 tab 05/05/19 [Rx] Ondansetron [Zofran ODT] 4 mg PO Q6H PRN #7 tab.dis 05/05/19 [Rx] Past Medical History HEENT History: Reports: None Cardiovascular History: Reports: High Cholesterol, Hypertension Respiratory History: Reports: None Gastrointestinal History: Reports: GERD, Pancreatitis Other Gastrointestinal History: epigastric pain, adhesions Genitourinary History: Reports: Acute Renal Failure Other Genitourinary History: renal failure 10 yrs ago--was given chemo for thyroid CA. OFFBEARER History: Reports: Other OFFBEARER History: grav 4 para4, right ovarian cystecomy Musculoskeletal History: Reports: Arthritis, Back Pain, Chronic Other Musculoskeletal History: had bone infection to R) hand 4 yrs ago--states was hospitalized 3 months Neurological History: Reports: None Psychiatric History: Reports: Addiction Endocrine/Metabolic History: Reports: Hypothyroidism, Obesity/BMI 30+ Hematologic History: Reports: Anemia, Iron Deficiency Immunologic History: Reports: None Oncologic (Cancer) History: Reports: Thyroid Other Oncologic History: thyroid removed due to CA. Dermatologic History: Reports: None - Infectious Disease History Infectious Disease History: Reports: None - Past Surgical History Head Surgeries/Procedures: Reports: None GI Surgical History: Reports: Appendectomy, Cholecystectomy, Colonoscopy, EGD Female Surgical History: Reports: Hysterectomy, Other (See Below) Endocrine Surgical History: Reports: Thyroidectomy Social & Family History - Family History OBGYN: Reports: Endocrine/Metabolic: Reports: Diabetes, type II Immunologic: Reports: None Oncologic: Reports: Breast, Uterine - Tobacco Use Smoking Status *Q: Never Smoker - Caffeine Use Caffeine Use: Reports: None - Alcohol Use Date of Last Drink: 05/05/19 - Recreational Drug Use Recreational Drug Use: No - Living Situation & Occupation Living situation: Reports: ( is in alf), with Family (Daughter, son). Denies: with Spouse ( in alf) Occupation: Unemployed ED ROS GENERAL - Review of Systems Review Of Systems: See Below Constitutional: Reports: Chills. Denies: Fever HEENT: Denies: Throat Pain Respiratory: Denies: Shortness of Breath, Pleuritic Chest Pain Cardiovascular: Denies: Chest Pain GI/Abdominal: Reports: Abdominal Pain, Nausea, Vomiting. Denies: Diarrhea Musculoskeletal: Reports: Back Pain Skin: Reports: No Symptoms Neurological: Reports: No Symptoms ED EXAM, GI/ABD - Physical Exam Exam: See Below General Appearance: Alert, Mild Distress Eyes: Bilateral: Normal Appearance Throat/Mouth: Other Head: Atraumatic (Oral mucosa is dry). No: Facial Swelling Neck: Supple, Full Range of Motion, Other (No JVD) Respiratory/Chest: No Respiratory Distress, Lungs Clear, Normal Breath Sounds Cardiovascular: Tachycardia GI/Abdominal Exam: Soft, Distended (Moderate distention), Tender (Moderate tenderness right upper abdomen upper mid abdomen). No: Guarding Extremities: No: Pedal Edema, Leg Pain, Redness Neurological: Alert, Oriented, No Motor/Sensory Deficits Skin Exam: Dry, No Rash Course - Vital Signs Last Recorded V/S: Last Vital Signs Temp 98.1 F 05/05/19 15:10 Pulse 110 H 05/05/19 15:10 Resp 20 05/05/19 15:10 BP 140/95 H 05/05/19 15:10 Pulse Ox 100 05/05/19 15:10 - Orders/Labs/Meds Orders: Active Orders 24 hr Category Date Time Status Peripheral IV Care [RC] . DIRECTED Care 05/05/19 15:46 Active Abdomen 2V AP Flat Upright [CR] Stat Exams 05/05/19 17:23 Taken Dextrose 5%-Lactated Ringers 1,000 ml Med 05/05/19 17:30 Active IV ASDIRECTED Potassium Chloride [KCl 10 MEQ in Water 100 ML] 10 meq Med 05/05/19 17:24 Active Premix Bag 1 bag IV ASDIRECTED Potassium Chloride [KCl 10 MEQ in Water 100 ML] 10 meq Med 05/05/19 18:46 Active Premix Bag 1 bag IV ASDIRECTED Sodium Chloride 0.9% [Normal Saline] 1,000 ml Med 05/05/19 15:45 Active IV ONETIME Sodium Chloride 0.9% [Saline Flush] Med 05/05/19 15:45 Active 10 ml FLUSH ASDIRECTED PRN Peripheral IV Insertion Adult [OM.PC] Stat Oth 05/05/19 15:45 Ordered Medication Orders Sodium Chloride (Normal Saline) 1,000 mls @ 999 mls/hr IV ONETIME [facility] Last Admin: 05/05/19 16:17 Dose: 999 mls/hr Dextrose/Lactated Ringer's (Dextrose 5%-Lactated Ringers) 1,000 mls @ 999 mls/ hr IV ASDIRECTED [place] Last Admin: 05/05/19 17:36 Dose: 999 mls/hr Potassium Chloride 10 meq/ (Premix) 100 mls @ 50 mls/hr IV ASDIRECTED ONE Stop: 05/05/19 19:23 Last Admin: 05/05/19 17:36 Dose: 50 mls/hr Potassium Chloride 10 meq/ (Premix) 100 mls @ 50 mls/hr IV ASDIRECTED ONE Stop: 05/05/19 20:45 Last Admin: 05/05/19 19:02 Dose: 50 mls/hr Sodium Chloride (Saline Flush) 10 ml FLUSH ASDIRECTED PRN PRN Reason: Keep Vein Open Last Admin: 05/05/19 16:18 Dose: 10 ml Labs: Laboratory Tests 05/05/19 05/05/19 05/05/19 Range/Units 16:20 16:20 16:20 WBC 6.85 (3.98-10.04) K/mm3 RBC 3.99 (3.98-5.22) M/mm3 Hgb 12.6 (11.2-15.7) gm/dl Hct 37.7 (34.1-44.9) % MCV 94.5 (79.4-94.8) fl MCH 31.6 (25.6-32.2) pg MCHC 33.4 (32.2-35.5) g/dl RDW Std Deviation 56.6 H (36.4-46.3) fL Plt Count 206 D (182-369) K/mm3 MPV 9.6 (9.4-12.3) fl Neut % (Auto) 63.9 (34.0-71.1) % Lymph % (Auto) 26.0 (19.3-51.7) % [place] % (Auto) 9.1 (4.7-12.5) % Eos % (Auto) 0 L (0.7-5.8) Baso % (Auto) 0.9 (0.1-1.2) % Neut # (Auto) 4.38 (1.56-6.13) K/mm3 Lymph # (Auto) 1.78 (1.18-3.74) K/mm3 [place] # (Auto) 0.62 H (0.24-0.36) K/mm3 Eos # (Auto) 0.00 L (0.04-0.36) K/mm3 Baso # (Auto) 0.06 (0.01-0.08) K/mm3 Sodium 140 (136-145) mEq/L Potassium 2.7 L (3.5-5.1) mEq/L Chloride 100 (98-107) mEq/L Carbon Dioxide 27 (21-32) mEq/L Anion Gap 15.7 H (5-15) BUN 8 (7-18) mg/dL Creatinine 2.8 H D (0.55-1.02) mg/dL Est Cr Clr Drug Dosing 23.07 mL/min Estimated GFR (MDRD) 18 (>60) mL/min BUN/Creatinine Ratio 2.9 L (14-18) Glucose 120 H (74-106) mg/dL Lactic Acid 1.4 (0.4-2.0) mmol/L Calcium 9.4 (8.5-10.1) mg/dL Total Bilirubin 0.7 (0.2-1.0) mg/dL AST 86 H (15-37) U/L ALT 45 (14-59) U/L Alkaline Phosphatase 123 H (46-116) U/L Total Protein 9.5 H (6.4-8.2) g/dl Albumin 4.7 (3.4-5.0) g/dl Globulin 4.8 gm/dL Albumin/Globulin Ratio 1.0 (1-2) Lipase 213 (73-393) U/L Ethyl Alcohol 0.00 (0.00) gm% Meds: Medications Generic Name Dose Route Start Last Admin Trade Name Freq PRN Reason Stop Dose Admin Sodium Chloride 1,000 mls @ 999 mls/hr 05/05/19 15:45 05/05/19 16:17 Normal Saline IV 999 mls/hr ONETIME [place] Administration Dextrose/Lactated Ringer's 1,000 mls @ 999 mls/hr 05/05/19 17:30 05/05/19 17: 36 Dextrose 5%-Lactated Ringers IV 999 mls/hr ASDIRECTED [place]IB[place] Administration Potassium Chloride 10 meq/ 100 mls @ 50 mls/hr 05/05/19 17:24 05/05/19 17:36 Premix IV 05/05/19 19:23 50 mls/hr ASDIRECTED ONE Administration Potassium Chloride 10 meq/ 100 mls @ 50 mls/hr 05/05/19 18:46 05/05/19 19:02 Premix IV 05/05/19 20:45 50 mls/hr ASDIRECTED ONE Administration Sodium Chloride 10 ml 05/05/19 15:45 05/05/19 16:18 Saline Flush FLUSH 10 ml ASDIRECTED PRN Administration Keep Vein Open Discontinued Medications Generic Name Dose Route Start Last Admin Trade Name Freq PRN Reason Stop Dose Admin Hydromorphone HCl 0.5 mg 05/05/19 15:45 05/05/19 16:18 Dilaudid IVPUSH 05/05/19 15:46 0.5 mg ONETIME ONE Administration Hydromorphone HCl 0.5 mg 05/05/19 18:46 05/05/19 19:02 Dilaudid IVPUSH 05/05/19 18:47 0.5 mg ONETIME ONE Administration Metoclopramide HCl 5 mg 05/05/19 18:46 05/05/19 19:02 Reglan IVPUSH 05/05/19 18:47 5 mg ONETIME ONE Administration Ondansetron HCl 4 mg 05/05/19 15:45 05/05/19 16:18 Zofran IVPUSH 05/05/19 15:46 4 mg ONETIME ONE Administration - Re-Assessments/Exams Free Text/Narrative Re-Assessment/Exam: 05/05/19 18:57. Have given 1 L normal saline, 0.5 mg Dilaudid 2, Zofran 4 mg IV. That she is doing better. Her potassium did come back low at 2.7. Have given 10 mEq potassium IV. Will give another 10 mEq IV prior to discharge. Will give one more dose of Dilaudid 0.5 mg IV, will finish the second liter of fluid and than plan to discharge home. Departure - Departure Time of Disposition: 19:01 Disposition: Home, Self-Care 01 Condition: Fair Clinical Impression: Hypokalemia Abdominal pain Qualifiers: Abdominal location: upper abdomen, unspecified Qualified Code(s): R10.10 - Upper abdominal pain, unspecified Vomiting Qualifiers: Vomiting type: unspecified Vomiting Intractability: non-intractable Nausea presence: with nausea Qualified Code(s): R11.2 - Nausea with vomiting, unspecified - Discharge Information Prescriptions: Famotidine [Pepcid] 20 mg PO BID #30 tab Ondansetron [Zofran ODT] 4 mg PO Q6H PRN #7 tab.dis PRN Reason: Nausea/Vomiting Referrals: Enrique Brower Jr, MD [Primary Care Provider] - Forms: ED Department Discharge Additional Instructions: Clear liquids until morning, then very careful bland diet as tolerated, your potassium was very low, continue potassium supplement as previously prescribed. Bananas, other fruit and vegetables are also good sources of potassium. Zofran if needed for further nausea or vomiting. Pepcid 20 mg twice daily to help reduce acidity of your stomach. Prescriptions have been sent electronically to [facility]. Try follow-up with Dr. Brower Friday for recheck. Return to ED as needed if symptoms worsening in any way. - My Orders Last 24 Hours: My Active Orders 05/05/19 15:45 Sodium Chloride 0.9% [Normal Saline] 1,000 ml IV ONETIME Sodium Chloride 0.9% [Saline Flush] 10 ml FLUSH ASDIRECTED PRN Peripheral IV Insertion Adult [OM.PC] Stat 05/05/19 15:46 Peripheral IV Care [RC] . DIRECTED 05/05/19 17:23 Abdomen 2V AP Flat Upright [CR] Stat 05/05/19 17:24 Potassium Chloride [KCl 10 MEQ in Water 100 ML] 10 meq Premix Bag 1 bag IV ASDIRECTED 05/05/19 17:30 Dextrose 5%-Lactated Ringers 1,000 ml IV ASDIRECTED 05/05/19 18:46 Potassium Chloride [KCl 10 MEQ in Water 100 ML] 10 meq Premix Bag 1 bag IV ASDIRECTED - Assessment/Plan Last 24 Hours: My Active Orders 05/05/19 15:45 Sodium Chloride 0.9% [Normal Saline] 1,000 ml IV ONETIME Sodium Chloride 0.9% [Saline Flush] 10 ml FLUSH ASDIRECTED PRN Peripheral IV Insertion Adult [OM.PC] Stat 05/05/19 15:46 Peripheral IV Care [RC] . DIRECTED 05/05/19 17:23 Abdomen 2V AP Flat Upright [CR] Stat 05/05/19 17:24 Potassium Chloride [KCl 10 MEQ in Water 100 ML] 10 meq Premix Bag 1 bag IV ASDIRECTED 05/05/19 17:30 Dextrose 5%-Lactated Ringers 1,000 ml IV ASDIRECTED 05/05/19 18:46 Potassium Chloride [KCl 10 MEQ in Water 100 ML] 10 meq Premix Bag 1 bag IV ASDIRECTED
[2019-05-05] MEDS ORDERED: Potassium Chloride 10 MEQ in Premix Bag 1 BAG IV ONE ×2 (17:24→18:46)
[2019-05-05] MEDS ORDERED: Dextrose 5%-Lactated Ringers 1,000 ML IV SCH (17:30)
[2019-05-05] MEDS ORDERED: Metoclopramide 10 MG/2 ML SDV IVPUSH ONE (18:46)
--- NOTE | 2019-05-06 07:00 | CR ---
Abdomen: Supine and upright views of the abdomen were obtained. Comparison: Prior abdominal x-ray of 07/08/16. Several loops of slightly prominent small bowel gas noted. This is most likely due to mild small bowel ileus or excessive swallowed gas. Bowel gas pattern is otherwise unremarkable. Surgical clips are seen from prior cholecystectomy. No free air is noted. Mild scoliosis and mild degenerative change is noted within the spine. Calcifications are seen within the pelvis which are compatible with phleboliths. Impression: 1. Several loops of slightly prominent small bowel gas. This could represent mild ileus from gastroenteritis or represent excessive swallowed gas. 2. Other findings which are believed to be incidental. Diagnostic code #3
== END 2019-05-05 20:20 | disposition home or self-care (01) ==
LOC: JD.ED 14:55
DX: E87.6 Hypokalemia (principal); R10.10 Upper abdominal pain, unspecified; I10 Essential (primary) hypertension; K21.9 Gastro-esophageal reflux disease without esophagitis; E66.9 Obesity, unspecified; E03.9 Hypothyroidism, unspecified; Z88.0 Allergy status to penicillin; Z88.2 Allergy status to sulfonamides
CPT/HCPCS: 36415; 74019; 80053; 80320; 83605; 83690; 85025; 96361; 96365; 96366; 96375; 96376; 99284; J1170; J2405; J2765; J3480; J7040; J7042; G0480

== ENCOUNTER 2019-05-09 18:18 | Inpatient (IN) | payer OTHER ==
[2019-05-09] MEDS ORDERED: Ondansetron 4 MG/2 ML SDV IVPUSH ONE ×2 (18:27→23:51)
[2019-05-09] MEDS ORDERED: Sodium Chloride 0.9% 1,000 ML IV ONE ×2 (18:27→19:55)
[2019-05-09] MEDS ORDERED: HYDROmorphone 0.5 MG/0.5 ML Syringe IVPUSH ONE ×2 (18:34→21:57)
--- NOTE | 2019-05-09 19:22 | EDM.PDOC ---
ED HPI GENERAL MEDICAL PROBLEM - General Chief Complaint: Abdominal Pain Stated Complaint: [facility] ambulance Time Seen by Provider: 05/09/19 18:23 Source of Information: Reports: Patient, RN Notes Reviewed History Limitations: Reports: Intoxication (pt is drunk, but cooperative) - History of Present Illness INITIAL COMMENTS - FREE TEXT/NARRATIVE: Patient is a 43-year-old female who is brought to the ED today by [facility] for the evaluation of upper abdominal pain. Patient called the ambulance for herself, she states that she is having right upper quadrant abdominal pain. She has a history of alcohol abuse, states she has been drinking for the past 7 days straight. She likes to drink rum. The ambulance did place an IV and gave normal saline in route to the ER. The patient states that her last alcoholic drink was this morning, she is complaining of some epigastric burning as well. She denies any nausea or vomiting. She states she has had some abdominal surgeries, and records include a cholecystectomy, appendectomy, colonoscopy, EGD. She further notes a history of thyroid cancer. She states this was diagnosed around 10 years ago. Right Upper Abdomen Pain Score (Numeric/FACES): 10 - Related Data Allergies Allergy/AdvReac Type Severity Reaction Status Date / Time Penicillins Allergy Severe Airway Verified 05/09/19 18:23 Tightness Sulfa (Sulfonamide Allergy Airway Verified 05/09/19 18:23 Antibiotics) Tightness Home Meds: Home Meds Levothyroxine 125 mcg PO ACBREAKFAST #30 tablet 11/25/18 [Rx] Omeprazole Magnesium [Prilosec Otc] 20 mg PO DAILY #15 tablet.dr 04/11/19 [Rx] Ondansetron [Zofran ODT] 4 mg SL Q6H PRN 04/11/19 [History] Potassium Chloride 20 meq PO DAILY #30 tablet.er 04/11/19 [Rx] Famotidine [Pepcid] 20 mg PO BID #30 tab 05/05/19 [Rx] Ondansetron [Zofran ODT] 4 mg PO Q6H PRN #7 tab.dis 05/05/19 [Rx] Past Medical History HEENT History: Reports: None Cardiovascular History: Reports: High Cholesterol, Hypertension Respiratory History: Reports: None Gastrointestinal History: Reports: GERD, Pancreatitis Other Gastrointestinal History: epigastric pain, adhesions Genitourinary History: Reports: Acute Renal Failure Other Genitourinary History: renal failure 10 yrs ago--was given chemo for thyroid CA. SECURITIES RESEARCH ANALYST History: Reports: Other SECURITIES RESEARCH ANALYST History: grav 4 para4, right ovarian cystecomy Musculoskeletal History: Reports: Arthritis, Back Pain, Chronic Other Musculoskeletal History: had bone infection to R) hand 4 yrs ago--states was hospitalized 3 months Neurological History: Reports: None Psychiatric History: Reports: Addiction Endocrine/Metabolic History: Reports: Hypothyroidism, Obesity/BMI 30+ Hematologic History: Reports: Anemia, Iron Deficiency Immunologic History: Reports: None Oncologic (Cancer) History: Reports: Thyroid Other Oncologic History: thyroid removed due to CA. Dermatologic History: Reports: None - Infectious Disease History Infectious Disease History: Reports: None - Past Surgical History Head Surgeries/Procedures: Reports: None GI Surgical History: Reports: Appendectomy, Cholecystectomy, Colonoscopy, EGD Female Surgical History: Reports: Hysterectomy, Other (See Below) Endocrine Surgical History: Reports: Thyroidectomy Social & Family History - Family History OBGYN: Reports: Endocrine/Metabolic: Reports: Diabetes, type II Immunologic: Reports: None Oncologic: Reports: Breast, Uterine - Tobacco Use Smoking Status *Q: Never Smoker - Caffeine Use Caffeine Use: Reports: Coffee - Recreational Drug Use Recreational Drug Use: No - Living Situation & Occupation Living situation: Reports: ( is in alf), with Family (Daughter, son). Denies: with Spouse ( in alf) Occupation: Unemployed ED ROS GENERAL - Review of Systems Review Of Systems: See Below Constitutional: Denies: Fever, Chills HEENT: Reports: No Symptoms Respiratory: Denies: Shortness of Breath Cardiovascular: Denies: Chest Pain GI/Abdominal: Reports: Abdominal Pain (epigastric burning/RUQ pain). Denies: Constipation, Diarrhea, Nausea, Vomiting : Reports: No Symptoms Musculoskeletal: Reports: No Symptoms Skin: Reports: No Symptoms Neurological: Reports: No Symptoms Psychiatric: Reports: No Symptoms Hematologic/Lymphatic: Reports: No Symptoms Immunologic: Reports: No Symptoms ED EXAM, GI/ABD - Physical Exam Exam: See Below Exam Limited By: Intoxication (drunk, but cooperative) General Appearance: Alert, WD/WN, No Apparent Distress Eyes: Bilateral: Normal Appearance Throat/Mouth: Normal Inspection, Normal Lips, Normal Teeth, Normal Gums, Normal Oropharynx, Normal Voice, No Airway Compromise Head: Atraumatic, Normocephalic Neck: Normal Inspection Respiratory/Chest: No Respiratory Distress, Lungs Clear, Normal Breath Sounds, No Accessory Muscle Use, Chest Non-Tender Cardiovascular: Normal Peripheral Pulses, Regular Rate, Rhythm, No Murmur GI/Abdominal Exam: Normal Bowel Sounds, Soft, No Distention, No Mass, Tender ( epigastrium/RUQ) Extremities: Normal Inspection, Normal Capillary Refill Neurological: Alert, Oriented, No Motor/Sensory Deficits Psychiatric: Other (again, pt is drunk but arousable and cooperative) Skin Exam: Warm, Dry, Intact, Normal Color, No Rash EKG INTERPRETATION EKG Date: 05/09/19 Time: 21:52 Rhythm: NSR Rate (Beats/Min): 80 [place]: Normal P-Wave: Present QRS: Normal ST-T: Normal QT: Prolonged (582) Comparison: NA - No Prior EKG EKG Interpretation Comments: Reviewed by Dr. Santana and myself. QT prolongation was noted, but no other acute ischemic changes were appreciated. Course - Vital Signs Last Recorded V/S: Last Vital Signs Temp 98.2 F 05/09/19 18:20 Pulse 97 05/09/19 18:20 Resp 20 05/09/19 18:20 BP 126/80 05/09/19 18:20 Pulse Ox 100 05/09/19 18:20 - Orders/Labs/Meds Orders: Active Orders 24 hr Category Date Time Status Admission Status [Patient Status] [ADT] Routine ADT 05/09/19 21:44 Active EKG Documentation Completion [RC] STAT Care 05/09/19 21:47 Ordered DRUG SCREEN, URINE [URCHEM] Stat Lab 05/09/19 21:19 Ordered UA W/MICROSCOPIC [URIN] Stat Lab 05/09/19 21:19 Ordered Dextrose 5%-Lactated Ringers @ 125 MLS/HR(1,000ml) Med 05/09/19 21:45 Ordered Dextrose 5%-Lactated Ringers 1,000 ml IV ASDIRECTED Medication Orders Dextrose/Lactated Ringer's (Dextrose 5%-Lactated Ringers) 1,000 mls @ 125 mls/ hr IV ASDIRECTED BIBIANA Last Admin: 05/09/19 21:50 Dose: 125 mls/hr Labs: Laboratory Tests 05/09/19 05/09/19 05/09/19 Range/Units 18:58 18:58 18:58 WBC 5.25 (3.98-10.04) K/mm3 RBC 3.97 L (3.98-5.22) M/mm3 Hgb 12.3 (11.2-15.7) gm/dl Hct 36.5 (34.1-44.9) % MCV 91.9 (79.4-94.8) fl MCH 31.0 (25.6-32.2) pg MCHC 33.7 (32.2-35.5) g/dl RDW Std Deviation 52.2 H (36.4-46.3) fL Plt Count 131 L D (182-369) K/mm3 MPV 9.5 (9.4-12.3) fl Neut % (Auto) 82.5 H (34.0-71.1) % Lymph % (Auto) 9.3 L (19.3-51.7) % [place] % (Auto) 7.4 (4.7-12.5) % Eos % (Auto) 0.2 L (0.7-5.8) Baso % (Auto) 0.6 (0.1-1.2) % Neut # (Auto) 4.33 (1.56-6.13) K/mm3 Lymph # (Auto) 0.49 L (1.18-3.74) K/mm3 [place] # (Auto) 0.39 H (0.24-0.36) K/mm3 Eos # (Auto) 0.01 L (0.04-0.36) K/mm3 Baso # (Auto) 0.03 (0.01-0.08) K/mm3 Manual Slide Review Abnormal smear Sodium 141 (136-145) mEq/L Potassium 2.6 L (3.5-5.1) mEq/L Chloride 101 (98-107) mEq/L Carbon Dioxide 23 (21-32) mEq/L Anion Gap 19.6 H (5-15) BUN 7 (7-18) mg/dL Creatinine 3.0 H (0.55-1.02) mg/dL Est Cr Clr Drug Dosing 17.19 mL/min Estimated GFR (MDRD) 17 (>60) mL/min BUN/Creatinine Ratio 2.3 L (14-18) Glucose 111 H (74-106) mg/dL Calcium 8.9 (8.5-10.1) mg/dL Magnesium 1.9 (1.8-2.4) mg/dl Total Bilirubin 0.6 (0.2-1.0) mg/dL AST 90 H (15-37) U/L ALT 38 (14-59) U/L Alkaline Phosphatase 120 H (46-116) U/L Total Protein 9.3 H (6.4-8.2) g/dl Albumin 4.7 (3.4-5.0) g/dl Globulin 4.6 gm/dL Albumin/Globulin Ratio 1.0 (1-2) Lipase 232 (73-393) U/L Urine Color (Yellow) Urine Appearance (Clear) Urine pH (5.0-8.0) Ur Specific [place] (1.005-1.030) Urine Protein (Negative) Urine Glucose (UA) (Negative) Urine Ketones (Negative) Urine Occult Blood (Negative) Urine Nitrite (Negative) Urine Bilirubin (Negative) Urine Urobilinogen (0.2-1.0) Ur Leukocyte Esterase (Negative) Ethyl Alcohol 0.00 (0.00) gm% Ketones 1.78 (0.0-0.3) mM 05/09/19 Range/Units 21:41 WBC (3.98-10.04) K/mm3 RBC (3.98-5.22) M/mm3 Hgb (11.2-15.7) gm/dl Hct (34.1-44.9) % MCV (79.4-94.8) fl MCH (25.6-32.2) pg MCHC (32.2-35.5) g/dl RDW Std Deviation (36.4-46.3) fL Plt Count (182-369) K/mm3 MPV (9.4-12.3) fl Neut % (Auto) (34.0-71.1) % Lymph % (Auto) (19.3-51.7) % [place] % (Auto) (4.7-12.5) % Eos % (Auto) (0.7-5.8) Baso % (Auto) (0.1-1.2) % Neut # (Auto) (1.56-6.13) K/mm3 Lymph # (Auto) (1.18-3.74) K/mm3 [place] # (Auto) (0.24-0.36) K/mm3 Eos # (Auto) (0.04-0.36) K/mm3 Baso # (Auto) (0.01-0.08) K/mm3 Manual Slide Review Sodium (136-145) mEq/L Potassium (3.5-5.1) mEq/L Chloride (98-107) mEq/L Carbon Dioxide (21-32) mEq/L Anion Gap (5-15) BUN (7-18) mg/dL Creatinine (0.55-1.02) mg/dL Est Cr Clr Drug Dosing mL/min Estimated GFR (MDRD) (>60) mL/min BUN/Creatinine Ratio (14-18) Glucose (74-106) mg/dL Calcium (8.5-10.1) mg/dL Magnesium (1.8-2.4) mg/dl Total Bilirubin (0.2-1.0) mg/dL AST (15-37) U/L ALT (14-59) U/L Alkaline Phosphatase (46-116) U/L Total Protein (6.4-8.2) g/dl Albumin (3.4-5.0) g/dl Globulin gm/dL Albumin/Globulin Ratio (1-2) Lipase (73-393) U/L Urine Color Light yellow (Yellow) Urine Appearance Clear (Clear) Urine pH 7.5 (5.0-8.0) Ur Specific [place] 1.020 (1.005-1.030) Urine Protein 2+ H (Negative) Urine Glucose (UA) Negative (Negative) Urine Ketones 2+ H (Negative) Urine Occult Blood 2+ H (Negative) Urine Nitrite Negative (Negative) Urine Bilirubin Negative (Negative) Urine Urobilinogen 0.2 (0.2-1.0) Ur Leukocyte Esterase Negative (Negative) Ethyl Alcohol (0.00) gm% Ketones (0.0-0.3) mM Meds: Medications Generic Name Dose Route Start Last Admin Trade Name Freq PRN Reason Stop Dose Admin Dextrose/Lactated Ringer's 1,000 mls @ 125 mls/hr 05/09/19 21:45 05/09/19 21: 50 Dextrose 5%-Lactated Ringers IV 125 mls/hr ASDIRECTED BIBIANA Administration Discontinued Medications Generic Name Dose Route Start Last Admin Trade Name Dominique PRN Reason Stop Dose Admin Hydromorphone HCl 0.5 mg 05/09/19 18:34 05/09/19 19:01 Dilaudid IVPUSH 05/09/19 18:35 0.5 mg ONETIME ONE Administration Hydromorphone HCl 0.5 mg 05/09/19 21:57 Dilaudid IVPUSH 05/09/19 21:58 ONETIME ONE Sodium Chloride 1,000 mls @ 999 mls/hr 05/09/19 18:27 05/09/19 18:59 Normal Saline IV 05/09/19 19:27 999 mls/hr ONETIME ONE Administration Potassium Chloride 10 meq/ 100 mls @ 100 mls/hr 05/09/19 19:46 05/09/19 20:23 Premix IV 05/09/19 20:45 100 mls/hr ONETIME ONE Administration Sodium Chloride 1,000 mls @ 999 mls/hr 05/09/19 19:55 05/09/19 20:24 Normal Saline IV 05/09/19 20:55 999 mls/hr ONETIME ONE Administration Ondansetron HCl 4 mg 05/09/19 18:27 05/09/19 18:55 Zofran IVPUSH 05/09/19 18:28 4 mg ONETIME ONE Administration Pantoprazole Sodium 40 mg 05/09/19 19:23 05/09/19 20:24 Protonix Iv IVPUSH 05/09/19 19:24 40 mg ONETIME ONE Administration Potassium Chloride 40 meq 05/09/19 19:47 05/09/19 20:23 Klor-Con M20 PO 05/09/19 19:48 40 meq ONETIME ONE Administration - Re-Assessments/Exams Free Text/Narrative Re-Assessment/Exam: 05/09/19 19:27 Patient presents to the ED for the evaluation of upper abdominal pain. History was a little bit difficult as the patient is drunk, I did order CBC, CMP, magnesium, lipase, blood alcohol level, 4 mg Zofran, IV fluids, and 40 mg Protonix for initial management. 05/09/19 19:50 Patient's labs have returned, CBC is unremarkable, her potassium is low at 2.6, anion gap is elevated at 19.6, creatinine is elevated at 3.0, and GFR is low at 17. AST is 90, a LT 38, ALP elevated 120, total protein elevated at 9.3, normal lipase level, and a blood glucose of 111. I did review her old labs, and in March she had a GFR of greater than 60, and a normal creatinine of 1.0. In less than one months time she now has a GFR of17 and a creatinine of 3.0. 05/09/19 21:39 Patient's case was discussed with Dr. Johnson, our hospitalist, for potential hospitalization, he did review the labs and would agree that the patient would probably benefit from hospitalization. He recommended doing D5 LR for maintenance fluids after the 2 initial boluses have been given. I did also order a UA and Urine drug screen and serum for further evaluation. 05/09/19 22:05 An EKG was obtained due to the patient's hypokalemia, this was reviewed by myself and Dr. Santana, he was impressed due to the QT prolongation. He does not find any other acute ischemic changes at this time. Departure - Departure Time of Disposition: 21:42 Disposition: Admitted As Inpatient 65 Condition: Fair Clinical Impression: Acute kidney injury, Hypokalemia - Discharge Information *PRESCRIPTION DRUG MONITORING PROGRAM REVIEWED*: No *COPY OF PRESCRIPTION DRUG MONITORING REPORT IN PATIENT HELENA: No Referrals: PCP,None [Primary Care Provider] - Forms: ED Department Discharge - My Orders Last 24 Hours: My Active Orders 05/09/19 21:19 DRUG SCREEN, URINE [URCHEM] Stat UA W/MICROSCOPIC [URIN] Stat 05/09/19 21:44 Admission Status [Patient Status] [ADT] Routine 05/09/19 21:45 Dextrose 5%-Lactated Ringers @ 125 MLS/HR(1,000ml) Dextrose 5%-Lactated Ringers 1,000 ml IV ASDIRECTED 05/09/19 21:47 EKG Documentation Completion [RC] STAT - Assessment/Plan Last 24 Hours: My Active Orders 05/09/19 21:19 DRUG SCREEN, URINE [URCHEM] Stat UA W/MICROSCOPIC [URIN] Stat 05/09/19 21:44 Admission Status [Patient Status] [ADT] Routine 05/09/19 21:45 Dextrose 5%-Lactated Ringers @ 125 MLS/HR(1,000ml) Dextrose 5%-Lactated Ringers 1,000 ml IV ASDIRECTED 05/09/19 21:47 EKG Documentation Completion [RC] STAT
[2019-05-09] MEDS ORDERED: Pantoprazole 40 MG Vial IVPUSH ONE (19:23)
[2019-05-09] MEDS ORDERED: Potassium Chloride 10 MEQ in Premix Bag 1 BAG IV ONE (19:46)
[2019-05-09] MEDS ORDERED: Potassium Chloride 20 MEQ Tab.ER PO ONE (19:47)
[2019-05-09] MEDS ORDERED: Dextrose 5%-Lactated Ringers 1,000 ML IV SCH (21:45)
[2019-05-09] MEDS ORDERED: Ondansetron 4 MG/2 ML SDV IV PRN (23:33)
[2019-05-09] MEDS ORDERED: LORazepam 1 MG Tab PO PRN (23:40)
[2019-05-09] MEDS ORDERED: Scopolamine 1.5 MG Transdermal Patch TOP ONE (23:49)
--- NOTE | 2019-05-10 00:07 | PCM.HP.2 ---
H&P History of Present Illness - General Date of Service: 05/09/19 Admit Problem/Dx: Admission Diagnosis/Problem Admission Diagnosis/Problem Hypokalemia - History of Present Illness Initial Comments - Free Text/Narative: Patient presented to the emergency room with upper abdominal pain. Patient has a history of alcoholism and states that she will has been drinking rum for the last 7 days per emergency room note. Patient was a poor historian for me and answered questions mainly yes or no. Therefore, most of the history was obtained through the emergency room providers documentation. Pedal me that she has some abdominal pain, nausea, and denies being a daily drinker. Patient was here in October of this year with similar symptoms, but that time she did have pancreatitis. Patient was here for 10 days, had an EGD, gastric emptying study, and CT scan with no obvious etiology. Patient has been noncompliant and has not filled any medications since discharge. Patient complains of nausea and abdominal pain. she states the right upper quadrant that radiates into her back. It is 10 out of 10. It is worse with movement. It is a dull ache to sharp pain. Dilaudid nor Zofran seems to have much effect on her pain. Patient was seen in the emergency room also on May 05, 2019. With similar symptoms. At the time she was given 2 L of normal saline, Dilaudid, Zofran, potassium, and discharged home. In the emergency room she was found to have low potassium at 2.6 and an elevated anion gap at 19.6. Creatinine is elevated at 3.0 which is greater than it was 4 days ago when she was seen in the emergency room. In November her creatinine was normal. AST 90, ALT 38, Alkaline phosphatase 120, lipase 232 which is normal. UA was negative for infection but did have 2+ ketones and 2+ occult blood with only 0-5 RBCs. Urine drug screen was negative with an alcohol level of 0.00. Ketones were 1.78. EKG showed normal sinus rhythm with slightly prolonged QT. Otherwise no ischemic changes. She was given 2 L of LR bolus and started on D5 LR. Right Upper Abdomen Pain Score (Numeric/FACES): 10 - Related Data Allergies/Adverse Reactions: Allergies Allergy/AdvReac Type Severity Reaction Status Date / Time Penicillins Allergy Severe Airway Verified 05/09/19 22:49 Tightness Sulfa (Sulfonamide Allergy Airway Verified 05/09/19 22:49 Antibiotics) Tightness Home Medications: Home Meds Levothyroxine 125 mcg PO ACBREAKFAST #30 tablet 11/25/18 [Rx] Potassium Chloride 20 meq PO DAILY #30 tablet.er 04/11/19 [Rx] Famotidine [Pepcid] 20 mg PO BID #30 tab 05/05/19 [Rx] FLUoxetine [PROzac] 20 mg PO DAILY 05/10/19 [History] Past Medical History HEENT History: Reports: None Cardiovascular History: Reports: High Cholesterol, Hypertension Respiratory History: Reports: None Gastrointestinal History: Reports: GERD, Pancreatitis Other Gastrointestinal History: epigastric pain, adhesions Genitourinary History: Reports: Acute Renal Failure Other Genitourinary History: renal failure 10 yrs ago--was given chemo for thyroid CA. 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 Dermatologic History: Reports: None - Infectious Disease History Infectious Disease History: Reports: None, Chicken Pox, Influenza, Measles - Past Surgical History Head Surgeries/Procedures: Reports: None Cardiovascular Surgical History: Reports: None GI Surgical History: Reports: Appendectomy, Cholecystectomy, Colonoscopy, EGD Female Surgical History: Reports: Hysterectomy, Other (See Below) Endocrine Surgical History: Reports: None, Thyroidectomy Neurological Surgical History: Reports: None Musculoskeletal Surgical History: Reports: None Oncologic Surgical History: Reports: None Social & Family History - Family History Family Medical History: Noncontributory OBGYN: Reports: Endocrine/Metabolic: Reports: Diabetes, type II Immunologic: Reports: None Oncologic: Reports: Breast, Uterine - Tobacco Use Smoking Status *Q: Former Smoker Used Tobacco, but Quit: No Second Hand Smoke Exposure: No - Caffeine Use Caffeine Use: Reports: Tea Other Caffeine Use: 2 cups a day - Alcohol Use Days Per Week of Alcohol Use: 7 Number of Drinks Per Day: 1 Total Drinks Per Week: 7 Date of Last Drink: 05/09/19 - Recreational Drug Use Recreational Drug Use: No - Living Situation & Occupation Living situation: Reports: ( is in snf), with Family (Daughter, son). Denies: with Spouse ( in snf) Occupation: Unemployed H&P Review of Systems - Review of Systems: Review Of Systems: ROS reveals no pertinent complaints other than HPI. Exam - Exam Exam: See Below - Vital Signs Vital Signs: Last Vital Signs Temp 98.2 F 05/09/19 18:20 Pulse 97 05/09/19 18:20 Resp 20 05/09/19 18:20 BP 126/80 05/09/19 18:20 Pulse Ox 100 05/09/19 18:20 Weight: 170 lb - Exam Quality Assessment: No: Supplemental Oxygen General: Alert, Oriented, Mild Distress HEENT: Conjunctiva Clear, Hearing Intact, Mucosa Moist & [place] Neck: Supple, Trachea Midline, 2 Lungs: Clear to Auscultation, Normal Respiratory Effort Cardiovascular: Regular Rate, Regular Rhythm GI/Abdominal Exam: Normal Bowel Sounds, Soft, No Organomegaly, No Distention, No Abnormal Bruit, No Mass, Pelvis Stable, Tender (right upper quadrant tenderness). No: Guarding, Rigid, Rebound Extremities: Normal Inspection, Normal Range of Motion, Non-Tender, No Pedal Edema, Normal Capillary Refill Skin: Warm, Dry, Intact Neurological: Cranial Nerves Intact Neuro Extensive - Mental Status: Alert Psychiatric: Alert - Patient Data Lab Results Last 24 hrs: Laboratory Results - last 24 hr 05/09/19 05/09/19 05/09/19 Range/Units 18:58 18:58 18:58 WBC 5.25 (3.98-10.04) K/mm3 RBC 3.97 L (3.98-5.22) M/mm3 Hgb 12.3 (11.2-15.7) gm/dl Hct 36.5 (34.1-44.9) % MCV 91.9 (79.4-94.8) fl MCH 31.0 (25.6-32.2) pg MCHC 33.7 (32.2-35.5) g/dl RDW Std Deviation 52.2 H (36.4-46.3) fL Plt Count 131 L D (182-369) K/mm3 MPV 9.5 (9.4-12.3) fl Neut % (Auto) 82.5 H (34.0-71.1) % Lymph % (Auto) 9.3 L (19.3-51.7) % [place] % (Auto) 7.4 (4.7-12.5) % Eos % (Auto) 0.2 L (0.7-5.8) Baso % (Auto) 0.6 (0.1-1.2) % Neut # (Auto) 4.33 (1.56-6.13) K/mm3 Lymph # (Auto) 0.49 L (1.18-3.74) K/mm3 [place] # (Auto) 0.39 H (0.24-0.36) K/mm3 Eos # (Auto) 0.01 L (0.04-0.36) K/mm3 Baso # (Auto) 0.03 (0.01-0.08) K/mm3 Manual Slide Review Abnormal smear Sodium 141 (136-145) mEq/L Potassium 2.6 L (3.5-5.1) mEq/L Chloride 101 (98-107) mEq/L Carbon Dioxide 23 (21-32) mEq/L Anion Gap 19.6 H (5-15) BUN 7 (7-18) mg/dL Creatinine 3.0 H (0.55-1.02) mg/dL Est Cr Clr Drug Dosing 17.19 mL/min Estimated GFR (MDRD) 17 (>60) mL/min BUN/Creatinine Ratio 2.3 L (14-18) Glucose 111 H (74-106) mg/dL Calcium 8.9 (8.5-10.1) mg/dL Magnesium 1.9 (1.8-2.4) mg/dl Total Bilirubin 0.6 (0.2-1.0) mg/dL AST 90 H (15-37) U/L ALT 38 (14-59) U/L Alkaline Phosphatase 120 H (46-116) U/L Total Protein 9.3 H (6.4-8.2) g/dl Albumin 4.7 (3.4-5.0) g/dl Globulin 4.6 gm/dL Albumin/Globulin Ratio 1.0 (1-2) Lipase 232 (73-393) U/L Urine Color (Yellow) Urine Appearance (Clear) Urine pH (5.0-8.0) Ur Specific [place] (1.005-1.030) Urine Protein (Negative) Urine Glucose (UA) (Negative) Urine Ketones (Negative) Urine Occult Blood (Negative) Urine Nitrite (Negative) Urine Bilirubin (Negative) Urine Urobilinogen (0.2-1.0) Ur Leukocyte Esterase (Negative) Urine RBC (0-5) /hpf Urine WBC (0-5) /hpf Ur Squamous Epith Cells (0-5) /hpf Amorphous Sediment (NOT SEEN) /hpf Urine Bacteria (FEW) /hpf Urine Mucus (FEW) /hpf Urine Opiates Screen (WRQMZY=676) Ur Buprenorphine Scrn (CUTOFF=10) Ur Oxycodone Screen (SIQ2BJ=166) Urine Methadone Screen (DILSYZ=364) Ur Propoxyphene Screen (MHPULR=579) Ur Barbiturates Screen (VYSHNX=768) Ur Tricyclics Screen (TTCNJT=251) Ur Phencyclidine Scrn (CUTOFF=25) Ur Amphetamine Screen (OYDUME=827) U Methamphetamines Scrn (PAZKXN=689) U Benzodiazepines Scrn (SGNQYO=607) U Cocaine Metab Screen (WWRYOT=338) U Marijuana (THC) Screen (CUTOFF=50) Ethyl Alcohol 0.00 (0.00) gm% Ketones 1.78 (0.0-0.3) mM 05/09/19 05/09/19 Range/Units 21:41 21:41 WBC (3.98-10.04) K/mm3 RBC (3.98-5.22) M/mm3 Hgb (11.2-15.7) gm/dl Hct (34.1-44.9) % MCV (79.4-94.8) fl MCH (25.6-32.2) pg MCHC (32.2-35.5) g/dl RDW Std Deviation (36.4-46.3) fL Plt Count (182-369) K/mm3 MPV (9.4-12.3) fl Neut % (Auto) (34.0-71.1) % Lymph % (Auto) (19.3-51.7) % [place] % (Auto) (4.7-12.5) % Eos % (Auto) (0.7-5.8) Baso % (Auto) (0.1-1.2) % Neut # (Auto) (1.56-6.13) K/mm3 Lymph # (Auto) (1.18-3.74) K/mm3 [place] # (Auto) (0.24-0.36) K/mm3 Eos # (Auto) (0.04-0.36) K/mm3 Baso # (Auto) (0.01-0.08) K/mm3 Manual Slide Review Sodium (136-145) mEq/L Potassium (3.5-5.1) mEq/L Chloride (98-107) mEq/L Carbon Dioxide (21-32) mEq/L Anion Gap (5-15) BUN (7-18) mg/dL Creatinine (0.55-1.02) mg/dL Est Cr Clr Drug Dosing mL/min Estimated GFR (MDRD) (>60) mL/min BUN/Creatinine Ratio (14-18) Glucose (74-106) mg/dL Calcium (8.5-10.1) mg/dL Magnesium (1.8-2.4) mg/dl Total Bilirubin (0.2-1.0) mg/dL AST (15-37) U/L ALT (14-59) U/L Alkaline Phosphatase (46-116) U/L Total Protein (6.4-8.2) g/dl Albumin (3.4-5.0) g/dl Globulin gm/dL Albumin/Globulin Ratio (1-2) Lipase (73-393) U/L Urine Color Light yellow (Yellow) Urine Appearance Clear (Clear) Urine pH 7.5 (5.0-8.0) Ur Specific [place] 1.020 (1.005-1.030) Urine Protein 2+ H (Negative) Urine Glucose (UA) Negative (Negative) Urine Ketones 2+ H (Negative) Urine Occult Blood 2+ H (Negative) Urine Nitrite Negative (Negative) Urine Bilirubin Negative (Negative) Urine Urobilinogen 0.2 (0.2-1.0) Ur Leukocyte Esterase Negative (Negative) Urine RBC 0-5 (0-5) /hpf Urine WBC Not seen (0-5) /hpf Ur Squamous Epith Cells 10-20 H (0-5) /hpf Amorphous Sediment Many H (NOT SEEN) /hpf Urine Bacteria Few (FEW) /hpf Urine Mucus Not seen (FEW) /hpf Urine Opiates Screen Negative (QNTREW=999) Ur Buprenorphine Scrn Negative (CUTOFF=10) Ur Oxycodone Screen Negative (AIP6AP=351) Urine Methadone Screen Negative (PZFHMH=464) Ur Propoxyphene Screen Negative (DTMADX=333) Ur Barbiturates Screen Negative (OPXGAD=617) Ur Tricyclics Screen Negative (QLLHVP=955) Ur Phencyclidine Scrn Negative (CUTOFF=25) Ur Amphetamine Screen Negative (EYKZLU=161) U Methamphetamines Scrn Negative (DPALIQ=845) U Benzodiazepines Scrn Negative (IGOIQX=183) U Cocaine Metab Screen Negative (UUMZLE=694) U Marijuana (THC) Screen Negative (CUTOFF=50) Ethyl Alcohol (0.00) gm% Ketones (0.0-0.3) mM Result Diagrams: 05/10/19 05:15 05/10/19 05:15 Problem List Initiated/Reviewed/Updated: Yes Orders Last 24hrs: Active Orders 24 hr Category Date Time Status Admission Status [Patient Status] [ADT] Routine ADT 05/09/19 21:44 Active Antiembolic Devices [RC] PER UNIT ROUTINE Care 05/09/19 23:35 Active CIWAA Assessment [RC] Q4H Care 05/09/19 23:37 Active EKG Documentation Completion [RC] STAT Care 05/09/19 21:47 Active Influenza Vaccine Charge [RC] .DISCHARGE Care 05/09/19 22:51 Active Oxygen Therapy [RC] PRN Care 05/09/19 23:33 Active Up ad Naila [RC] ASDIRECTED Care 05/09/19 23:33 Active VTE/DVT Education [RC] PER UNIT ROUTINE Care 05/09/19 23:33 Active Vital Signs [RC] Q4H Care 05/09/19 23:33 Active Consult to Case Management/Vitamin Manager [CONS] Cons 05/09/19 23:36 Active Routine Clear Liquid Diet [DIET] Diet 05/10/19 Lunch Active Nothing per Oral After Midnight Diet [DIET] Diet 05/09/19 Dinner Active Abdomen Comp [US] Routine Exams 05/10/19 08:00 Ordered BASIC METABOLIC PANEL,BMP [CHEM] Stat Lab 05/09/19 23:46 Received C-REACTIVE PROTEIN [CHEM] AM Lab 05/10/19 05:11 Ordered C-REACTIVE PROTEIN [CHEM] AM Lab 05/11/19 05:11 Ordered C-REACTIVE PROTEIN [CHEM] AM Lab 05/12/19 05:11 Ordered CBC WITH AUTO DIFF [HEME] AM Lab 05/10/19 05:11 Ordered COMPREHENSIVE METABOLIC PN,CMP [CHEM] AM Lab 05/10/19 05:11 Ordered COMPREHENSIVE METABOLIC PN,CMP [CHEM] AM Lab 05/11/19 05:11 Ordered COMPREHENSIVE METABOLIC PN,CMP [CHEM] AM Lab 05/12/19 05:11 Ordered MAGNESIUM [CHEM] AM Lab 05/10/19 05:11 Ordered MAGNESIUM [CHEM] AM Lab 05/11/19 05:11 Ordered MAGNESIUM [CHEM] AM Lab 05/12/19 05:11 Ordered Dextrose 5%-Lactated Ringers 1,000 ml Med 05/09/19 21:45 Active IV ASDIRECTED FLU Vacc [id number](6MOS+)/PF [Fluzone Quad Med 05/10/19 10:00 Once Syringe] 60 mcg IM .ONCE ONE HYDROmorphone [Dilaudid] Med 05/09/19 23:33 Active 0.5 mg IVPUSH Q2H PRN LORazepam [Ativan] Med 05/09/19 23:40 Active See Protocol PO Q1H PRN Lactated Ringers [Ringers, Lactated] 1,000 ml Med 05/09/19 23:45 Active IV ASDIRECTED Ondansetron [Zofran] Med 05/09/19 23:33 Active 4 mg IV Q4H PRN Pantoprazole [ProTONIX IV] Med 05/10/19 07:00 Active 40 mg IVPUSH DAILY@0700 Remove Patch Med 05/13/19 00:15 Active 1 ea TRDERM Q72H Sequential Compression Device [OM.PC] Per Unit Routine Oth 05/09/19 23:34 Ordered Resuscitation Status Routine Resus Stat 05/09/19 23:33 Ordered Medication Orders Hydromorphone HCl (Dilaudid) 0.5 mg IVPUSH Q2H PRN PRN Reason: Pain (severe 7-10) Dextrose/Lactated Ringer's (Dextrose 5%-Lactated Ringers) 1,000 mls @ 125 mls/ hr IV ASDIRECTED [place] Last Admin: 05/09/19 21:50 Dose: 125 mls/hr Lactated Ringer's (Ringers, Lactated) 1,000 mls @ 125 mls/hr IV ASDIRECTED [facility] Influenza Virus Vaccine (Fluzone Quad Syringe) 60 mcg IM .ONCE ONE Stop: 05/10/19 10:01 Lorazepam (Ativan) 0 mg PO Q1H PRN; Protocol PRN Reason: Withdrawal Symptoms Miscellaneous Information (Remove Patch) 1 ea TRDERM Q72H [facility] Stop: 05/13/19 00:16 Ondansetron HCl (Zofran) 4 mg IV Q4H PRN PRN Reason: Nausea/Vomiting Pantoprazole Sodium (Protonix Iv) 40 mg IVPUSH DAILY@0700 [facility] Assessment/Plan Comment:: Assessment * 43-year-old female with history of alcohol abuse drinking rum for at least 7 days. * Right upper quadrant pain with nausea. * anion gap metabolic acidosis * Hypokalemia * Acute renal injury with creatinine of 3.0 * History of hypothyroidism Plan * Admit to medical floor * LR at 125 mL per hour. * Replenish potassium * Daily CBC, CMP, and mag * Repeat lipase in the morning * ultrasound right upper quadrant in the morning * Dilaudid and Zofran for pain and nausea respectively * CIWA protocol with Ativan * SCDs for DVT prophylaxis - Mortality Measure Prognosis:: Good
[2019-05-10] MEDS: HYDROmorphone 0.5 MG/0.5 ML Syringe IVPUSH PRN ×4 (00:13→07:24)
[2019-05-10] MEDS: Potassium Chloride 10 MEQ in Premix Bag 1 BAG IV SCH ×4 (02:25→05:37)
[2019-05-10] MEDS: Lactated Ringers 1,000 ML IV SCH ×3 (05:36→20:09)
[2019-05-10] MEDS: Pantoprazole 40 MG Vial IVPUSH SCH ×2 (05:36→07:17)
--- NOTE | 2019-05-10 09:13 | US ---
Abdominal ultrasound: Multiple real-time images of the abdomen were obtained. Comparison: Prior CT abdomen and pelvis exam of 01/13/19. Technologist's note: Very limited study due to patient's body habitus and sensitivity to probe pressure Findings: Liver is echodense which correlates to fatty infiltration on previous CT exam. No focal abnormality is appreciated within the liver. Previous cholecystectomy is noted. No biliary duct dilatation is seen. Kidneys show no hydronephrosis or mass. Right kidney has a length of 11.6 cm and left kidney has a length of 10.8 cm. Spleen size at the upper limits of normal measuring 12.9 cm. Aorta shows no aneurysm. Pancreas is mostly obscured from bowel gas. Visualized portions of the pancreas appear unremarkable. Inferior vena cava is patent. Portal vein shows normal hepatopedal flow. Impression: 1. Fatty infiltration within the liver. Prior cholecystectomy with no biliary duct dilatation. 2. Incompletely seen pancreas due to bowel gas. 3. Spleen size at the upper limits of normal measuring 12.9 cm. 4. No additional abnormality is definitely appreciated on abdominal ultrasound exam. Diagnostic code #2
[2019-05-10] MEDS: Folic Acid 1 MG Tab PO SCH (09:44)
[2019-05-10] MEDS: Thiamine 200 MG/2 ML MDV IVPUSH SCH ×2 (09:44→17:10)
[2019-05-10] MEDS ORDERED: FLU Vacc QS2019-20(6MOS+)/PF 60 MCG/0.5 ML SYRINGE IM ONE (10:00)
[2019-05-10] MEDS ORDERED: hydrOXYzine HCl 25 MG/ML SDV IM ONE (13:23)
--- NOTE | 2019-05-10 15:56 | PCM.PN ---
- General Info Date of Service: 05/10/19 Admission Dx/Problem (Free Text): Admission Diagnosis/Problem Admission Diagnosis/Problem Hypokalemia Subjective Update: patient continues to complain of pain but is much more sedated this morning. Ultrasound was done and found nothing significant. Functional Status: Denies: Pain Controlled - Review of Systems HEENT: Reports: No Symptoms Pulmonary: Reports: No Symptoms Cardiovascular: Reports: No Symptoms Gastrointestinal: Reports: Abdominal Pain. Denies: Diarrhea Musculoskeletal: Reports: No Symptoms - Patient Data Vitals - Most Recent: Last Vital Signs Temp 98.2 F 05/10/19 11:37 Pulse 89 05/10/19 11:37 Resp 14 05/10/19 11:37 BP 132/90 05/10/19 11:37 Pulse Ox 96 05/10/19 11:37 Weight - Most Recent: 170 lb I&O - Last 24 Hours: Intake & Output 05/10/19 05/10/19 05/10/19 06:59 14:59 22:59 Intake Total 1113 200 Output Total 750 Balance 363 200 Lab Results Last 24 Hours: Laboratory Results - last 24 hr 05/09/19 05/09/19 05/09/19 Range/Units 18:58 18:58 18:58 WBC 5.25 (3.98-10.04) K/mm3 RBC 3.97 L (3.98-5.22) M/mm3 Hgb 12.3 (11.2-15.7) gm/dl Hct 36.5 (34.1-44.9) % MCV 91.9 (79.4-94.8) fl MCH 31.0 (25.6-32.2) pg MCHC 33.7 (32.2-35.5) g/dl RDW Std Deviation 52.2 H (36.4-46.3) fL Plt Count 131 L D (182-369) K/mm3 MPV 9.5 (9.4-12.3) fl Neut % (Auto) 82.5 H (34.0-71.1) % Lymph % (Auto) 9.3 L (19.3-51.7) % [place] % (Auto) 7.4 (4.7-12.5) % Eos % (Auto) 0.2 L (0.7-5.8) Baso % (Auto) 0.6 (0.1-1.2) % Neut # (Auto) 4.33 (1.56-6.13) K/mm3 Lymph # (Auto) 0.49 L (1.18-3.74) K/mm3 [place] # (Auto) 0.39 H (0.24-0.36) K/mm3 Eos # (Auto) 0.01 L (0.04-0.36) K/mm3 Baso # (Auto) 0.03 (0.01-0.08) K/mm3 Manual Slide Review Abnormal smear Sodium 141 (136-145) mEq/L Potassium 2.6 L (3.5-5.1) mEq/L Chloride 101 (98-107) mEq/L Carbon Dioxide 23 (21-32) mEq/L Anion Gap 19.6 H (5-15) BUN 7 (7-18) mg/dL Creatinine 3.0 H (0.55-1.02) mg/dL Est Cr Clr Drug Dosing 17.19 mL/min Estimated GFR (MDRD) 17 (>60) mL/min BUN/Creatinine Ratio 2.3 L (14-18) Glucose 111 H (74-106) mg/dL Calcium 8.9 (8.5-10.1) mg/dL Magnesium 1.9 (1.8-2.4) mg/dl Total Bilirubin 0.6 (0.2-1.0) mg/dL AST 90 H (15-37) U/L ALT 38 (14-59) U/L Alkaline Phosphatase 120 H (46-116) U/L C-Reactive Protein (<1.0) mg/dL Total Protein 9.3 H (6.4-8.2) g/dl Albumin 4.7 (3.4-5.0) g/dl Globulin 4.6 gm/dL Albumin/Globulin Ratio 1.0 (1-2) Lipase 232 (73-393) U/L Urine Color (Yellow) Urine Appearance (Clear) Urine pH (5.0-8.0) Ur Specific [place] (1.005-1.030) Urine Protein (Negative) Urine Glucose (UA) (Negative) Urine Ketones (Negative) Urine Occult Blood (Negative) Urine Nitrite (Negative) Urine Bilirubin (Negative) Urine Urobilinogen (0.2-1.0) Ur Leukocyte Esterase (Negative) Urine RBC (0-5) /hpf Urine WBC (0-5) /hpf Ur Squamous Epith Cells (0-5) /hpf Amorphous Sediment (NOT SEEN) /hpf Urine Bacteria (FEW) /hpf Urine Mucus (FEW) /hpf Urine Opiates Screen (GNBBIF=047) Ur Buprenorphine Scrn (CUTOFF=10) Ur Oxycodone Screen (ODJ6UV=843) Urine Methadone Screen (MUFEPS=877) Ur Propoxyphene Screen (NDEJJN=257) Ur Barbiturates Screen (PKCDOF=559) Ur Tricyclics Screen (UUKSTS=675) Ur Phencyclidine Scrn (CUTOFF=25) Ur Amphetamine Screen (SHKCYT=269) U Methamphetamines Scrn (PBEZZE=604) U Benzodiazepines Scrn (BCOJUJ=930) U Cocaine Metab Screen (FLUWXR=902) U Marijuana (THC) Screen (CUTOFF=50) Ethyl Alcohol 0.00 (0.00) gm% Ketones 1.78 (0.0-0.3) mM 05/09/19 05/09/19 05/09/19 Range/Units 21:41 21:41 23:46 WBC (3.98-10.04) K/mm3 RBC (3.98-5.22) M/mm3 Hgb (11.2-15.7) gm/dl Hct (34.1-44.9) % MCV (79.4-94.8) fl MCH (25.6-32.2) pg MCHC (32.2-35.5) g/dl RDW Std Deviation (36.4-46.3) fL Plt Count (182-369) K/mm3 MPV (9.4-12.3) fl Neut % (Auto) (34.0-71.1) % Lymph % (Auto) (19.3-51.7) % [place] % (Auto) (4.7-12.5) % Eos % (Auto) (0.7-5.8) Baso % (Auto) (0.1-1.2) % Neut # (Auto) (1.56-6.13) K/mm3 Lymph # (Auto) (1.18-3.74) K/mm3 [place] # (Auto) (0.24-0.36) K/mm3 Eos # (Auto) (0.04-0.36) K/mm3 Baso # (Auto) (0.01-0.08) K/mm3 Manual Slide Review Sodium 140 (136-145) mEq/L Potassium 2.8 L (3.5-5.1) mEq/L Chloride 104 (98-107) mEq/L Carbon Dioxide 23 (21-32) mEq/L Anion Gap 15.8 H (5-15) BUN 6 L (7-18) mg/dL Creatinine 2.8 H (0.55-1.02) mg/dL Est Cr Clr Drug Dosing 18.42 mL/min Estimated GFR (MDRD) 18 (>60) mL/min BUN/Creatinine Ratio 2.1 L (14-18) Glucose 116 H (74-106) mg/dL Calcium 7.4 L D (8.5-10.1) mg/dL Magnesium (1.8-2.4) mg/dl Total Bilirubin (0.2-1.0) mg/dL AST (15-37) U/L ALT (14-59) U/L Alkaline Phosphatase (46-116) U/L C-Reactive Protein (<1.0) mg/dL Total Protein (6.4-8.2) g/dl Albumin (3.4-5.0) g/dl Globulin gm/dL Albumin/Globulin Ratio (1-2) Lipase (73-393) U/L Urine Color Light yellow (Yellow) Urine Appearance Clear (Clear) Urine pH 7.5 (5.0-8.0) Ur Specific [place] 1.020 (1.005-1.030) Urine Protein 2+ H (Negative) Urine Glucose (UA) Negative (Negative) Urine Ketones 2+ H (Negative) Urine Occult Blood 2+ H (Negative) Urine Nitrite Negative (Negative) Urine Bilirubin Negative (Negative) Urine Urobilinogen 0.2 (0.2-1.0) Ur Leukocyte Esterase Negative (Negative) Urine RBC 0-5 (0-5) /hpf Urine WBC Not seen (0-5) /hpf Ur Squamous Epith Cells 10-20 H (0-5) /hpf Amorphous Sediment Many H (NOT SEEN) /hpf Urine Bacteria Few (FEW) /hpf Urine Mucus Not seen (FEW) /hpf Urine Opiates Screen Negative (LMDZCC=867) Ur Buprenorphine Scrn Negative (CUTOFF=10) Ur Oxycodone Screen Negative (MVQ8AB=041) Urine Methadone Screen Negative (ZNAKJE=009) Ur Propoxyphene Screen Negative (XVBTEP=671) Ur Barbiturates Screen Negative (KHOIQQ=050) Ur Tricyclics Screen Negative (OHDWJM=452) Ur Phencyclidine Scrn Negative (CUTOFF=25) Ur Amphetamine Screen Negative (DSZXLU=210) U Methamphetamines Scrn Negative (TVMTIQ=438) U Benzodiazepines Scrn Negative (UDTXLK=580) U Cocaine Metab Screen Negative (VZVXFG=734) U Marijuana (THC) Screen Negative (CUTOFF=50) Ethyl Alcohol (0.00) gm% Ketones (0.0-0.3) mM 05/10/19 05/10/19 05/10/19 Range/Units 05:15 05:15 05:15 WBC 4.80 (3.98-10.04) K/mm3 RBC 3.52 L (3.98-5.22) M/mm3 Hgb 10.8 L D (11.2-15.7) gm/dl Hct 33.2 L (34.1-44.9) % MCV 94.3 (79.4-94.8) fl MCH 30.7 (25.6-32.2) pg MCHC 32.5 (32.2-35.5) g/dl RDW Std Deviation 54.2 H (36.4-46.3) fL Plt Count 102 L (182-369) K/mm3 MPV 9.6 (9.4-12.3) fl Neut % (Auto) 81.9 H (34.0-71.1) % Lymph % (Auto) 11.3 L (19.3-51.7) % [place] % (Auto) 5.6 (4.7-12.5) % Eos % (Auto) 0.4 L (0.7-5.8) Baso % (Auto) 0.6 (0.1-1.2) % Neut # (Auto) 3.93 (1.56-6.13) K/mm3 Lymph # (Auto) 0.54 L (1.18-3.74) K/mm3 [place] # (Auto) 0.27 (0.24-0.36) K/mm3 Eos # (Auto) 0.02 L (0.04-0.36) K/mm3 Baso # (Auto) 0.03 (0.01-0.08) K/mm3 Manual Slide Review Not Reportable Sodium 140 (136-145) mEq/L Potassium 3.7 (3.5-5.1) mEq/L Chloride 106 (98-107) mEq/L Carbon Dioxide 23 (21-32) mEq/L Anion Gap 14.7 (5-15) BUN 7 (7-18) mg/dL Creatinine 2.7 H (0.55-1.02) mg/dL Est Cr Clr Drug Dosing 19.10 mL/min Estimated GFR (MDRD) 19 (>60) mL/min BUN/Creatinine Ratio 2.6 L (14-18) Glucose 134 H (74-106) mg/dL Calcium 7.7 L (8.5-10.1) mg/dL Magnesium 1.8 (1.8-2.4) mg/dl Total Bilirubin 0.4 (0.2-1.0) mg/dL AST 80 H (15-37) U/L ALT 30 (14-59) U/L Alkaline Phosphatase 105 (46-116) U/L C-Reactive Protein 1.0 (<1.0) mg/dL Total Protein 8.2 (6.4-8.2) g/dl Albumin 4.1 (3.4-5.0) g/dl Globulin 4.1 gm/dL Albumin/Globulin Ratio 1.0 (1-2) Lipase 193 (73-393) U/L Urine Color (Yellow) Urine Appearance (Clear) Urine pH (5.0-8.0) Ur Specific [place] (1.005-1.030) Urine Protein (Negative) Urine Glucose (UA) (Negative) Urine Ketones (Negative) Urine Occult Blood (Negative) Urine Nitrite (Negative) Urine Bilirubin (Negative) Urine Urobilinogen (0.2-1.0) Ur Leukocyte Esterase (Negative) Urine RBC (0-5) /hpf Urine WBC (0-5) /hpf Ur Squamous Epith Cells (0-5) /hpf Amorphous Sediment (NOT SEEN) /hpf Urine Bacteria (FEW) /hpf Urine Mucus (FEW) /hpf Urine Opiates Screen (UBKOHA=463) Ur Buprenorphine Scrn (CUTOFF=10) Ur Oxycodone Screen (EBO8MY=102) Urine Methadone Screen (YCKBBZ=837) Ur Propoxyphene Screen (AZYTJL=316) Ur Barbiturates Screen (CWCORK=088) Ur Tricyclics Screen (SDXGIQ=813) Ur Phencyclidine Scrn (CUTOFF=25) Ur Amphetamine Screen (IDUQCK=639) U Methamphetamines Scrn (LVNAUD=577) U Benzodiazepines Scrn (DOXIUL=561) U Cocaine Metab Screen (ZVUJEM=664) U Marijuana (THC) Screen (CUTOFF=50) Ethyl Alcohol (0.00) gm% Ketones (0.0-0.3) mM Med Orders - Current: Current Medications Fluoxetine HCl (Prozac) 20 mg PO DAILY [facility] Folic Acid (Folic Acid) 1 mg PO DAILY [facility] Last Admin: 05/10/19 09:44 Dose: 1 mg Lactated Ringer's (Ringers, Lactated) 1,000 mls @ 125 mls/hr IV ASDIRECTED [facility] Last Admin: 05/10/19 13:53 Dose: 125 mls/hr Levothyroxine Sodium (Levothyroxine) 125 mcg PO ACBREAKFAST [facility] Lorazepam (Ativan) 0 mg PO Q1H PRN; Protocol PRN Reason: Withdrawal Symptoms Miscellaneous Information (Remove Patch) 1 ea TRDERM Q72H [facility] Stop: 05/13/19 00:16 Pantoprazole Sodium (Protonix Iv) 40 mg IVPUSH DAILY@0700 [facility] Last Admin: 05/10/19 07:17 Dose: Not Given Thiamine HCl (Vitamin B-1) 100 mg IVPUSH Q8H [facility] Last Admin: 05/10/19 09:44 Dose: 100 mg Discontinued Medications Hydromorphone HCl (Dilaudid) 0.5 mg IVPUSH ONETIME ONE Stop: 05/09/19 18:35 Last Admin: 05/09/19 19:01 Dose: 0.5 mg Hydromorphone HCl (Dilaudid) 0.5 mg IVPUSH ONETIME ONE Stop: 05/09/19 21:58 Last Admin: 05/09/19 22:26 Dose: 0.5 mg Hydromorphone HCl (Dilaudid) 0.5 mg IVPUSH Q2H PRN PRN Reason: Pain (severe 7-10) Last Admin: 05/10/19 07:24 Dose: 0.5 mg Hydroxyzine HCl (Vistaril) 50 mg IM ONETIME ONE Stop: 05/10/19 13:24 Last Admin: 05/10/19 13:52 Dose: 50 mg Sodium Chloride (Normal Saline) 1,000 mls @ 999 mls/hr IV ONETIME ONE Stop: 05/09/19 19:27 Last Admin: 05/09/19 18:59 Dose: 999 mls/hr Potassium Chloride 10 meq/ (Premix) 100 mls @ 100 mls/hr IV ONETIME ONE Stop: 05/09/19 20:45 Last Admin: 05/09/19 20:23 Dose: 100 mls/hr Sodium Chloride (Normal Saline) 1,000 mls @ 999 mls/hr IV ONETIME ONE Stop: 05/09/19 20:55 Last Admin: 05/09/19 20:24 Dose: 999 mls/hr Dextrose/Lactated Ringer's (Dextrose 5%-Lactated Ringers) 1,000 mls @ 125 mls/ hr IV ASDIRECTED [facility] Last Admin: 05/09/19 21:50 Dose: 125 mls/hr Potassium Chloride 10 meq/ (Premix) 100 mls @ 100 mls/hr IV Q1H [facility] Stop: 05/10/19 04:44 Last Admin: 05/10/19 05:37 Dose: 100 mls/hr Influenza Virus Vaccine (Fluzone Quad [id number] Syringe) 60 mcg IM .ONCE ONE Stop: 05/10/19 10:01 Ondansetron HCl (Zofran) 4 mg IVPUSH ONETIME ONE Stop: 05/09/19 18:28 Last Admin: 05/09/19 18:55 Dose: 4 mg Ondansetron HCl (Zofran) 4 mg IV Q4H PRN PRN Reason: Nausea/Vomiting Last Admin: 05/10/19 04:28 Dose: 4 mg Ondansetron HCl (Zofran) 4 mg IVPUSH ONETIME ONE Stop: 05/09/19 23:52 Last Admin: 05/10/19 00:05 Dose: 4 mg Pantoprazole Sodium (Protonix Iv) 40 mg IVPUSH ONETIME ONE Stop: 05/09/19 19:24 Last Admin: 05/09/19 20:24 Dose: 40 mg Potassium Chloride (Klor-Con M20) 40 meq PO ONETIME ONE Stop: 05/09/19 19:48 Last Admin: 05/09/19 20:23 Dose: 40 meq Scopolamine (Transderm-Scop) 1.5 mg TOP ONETIME ONE Stop: 05/09/19 23:50 Last Admin: 05/10/19 00:14 Dose: 1.5 mg - Exam Quality Assessment: No: Supplemental Oxygen General: Alert, Oriented HEENT: Pupils Equal, Pupils Reactive, EOMI, Mucous Membr. Moist/[place] Neck: Supple Lungs: Clear to Auscultation, Normal Respiratory Effort Cardiovascular: Regular Rate, Regular Rhythm GI/Abdominal Exam: Normal Bowel Sounds, Soft, Non-Tender, No Distention Extremities: Normal Inspection, Normal Range of Motion, Non-Tender, No Pedal Edema Skin: Warm, Dry, Intact Neurological: No New Focal Deficit Psy/Mental Status: Alert, Normal Affect, Normal Mood - Problem List Review Problem List Initiated/Reviewed/Updated: Yes - My Orders Last 24 Hours: My Active Orders 05/09/19 22:51 Influenza Vaccine Charge [RC] 1200 05/09/19 23:33 Oxygen Therapy [RC] PRN Up ad Naila [RC] ASDIRECTED VTE/DVT Education [RC] PER UNIT ROUTINE Vital Signs [RC] Q4H Resuscitation Status Routine 05/09/19 23:34 Sequential Compression Device [OM.PC] Per Unit Routine 05/09/19 23:35 Antiembolic Devices [RC] PER UNIT ROUTINE 05/09/19 23:36 Consult to Case Management/[employer]olf [employer] [CONS] Routine 05/09/19 23:37 CIWAA Assessment [RC] Q4HR 05/09/19 23:40 LORazepam [Ativan] See Protocol PO Q1H PRN 05/09/19 23:45 Lactated Ringers [Ringers, Lactated] 1,000 ml IV ASDIRECTED 05/10/19 07:00 Pantoprazole [ProTONIX IV] 40 mg IVPUSH DAILY@0700 05/10/19 08:30 Thiamine [Vitamin B-1] 100 mg IVPUSH Q8H 05/10/19 09:00 Folic Acid 1 mg PO DAILY 05/10/19 10:33 Consult to Occupational Therapy [OT Evaluation and Treatment] [CONS] Routine PT Evaluation and Treatment [CONS] Routine 05/10/19 Lunch Clear Liquid Diet [DIET] 05/11/19 05:11 C-REACTIVE PROTEIN [CHEM] AM COMPREHENSIVE METABOLIC PN,CMP [CHEM] AM MAGNESIUM [CHEM] AM 05/11/19 06:00 Levothyroxine 125 mcg PO ACBREAKFAST 05/11/19 09:00 FLUoxetine [PROzac] 20 mg PO DAILY 05/12/19 05:11 C-REACTIVE PROTEIN [CHEM] AM COMPREHENSIVE METABOLIC PN,CMP [CHEM] AM MAGNESIUM [CHEM] AM 05/13/19 00:15 Remove Patch 1 ea VIRGIL Q72H - Plan Plan:: Assessment * 43-year-old female with history of alcohol abuse drinking rum for at least 7 days. * Right upper quadrant pain with nausea. - Ultrasound: 1. Fatty infiltration within the liver. Prior cholecystectomy with no biliary ductal dictation. 2. Incompletely seen pancreas due to bowel gas. 3. Spleen size at the upper limits of normal measuring 12.9 cm. 4. No additional abnormality is definitively appreciated on abdominal ultrasound exam. * repeat lipase was normal. * anion gap metabolic acidosis - resolved - * Hypokalemia - resolved * Acute renal injury with creatinine of 3.0-->2.7 * thrombocytopenia * Mild anemia * History of hypothyroidism Plan * Admit to medical floor * LR at 125 mL per hour. * TSH in the morning * Daily CBC, CMP, and mag * hold Dilaudid and Zofran secondary to sedation. * Hydroxyzine 50 mg IM 1 for nausea * CIWA protocol with Ativan * SCDs for DVT prophylaxis
[2019-05-11] MEDS: Thiamine 200 MG/2 ML MDV IVPUSH SCH ×3 (01:45→16:22)
[2019-05-11] MEDS: Levothyroxine 125 MCG Tab PO SCH (06:26)
[2019-05-11] MEDS: Pantoprazole 40 MG Vial IVPUSH SCH (06:26)
[2019-05-11] MEDS ORDERED: chlordiazePOXIDE 25 MG Cap PO ONE (09:02)
[2019-05-11] MEDS ORDERED: Magnesium Sulfate/Water 4 GM in Premix Bag 1 BAG IV ONE (09:10)
[2019-05-11] MEDS ORDERED: hydrOXYzine HCl 25 MG/ML SDV IM PRN (09:14)
[2019-05-11] MEDS ORDERED: Sodium Chloride 0.9% 1,000 ML IV SCH (09:15)
[2019-05-11] MEDS ORDERED: Potassium Chloride 10 MEQ in Premix Bag 1 BAG IV SCH ×2 (09:15→16:00)
[2019-05-11] MEDS: FLUoxetine 20 MG Cap PO SCH (09:28)
[2019-05-11] MEDS: Folic Acid 1 MG Tab PO SCH (09:28)
[2019-05-11] MEDS ORDERED: chlordiazePOXIDE 25 MG Cap PO SCH (14:00)
[2019-05-11] MEDS ORDERED: chlordiazePOXIDE 25 MG Cap PO PRN (14:00)
--- NOTE | 2019-05-11 14:17 | PCM.PN ---
- General Info Date of Service: 05/11/19 Admission Dx/Problem (Free Text): Admission Diagnosis/Problem Admission Diagnosis/Problem Hypokalemia Subjective Update: patient continues to complain of nausea. Nursing reports that her CIWA scores has now increased to 8. she was given Ativan as part of the protocol. She is now feeling better, but refused physical therapy because of nausea. I was just informed by nursing that her 17-year-old son reported that there was potential for isopropyl alcohol ingestion. He found an orange juice glass with a bottle of rubbing alcohol next to it. She presented with an anion gap making it unlikely there was a significant isopropyl alcohol ingestion at time of admission. - Review of Systems General: Reports: Weakness HEENT: Reports: Headaches Pulmonary: Reports: No Symptoms Cardiovascular: Reports: No Symptoms Gastrointestinal: Reports: Abdominal Pain - Patient Data Vitals - Most Recent: Last Vital Signs Temp 99.1 F 05/11/19 11:52 Pulse 102 H 05/11/19 11:52 Resp 20 05/11/19 11:52 BP 115/70 05/11/19 11:52 Pulse Ox 93 L 05/11/19 11:52 Weight - Most Recent: 180 lb 4.8 oz I&O - Last 24 Hours: Intake & Output 05/10/19 05/11/19 05/11/19 22:59 06:59 14:59 Intake Total 2360 1309 120 Output Total 750 1900 Balance 1610 -591 120 Lab Results Last 24 Hours: Laboratory Results - last 24 hr 05/11/19 Range/Units 05:23 Sodium 136 (136-145) mEq/L Potassium 2.8 L (3.5-5.1) mEq/L Chloride 101 (98-107) mEq/L Carbon Dioxide 24 (21-32) mEq/L Anion Gap 13.8 (5-15) BUN 3 L (7-18) mg/dL Creatinine 2.0 H (0.55-1.02) mg/dL Est Cr Clr Drug Dosing 25.78 mL/min Estimated GFR (MDRD) 27 (>60) mL/min BUN/Creatinine Ratio 1.5 L (14-18) Glucose 88 (74-106) mg/dL Calcium 8.2 L (8.5-10.1) mg/dL Magnesium 1.5 L (1.8-2.4) mg/dl Total Bilirubin 0.4 (0.2-1.0) mg/dL AST 83 H (15-37) U/L ALT 29 (14-59) U/L Alkaline Phosphatase 101 (46-116) U/L C-Reactive Protein 4.2 H* (<1.0) mg/dL Total Protein 7.7 (6.4-8.2) g/dl Albumin 3.7 (3.4-5.0) g/dl Globulin 4.0 gm/dL Albumin/Globulin Ratio 0.9 L (1-2) TSH 3rd Generation 47.126 H (0.358-3.74) uIU/mL Med Orders - Current: Current Medications Chlordiazepoxide HCl (Librium) 50 mg PO Q4H [facility] Stop: 05/12/19 10:01 Chlordiazepoxide HCl (Librium) 50 mg PO Q6H [facility] Stop: 05/13/19 08:01 Chlordiazepoxide HCl (Librium) 25 mg PO Q4H [facility] Stop: 05/14/19 10:01 Chlordiazepoxide HCl (Librium) 25 mg PO Q6H [facility] Stop: 05/15/19 08:01 Fluoxetine HCl (Prozac) 20 mg PO DAILY [facility] Last Admin: 05/11/19 09:28 Dose: 20 mg Folic Acid (Folic Acid) 1 mg PO DAILY [facility] Last Admin: 05/11/19 09:28 Dose: 1 mg Hydroxyzine HCl (Vistaril) 50 mg IM Q6H PRN PRN Reason: Nausea Sodium Chloride (Normal Saline) 1,000 mls @ 50 mls/hr IV ASDIRECTED [facility] Last Admin: 05/11/19 09:27 Dose: 50 mls/hr Potassium Chloride 10 meq/ (Premix) 100 mls @ 100 mls/hr IV Q1H [facility] Stop: 05/11/19 16:59 Levothyroxine Sodium (Levothyroxine) 125 mcg PO ACBREAKFAST [facility] Last Admin: 05/11/19 06:26 Dose: 125 mcg Lorazepam (Ativan) 0 mg PO Q1H PRN; Protocol PRN Reason: Withdrawal Symptoms Last Admin: 05/11/19 08:48 Dose: 1 mg Miscellaneous Information (Remove Patch) 1 ea TRDERM Q72H [facility] Stop: 05/13/19 00:16 Pantoprazole Sodium (Protonix Iv) 40 mg IVPUSH DAILY@0700 [facility] Last Admin: 05/11/19 06:26 Dose: 40 mg Potassium Chloride (Klor-Con M20) 40 meq PO ONETIME ONE Stop: 05/11/19 17:01 Thiamine HCl (Vitamin B-1) 100 mg IVPUSH Q8H [facility] Last Admin: 05/11/19 09:27 Dose: 100 mg Discontinued Medications Chlordiazepoxide HCl (Librium) 50 mg PO ONETIME ONE Stop: 05/11/19 09:03 Last Admin: 05/11/19 09:28 Dose: 50 mg Chlordiazepoxide HCl (Librium) 0 mg PO Q1H PRN; Protocol PRN Reason: Withdrawal Symptoms Hydromorphone HCl (Dilaudid) 0.5 mg IVPUSH ONETIME ONE Stop: 05/09/19 18:35 Last Admin: 05/09/19 19:01 Dose: 0.5 mg Hydromorphone HCl (Dilaudid) 0.5 mg IVPUSH ONETIME ONE Stop: 05/09/19 21:58 Last Admin: 05/09/19 22:26 Dose: 0.5 mg Hydromorphone HCl (Dilaudid) 0.5 mg IVPUSH Q2H PRN PRN Reason: Pain (severe 7-10) Last Admin: 05/10/19 07:24 Dose: 0.5 mg Hydroxyzine HCl (Vistaril) 50 mg IM ONETIME ONE Stop: 05/10/19 13:24 Last Admin: 05/10/19 13:52 Dose: 50 mg Sodium Chloride (Normal Saline) 1,000 mls @ 999 mls/hr IV ONETIME ONE Stop: 05/09/19 19:27 Last Admin: 05/09/19 18:59 Dose: 999 mls/hr Potassium Chloride 10 meq/ (Premix) 100 mls @ 100 mls/hr IV ONETIME ONE Stop: 05/09/19 20:45 Last Admin: 05/09/19 20:23 Dose: 100 mls/hr Sodium Chloride (Normal Saline) 1,000 mls @ 999 mls/hr IV ONETIME ONE Stop: 05/09/19 20:55 Last Admin: 05/09/19 20:24 Dose: 999 mls/hr Dextrose/Lactated Ringer's (Dextrose 5%-Lactated Ringers) 1,000 mls @ 125 mls/ hr IV ASDIRECTED [facility] Last Admin: 05/09/19 21:50 Dose: 125 mls/hr Lactated Ringer's (Ringers, Lactated) 1,000 mls @ 125 mls/hr IV ASDIRECTED [facility] Last Admin: 05/10/19 20:09 Dose: 125 mls/hr Potassium Chloride 10 meq/ (Premix) 100 mls @ 100 mls/hr IV Q1H [facility] Stop: 05/10/19 04:44 Last Admin: 05/10/19 05:37 Dose: 100 mls/hr Magnesium Sulfate 4 gm/ Premix 100 mls @ 25 mls/hr IV ONETIME ONE Stop: 05/11/19 09:11 Last Admin: 05/11/19 09:28 Dose: 25 mls/hr Potassium Chloride 10 meq/ (Premix) 100 mls @ 100 mls/hr IV Q1H [facility] Stop: 05/11/19 13:14 Influenza Virus Vaccine (Fluzone Quad Syringe) 60 mcg IM .ONCE ONE Stop: 05/10/19 10:01 Ondansetron HCl (Zofran) 4 mg IVPUSH ONETIME ONE Stop: 05/09/19 18:28 Last Admin: 05/09/19 18:55 Dose: 4 mg Ondansetron HCl (Zofran) 4 mg IV Q4H PRN PRN Reason: Nausea/Vomiting Last Admin: 05/10/19 04:28 Dose: 4 mg Ondansetron HCl (Zofran) 4 mg IVPUSH ONETIME ONE Stop: 05/09/19 23:52 Last Admin: 05/10/19 00:05 Dose: 4 mg Pantoprazole Sodium (Protonix Iv) 40 mg IVPUSH ONETIME ONE Stop: 05/09/19 19:24 Last Admin: 05/09/19 20:24 Dose: 40 mg Potassium Chloride (Klor-Con M20) 40 meq PO ONETIME ONE Stop: 05/09/19 19:48 Last Admin: 05/09/19 20:23 Dose: 40 meq Scopolamine (Transderm-Scop) 1.5 mg TOP ONETIME ONE Stop: 05/09/19 23:50 Last Admin: 05/10/19 00:14 Dose: 1.5 mg - Exam Quality Assessment: No: Supplemental Oxygen General: Alert, Oriented HEENT: Pupils Equal Neck: Supple Lungs: Clear to Auscultation, Normal Respiratory Effort Cardiovascular: Regular Rate, Regular Rhythm GI/Abdominal Exam: Normal Bowel Sounds, Soft, Non-Tender, No Organomegaly, No Distention, No Abnormal Bruit, No Mass, Pelvis Stable Back Exam: Normal Inspection Extremities: Normal Inspection, Normal Range of Motion, Non-Tender, No Pedal Edema, Normal Capillary Refill Wound/Incisions: Healing Well Neurological: No New Focal Deficit Psy/Mental Status: Alert, Normal Affect, Normal Mood - Problem List Review Problem List Initiated/Reviewed/Updated: Yes - My Orders Last 24 Hours: My Active Orders 05/11/19 06:00 Levothyroxine 125 mcg PO ACBREAKFAST 05/11/19 09:00 FLUoxetine [PROzac] 20 mg PO DAILY 05/11/19 09:14 hydrOXYzine HCl [Vistaril] 50 mg IM Q6H PRN 05/11/19 09:15 Sodium Chloride 0.9% [Normal Saline] 1,000 ml IV ASDIRECTED 05/11/19 13:00 Potassium Chloride [KCl 10 MEQ in Water 100 ML] 10 meq Premix Bag 1 bag IV Q1H 05/11/19 14:00 chlordiazePOXIDE [Librium] 50 mg PO Q4H 05/11/19 17:00 Potassium Chloride [Klor-Con M20] 40 meq PO ONETIME ONE 05/12/19 05:11 C-REACTIVE PROTEIN [CHEM] AM CBC WITH AUTO DIFF [HEME] AM COMPREHENSIVE METABOLIC PN,CMP [CHEM] AM MAGNESIUM [CHEM] AM 05/12/19 14:00 chlordiazePOXIDE [Librium] 50 mg PO Q6H 05/13/19 00:15 Remove Patch 1 ea TRDERM Q72H 05/13/19 14:00 chlordiazePOXIDE [Librium] 25 mg PO Q4H 05/14/19 14:00 chlordiazePOXIDE [Librium] 25 mg PO Q6H - Plan Plan:: Assessment * 43-year-old female with history of alcohol abuse - drinking rum for at least 7 days. (new question of isopropyl alcohol ingestion) * Right upper quadrant pain with nausea. - Ultrasound: 1. Fatty infiltration within the liver. Prior cholecystectomy with no biliary ductal dictation. 2. Incompletely seen pancreas due to bowel gas. 3. Spleen size at the upper limits of normal measuring 12.9 cm. 4. No additional abnormality is definitively appreciated on abdominal ultrasound exam. * repeat lipase was normal. * anion gap metabolic acidosis - resolved - * Hypokalemia - 2.8 * Hypomagnesemia - 1.5 * Acute renal injury with creatinine of 3.0-->2.7-->2.0 * thrombocytopenia * Mild anemia * Hypothyroidism - TSH 47 (likely due to non compliance) * 2 lbs weight gain Plan * Admit to medical floor * Replenish Mag and K * Decrease IV fluids to NS at 50 mL per hour. * Daily CBC, CMP, and mag * hold Dilaudid and Zofran secondary to sedation. * Hydroxyzine 50 mg IM q6h for nausea * CIWA protocol with Ativan * Librium protocol * Thiamine 100mg q8h * Discharge planning and social service consult. * SCDs for DVT prophylaxis
[2019-05-11] MEDS: Potassium Chloride 10 MEQ in Premix Bag 1 BAG IV SCH ×6 (16:21→19:32)
[2019-05-11] MEDS: chlordiazePOXIDE 25 MG Cap PO SCH ×2 (16:31→21:17)
[2019-05-11] MEDS ORDERED: Potassium Chloride 20 MEQ Tab.ER PO ONE (17:00)
[2019-05-12] MEDS: chlordiazePOXIDE 25 MG Cap PO SCH ×5 (01:20→18:52)
[2019-05-12] MEDS: Thiamine 200 MG/2 ML MDV IVPUSH SCH ×2 (01:22→08:40)
[2019-05-12] MEDS: Levothyroxine 125 MCG Tab PO SCH (06:01)
[2019-05-12] MEDS: Pantoprazole 40 MG Vial IVPUSH SCH (06:01)
[2019-05-12] MEDS: FLUoxetine 20 MG Cap PO SCH (08:37)
[2019-05-12] MEDS: Folic Acid 1 MG Tab PO SCH (08:37)
--- NOTE | 2019-05-12 11:41 | PCM.PN ---
- General Info Date of Service: 05/12/19 Subjective Update: Patient examined by me at bedside Slept better, is tolerating diet, no new complaints, ambulating, no discomfort, still feeling too weak to leave. Nurses have no significant reports BM today - Patient Data Vitals - Most Recent: Last Vital Signs Temp 37.8 C 05/12/19 11:09 Pulse 118 H 05/12/19 11:09 Resp 28 H 05/12/19 11:09 BP 125/81 05/12/19 11:09 Pulse Ox 94 L 05/12/19 11:09 Weight - Most Recent: 80.558 kg Lab Results Last 24 Hours: Laboratory Results - last 24 hr 05/12/19 05/12/19 Range/Units 04:37 04:37 WBC 2.61 L (3.98-10.04) K/mm3 RBC 3.64 L (3.98-5.22) M/mm3 Hgb 11.3 (11.2-15.7) gm/dl Hct 33.5 L (34.1-44.9) % MCV 92.0 (79.4-94.8) fl MCH 31.0 (25.6-32.2) pg MCHC 33.7 (32.2-35.5) g/dl RDW Std Deviation 52.1 H (36.4-46.3) fL Plt Count 52 L (182-369) K/mm3 MPV 10.9 (9.4-12.3) fl Neut % (Auto) 63.6 (34.0-71.1) % Lymph % (Auto) 23.8 (19.3-51.7) % [place] % (Auto) 6.9 (4.7-12.5) % Eos % (Auto) 4.2 (0.7-5.8) Baso % (Auto) 1.1 (0.1-1.2) % Neut # (Auto) 1.66 (1.56-6.13) K/mm3 Lymph # (Auto) 0.62 L (1.18-3.74) K/mm3 [place] # (Auto) 0.18 L (0.24-0.36) K/mm3 Eos # (Auto) 0.11 (0.04-0.36) K/mm3 Baso # (Auto) 0.03 (0.01-0.08) K/mm3 Manual Slide Review Abnormal smear Sodium 133 L (136-145) mEq/L Potassium 3.3 L (3.5-5.1) mEq/L Chloride 100 (98-107) mEq/L Carbon Dioxide 23 (21-32) mEq/L Anion Gap 13.3 (5-15) BUN 3 L (7-18) mg/dL Creatinine 1.6 H (0.55-1.02) mg/dL Est Cr Clr Drug Dosing 32.23 mL/min Estimated GFR (MDRD) 35 (>60) mL/min BUN/Creatinine Ratio 1.9 L (14-18) Glucose 81 (74-106) mg/dL Calcium 8.1 L (8.5-10.1) mg/dL Magnesium 2.2 (1.8-2.4) mg/dl Total Bilirubin 0.5 (0.2-1.0) mg/dL AST 89 H (15-37) U/L ALT 31 (14-59) U/L Alkaline Phosphatase 113 (46-116) U/L C-Reactive Protein 6.3 H* (<1.0) mg/dL Total Protein 8.3 H (6.4-8.2) g/dl Albumin 4.0 (3.4-5.0) g/dl Globulin 4.3 gm/dL Albumin/Globulin Ratio 0.9 L (1-2) - Exam General: Alert, Oriented ( ), Cooperative, No Acute Distress, Lethargic HEENT: Pupils Equal, Pupils Reactive Neck: Supple, Trachea Midline, No JVD. No: Lymphadenopathy Lungs: Clear to Auscultation, Normal Respiratory Effort. No: Crackles, Rales, Wheezing Cardiovascular: Regular Rate, Regular Rhythm. No: Murmurs, Gallops, Rubs GI/Abdominal Exam: Normal Bowel Sounds, Soft, Non-Tender. No: No Organomegaly, No Distention, No Mass, Guarding, Rebound Extremities: Normal Inspection, No Pedal Edema, Normal Capillary Refill Skin: Warm, Rash Neurological: No New Focal Deficit. No: Normal Speech (slurred) Psy/Mental Status: Alert, Depressed - Problem List & Annotations (1) Alcohol withdrawal SNOMED Code(s): 355611760 Code(s): F10.239 - ALCOHOL DEPENDENCE WITH WITHDRAWAL, UNSPECIFIED Status: Acute Current Visit: Yes (2) Bicytopenia SNOMED Code(s): 08763841 Code(s): D75.89 - OTHER SPECIFIED DISEASES OF BLOOD AND BLOOD-FORMING ORGANS Status: Acute Current Visit: Yes (3) Hyponatremia SNOMED Code(s): 94966905 Code(s): E87.1 - HYPO-OSMOLALITY AND HYPONATREMIA Status: Acute Current Visit: Yes (4) Hypokalemia SNOMED Code(s): 36779367 Code(s): E87.6 - HYPOKALEMIA Status: Acute Current Visit: Yes (5) [id number] kidney injury SNOMED Code(s): 585798538 Code(s): N17.9 - ACUTE KIDNEY FAILURE, UNSPECIFIED; N18.9 - CHRONIC KIDNEY DISEASE, UNSPECIFIED Status: Acute Current Visit: Yes (6) Hypocalcemia SNOMED Code(s): 7809582 Code(s): E83.51 - HYPOCALCEMIA Status: Acute Current Visit: Yes (7) Alcohol abuse with alcohol-induced disorder SNOMED Code(s): 331713928, 708967926 Code(s): F10.19 - ALCOHOL ABUSE WITH UNSPECIFIED ALCOHOL-INDUCED DISORDER Status: Acute Current Visit: Yes (8) Major depressive disorder SNOMED Code(s): 379552318 Code(s): F32.9 - MAJOR DEPRESSIVE DISORDER, SINGLE EPISODE, UNSPECIFIED Status: Acute Current Visit: Yes (9) Hypothyroidism (acquired) SNOMED Code(s): 940540291 Code(s): E03.9 - HYPOTHYROIDISM, UNSPECIFIED Status: Acute Current Visit : Yes (10) Abdominal pain SNOMED Code(s): 11547865 Code(s): R10.9 - UNSPECIFIED ABDOMINAL PAIN Status: Acute Priority: Medium Current Visit: No Qualifiers: Abdominal location: left lower quadrant Qualified Code(s): R10.32 - Left lower quadrant pain - Problem List Review Problem List Initiated/Reviewed/Updated: Yes - Assessment Assessment:: ASSESSMENT & PLAN Acute kidney injury, improving Tom on admission greatly improved GFR up from 17 to 32 UO 05/11 >2.5L PLAN - Continue to monitor urine output - Renally dosed medications - BMP with Mg and Pi in AM Fatty liver disease Likely multifactorial from obesity and alcohol abuse PLAN Bicytopenia Likely 2/2 alcoholic bone marrow suppression PLAN - Thiamine, folic acid and iron supplementation Multiple electrolyte disturbances Hyponatremia, hypokalemia and hypocalcemia no tetany, AMS or cramping No significant EKG changes on admission PLAN - Replace KCL PO - Recheck labs in AM and replace as needed - If labs still abnormal in AM, repeat EKG Hypothyroidism Unknown cause PLAN - Continue home levothyroxine - Interrogate patient further regarding etiology Major depressive disorder As per patient she was previously diagnosed with MDD However, this got worse approximately 1 month ago when her was deported back to [place] Plan - Continue Prozac and Hydroxyzine Alcohol abuse disorder No signs of acute withdrawal She has been referred to [facility] for inpatient rehab unit GERD Chronic PPI use PLAN - Change to H2 block Alcohol withdrawal, resolved Hypomagnesemia, resolved Abdominal pain on admission, resolved PROPHYLAXIS DVT- ambulation and SCD's GI- Ranitidine CODE STATUS: FULL CODE DISPOSITION: [facility] has accepted patient however they do not have a bed available in their inpatient unit. The current plan is to transition patient to outpatient daily therapy with [facility] until an acute inpatient rehabilitation bed becomes available. - Plan Plan:: ASSESSMENT & PLAN Acute on chronic kidney injury, improving Alcohol abuse disorder Alcohol withdrawal 2/2 abuse disorder, resolved Assessment * 43-year-old female with history of alcohol abuse - drinking rum for at least 7 days. (new question of isopropyl alcohol ingestion) * Right upper quadrant pain with nausea. - Ultrasound: 1. Fatty infiltration within the liver. Prior cholecystectomy with no biliary ductal dictation. 2. Incompletely seen pancreas due to bowel gas. 3. Spleen size at the upper limits of normal measuring 12.9 cm. 4. No additional abnormality is definitively appreciated on abdominal ultrasound exam. * repeat lipase was normal. * anion gap metabolic acidosis - resolved - * Hypokalemia - 2.8 * Hypomagnesemia - 1.5 * Acute renal injury with creatinine of 3.0-->2.7-->2.0 * thrombocytopenia * Mild anemia * Hypothyroidism - TSH 47 (likely due to non compliance) * 2 lbs weight gain Plan * Admit to medical floor * Replenish Mag and K * Decrease IV fluids to NS at 50 mL per hour. * Daily CBC, CMP, and mag * hold Dilaudid and Zofran secondary to sedation. * Hydroxyzine 50 mg IM q6h for nausea * CIWA protocol with Ativan * Librium protocol * Thiamine 100mg q8h * Discharge planning and social service consult. * SCDs for DVT prophylaxis
[2019-05-12] MEDS ORDERED: Potassium Chloride 20 MEQ Tab.ER PO ONE (21:00)
[2019-05-12] MEDS ORDERED: diphenhydrAMINE 50 MG/ML SDV IVPUSH ONE (21:14)
[2019-05-12] MEDS: Hydrocortisone 1% Crm 30 GM Tube TOP PRN (21:28)
[2019-05-13] MEDS: chlordiazePOXIDE 25 MG Cap PO SCH ×3 (01:06→12:18)
[2019-05-13] MEDS: Hydrocortisone 1% Crm 30 GM Tube TOP PRN ×2 (02:31→08:27)
[2019-05-13] MEDS: Levothyroxine 125 MCG Tab PO SCH (06:45)
[2019-05-13] MEDS: Folic Acid 1 MG Tab PO SCH (08:24)
[2019-05-13] MEDS: FLUoxetine 20 MG Cap PO SCH (08:24)
[2019-05-13 08:32] VITALS: BP 122/82; PULSE 107
[2019-05-13] MEDS ORDERED: Famotidine 20 MG Tab PO SCH (09:00)
[2019-05-13] MEDS ORDERED: diphenhydrAMINE 25 MG Cap PO SCH (10:45)
[2019-05-13] MEDS ORDERED: Loratadine 10 MG Tab PO SCH (10:45)
[2019-05-13] MEDS ORDERED: FLU Vacc QS2019-20(6MOS+)/PF 60 MCG/0.5 ML SYRINGE IM ONE (12:30)
[2019-05-13 13:17] LABS: HEMOGLOBIN A1C 5.1 % (4.50-6.20)
[2019-05-13] MEDS ORDERED: Hydrocortisone 1% Crm 30 GM Tube TOP SCH (15:00)
[2019-05-13] MEDS ORDERED: chlordiazePOXIDE 25 MG Cap PO SCH (17:00)
[2019-05-14] MEDS ORDERED: chlordiazePOXIDE 25 MG Cap PO SCH (19:00)
== END 2019-05-13 14:55 | DRG 683 ==
LOC: JD.ED 18:18 → JD.MS 22:00
PROVIDERS: ADMIT Family Medicine; ATTEND Family Medicine
DX: N17.9 Acute kidney failure, unspecified (principal); F10.239 Alcohol dependence with withdrawal, unspecified; E87.1 Hypo-osmolality and hyponatremia; E78.00 Pure hypercholesterolemia, unspecified; K21.9 Gastro-esophageal reflux disease without esophagitis; M19.91 Primary osteoarthritis, unspecified site; G89.29 Other chronic pain; M54.9 Dorsalgia, unspecified; F41.9 Anxiety disorder, unspecified; F32.9 Major depressive disorder, single episode, unspecified; E03.9 Hypothyroidism, unspecified; E66.9 Obesity, unspecified; E87.6 Hypokalemia; D75.89 Other specified diseases of blood and blood-forming organs; E83.51 Hypocalcemia; K76.0 Fatty (change of) liver, not elsewhere classified; N18.9 Chronic kidney disease, unspecified; I12.9 Hypertensive chronic kidney disease with stage 1 through stage 4 chronic kidney disease, or unspecified chronic kidney disease; Z79.899 Other long term (current) drug therapy; Z85.850 Personal history of malignant neoplasm of thyroid; Z87.891 Personal history of nicotine dependence; Z88.0 Allergy status to penicillin; Z88.2 Allergy status to sulfonamides; Z23 Encounter for immunization
CPT/HCPCS: 36415; 76700; 76700-26; 80048; 80053; 80061; 80306; 81001; 82009; 83036; 83690; 83735; 84439; 84443; 85025; 86140; 90686; 93005; 93010; 96361; 96365; 96375; 97110-GP; 97116-GP; 97162-GP; 97165-GO; 97530-GO; 99285; 99285-25; A9270-GY; C9113; G0008; G0480; J1170; J1200; J2405; J3410; J3411; J3475; J3480; J7040; J7042; J7120

== ENCOUNTER 2019-05-14 10:13 | Inpatient (IN) | payer OTHER ==
[2019-05-14] MEDS ORDERED: Sodium Chloride 0.9% 1,000 ML IV SCH (11:15)
--- NOTE | 2019-05-14 11:20 | EDM.PDOC ---
ED HPI GENERAL MEDICAL PROBLEM - General Chief Complaint: Neuro Symptoms/Deficits Stated Complaint: MEDICAL EVALUATION Time Seen by Provider: 05/14/19 10:52 Source of Information: Reports: Patient, RN Notes Reviewed History Limitations: Reports: Altered Mental Status (somnolent - required prodding to wake up) - History of Present Illness INITIAL COMMENTS - FREE TEXT/NARRATIVE: Ms. Robles is a 43-year-old woman with a past medical history significant for chronic daily alcoholism and substance abuse, including opioids, methamphetamine , and benzodiazepines, who, medical records indicate, was admitted to this hospital on 05/09/2019 for right upper quadrant abdominal pain made worse with movement, and nausea. Workup in the ED found her to be hypokalemic with acute renal insufficiency. Her alcohol level was 0. She remained hospitalized until last night, 05/13/2019, at which time she was discharged into the care of [facility] with a prescription for Valium. The patient is now brought to the ED by [facility] staff, telling us that she has been off balance, complaining of a headache, and sonorous respirations. From the patient's standpoint, she states that she has had pain in her stomach for the past 2 days. She states that she became off balance this morning, upon waking. She reports having a frontal headache for the past 3 days that feels "crappy". She states that she told the staff about it when she was hospitalized here, but that she was given no treatment (I have no idea if any of that is true ). The patient is somnolent but arousable, sometimes requiring patting her to wake her up. She appears to be in no acute distress. Her vital signs are stable, she is afebrile, saturating 94% on room air. The patient has a past medical history of hypothyroidism, but prior medical records indicate that she is noncompliant with any and all medications. The patient does not have a PCP. Headache Pain Score (Numeric/FACES): 10 - Related Data Allergies Allergy/AdvReac Type Severity Reaction Status Date / Time Penicillins Allergy Severe Airway Verified 05/14/19 10:48 Tightness Sulfa (Sulfonamide Allergy Airway Verified 05/14/19 10:48 Antibiotics) Tightness Home Meds: Home Meds Ascorbic Acid [Vitamin C] 500 mg PO DAILY 30 Days #30 capsule.er 05/13/19 [Rx] Diazepam [Valium] 5 mg PO ASDIRECTED #6 tablet 05/13/19 [Rx] FLUoxetine [PROzac] 20 mg PO DAILY 30 Days cap 05/13/19 [Rx] Famotidine [Pepcid] 20 mg PO DAILY 5 Days tablet 05/13/19 [Rx] Folic Acid 1 mg PO DAILY 30 Days tablet 05/13/19 [Rx] Hydrocortisone [Hydrocortisone 1% Crm] 0 gm TOP TID #4 tube 05/13/19 [Rx] Levothyroxine 125 mcg PO ACBREAKFAST #30 tablet 05/13/19 [Rx] Loratadine [Claritin] 10 mg PO DAILY 5 Days tablet 05/13/19 [Rx] Thiamine [Vitamin B-1] 100 mg PO BID 14 Days #28 tab 05/13/19 [Rx] diphenhydrAMINE [Benadryl] 25 mg PO BID 5 Days cap 05/13/19 [Rx] Past Medical History Cardiovascular History: Reports: High Cholesterol (untreated), Hypertension ( untreated) Gastrointestinal History: Reports: GERD Genitourinary History: Reports: Acute Renal Failure 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: , Other (See Below) (Ovarian cysts) : 4 Para: 4 Musculoskeletal History: Reports: Arthritis Psychiatric History: Reports: Addiction (alcohol), Anxiety (untreated), Depression (untreated) Endocrine/Metabolic History: Reports: Hypothyroidism (following thyroidectomy, untreated), Obesity/BMI 30+ Hematologic History: Reports: Anemia, Iron Deficiency Oncologic (Cancer) History: Reports: Thyroid - Infectious Disease History Infectious Disease History: Reports: Chicken Pox, Influenza, Measles - Past Surgical History GI Surgical History: Reports: Appendectomy, Cholecystectomy, Colonoscopy, EGD Female Surgical History: Reports: Hysterectomy, Other (See Below) (Right ovarian cystectomy) Oncologic Surgical History: Reports: Other (See Below) (Thyroidectomy) Social & Family History - Family History Family Medical History: Noncontributory OBGYN: Reports: Endocrine/Metabolic: Reports: Diabetes, type II Immunologic: Reports: None Oncologic: Reports: Breast, Uterine - Tobacco Use Smoking Status *Q: Current Status Unknown - Caffeine Use Caffeine Use: Reports: Tea Other Caffeine Use: 2 cups a day - Alcohol Use Alcohol Use History: Yes Alcohol Use Frequency: Daily - Recreational Drug Use Recreational Drug Use: Yes Recreational Drug Type: Reports: Benzodiazepines, Methamphetamine, Other (see below) (Opioids) - Living Situation & Occupation Living situation: Reports: ( is in shelter), with Family (Son). Denies: with Spouse ( in shelter) Occupation: Unemployed ED ROS GENERAL - Review of Systems Review Of Systems: ROS reveals no pertinent complaints other than HPI. Musculoskeletal: Reports: Back Pain (chronic) - Physical Exam Exam: See Below Exam Limited By: Altered Mental Status (minimally cooperative, and required prodding) General Appearance: Lethargic (somnolent) Eye Exam: Bilateral Eye: EOMI, Normal Inspection, PERRL Ears: Normal External Exam, Hearing Grossly Normal Nose: Normal Inspection Throat/Mouth: Normal Inspection, Normal Lips, Normal Voice, No Airway Compromise Head Exam: Atraumatic, Normocephalic Neck: Normal Inspection, Full Range of Motion Respiratory/Chest: No Respiratory Distress, Lungs Clear, Normal Breath Sounds, No Accessory Muscle Use Cardiovascular: Normal Peripheral Pulses, Regular Rate, Rhythm, No Edema, No Gallop, No JVD, No Murmur, No Rub GI/Abdominal: Normal Bowel Sounds, Soft, No Organomegaly, No Distention, No Abnormal Bruit, No Mass, Tender (reports extreme tenderness to even light palpation, but the patient was able to roll on the gurney without any apparent discomfort.) (Female) Exam: Deferred Rectal (Female) Exam: Deferred Neuro Exam (Abbreviated): CN II-XII Intact, Inattentive, Other (No focal neurologic deficits. Poor effort with exam, but poor effort symmetrically.) Back Exam: Normal Inspection, Full Range of Motion, NT Extremities: Normal Inspection, Normal Range of Motion, No Pedal Edema, Normal Capillary Refill Skin Exam: Warm, Dry, Intact, Normal Color, No Rash Course - Vital Signs Last Recorded V/S: Last Vital Signs Temp 36.9 C 05/14/19 10:41 Pulse 99 05/14/19 10:41 Resp 16 05/14/19 10:41 BP 117/96 H 05/14/19 10:41 Pulse Ox 85 L 05/14/19 15:48 - Orders/Labs/Meds Orders: Active Orders 24 hr Category Date Time Status Sodium Chloride 0.9% [Normal Saline] 1,000 ml Med 05/14/19 11:15 Active IV ASDIRECTED Medication Orders Sodium Chloride (Normal Saline) 1,000 mls @ 150 mls/hr IV ASDIRECTED BIBIANA Last Admin: 05/14/19 12:32 Dose: 150 mls/hr Labs: Laboratory Tests 05/14/19 05/14/19 05/14/19 Range/Units 11:40 11:40 11:40 WBC 3.89 L (3.98-10.04) K/mm3 RBC 3.49 L (3.98-5.22) M/mm3 Hgb 10.7 L (11.2-15.7) gm/dl Hct 32.4 L (34.1-44.9) % MCV 92.8 (79.4-94.8) fl MCH 30.7 (25.6-32.2) pg MCHC 33.0 (32.2-35.5) g/dl RDW Std Deviation 53.9 H (36.4-46.3) fL Plt Count 62 L (182-369) K/mm3 MPV 10.7 (9.4-12.3) fl Neutrophils % (Manual) 44 (40-60) % Band Neutrophils % 5 (0-10) % Lymphocytes % (Manual) 38 (20-40) % Atypical Lymphs % 0 % Monocytes % (Manual) 7 (2-10) % Eosinophils % (Manual) 6 H (0.7-5.8) % Basophils % (Manual) 0 L (0.1-1.2) Platelet Estimate Decreased Anisocytosis 1+ slight Tear Drop Cells 1+ slight RBC Morph Comment Abnormal Sodium 140 (136-145) mEq/L Potassium 3.5 (3.5-5.1) mEq/L Chloride 106 (98-107) mEq/L Carbon Dioxide 25 (21-32) mEq/L Anion Gap 12.5 (5-15) BUN 11 (7-18) mg/dL Creatinine 1.1 H (0.55-1.02) mg/dL Est Cr Clr Drug Dosing 63.47 mL/min Estimated GFR (MDRD) 54 (>60) mL/min BUN/Creatinine Ratio 10.0 L (14-18) Glucose 90 (74-106) mg/dL Calcium 8.7 (8.5-10.1) mg/dL Magnesium 1.7 L (1.8-2.4) mg/dl Total Bilirubin 0.8 (0.2-1.0) mg/dL AST 65 H (15-37) U/L ALT 26 (14-59) U/L Alkaline Phosphatase 128 H (46-116) U/L Total Protein 7.7 (6.4-8.2) g/dl Albumin 3.6 (3.4-5.0) g/dl Globulin 4.1 gm/dL Albumin/Globulin Ratio 0.9 L (1-2) Lipase 383 (73-393) U/L TSH 3rd Generation 54.835 H (0.358-3.74) uIU/mL Urine Color (Yellow) Urine Appearance (Clear) Urine pH (5.0-8.0) Ur Specific [place] (1.005-1.030) Urine Protein (Negative) Urine Glucose (UA) (Negative) Urine Ketones (Negative) Urine Occult Blood (Negative) Urine Nitrite (Negative) Urine Bilirubin (Negative) Urine Urobilinogen (0.2-1.0) Ur Leukocyte Esterase (Negative) Urine RBC (0-5) /hpf Urine WBC (0-5) /hpf Ur Squamous Epith Cells (0-5) /hpf Calcium Oxalate Crystal (NONE) Amorphous Sediment (NOT SEEN) /hpf Urine Bacteria (FEW) /hpf Urine Mucus (FEW) /hpf Salicylates 0.4 L (2.8-20) mg/dL Urine Opiates Screen (TADURG=322) Ur Buprenorphine Scrn (CUTOFF=10) Ur Oxycodone Screen (SLH9YL=027) Urine Methadone Screen (ZFMVCO=685) Ur Propoxyphene Screen (ZHLIUS=338) Acetaminophen 0 L (10-30) ug/mL Ur Barbiturates Screen (UNATXI=574) Ur Tricyclics Screen (LLBPTW=444) Ur Phencyclidine Scrn (CUTOFF=25) Ur Amphetamine Screen (VVGARD=261) U Methamphetamines Scrn (CGDHCZ=957) U Benzodiazepines Scrn (BQSEJX=407) U Cocaine Metab Screen (IAGEBS=518) U Marijuana (THC) Screen (CUTOFF=50) Ethyl Alcohol 0.00 (0.00) gm% 05/14/19 05/14/19 Range/Units 12:31 12:31 WBC (3.98-10.04) K/mm3 RBC (3.98-5.22) M/mm3 Hgb (11.2-15.7) gm/dl Hct (34.1-44.9) % MCV (79.4-94.8) fl MCH (25.6-32.2) pg MCHC (32.2-35.5) g/dl RDW Std Deviation (36.4-46.3) fL Plt Count (182-369) K/mm3 MPV (9.4-12.3) fl Neutrophils % (Manual) (40-60) % Band Neutrophils % (0-10) % Lymphocytes % (Manual) (20-40) % Atypical Lymphs % % Monocytes % (Manual) (2-10) % Eosinophils % (Manual) (0.7-5.8) % Basophils % (Manual) (0.1-1.2) Platelet Estimate Anisocytosis Tear Drop Cells RBC Morph Comment Sodium (136-145) mEq/L Potassium (3.5-5.1) mEq/L Chloride (98-107) mEq/L Carbon Dioxide (21-32) mEq/L Anion Gap (5-15) BUN (7-18) mg/dL Creatinine (0.55-1.02) mg/dL Est Cr Clr Drug Dosing mL/min Estimated GFR (MDRD) (>60) mL/min BUN/Creatinine Ratio (14-18) Glucose (74-106) mg/dL Calcium (8.5-10.1) mg/dL Magnesium (1.8-2.4) mg/dl Total Bilirubin (0.2-1.0) mg/dL AST (15-37) U/L ALT (14-59) U/L Alkaline Phosphatase (46-116) U/L Total Protein (6.4-8.2) g/dl Albumin (3.4-5.0) g/dl Globulin gm/dL Albumin/Globulin Ratio (1-2) Lipase (73-393) U/L TSH 3rd Generation (0.358-3.74) uIU/mL Urine Color Yellow (Yellow) Urine Appearance Clear (Clear) Urine pH 7.0 (5.0-8.0) Ur Specific [place] 1.020 (1.005-1.030) Urine Protein 2+ H (Negative) Urine Glucose (UA) Negative (Negative) Urine Ketones Negative (Negative) Urine Occult Blood Negative (Negative) Urine Nitrite Negative (Negative) Urine Bilirubin 1+ H (Negative) Urine Urobilinogen 2.0 H (0.2-1.0) Ur Leukocyte Esterase Negative (Negative) Urine RBC 0-5 (0-5) /hpf Urine WBC 0-5 (0-5) /hpf Ur Squamous Epith Cells 0-5 (0-5) /hpf Calcium Oxalate Crystal Moderate H (NONE) Amorphous Sediment Few H (NOT SEEN) /hpf Urine Bacteria Few (FEW) /hpf Urine Mucus Moderate H (FEW) /hpf Salicylates (2.8-20) mg/dL Urine Opiates Screen Negative (BPAFKV=178) Ur Buprenorphine Scrn Negative (CUTOFF=10) Ur Oxycodone Screen Negative (FXQ6AT=148) Urine Methadone Screen Negative (QWAMJK=249) Ur Propoxyphene Screen Negative (MOCECC=671) Acetaminophen (10-30) ug/mL Ur Barbiturates Screen Negative (UOBCFK=170) Ur Tricyclics Screen Negative (SBFJWF=066) Ur Phencyclidine Scrn Negative (CUTOFF=25) Ur Amphetamine Screen Negative (WPQGEC=653) U Methamphetamines Scrn Negative (PYSGXJ=009) U Benzodiazepines Scrn Presumptive positive H (OAYKSM=042) U Cocaine Metab Screen Negative (VPCFGD=351) U Marijuana (THC) Screen Negative (CUTOFF=50) Ethyl Alcohol (0.00) gm% Meds: Medications Generic Name Dose Route Start Last Admin Trade Name Freq PRN Reason Stop Dose Admin Sodium Chloride 1,000 mls @ 150 mls/hr 05/14/19 11:15 05/14/19 12:32 Normal Saline IV 150 mls/hr ASDIRECTED BIBIANA Administration Discontinued Medications Generic Name Dose Route Start Last Admin Trade Name Freq PRN Reason Stop Dose Admin Metronidazole 500 mg/ Premix 100 mls @ 100 mls/hr 05/14/19 14:10 05/14/19 14: 36 IV 05/14/19 15:09 100 mls/hr ONETIME STA Administration Iopamidol 100 ml 05/14/19 11:34 05/14/19 11:57 Isovue-300 (61%) IVPUSH 05/14/19 11:35 100 ml ONETIME ONE Administration Sodium Chloride 10 ml 05/14/19 11:34 05/14/19 11:57 Saline Flush FLUSH 05/14/19 11:35 10 ml ONETIME ONE Administration - Re-Assessments/Exams Free Text/Narrative Re-Assessment/Exam: 05/14/19 11:14 There was some concern that the patient might be suffering from a stroke - I'm not sure where that came from - [facility], EMS, or one of our nurses - but I do not find signs concerning for a stroke at this time. She is somnolent but arousable with prodding (patting her, asking her to wake up) and while she makes a very poor effort with neurologic exam requests, her poor efforts are symmetric. We are aware that the patient has been receiving Valium at [facility], and it is most likely that her altered mental status is a result of excess Valium. Because of her somnolence and complaint of 3 days of a headache, however, I've ordered a CT scan of her brain without contrast. In addition, I've ordered a workup that includes blood work and a urine drug screen. Her oxygen saturation is 93-94% on room air, and while there is a report of sonorous breathing, the patient does not appear to be having any difficulty in maintaining her airway at this time, therefore I do not see an indication for Romazicon. We will keep a close eye on her, however. With respect to the patient's complaint of abdominal pain and tenderness, there is likely some exaggeration on exam. I see from her prior medical records that she underwent an ultrasound of the abdomen on 05/10/2019, finding only a fatty liver, with no other abnormalities. Her abdomen is soft with normoactive bowel sounds. I ordered a lipase level and a urinalysis, to rule out a UTI. I have also ordered a CT of the abdomen and pelvis with IV contrast; I'm going to ask the nurse to not give the patient oral contrast, given the patient's altered mental status. In the meantime, the patient will receive IV fluid. 05/14/19 13:09 CT of the head without contrast is read by Dr. Garcia as: 1. Nothing acute is appreciated on noncontrast head CT study. CT of the abdomen and pelvis with IV contrast is read by Dr. Garcia as: 1. Questionable colitis within the right colon. Please correlate if this matches patient's clinical symptoms. 2. Diffuse fatty infiltration within the liver. 3. No additional abnormality is appreciated. 05/14/19 13:34 The patient's CBC is remarkable for WBC count depressed at 3.89, and H/H of 10.7 /32.4, and platelets depressed at 62,000. Her CMP is remarkable for creatinine slightly elevated at 1.1, AST slightly elevated at 65, and alkaline phosphatase mildly elevated at 128. The remainder of her CMP is unremarkable. Her magnesium level is slightly depressed at 1.7. Her lipase is within normal limits at 383. Her TSH is substantially elevated at 54.835. Her acetaminophen level is 0. Her salicylate level is 0.4. Her EtOH level is 0. Her urinalysis is unremarkable. Her urine drug screen is positive for benzodiazepines only. Reviewing prior labs, I see that the patient's WBC count was 2.61 and her platelets 52,000 on 05/12/2019. With respect to the patient's elevated TSH, the patient has a known history of hypothyroidism following thyroidectomy for thyroid cancer, and reviewing prior labs, the patient's TSH is chronically elevated going as far back as 03/06/2015, but significantly elevated since 02/09/2018. Additionally, a free T4 was low at 0.31 just yesterday, indicating that her hypothyroidism is untreated. As per the HPI, the patient is known to be noncompliant with her medications. I would like to discuss the patient with the Hospitalist. She will come by the ED. 05/14/19 14:[address] Dennison here in the ED. We will treat the patient's possible colitis with IV Flagyl here, keep the patient here in the ED until she is more alert, then return her to [facility] with a 5-day prescription for oral Flagyl , and in the meantime, Dr. Dennison will coordinate with case management to see if we can get the patient to follow-up with a PCP on 05/17/2019. 05/14/19 15:08 Case discussed with Sheri from [employer]. She mentioned that the patient is destitute and will need to have Flagyl provided to her. She then checked with [facility], and was informed that they will not accept her back to [facility]. She suggested we look into transferring her to rehab at [facility] in [place], however, the patient would have to be involuntarily admitted, because she has no ride. Before we make that decision, I will discuss the patient's options with her. 05/14/19 15:39 Sheri from [employer] [facility] [employer] has since spoken to [facility], and learned that they already contacted the Psychiatrist at [facility] in [place], and told the Psychiatrist that in their opinion, the patient was not medically fit for transfer to their facility. Bear in mind that the patient was not evaluated at [facility] by a Physician or mid-level, and that no medical tests were performed at [facility]. Be that as it may, we will now have to admit the patient to our facility. Sheri tells me that Dr. Dennison has agreed to the admission. I reevaluated the patient. She was responsive to voice only, without needing to pat her to wake her up, however, she is still somewhat somnolent and not fully alert. Departure - Departure Time of Disposition: 15:43 Disposition: Refer to Observation Condition: Good Clinical Impression: Valium overdose, Hypothyroidism, Right sided colitis, Pancytopenia - Discharge Information *PRESCRIPTION DRUG MONITORING PROGRAM REVIEWED*: Not Applicable *COPY OF PRESCRIPTION DRUG MONITORING REPORT IN PATIENT HELENA: Not Applicable Referrals: Enrique Brower Jr, MD [Primary Care Provider] - Forms: ED Department Discharge - My Orders Last 24 Hours: My Active Orders 05/14/19 11:15 Sodium Chloride 0.9% [Normal Saline] 1,000 ml IV ASDIRECTED - Assessment/Plan Last 24 Hours: My Active Orders 05/14/19 11:15 Sodium Chloride 0.9% [Normal Saline] 1,000 ml IV ASDIRECTED
[2019-05-14] MEDS ORDERED: Sodium Chloride 0.9% 10 ML Syringe FLUSH ONE (11:34)
[2019-05-14] MEDS ORDERED: Iopamidol 612 MG/ML 100 ML Bottle IVPUSH ONE (11:34)
--- NOTE | 2019-05-14 13:02 | CT ---
CT abdomen and pelvis Technique: Multiple axial sections were obtained from above the dome of the diaphragm inferiorly through the pubic symphysis. Intravenous contrast was utilized. No oral contrast has been given. Delayed images were obtained through the bladder. Comparison: Prior CT abdomen and pelvis study of 01/13/19. Findings: Diffuse fatty infiltration is seen throughout the liver. Visualized lung bases show nothing acute. Spleen appears within normal limits. Adrenal glands show no nodule. Pancreas is within normal limits. Surgical clips are seen from prior cholecystectomy. Kidneys show symmetric contrast enhancement without hydronephrosis or mass. Aorta shows no aneurysm. No retroperitoneal adenopathy or mesenteric abnormalities are seen. No pelvic mass or adenopathy is noted. No free fluid is seen. Appendix not visualized with certainty. There may be some edema within the wall of the right colon with mild surrounding inflammatory changes suspicious for localized colitis. No other inflammatory change is seen. Delayed images show a small amount of contrast within the bladder. Bone window settings were reviewed which appear within normal limits for the patient's age. Impression: 1. Questionable colitis within the right colon. Please correlate if this matches patient's clinical symptoms. 2. Diffuse fatty infiltration within the liver. 3. No additional abnormality is appreciated. Diagnostic code #3
--- NOTE | 2019-05-14 13:02 | CT ---
Head CT Technique: Multiple axial sections through the brain were obtained. Intravenous contrast was not utilized. Comparison: Prior head CT study of 01/13/19. Findings: Ventricles along with basal cisterns and sulci over the convexities are within normal limits for the patient's age. No abnormal parenchymal densities are seen. No evidence of intracranial hemorrhage. No midline shift or mass effect is seen. Bone window settings were reviewed which show no acute calvarial abnormality. Visualized sinuses are clear. Impression: 1. Nothing acute is appreciated on noncontrast head CT study. Diagnostic code #1
[2019-05-14] MEDS ORDERED: metroNIDAZOLE/Normal Saline 500 MG in Premix Bag 1 BAG IV STA (14:10)
[2019-05-14] MEDS ORDERED: Ondansetron 4 MG/2 ML SDV IV PRN (16:37)
[2019-05-14] MEDS ORDERED: Ondansetron 4 MG Tab.DIS PO PRN (16:37)
[2019-05-14] MEDS ORDERED: Enoxaparin 40 MG/0.4 ML Syringe SUBCUT SCH (16:45)
[2019-05-14] MEDS: Lactated Ringers 1,000 ML IV SCH (17:28)
[2019-05-14] MEDS: Lactulose Soln 10 GM/15 ML 30 ML UD Cup PO SCH ×2 (17:29→22:15)
[2019-05-14] MEDS: Hydrocortisone 1% Crm 30 GM Tube TOP SCH (21:25)
[2019-05-14] MEDS: Thiamine 100 MG Tab PO SCH (21:25)
[2019-05-14] MEDS: diphenhydrAMINE 25 MG Cap PO SCH (21:25)
[2019-05-14] MEDS: metroNIDAZOLE/Normal Saline 500 MG in Premix Bag 1 BAG IV SCH (21:26)
--- NOTE | 2019-05-15 00:39 | PCM.HP.2 ---
H&P History of Present Illness - General Date of Service: 05/14/19 Admit Problem/Dx: Admission Diagnosis/Problem Admission Diagnosis/Problem Accidental overdose - History of Present Illness Initial Comments - Free Text/Narative: This is a 43-year-old woman with a past medical history significant for chronic daily alcoholism and polysubstance abuse who was brought to the ED by [facility] staff with somnolence and decreased responsiveness. As per staff she was evaluated after being increasingly somnolent and apparent altered mental status. Of note patient was admitted to this facility from 05/09 until yesterday. At that time she came in with complaints of RUQ pain, worked up for pancreatitis due to history earlier in the year. Was treated for alcohol withdrawal. Evaluated by [facility] during that admission who accepted patient for inpatient rehab. She was discharged and transferred to them on 05/13. She was given a prescription for a short Valium taper. Day after discharge patient was given Valium and later found to have decreased responsiveness for which she was transferred here for further evaluation. Headache Pain Score (Numeric/FACES): 10 - Related Data Allergies/Adverse Reactions: Allergies Allergy/AdvReac Type Severity Reaction Status Date / Time Penicillins Allergy Severe Airway Verified 05/14/19 18:19 Tightness Sulfa (Sulfonamide Allergy Airway Verified 05/14/19 18:19 Antibiotics) Tightness Home Medications: Home Meds Ascorbic Acid [Vitamin C] 500 mg PO DAILY 30 Days #30 capsule.er 05/13/19 [Rx] Diazepam [Valium] 5 mg PO ASDIRECTED #6 tablet 05/13/19 [Rx] FLUoxetine [PROzac] 20 mg PO DAILY 30 Days cap 05/13/19 [Rx] Famotidine [Pepcid] 20 mg PO DAILY 5 Days tablet 05/13/19 [Rx] Folic Acid 1 mg PO DAILY 30 Days tablet 05/13/19 [Rx] Hydrocortisone [Hydrocortisone 1% Crm] 0 gm TOP TID #4 tube 05/13/19 [Rx] Levothyroxine 125 mcg PO ACBREAKFAST #30 tablet 05/13/19 [Rx] Loratadine [Claritin] 10 mg PO DAILY 5 Days tablet 05/13/19 [Rx] Thiamine [Vitamin B-1] 100 mg PO BID 14 Days #28 tab 05/13/19 [Rx] diphenhydrAMINE [Benadryl] 25 mg PO BID 5 Days cap 05/13/19 [Rx] Past Medical History HEENT History: Reports: None Cardiovascular History: Reports: High Cholesterol, Hypertension Respiratory History: Reports: None Gastrointestinal History: Reports: GERD Other Gastrointestinal History: epigastric pain, adhesions Genitourinary History: Reports: Acute Renal Failure Other Genitourinary History: renal failure 10 yrs ago--was given chemo for thyroid CA. [employer] History: Reports: Other OB/BYN History: grav 4 para4, right ovarian cystecomy Musculoskeletal History: Reports: Arthritis Other Musculoskeletal History: had bone infection to R) hand 4 yrs ago--states was hospitalized 3 months Neurological History: Reports: Migraines Psychiatric History: Reports: Addiction, Anxiety, Depression Endocrine/Metabolic History: Reports: Hypothyroidism, Obesity/BMI 30+ Hematologic History: Reports: Anemia, Iron Deficiency Immunologic History: Reports: None Oncologic (Cancer) History: Reports: Thyroid Other Oncologic History: thyroid removed due to CA. Dermatologic History: Reports: None - Infectious Disease History Infectious Disease History: Reports: Chicken Pox, Influenza, Measles - Past Surgical History Head Surgeries/Procedures: Reports: None GI Surgical History: Reports: Appendectomy, Cholecystectomy, Colonoscopy, EGD Female Surgical History: Reports: Hysterectomy Neurological Surgical History: Reports: None Oncologic Surgical History: Reports: Other (See Below) Social & Family History - Family History Family Medical History: Noncontributory OBGYN: Reports: Endocrine/Metabolic: Reports: Diabetes, type II Immunologic: Reports: None Oncologic: Reports: Breast, Uterine - Tobacco Use Smoking Status *Q: Never Smoker - Caffeine Use Caffeine Use: Reports: Tea Other Caffeine Use: 2 cups a day - Alcohol Use Days Per Week of Alcohol Use: 2 Number of Drinks Per Day: 3 Total Drinks Per Week: 6 Date of Last Drink: 05/13/19 Time of Last Drink: 03:00 - Recreational Drug Use Recreational Drug Use: No Recreational Drug Type: Reports: Benzodiazepines, Methamphetamine, Other (see below) (Opioids) - Living Situation & Occupation Living situation: Reports: ( is in alf), with Family (Son). Denies: with Spouse ( in alf) Occupation: Unemployed H&P Review of Systems - Review of Systems: Review Of Systems: See Below General: Reports: Fatigue. Denies: Fever, Chills, Malaise, Weakness, Decreased Appetite HEENT: Denies: Ear Pain, Eye Pain, Headaches, Hearing Changes, Rhinitis, Post Nasal Drip, Sinus Congestion, Sore Throat, Vertigo Pulmonary: Denies: Shortness of Breath, Wheezing, Pleuritic Chest Pain, Cough, Sputum Cardiovascular: Denies: Chest Pain, Palpitations, Dyspnea on Exertion, Orthopnea , PND, Edema, Lightheadedness, Syncope, Blood Pressure Problem Gastrointestinal: Reports: Abdominal Pain, Anorexia, Nausea. Denies: Black Stool, Bloody Stool, Constipation, Diarrhea, Decreased Appetite, Difficulty Swallowing, Distension, Flatus, Hematemesis, Vomiting Genitourinary: Denies: Dysuria, Frequency, Burning, Pain, Urgency, Incontinence , Retention, Discharge Musculoskeletal: Denies: Neck Pain, Shoulder Pain, Arm Pain, Back Pain, Hand Pain, Leg Pain, Foot Pain, Joint Pain Skin: Denies: Cyanosis, Jaundice, Pallor Psychiatric: Reports: Depression, Mood Lability. Denies: Confusion, Anxiety, Agitation, Cravings, Hallucinations, Suicidal Ideation Neurological: Denies: Confusion, Dizziness, Headache, Numbness, Paresthesia, Seizure, Syncope, Tingling, Tremors Exam - Exam Exam: See Below - Vital Signs Vital Signs: Last Vital Signs Temp 36.6 C 05/15/19 00:00 Pulse 88 05/15/19 00:00 Resp 12 05/15/19 00:00 BP 110/78 05/15/19 00:00 Pulse Ox 94 L 05/15/19 00:00 Weight: 81.42 kg - Exam General: Alert, Oriented, Cooperative, Lethargic. No: Mild Distress, Sedated, Obtunded HEENT: Conjunctiva Clear, Mucosa Moist & [place], Nares Patent, Pupils Equal, Pupils Reactive. No: Rhinitis Neck: Supple, Trachea Midline. No: Lymphadenopathy, Carotid Bruit Lungs: Clear to Auscultation, Normal Respiratory Effort. No: Crackles, Rales, Rhonchi Cardiovascular: Regular Rate, Regular Rhythm. No: Systolic Murmur, Diastolic Murmur, Rubs, Gallop/S3, Gallop/S4 GI/Abdominal Exam: Normal Bowel Sounds, Soft, No Mass, Tender. No: Guarding, Rigid, Rebound, Abnormal Bowel Sounds Back Exam: Normal Inspection Extremities: Normal Inspection, Normal Range of Motion, Non-Tender, No Pedal Edema, Normal Capillary Refill Skin: Warm, Intact Neurological: Cranial Nerves Intact (slurred speech) Psychiatric: Alert, Anxious, Depressed - Patient Data Lab Results Last 24 hrs: Laboratory Results - last 24 hr 05/14/19 05/14/19 05/14/19 Range/Units 11:40 11:40 11:40 WBC 3.89 L (3.98-10.04) K/mm3 RBC 3.49 L (3.98-5.22) M/mm3 Hgb 10.7 L (11.2-15.7) gm/dl Hct 32.4 L (34.1-44.9) % MCV 92.8 (79.4-94.8) fl MCH 30.7 (25.6-32.2) pg MCHC 33.0 (32.2-35.5) g/dl RDW Std Deviation 53.9 H (36.4-46.3) fL Plt Count 62 L (182-369) K/mm3 MPV 10.7 (9.4-12.3) fl Neutrophils % (Manual) 44 (40-60) % Band Neutrophils % 5 (0-10) % Lymphocytes % (Manual) 38 (20-40) % Atypical Lymphs % 0 % Monocytes % (Manual) 7 (2-10) % Eosinophils % (Manual) 6 H (0.7-5.8) % Basophils % (Manual) 0 L (0.1-1.2) Platelet Estimate Decreased Anisocytosis 1+ slight Tear Drop Cells 1+ slight RBC Morph Comment Abnormal Sodium 140 (136-145) mEq/L Potassium 3.5 (3.5-5.1) mEq/L Chloride 106 (98-107) mEq/L Carbon Dioxide 25 (21-32) mEq/L Anion Gap 12.5 (5-15) BUN 11 (7-18) mg/dL Creatinine 1.1 H (0.55-1.02) mg/dL Est Cr Clr Drug Dosing 63.47 mL/min Estimated GFR (MDRD) 54 (>60) mL/min BUN/Creatinine Ratio 10.0 L (14-18) Glucose 90 (74-106) mg/dL Calcium 8.7 (8.5-10.1) mg/dL Magnesium 1.7 L (1.8-2.4) mg/dl Total Bilirubin 0.8 (0.2-1.0) mg/dL AST 65 H (15-37) U/L ALT 26 (14-59) U/L Alkaline Phosphatase 128 H (46-116) U/L Total Protein 7.7 (6.4-8.2) g/dl Albumin 3.6 (3.4-5.0) g/dl Globulin 4.1 gm/dL Albumin/Globulin Ratio 0.9 L (1-2) Lipase 383 (73-393) U/L TSH 3rd Generation 54.835 H (0.358-3.74) uIU/mL Urine Color (Yellow) Urine Appearance (Clear) Urine pH (5.0-8.0) Ur Specific Isabel (1.005-1.030) Urine Protein (Negative) Urine Glucose (UA) (Negative) Urine Ketones (Negative) Urine Occult Blood (Negative) Urine Nitrite (Negative) Urine Bilirubin (Negative) Urine Urobilinogen (0.2-1.0) Ur Leukocyte Esterase (Negative) Urine RBC (0-5) /hpf Urine WBC (0-5) /hpf Ur Squamous Epith Cells (0-5) /hpf Calcium Oxalate Crystal (NONE) Amorphous Sediment (NOT SEEN) /hpf Urine Bacteria (FEW) /hpf Urine Mucus (FEW) /hpf Salicylates 0.4 L (2.8-20) mg/dL Urine Opiates Screen (RJBQZD=117) Ur Buprenorphine Scrn (CUTOFF=10) Ur Oxycodone Screen (HPK8RP=777) Urine Methadone Screen (DHZNBF=933) Ur Propoxyphene Screen (EILFMK=585) Acetaminophen 0 L (10-30) ug/mL Ur Barbiturates Screen (DVPHWL=218) Ur Tricyclics Screen (ETCTWP=536) Ur Phencyclidine Scrn (CUTOFF=25) Ur Amphetamine Screen (YHKPUX=447) U Methamphetamines Scrn (GTGGQI=278) U Benzodiazepines Scrn (HOFGXJ=072) U Cocaine Metab Screen (CZUYDP=403) U Marijuana (THC) Screen (CUTOFF=50) Ethyl Alcohol 0.00 (0.00) gm% 05/14/19 05/14/19 Range/Units 12:31 12:31 WBC (3.98-10.04) K/mm3 RBC (3.98-5.22) M/mm3 Hgb (11.2-15.7) gm/dl Hct (34.1-44.9) % MCV (79.4-94.8) fl MCH (25.6-32.2) pg MCHC (32.2-35.5) g/dl RDW Std Deviation (36.4-46.3) fL Plt Count (182-369) K/mm3 MPV (9.4-12.3) fl Neutrophils % (Manual) (40-60) % Band Neutrophils % (0-10) % Lymphocytes % (Manual) (20-40) % Atypical Lymphs % % Monocytes % (Manual) (2-10) % Eosinophils % (Manual) (0.7-5.8) % Basophils % (Manual) (0.1-1.2) Platelet Estimate Anisocytosis Tear Drop Cells RBC Morph Comment Sodium (136-145) mEq/L Potassium (3.5-5.1) mEq/L Chloride (98-107) mEq/L Carbon Dioxide (21-32) mEq/L Anion Gap (5-15) BUN (7-18) mg/dL Creatinine (0.55-1.02) mg/dL Est Cr Clr Drug Dosing mL/min Estimated GFR (MDRD) (>60) mL/min BUN/Creatinine Ratio (14-18) Glucose (74-106) mg/dL Calcium (8.5-10.1) mg/dL Magnesium (1.8-2.4) mg/dl Total Bilirubin (0.2-1.0) mg/dL AST (15-37) U/L ALT (14-59) U/L Alkaline Phosphatase (46-116) U/L Total Protein (6.4-8.2) g/dl Albumin (3.4-5.0) g/dl Globulin gm/dL Albumin/Globulin Ratio (1-2) Lipase (73-393) U/L TSH 3rd Generation (0.358-3.74) uIU/mL Urine Color Yellow (Yellow) Urine Appearance Clear (Clear) Urine pH 7.0 (5.0-8.0) Ur Specific Isabel 1.020 (1.005-1.030) Urine Protein 2+ H (Negative) Urine Glucose (UA) Negative (Negative) Urine Ketones Negative (Negative) Urine Occult Blood Negative (Negative) Urine Nitrite Negative (Negative) Urine Bilirubin 1+ H (Negative) Urine Urobilinogen 2.0 H (0.2-1.0) Ur Leukocyte Esterase Negative (Negative) Urine RBC 0-5 (0-5) /hpf Urine WBC 0-5 (0-5) /hpf Ur Squamous Epith Cells 0-5 (0-5) /hpf Calcium Oxalate Crystal Moderate H (NONE) Amorphous Sediment Few H (NOT SEEN) /hpf Urine Bacteria Few (FEW) /hpf Urine Mucus Moderate H (FEW) /hpf Salicylates (2.8-20) mg/dL Urine Opiates Screen Negative (CASNWA=321) Ur Buprenorphine Scrn Negative (CUTOFF=10) Ur Oxycodone Screen Negative (YAM7ZC=383) Urine Methadone Screen Negative (MYMUJZ=786) Ur Propoxyphene Screen Negative (DPZZQY=719) Acetaminophen (10-30) ug/mL Ur Barbiturates Screen Negative (FIZQGX=425) Ur Tricyclics Screen Negative (OZSQYP=272) Ur Phencyclidine Scrn Negative (CUTOFF=25) Ur Amphetamine Screen Negative (QFCNLH=981) U Methamphetamines Scrn Negative (MSKIBT=055) U Benzodiazepines Scrn Presumptive positive H (HSSJDO=920) U Cocaine Metab Screen Negative (OLKONR=287) U Marijuana (THC) Screen Negative (CUTOFF=50) Ethyl Alcohol (0.00) gm% Result Diagrams: 05/17/19 08:30 05/17/19 08:30 - Problem List (1) Altered mental status associated with intoxication SNOMED Code(s): 452968652, 163613039 ICD Code: F10.959 - ALCOHOL USE, UNSP W ALCOHOL-INDUCED PSYCHOTIC DISORDER, UNSP Status: Acute Current Visit: Yes (2) Right sided colitis SNOMED Code(s): 58050052 ICD Code: K52.9 - NONINFECTIVE GASTROENTERITIS AND COLITIS, UNSPECIFIED Status: Acute Current Visit: Yes (3) Major depressive disorder SNOMED Code(s): 205510837 ICD Code: F32.9 - MAJOR DEPRESSIVE DISORDER, SINGLE EPISODE, UNSPECIFIED Status: Acute Current Visit: Yes (4) Fatty liver SNOMED Code(s): 332970619 ICD Code: K76.0 - FATTY (CHANGE OF) LIVER, NOT ELSEWHERE CLASSIFIED Status : Acute Current Visit: Yes (5) Hypothyroidism SNOMED Code(s): 38377195 ICD Code: E03.9 - HYPOTHYROIDISM, UNSPECIFIED Status: Acute Current Visit : Yes (6) Pancytopenia SNOMED Code(s): 938492188 ICD Code: D61.818 - OTHER PANCYTOPENIA Status: Acute Current Visit: Yes (7) Valium overdose SNOMED Code(s): 500580616 ICD Code: T42.4X1A - POISONING BY BENZODIAZEPINES, ACCIDENTAL, INIT Status : Acute Current Visit: Yes (8) Abdominal pain SNOMED Code(s): 21788868 ICD Code: R10.9 - UNSPECIFIED ABDOMINAL PAIN Status: Acute Priority: Medium Current Visit: No Qualifiers: Abdominal location: left lower quadrant Qualified Code(s): R10.32 - Left lower quadrant pain (9) Alcohol abuse with physiological dependence SNOMED Code(s): 68779415, 78876203 ICD Code: F10.20 - ALCOHOL DEPENDENCE, UNCOMPLICATED Status: Acute Current Visit: No (10) Sqyin-gu-rmbmrks kidney injury SNOMED Code(s): 588520532 ICD Code: N17.9 - ACUTE KIDNEY FAILURE, UNSPECIFIED; N18.9 - CHRONIC KIDNEY DISEASE, UNSPECIFIED Status: Acute Current Visit: Yes (11) Hypomagnesemia SNOMED Code(s): 158925108 ICD Code: E83.42 - HYPOMAGNESEMIA Status: Acute Current Visit: Yes (12) Dyslipidemia (high LDL; low HDL) SNOMED Code(s): 173716218, 298337526 ICD Code: E78.5 - HYPERLIPIDEMIA, UNSPECIFIED Status: Acute Current Visit : Yes (13) Economic circumstance affecting care SNOMED Code(s): 572641155 ICD Code: Z59.9 - PROBLEM RELATED TO HOUSING AND ECONOMIC CIRCUMSTANCES, UNSP Status: Acute Current Visit: Yes (14) Economic hardship Status: Acute Current Visit: Yes (15) Inadequate social support SNOMED Code(s): 742216836 ICD Code: Z65.8 - OTH PROBLEMS RELATED TO PSYCHOSOCIAL CIRCUMSTANCES Status : Acute Current Visit: Yes (16) Medical non-compliance SNOMED Code(s): 420964716 ICD Code: Z91.19 - PATIENT'S NONCOMPLIANCE W OTH MEDICAL TREATMENT AND REGIMEN Status: Acute Current Visit: Yes (17) Problems related to education and literacy, unspecified SNOMED Code(s): 2539646 ICD Code: Z55.9 - PROBLEMS RELATED TO EDUCATION AND LITERACY, UNSPECIFIED Status: Acute Current Visit: Yes Problem List Initiated/Reviewed/Updated: Yes Assessment/Plan Comment:: Altered mental status associated with accidental Valium overdose Accidental Valium overdose CT head in ED reported negative Patient somnolent but arousable, oriented PLAN - Monitor mental status - No central acting medications for now Abdominal pain 2/2 Right sided colitis Patient complaining of abdominal pain with generalized tenderness on physical exam Pain during previous admission, associated with constipation History of pancreatitis Highly likely she has a level of chronic pancreatitis PLAN - Flagyl 500mg IV q8h x 7 days. - Monitor temperature - Panculture if febrile - Evaluate need for stool studies if symptoms do not improve Alcohol abuse with physiological dependence With multiple complications including bone marrow suppression, chronic pancreatitis and fatty liver disease PLAN - Supplementation with Thiamine, folic acid and vitamin C supplementation - Will discuss with social work if it is possible to get naltrexone for her as an outpatient Major depressive disorder No active suicidal ideation Has been treated with fluoxetine in the past PLAN - Continue Fluoxetine for now Multifactorial fatty liver disease Patient is obese, is an alcohol abuser and has dyslipidemia Will order labs needed to calculate MELD score in AM for prognosis PLAN - Start Atorvastatin - Continue Vitamin C - Evaluate initiation of vitamin E Hypothyroidism She has been prescribed levothyroxine previously She is non-compliant 2/2 economic hardship PLAN - Social work consult in place for financial aid advisor Pancytopenia Likely 2/2 chronic alcohol abuse bone marrow suppression No signs of acute bleeding or immunosuppression for now No need to transfuse, goal Hb>7 PLAN - Vitamin supplementation Tjgwj-cz-komztnl kidney injury, improving Present since previous admission PLAN - Renally dosed medications - Monitor urine output - Repeat labs as needed and replace as indicated Hypomagnesemia Not related to hypokalemia PLAN - Replace Mg - Repeat level in AM Dyslipidemia (high LDL; low HDL) Qualifies for statin as per ASCVD risk calculation Likely worsening fatty liver disease PLAN -Start Atorvastatin 40mg QD Economic hardship affecting care/Inadequate social support/Problems related to education and literacy Patient with multiple factors influencing her medical care "compliance" I have consulted social and human services assistant and am working with them for the best solution to improve control on acute problems as well as slow progression of chronic conditions PLAN - F/U psychiatric social worker PROPHYLAXIS DVT- Contraindicated 2/2 thrombocytopenia and anemia GI- not indicated CODE STATUS: FULL CODE DISPOSITION: Patient will be admitted under observation for monitorization of mental status and pending placement once stable.
[2019-05-15] MEDS: Lactated Ringers 1,000 ML IV SCH ×2 (01:30→08:18)
[2019-05-15] MEDS: Lactulose Soln 10 GM/15 ML 30 ML UD Cup PO SCH ×4 (04:20→22:25)
[2019-05-15] MEDS: metroNIDAZOLE/Normal Saline 500 MG in Premix Bag 1 BAG IV SCH ×2 (04:59→15:33)
[2019-05-15] MEDS: Levothyroxine 125 MCG Tab PO SCH (04:59)
[2019-05-15] MEDS: FLUoxetine 20 MG Cap PO SCH (08:19)
[2019-05-15] MEDS: Folic Acid 1 MG Tab PO SCH (08:19)
[2019-05-15] MEDS: Famotidine 20 MG Tab PO SCH (08:19)
[2019-05-15] MEDS: diphenhydrAMINE 25 MG Cap PO SCH ×2 (08:20→21:26)
[2019-05-15] MEDS: Loratadine 10 MG Tab PO SCH (08:20)
[2019-05-15] MEDS: Thiamine 100 MG Tab PO SCH ×2 (08:20→21:26)
[2019-05-15] MEDS: Hydrocortisone 1% Crm 30 GM Tube TOP SCH ×3 (08:20→21:26)
--- NOTE | 2019-05-15 08:23 | PCM.PN ---
- General Info Date of Service: 05/15/19 Subjective Update: Feeling ok Slept ok Ambulating BM today Tolerating diet Functional Status: Reports: Pain Controlled, Tolerating Diet, Ambulating, Urinating, Other (Had a BM today) - Review of Systems General: Denies: Fever, Weakness, Fatigue, Malaise, Chills, Night Sweats, Appetite HEENT: Denies: Dysphasia, Ear Pain, Eye Pain, Headaches, Post Nasal Drip, Sinus Congestion, Sore Throat Pulmonary: Denies: Shortness of Breath, Cough, Sputum, Wheezing Cardiovascular: Denies: Chest Pain, Palpitations, Dyspnea on Exertion, Orthopnea , PND, Edema, Lightheadedness Gastrointestinal: Denies: Abdominal Pain, Constipation, Decreased Appetite, Diarrhea, Difficulty Swallowing, Flatus, Nausea, Vomiting Genitourinary: Denies: Dysuria, Frequency, Burning, Pain Musculoskeletal: Denies: Neck Pain, Shoulder Pain, Arm Pain, Hand Pain, Back Pain, Leg Pain, Foot Pain, Joint Pain, Joint Swelling Skin: Denies: Cyanosis, Jaundice, Mottled, Pallor, Diaphoresis, Bruising Neurological: Denies: Confusion, Dizziness, Headache, Numbness, Paresthesia, Syncope, Tingling, Tremors, Trouble Speaking Psychiatric: Reports: Depression. Denies: Confusion, Mood Lability, Anxiety, Agitation - Patient Data Vitals - Most Recent: Last Vital Signs Temp 36.7 C 05/15/19 04:19 Pulse 91 05/15/19 04:19 Resp 14 05/15/19 04:19 BP 123/80 05/15/19 04:19 Pulse Ox 92 L 05/15/19 04:19 Weight - Most Recent: 82.236 kg I&O - Last 24 Hours: Intake & Output 05/14/19 05/15/19 05/15/19 22:59 06:59 14:59 Intake Total 120 2343 Output Total 750 Balance 120 1593 Lab Results Last 24 Hours: Laboratory Results - last 24 hr 05/14/19 05/14/19 05/14/19 Range/Units 11:40 11:40 11:40 WBC 3.89 L (3.98-10.04) K/mm3 RBC 3.49 L (3.98-5.22) M/mm3 Hgb 10.7 L (11.2-15.7) gm/dl Hct 32.4 L (34.1-44.9) % MCV 92.8 (79.4-94.8) fl MCH 30.7 (25.6-32.2) pg MCHC 33.0 (32.2-35.5) g/dl RDW Std Deviation 53.9 H (36.4-46.3) fL Plt Count 62 L (182-369) K/mm3 MPV 10.7 (9.4-12.3) fl Neut % (Auto) (34.0-71.1) % Lymph % (Auto) (19.3-51.7) % [place] % (Auto) (4.7-12.5) % Eos % (Auto) (0.7-5.8) Baso % (Auto) (0.1-1.2) % Neut # (Auto) (1.56-6.13) K/mm3 Lymph # (Auto) (1.18-3.74) K/mm3 [place] # (Auto) (0.24-0.36) K/mm3 Eos # (Auto) (0.04-0.36) K/mm3 Baso # (Auto) (0.01-0.08) K/mm3 Neutrophils % (Manual) 44 (40-60) % Band Neutrophils % 5 (0-10) % Lymphocytes % (Manual) 38 (20-40) % Atypical Lymphs % 0 % Monocytes % (Manual) 7 (2-10) % Eosinophils % (Manual) 6 H (0.7-5.8) % Basophils % (Manual) 0 L (0.1-1.2) Manual Slide Review Platelet Estimate Decreased Anisocytosis 1+ slight Tear Drop Cells 1+ slight RBC Morph Comment Abnormal Sodium 140 (136-145) mEq/L Potassium 3.5 (3.5-5.1) mEq/L Chloride 106 (98-107) mEq/L Carbon Dioxide 25 (21-32) mEq/L Anion Gap 12.5 (5-15) BUN 11 (7-18) mg/dL Creatinine 1.1 H (0.55-1.02) mg/dL Est Cr Clr Drug Dosing 63.47 mL/min Estimated GFR (MDRD) 54 (>60) mL/min BUN/Creatinine Ratio 10.0 L (14-18) Glucose 90 (74-106) mg/dL Calcium 8.7 (8.5-10.1) mg/dL Phosphorus (2.6-4.7) mg/dL Magnesium 1.7 L (1.8-2.4) mg/dl Total Bilirubin 0.8 (0.2-1.0) mg/dL AST 65 H (15-37) U/L ALT 26 (14-59) U/L Alkaline Phosphatase 128 H (46-116) U/L Total Protein 7.7 (6.4-8.2) g/dl Albumin 3.6 (3.4-5.0) g/dl Globulin 4.1 gm/dL Albumin/Globulin Ratio 0.9 L (1-2) Lipase 383 (73-393) U/L TSH 3rd Generation 54.835 H (0.358-3.74) uIU/mL Urine Color (Yellow) Urine Appearance (Clear) Urine pH (5.0-8.0) Ur Specific [place] (1.005-1.030) Urine Protein (Negative) Urine Glucose (UA) (Negative) Urine Ketones (Negative) Urine Occult Blood (Negative) Urine Nitrite (Negative) Urine Bilirubin (Negative) Urine Urobilinogen (0.2-1.0) Ur Leukocyte Esterase (Negative) Urine RBC (0-5) /hpf Urine WBC (0-5) /hpf Ur Squamous Epith Cells (0-5) /hpf Calcium Oxalate Crystal (NONE) Amorphous Sediment (NOT SEEN) /hpf Urine Bacteria (FEW) /hpf Urine Mucus (FEW) /hpf Salicylates 0.4 L (2.8-20) mg/dL Urine Opiates Screen (HJTQCF=752) Ur Buprenorphine Scrn (CUTOFF=10) Ur Oxycodone Screen (KSL4ZM=873) Urine Methadone Screen (GNYLPN=193) Ur Propoxyphene Screen (HCSYES=381) Acetaminophen 0 L (10-30) ug/mL Ur Barbiturates Screen (HHZMEL=662) Ur Tricyclics Screen (TAIAIS=247) Ur Phencyclidine Scrn (CUTOFF=25) Ur Amphetamine Screen (BZDEXB=360) U Methamphetamines Scrn (WLEMNV=538) U Benzodiazepines Scrn (ITZIKP=182) U Cocaine Metab Screen (LUYHUS=361) U Marijuana (THC) Screen (CUTOFF=50) Ethyl Alcohol 0.00 (0.00) gm% 05/14/19 05/14/19 05/15/19 Range/Units 12:31 12:31 04:30 WBC 3.44 L (3.98-10.04) K/mm3 RBC 3.29 L (3.98-5.22) M/mm3 Hgb 10.1 L (11.2-15.7) gm/dl Hct 30.8 L (34.1-44.9) % MCV 93.6 (79.4-94.8) fl MCH 30.7 (25.6-32.2) pg MCHC 32.8 (32.2-35.5) g/dl RDW Std Deviation 55.4 H (36.4-46.3) fL Plt Count 63 L (182-369) K/mm3 MPV 11.0 (9.4-12.3) fl Neut % (Auto) 37.4 (34.0-71.1) % Lymph % (Auto) 48.3 (19.3-51.7) % [place] % (Auto) 10.5 (4.7-12.5) % Eos % (Auto) 2.6 (0.7-5.8) Baso % (Auto) 0.9 (0.1-1.2) % Neut # (Auto) 1.29 L (1.56-6.13) K/mm3 Lymph # (Auto) 1.66 (1.18-3.74) K/mm3 [place] # (Auto) 0.36 (0.24-0.36) K/mm3 Eos # (Auto) 0.09 (0.04-0.36) K/mm3 Baso # (Auto) 0.03 (0.01-0.08) K/mm3 Neutrophils % (Manual) (40-60) % Band Neutrophils % (0-10) % Lymphocytes % (Manual) (20-40) % Atypical Lymphs % % Monocytes % (Manual) (2-10) % Eosinophils % (Manual) (0.7-5.8) % Basophils % (Manual) (0.1-1.2) Manual Slide Review Abnormal smear Platelet Estimate Anisocytosis Tear Drop Cells RBC Morph Comment Sodium (136-145) mEq/L Potassium (3.5-5.1) mEq/L Chloride (98-107) mEq/L Carbon Dioxide (21-32) mEq/L Anion Gap (5-15) BUN (7-18) mg/dL Creatinine (0.55-1.02) mg/dL Est Cr Clr Drug Dosing mL/min Estimated GFR (MDRD) (>60) mL/min BUN/Creatinine Ratio (14-18) Glucose (74-106) mg/dL Calcium (8.5-10.1) mg/dL Phosphorus (2.6-4.7) mg/dL Magnesium (1.8-2.4) mg/dl Total Bilirubin (0.2-1.0) mg/dL AST (15-37) U/L ALT (14-59) U/L Alkaline Phosphatase (46-116) U/L Total Protein (6.4-8.2) g/dl Albumin (3.4-5.0) g/dl Globulin gm/dL Albumin/Globulin Ratio (1-2) Lipase (73-393) U/L TSH 3rd Generation (0.358-3.74) uIU/mL Urine Color Yellow (Yellow) Urine Appearance Clear (Clear) Urine pH 7.0 (5.0-8.0) Ur Specific [place] 1.020 (1.005-1.030) Urine Protein 2+ H (Negative) Urine Glucose (UA) Negative (Negative) Urine Ketones Negative (Negative) Urine Occult Blood Negative (Negative) Urine Nitrite Negative (Negative) Urine Bilirubin 1+ H (Negative) Urine Urobilinogen 2.0 H (0.2-1.0) Ur Leukocyte Esterase Negative (Negative) Urine RBC 0-5 (0-5) /hpf Urine WBC 0-5 (0-5) /hpf Ur Squamous Epith Cells 0-5 (0-5) /hpf Calcium Oxalate Crystal Moderate H (NONE) Amorphous Sediment Few H (NOT SEEN) /hpf Urine Bacteria Few (FEW) /hpf Urine Mucus Moderate H (FEW) /hpf Salicylates (2.8-20) mg/dL Urine Opiates Screen Negative (QFTMBP=749) Ur Buprenorphine Scrn Negative (CUTOFF=10) Ur Oxycodone Screen Negative (XEK8KV=547) Urine Methadone Screen Negative (NYGPAY=293) Ur Propoxyphene Screen Negative (TMTKDS=155) Acetaminophen (10-30) ug/mL Ur Barbiturates Screen Negative (HYVBOP=916) Ur Tricyclics Screen Negative (KVMNMR=723) Ur Phencyclidine Scrn Negative (CUTOFF=25) Ur Amphetamine Screen Negative (FCZSNW=517) U Methamphetamines Scrn Negative (MLHVOI=805) U Benzodiazepines Scrn Presumptive positive H (JWNFLR=197) U Cocaine Metab Screen Negative (AUMADB=011) U Marijuana (THC) Screen Negative (CUTOFF=50) Ethyl Alcohol (0.00) gm% 05/15/19 Range/Units 04:30 WBC (3.98-10.04) K/mm3 RBC (3.98-5.22) M/mm3 Hgb (11.2-15.7) gm/dl Hct (34.1-44.9) % MCV (79.4-94.8) fl MCH (25.6-32.2) pg MCHC (32.2-35.5) g/dl RDW Std Deviation (36.4-46.3) fL Plt Count (182-369) K/mm3 MPV (9.4-12.3) fl Neut % (Auto) (34.0-71.1) % Lymph % (Auto) (19.3-51.7) % [place] % (Auto) (4.7-12.5) % Eos % (Auto) (0.7-5.8) Baso % (Auto) (0.1-1.2) % Neut # (Auto) (1.56-6.13) K/mm3 Lymph # (Auto) (1.18-3.74) K/mm3 [place] # (Auto) (0.24-0.36) K/mm3 Eos # (Auto) (0.04-0.36) K/mm3 Baso # (Auto) (0.01-0.08) K/mm3 Neutrophils % (Manual) (40-60) % Band Neutrophils % (0-10) % Lymphocytes % (Manual) (20-40) % Atypical Lymphs % % Monocytes % (Manual) (2-10) % Eosinophils % (Manual) (0.7-5.8) % Basophils % (Manual) (0.1-1.2) Manual Slide Review Platelet Estimate Anisocytosis Tear Drop Cells RBC Morph Comment Sodium 142 (136-145) mEq/L Potassium 3.2 L (3.5-5.1) mEq/L Chloride 106 (98-107) mEq/L Carbon Dioxide 23 (21-32) mEq/L Anion Gap 16.2 H (5-15) BUN 9 (7-18) mg/dL Creatinine 0.9 (0.55-1.02) mg/dL Est Cr Clr Drug Dosing 57.30 mL/min Estimated GFR (MDRD) > 60 (>60) mL/min BUN/Creatinine Ratio 10.0 L (14-18) Glucose 88 (74-106) mg/dL Calcium 8.5 (8.5-10.1) mg/dL Phosphorus 2.2 L (2.6-4.7) mg/dL Magnesium 1.5 L (1.8-2.4) mg/dl Total Bilirubin (0.2-1.0) mg/dL AST (15-37) U/L ALT (14-59) U/L Alkaline Phosphatase (46-116) U/L Total Protein (6.4-8.2) g/dl Albumin (3.4-5.0) g/dl Globulin gm/dL Albumin/Globulin Ratio (1-2) Lipase (73-393) U/L TSH 3rd Generation (0.358-3.74) uIU/mL Urine Color (Yellow) Urine Appearance (Clear) Urine pH (5.0-8.0) Ur Specific [place] (1.005-1.030) Urine Protein (Negative) Urine Glucose (UA) (Negative) Urine Ketones (Negative) Urine Occult Blood (Negative) Urine Nitrite (Negative) Urine Bilirubin (Negative) Urine Urobilinogen (0.2-1.0) Ur Leukocyte Esterase (Negative) Urine RBC (0-5) /hpf Urine WBC (0-5) /hpf Ur Squamous Epith Cells (0-5) /hpf Calcium Oxalate Crystal (NONE) Amorphous Sediment (NOT SEEN) /hpf Urine Bacteria (FEW) /hpf Urine Mucus (FEW) /hpf Salicylates (2.8-20) mg/dL Urine Opiates Screen (GJTCCK=441) Ur Buprenorphine Scrn (CUTOFF=10) Ur Oxycodone Screen (FBO9QE=756) Urine Methadone Screen (MJGUYT=238) Ur Propoxyphene Screen (DZYAGT=938) Acetaminophen (10-30) ug/mL Ur Barbiturates Screen (TDHQTU=951) Ur Tricyclics Screen (SJGLKC=788) Ur Phencyclidine Scrn (CUTOFF=25) Ur Amphetamine Screen (BZZOIB=815) U Methamphetamines Scrn (FOFQWP=234) U Benzodiazepines Scrn (BEAHUM=870) U Cocaine Metab Screen (SLPFHO=667) U Marijuana (THC) Screen (CUTOFF=50) Ethyl Alcohol (0.00) gm% - Exam General: Alert, Oriented, Cooperative, No Acute Distress HEENT: Pupils Equal, Pupils Reactive, EOMI, Mucous Membr. Moist/[place]. No: Scleral Icterus Neck: Supple, Trachea Midline, No JVD, No Thyromegaly. No: Lymphadenopathy, Carotid Bruit, JVD Lungs: Clear to Auscultation, Normal Respiratory Effort. No: Crackles, Rales, Rhonchi, Wheezing Cardiovascular: Regular Rate, Regular Rhythm. No: Murmurs, Gallops, Rubs GI/Abdominal Exam: Normal Bowel Sounds, Soft, Non-Tender, No Organomegaly, No Distention, No Mass, Pelvis Stable Back Exam: Normal Inspection Extremities: No Pedal Edema, Normal Capillary Refill Skin: Warm, Dry, Intact Neurological: No New Focal Deficit Psy/Mental Status: Alert, Depressed - Problem List & Annotations (1) Altered mental status associated with intoxication SNOMED Code(s): 567188237, 897058207 Code(s): F10.959 - ALCOHOL USE, UNSP W ALCOHOL-INDUCED PSYCHOTIC DISORDER, UNSP Status: Acute Current Visit: Yes (2) Kvnoa-ni-yjjyeoq kidney injury SNOMED Code(s): 164212333 Code(s): N17.9 - ACUTE KIDNEY FAILURE, UNSPECIFIED; N18.9 - CHRONIC KIDNEY DISEASE, UNSPECIFIED Status: Acute Current Visit: Yes (3) Dyslipidemia (high LDL; low HDL) SNOMED Code(s): 991417835, 195249709 Code(s): E78.5 - HYPERLIPIDEMIA, UNSPECIFIED Status: Acute Current Visit : Yes (4) Economic circumstance affecting care SNOMED Code(s): 849019752 Code(s): Z59.9 - PROBLEM RELATED TO HOUSING AND ECONOMIC CIRCUMSTANCES, UNSP Status: Acute Current Visit: Yes (5) Economic hardship Status: Acute Current Visit: Yes (6) Fatty liver SNOMED Code(s): 107181395 Code(s): K76.0 - FATTY (CHANGE OF) LIVER, NOT ELSEWHERE CLASSIFIED Status: Acute Current Visit: Yes (7) Hypomagnesemia SNOMED Code(s): 116644820 Code(s): E83.42 - HYPOMAGNESEMIA Status: Acute Current Visit: Yes (8) Hypothyroidism SNOMED Code(s): 53839644 Code(s): E03.9 - HYPOTHYROIDISM, UNSPECIFIED Status: Acute Current Visit : Yes (9) Inadequate social support SNOMED Code(s): 393626721 Code(s): Z65.8 - OTH PROBLEMS RELATED TO PSYCHOSOCIAL CIRCUMSTANCES Status : Acute Current Visit: Yes (10) Major depressive disorder SNOMED Code(s): 176767354 Code(s): F32.9 - MAJOR DEPRESSIVE DISORDER, SINGLE EPISODE, UNSPECIFIED Status: Acute Current Visit: Yes (11) Medical non-compliance SNOMED Code(s): 790227639 Code(s): Z91.19 - PATIENT'S NONCOMPLIANCE W OTH MEDICAL TREATMENT AND REGIMEN Status: Acute Current Visit: Yes (12) Pancytopenia SNOMED Code(s): 697927840 Code(s): D61.818 - OTHER PANCYTOPENIA Status: Acute Current Visit: Yes (13) Problems related to education and literacy, unspecified SNOMED Code(s): 8369623 Code(s): Z55.9 - PROBLEMS RELATED TO EDUCATION AND LITERACY, UNSPECIFIED Status: Acute Current Visit: Yes (14) Right sided colitis SNOMED Code(s): 27685846 Code(s): K52.9 - NONINFECTIVE GASTROENTERITIS AND COLITIS, UNSPECIFIED Status: Acute Current Visit: Yes (15) Abdominal pain SNOMED Code(s): 66255025 Code(s): R10.9 - UNSPECIFIED ABDOMINAL PAIN Status: Acute Current Visit: No Qualifiers: Abdominal location: right upper quadrant Qualified Code(s): R10.11 - Right upper quadrant pain (16) Alcohol abuse with physiological dependence SNOMED Code(s): 34993042, 24664411 Code(s): F10.20 - ALCOHOL DEPENDENCE, UNCOMPLICATED Status: Acute Current Visit: No (17) Hypophosphatemia SNOMED Code(s): 1882595 Code(s): E83.39 - OTHER DISORDERS OF PHOSPHORUS METABOLISM Status: Acute Current Visit: Yes - Problem List Review Problem List Initiated/Reviewed/Updated: Yes - Plan Plan:: Altered mental status associated with accidental Valium overdose Accidental Valium overdose CT head in ED reported negative Patient somnolent but arousable, oriented PLAN - Monitor mental status - No central acting medications for now Abdominal pain 2/2 Right sided colitis, improved CT with colitis Abdominal pain resolved Flagyl day 3 PLAN - Transition flagyl to POFlagyl 500mg IV q8h x 7 days. - Monitor temperature - Panculture if febrile - Evaluate need for stool studies if symptoms do not improve Alcohol abuse with physiological dependence With multiple complications including bone marrow suppression, chronic pancreatitis and fatty liver disease PLAN - Supplementation with Thiamine, folic acid and vitamin C supplementation - Will discuss with social work if it is possible to get naltrexone for her as an outpatient Major depressive disorder No active suicidal ideation Has been treated with fluoxetine in the past PLAN - Continue Fluoxetine for now Multifactorial fatty liver disease Patient is obese, is an alcohol abuser and has dyslipidemia Will order labs needed to calculate MELD score in AM for prognosis PLAN - Switch atorvastatin for rosuvastatin and Vitamin C - Evaluate initiation of vitamin E Hypothyroidism She has been prescribed levothyroxine previously She is non-compliant 2/2 economic hardship PLAN - Social work consult in place for financial engineer Pancytopenia Likely 2/2 chronic alcohol abuse bone marrow suppression No signs of acute bleeding or immunosuppression for now No need to transfuse, goal Hb>7 PLAN - Vitamin supplementation Uydhx-lh-hpzjatr kidney injury, improving Present since previous admission PLAN - Renally dosed medications - Monitor urine output - Repeat labs as needed and replace as indicated Electrolyte abnormalities No acute issues PLAN - F/U results Dyslipidemia (high LDL; low HDL) Qualifies for statin as per ASCVD risk calculation Likely worsening fatty liver disease Atorvastatin not available PLAN -Start Rosuvastatin 40mg QD Economic hardship affecting care/Inadequate social support/Problems related to education and literacy Patient with multiple factors influencing her medical care "compliance" I have consulted health and social care teacher and am working with them for the best solution to improve control on acute problems as well as slow progression of chronic conditions PLAN - F/U elementary school social worker PROPHYLAXIS DVT- Contraindicated 2/2 thrombocytopenia and anemia GI- not indicated CODE STATUS: FULL CODE DISPOSITION: Patient will be admitted under observation for monitorization of mental status and pending placement once stable.
[2019-05-15] MEDS: Ascorbic Acid 500 MG Tab PO SCH (09:08)
[2019-05-15] MEDS ORDERED: Magnesium Sulfate/Water 4 GM in Premix Bag 1 BAG IV ONE (19:28)
[2019-05-15] MEDS ORDERED: Potassium Chloride 20 MEQ Tab.ER PO ONE (21:00)
[2019-05-15] MEDS ORDERED: Magnesium Oxide 400 MG Tab PO ONE (21:00)
[2019-05-15] MEDS: metroNIDAZOLE 500 MG Tab PO SCH (21:26)
[2019-05-15] MEDS: Potassium Chloride 20 MEQ Tab.ER PO SCH (21:26)
[2019-05-16] MEDS: Ketorolac 30 MG/ML SDV IV PRN (00:50)
[2019-05-16] MEDS: Lactulose Soln 10 GM/15 ML 30 ML UD Cup PO SCH ×4 (04:51→22:17)
[2019-05-16] MEDS: Levothyroxine 125 MCG Tab PO SCH ×2 (04:52→05:03)
[2019-05-16] MEDS: metroNIDAZOLE 500 MG Tab PO SCH ×4 (04:52→22:17)
--- NOTE | 2019-05-16 08:37 | PCM.PN ---
- General Info Date of Service: 05/16/19 Subjective Update: BM yesterday\\ Tolerating diet Ambulating slept well Ok with consulting psychiatry - Patient Data Vitals - Most Recent: Last Vital Signs Temp 36.8 C 05/16/19 04:49 Pulse 91 05/16/19 04:49 Resp 14 05/16/19 04:49 BP 104/76 05/16/19 04:49 Pulse Ox 92 L 05/16/19 04:49 Weight - Most Recent: 83.416 kg - Exam General: Alert, Oriented, Cooperative HEENT: Pupils Equal, Pupils Reactive, Mucous Membr. Moist/[place] Neck: Supple, No JVD, No Thyromegaly Lungs: Clear to Auscultation, Normal Respiratory Effort. No: Crackles, Rales, Rhonchi, Wheezing Cardiovascular: Regular Rate, Regular Rhythm. No: Murmurs, Gallops, Rubs GI/Abdominal Exam: Normal Bowel Sounds, Soft, Non-Tender Back Exam: Normal Inspection Extremities: Normal Inspection Skin: Warm, Dry Neurological: No New Focal Deficit Psy/Mental Status: Alert, Depressed - Problem List & Annotations (1) Sgtzu-vf-fzkolrk kidney injury SNOMED Code(s): 646862735 Code(s): N17.9 - ACUTE KIDNEY FAILURE, UNSPECIFIED; N18.9 - CHRONIC KIDNEY DISEASE, UNSPECIFIED Status: Acute Current Visit: Yes (2) Dyslipidemia (high LDL; low HDL) SNOMED Code(s): 520281330, 851561095 Code(s): E78.5 - HYPERLIPIDEMIA, UNSPECIFIED Status: Acute Current Visit : Yes (3) Economic hardship Status: Acute Current Visit: Yes (4) Hypomagnesemia SNOMED Code(s): 533226424 Code(s): E83.42 - HYPOMAGNESEMIA Status: Acute Current Visit: Yes (5) Hypophosphatemia SNOMED Code(s): 7508566 Code(s): E83.39 - OTHER DISORDERS OF PHOSPHORUS METABOLISM Status: Acute Current Visit: Yes (6) Hypothyroidism SNOMED Code(s): 80856243 Code(s): E03.9 - HYPOTHYROIDISM, UNSPECIFIED Status: Acute Current Visit : Yes (7) Major depressive disorder SNOMED Code(s): 349406201 Code(s): F32.9 - MAJOR DEPRESSIVE DISORDER, SINGLE EPISODE, UNSPECIFIED Status: Acute Current Visit: Yes (8) Pancytopenia SNOMED Code(s): 114937223 Code(s): D61.818 - OTHER PANCYTOPENIA Status: Acute Current Visit: Yes (9) Right sided colitis SNOMED Code(s): 84880789 Code(s): K52.9 - NONINFECTIVE GASTROENTERITIS AND COLITIS, UNSPECIFIED Status: Acute Current Visit: Yes (10) Valium overdose SNOMED Code(s): 504624229 Code(s): T42.4X1A - POISONING BY BENZODIAZEPINES, ACCIDENTAL, INIT Status: Acute Current Visit: Yes (11) Alcohol abuse SNOMED Code(s): 96658240 Code(s): F10.10 - ALCOHOL ABUSE, UNCOMPLICATED Status: Chronic Priority: High Current Visit: Yes (12) Economic circumstance affecting care SNOMED Code(s): 489046568 Code(s): Z59.9 - PROBLEM RELATED TO HOUSING AND ECONOMIC CIRCUMSTANCES, UNSP Status: Chronic Priority: Medium Current Visit: Yes (13) Fatty liver SNOMED Code(s): 015697858 Code(s): K76.0 - FATTY (CHANGE OF) LIVER, NOT ELSEWHERE CLASSIFIED Status: Chronic Priority: Medium Current Visit: Yes (14) Inadequate social support SNOMED Code(s): 830761077 Code(s): Z65.8 - OTH PROBLEMS RELATED TO PSYCHOSOCIAL CIRCUMSTANCES Status : Chronic Priority: Medium Current Visit: Yes (15) Problems related to education and literacy, unspecified SNOMED Code(s): 8043803 Code(s): Z55.9 - PROBLEMS RELATED TO EDUCATION AND LITERACY, UNSPECIFIED Status: Chronic Priority: Medium Current Visit: Yes (16) Altered mental status associated with intoxication SNOMED Code(s): 168593972, 579109152 Code(s): F10.959 - ALCOHOL USE, UNSP W ALCOHOL-INDUCED PSYCHOTIC DISORDER, UNSP Status: Resolved Priority: High Current Visit: Yes (17) Abdominal pain SNOMED Code(s): 18547131 Code(s): R10.9 - UNSPECIFIED ABDOMINAL PAIN Status: Acute Priority: Medium Current Visit: No Qualifiers: Abdominal location: left lower quadrant Qualified Code(s): R10.32 - Left lower quadrant pain - Problem List Review Problem List Initiated/Reviewed/Updated: Yes - Plan Plan:: Abdominal pain 2/2 Right sided colitis, improved CT with colitis Abdominal pain resolved Flagyl day 4 PLAN - Monitor temperature - Panculture if febrile - Evaluate need for stool studies if symptoms do not improve Alcohol abuse with physiological dependence With multiple complications including bone marrow suppression, chronic pancreatitis and fatty liver disease PLAN - Supplementation with Thiamine, folic acid and vitamin C supplementation - Will discuss with social work if it is possible to get naltrexone for her as an outpatient Major depressive disorder No active suicidal ideation Has been treated with fluoxetine in the past PLAN - Continue Fluoxetine for now Multifactorial fatty liver disease Patient is obese, is an alcohol abuser and has dyslipidemia Will order labs needed to calculate MELD score in AM for prognosis PLAN - Switch atorvastatin for rosuvastatin and Vitamin C - Evaluate initiation of vitamin E Hypothyroidism She has been prescribed levothyroxine previously She is non-compliant 2/2 economic hardship PLAN - Social work consult in place for financial planning adviser Pancytopenia Likely 2/2 chronic alcohol abuse bone marrow suppression No signs of acute bleeding or immunosuppression for now No need to transfuse, goal Hb>7 PLAN - Vitamin supplementation Ckgjq-of-dgtkpxo kidney injury, improving Present since previous admission PLAN - Renally dosed medications - Monitor urine output - Repeat labs as needed and replace as indicated Electrolyte abnormalities No acute issues PLAN - F/U results Dyslipidemia (high LDL; low HDL) Qualifies for statin as per ASCVD risk calculation Likely worsening fatty liver disease Atorvastatin not available PLAN -Start Rosuvastatin 40mg QD Economic hardship affecting care/Inadequate social support/Problems related to education and literacy Patient with multiple factors influencing her medical care "compliance" I have consulted transition social worker and am working with them for the best solution to improve control on acute problems as well as slow progression of chronic conditions PLAN - F/U criminal justice social worker Altered mental status associated with accidental Valium overdose, resolved PROPHYLAXIS DVT- Contraindicated 2/2 thrombocytopenia and anemia GI- not indicated CODE STATUS: FULL CODE DISPOSITION: Patient will be admitted under observation for monitorization of mental status, AMS resolved, pending placement.
[2019-05-16] MEDS: Ascorbic Acid 500 MG Tab PO SCH (09:29)
[2019-05-16] MEDS: diphenhydrAMINE 25 MG Cap PO SCH (09:30)
[2019-05-16] MEDS: Thiamine 100 MG Tab PO SCH ×2 (09:30→22:17)
[2019-05-16] MEDS: Loratadine 10 MG Tab PO SCH (09:30)
[2019-05-16] MEDS: Folic Acid 1 MG Tab PO SCH (09:31)
[2019-05-16] MEDS: Potassium Chloride 20 MEQ Tab.ER PO SCH (09:31)
[2019-05-16] MEDS: FLUoxetine 20 MG Cap PO SCH (09:31)
[2019-05-16] MEDS: Famotidine 20 MG Tab PO SCH (09:31)
[2019-05-16] MEDS: Hydrocortisone 1% Crm 30 GM Tube TOP SCH ×3 (09:32→22:16)
[2019-05-17] MEDS: Levothyroxine 125 MCG Tab PO SCH (06:42)
[2019-05-17] MEDS: Lactulose Soln 10 GM/15 ML 30 ML UD Cup PO SCH ×3 (06:42→17:09)
[2019-05-17] MEDS: metroNIDAZOLE 500 MG Tab PO SCH ×3 (06:42→22:05)
[2019-05-17] MEDS: Thiamine 100 MG Tab PO SCH ×2 (08:45→21:30)
[2019-05-17] MEDS: Folic Acid 1 MG Tab PO SCH (08:45)
[2019-05-17] MEDS: Ascorbic Acid 500 MG Tab PO SCH (08:45)
[2019-05-17] MEDS: FLUoxetine 20 MG Cap PO SCH (08:46)
[2019-05-17] MEDS: Hydrocortisone 1% Crm 30 GM Tube TOP SCH ×2 (08:47→15:20)
[2019-05-17] MEDS ORDERED: Magnesium Oxide 400 MG Tab PO ONE (19:53)
[2019-05-17] MEDS: Phosphorus #1 250 MG Tab PO SCH (21:30)
[2019-05-17] MEDS: Rosuvastatin 10 MG Tab PO SCH (21:31)
[2019-05-18] MEDS: Hydrocortisone 1% Crm 30 GM Tube TOP SCH ×4 (00:08→22:04)
[2019-05-18] MEDS: Lactulose Soln 10 GM/15 ML 30 ML UD Cup PO SCH ×4 (00:20→17:19)
[2019-05-18] MEDS: Levothyroxine 125 MCG Tab PO SCH (05:45)
[2019-05-18] MEDS: metroNIDAZOLE 500 MG Tab PO SCH (05:45)
[2019-05-18] MEDS: Ascorbic Acid 500 MG Tab PO SCH (09:12)
[2019-05-18] MEDS: Folic Acid 1 MG Tab PO SCH (09:12)
[2019-05-18] MEDS: Thiamine 100 MG Tab PO SCH ×2 (09:12→22:03)
[2019-05-18] MEDS: Phosphorus #1 250 MG Tab PO SCH ×4 (09:13→22:03)
[2019-05-18] MEDS: FLUoxetine 20 MG Cap PO SCH (09:13)
[2019-05-18] MEDS: Magnesium Oxide 400 MG Tab PO SCH ×2 (11:18→22:03)
[2019-05-18] MEDS ORDERED: Acetaminophen 325 MG/10.15 ML ML PO ONE (12:45)
[2019-05-18] MEDS ORDERED: Ketorolac 10 MG Tab PO ONE (12:50)
--- NOTE | 2019-05-18 13:07 | PCM.PN ---
<Gregorio Romero - Last Filed: 05/18/19 17:26> - General Info Date of Service: 05/18/19 Admission Dx/Problem (Free Text): Admission Diagnosis/Problem Admission Diagnosis/Problem Accidental overdose Functional Status: Reports: Pain Controlled (stale ), Tolerating Diet, Ambulating. Denies: Urinating, New Symptoms - Review of Systems General: Reports: No Symptoms. Denies: Fever, Weakness, Fatigue, Malaise, Chills HEENT: Reports: No Symptoms. Denies: Headaches, Sore Throat Pulmonary: Reports: No Symptoms. Denies: Shortness of Breath, Cough, Sputum, Wheezing Cardiovascular: Reports: No Symptoms. Denies: Chest Pain, Palpitations Gastrointestinal: Reports: Abdominal Pain (chronic), Diarrhea (2/2 lactulose ), Nausea (occasional chronic ). Denies: Vomiting Genitourinary: Reports: No Symptoms. Denies: Pain Musculoskeletal: Reports: No Symptoms Skin: Reports: No Symptoms Neurological: Reports: No Symptoms. Denies: Confusion Psychiatric: Reports: No Symptoms - Patient Data Vitals - Most Recent: Last Vital Signs Temp 99.1 F 05/18/19 02:29 Pulse 91 05/18/19 02:29 Resp 16 05/18/19 02:29 BP 115/75 05/18/19 02:29 Pulse Ox 92 L 05/18/19 02:29 Weight - Most Recent: 83.552 kg I&O - Last 24 Hours: Intake & Output 05/17/19 05/18/19 05/18/19 22:59 06:59 14:59 Intake Total 520 250 240 Output Total 700 Balance 520 -450 240 Lab Results Last 24 Hours: Laboratory Results - last 24 hr 05/17/19 05/18/19 05/18/19 Range/Units 20:35 05:50 05:50 WBC 3.23 L (3.98-10.04) K/mm3 RBC 3.17 L (3.98-5.22) M/mm3 Hgb 9.8 L (11.2-15.7) gm/dl Hct 30.2 L (34.1-44.9) % MCV 95.3 H (79.4-94.8) fl MCH 30.9 (25.6-32.2) pg MCHC 32.5 (32.2-35.5) g/dl RDW Std Deviation 56.7 H (36.4-46.3) fL Plt Count 99 L (182-369) K/mm3 MPV 10.5 (9.4-12.3) fl Neut % (Auto) 51.1 (34.0-71.1) % Lymph % (Auto) 31.3 (19.3-51.7) % [place] % (Auto) 15.2 H (4.7-12.5) % Eos % (Auto) 0.9 (0.7-5.8) Baso % (Auto) 0.3 (0.1-1.2) % Neut # (Auto) 1.65 (1.56-6.13) K/mm3 Lymph # (Auto) 1.01 L (1.18-3.74) K/mm3 [place] # (Auto) 0.49 H (0.24-0.36) K/mm3 Eos # (Auto) 0.03 L (0.04-0.36) K/mm3 Baso # (Auto) 0.01 (0.01-0.08) K/mm3 Manual Slide Review Abnormal smear PT 13.0 H (9.7-12.0) SECONDS INR 1.21 Sodium 139 (136-145) mEq/L Potassium 3.5 (3.5-5.1) mEq/L Chloride 104 (98-107) mEq/L Carbon Dioxide 25 (21-32) mEq/L Anion Gap 13.5 (5-15) BUN 7 (7-18) mg/dL Creatinine 0.9 (0.55-1.02) mg/dL Est Cr Clr Drug Dosing 57.30 mL/min Estimated GFR (MDRD) > 60 (>60) mL/min BUN/Creatinine Ratio 7.8 L (14-18) Glucose 97 (74-106) mg/dL Calcium 8.6 (8.5-10.1) mg/dL Phosphorus 3.5 (2.6-4.7) mg/dL Magnesium 1.6 L (1.8-2.4) mg/dl Total Bilirubin 0.7 (0.2-1.0) mg/dL AST 78 H (15-37) U/L ALT 25 (14-59) U/L Alkaline Phosphatase 131 H (46-116) U/L Total Protein 7.5 (6.4-8.2) g/dl Albumin 3.4 (3.4-5.0) g/dl Globulin 4.1 gm/dL Albumin/Globulin Ratio 0.8 L (1-2) Med Orders - Current: Current Medications Ascorbic Acid (Vitamin C) 500 mg PO DAILY [facility] Last Admin: 05/18/19 09:12 Dose: 500 mg Fluoxetine HCl (Prozac) 20 mg PO DAILY [facility] Last Admin: 05/18/19 09:13 Dose: 20 mg Folic Acid (Folic Acid) 1 mg PO DAILY [facility] Last Admin: 05/18/19 09:12 Dose: 1 mg Hydrocortisone (Hydrocortisone 1% Crm) 0 gm TOP TID [facility] Last Admin: 05/18/19 09:13 Dose: 1 applic Ketorolac Tromethamine (Toradol) 30 mg IV Q6H PRN PRN Reason: Pain (moderate 4-6) Last Admin: 05/16/19 00:50 Dose: 30 mg Lactulose (Cephulac) 20 gm PO Q6H [facility] Last Admin: 05/18/19 11:18 Dose: 20 gm Levothyroxine Sodium (Levothyroxine) 125 mcg PO ACBREAKFAST [facility] Last Admin: 05/18/19 05:45 Dose: 125 mcg Magnesium Oxide (Magnesium Oxide) 400 mg PO BID [facility] Last Admin: 05/18/19 11:18 Dose: 400 mg Ondansetron HCl (Zofran Odt) 4 mg PO Q6H PRN PRN Reason: nausea, able to take PO Last Admin: 05/18/19 12:44 Dose: 4 mg Ondansetron HCl (Zofran) 4 mg IV Q6H PRN PRN Reason: Nausea/Vomiting Rosuvastatin Calcium (Crestor) 10 mg PO BEDTIME [facility] Last Admin: 05/17/19 21:31 Dose: 10 mg Sodium Phosphate (Neutra-Phos) 250 mg PO QID [facility] Last Admin: 05/18/19 12:44 Dose: 250 mg Thiamine HCl (Vitamin B-1) 100 mg PO BID [facility] Last Admin: 05/18/19 09:12 Dose: 100 mg Discontinued Medications Acetaminophen (Tylenol) 325 mg PO ONETIME ONE Stop: 05/18/19 12:46 Diphenhydramine HCl (Benadryl) 25 mg PO BID [facility] Stop: 05/16/19 09:01 Last Admin: 05/16/19 09:30 Dose: 25 mg Enoxaparin Sodium (Lovenox) 40 mg SUBCUT DAILY [facility] Last Admin: 05/14/19 22:22 Dose: Not Given Famotidine (Pepcid) 20 mg PO DAILY [facility] Stop: 05/16/19 09:01 Last Admin: 05/16/19 09:31 Dose: 20 mg Sodium Chloride (Normal Saline) 1,000 mls @ 150 mls/hr IV ASDIRECTED [facility] Last Admin: 05/14/19 12:32 Dose: 150 mls/hr Metronidazole 500 mg/ Premix 100 mls @ 100 mls/hr IV ONETIME STA Stop: 05/14/19 15:09 Last Admin: 05/14/19 14:36 Dose: 100 mls/hr Lactated Ringer's (Ringers, Lactated) 1,000 mls @ 125 mls/hr IV ASDIRECTED [facility] Last Admin: 05/15/19 08:18 Dose: 125 mls/hr Metronidazole 500 mg/ Premix 100 mls @ 100 mls/hr IV Q8H [facility] Stop: 05/17/19 22:01 Last Admin: 05/15/19 15:33 Dose: 100 mls/hr Magnesium Sulfate 4 gm/ Premix 50 mls @ 12.5 mls/hr IV ONETIME ONE Stop: 05/15/19 23:27 Last Admin: 05/15/19 19:41 Dose: 12.5 mls/hr Iopamidol (Isovue-300 (61%)) 100 ml IVPUSH ONETIME ONE Stop: 05/14/19 11:35 Last Admin: 05/14/19 11:57 Dose: 100 ml Ketorolac Tromethamine (Toradol) 10 mg PO ONETIME ONE Stop: 05/18/19 12:51 Last Admin: 05/18/19 12:43 Dose: 10 mg Loratadine (Claritin) 10 mg PO DAILY [facility] Stop: 05/16/19 09:01 Last Admin: 05/16/19 09:30 Dose: 10 mg Magnesium Oxide (Magnesium Oxide) 400 mg PO ONETIME ONE Stop: 05/15/19 21:01 Magnesium Oxide (Magnesium Oxide) 800 mg PO ONETIME ONE Stop: 05/17/19 19:54 Last Admin: 05/17/19 21:30 Dose: 800 mg Metronidazole (Flagyl) 500 mg PO Q8H [facility] Last Admin: 05/18/19 05:45 Dose: 500 mg Potassium Chloride (Klor-Con M20) 40 meq PO BID [facility] Stop: 05/16/19 09:00 Last Admin: 05/16/19 09:31 Dose: 40 meq Potassium Chloride (Klor-Con M20) 40 meq PO ONETIME ONE Stop: 05/15/19 21:01 Sodium Chloride (Saline Flush) 10 ml FLUSH ONETIME ONE Stop: 05/14/19 11:35 Last Admin: 05/14/19 11:57 Dose: 10 ml - Exam Quality Assessment: DVT Prophylaxis General: Alert, Oriented, Cooperative, No Acute Distress HEENT: Pupils Equal, Pupils Reactive, EOMI, Mucous Membr. Moist/[place] Neck: Supple, Trachea Midline Lungs: Clear to Auscultation, Normal Respiratory Effort Cardiovascular: Regular Rate, Regular Rhythm GI/Abdominal Exam: Normal Bowel Sounds, Soft, Non-Tender, No Distention, No Abnormal Bruit (Female) Exam: Deferred Back Exam: Normal Inspection, Full Range of Motion Extremities: Normal Inspection, Normal Range of Motion, Non-Tender, No Pedal Edema, Normal Capillary Refill Skin: Warm, Dry Psy/Mental Status: Alert, Normal Affect, Normal Mood - Problem List & Annotations (1) Altered mental status associated with intoxication SNOMED Code(s): 855079619, 870566253 Code(s): F10.959 - ALCOHOL USE, UNSP W ALCOHOL-INDUCED PSYCHOTIC DISORDER, UNSP Status: Resolved Priority: High Current Visit: Yes (2) Economic circumstance affecting care SNOMED Code(s): 689300468 Code(s): Z59.9 - PROBLEM RELATED TO HOUSING AND ECONOMIC CIRCUMSTANCES, UNSP Status: Chronic Priority: Medium Current Visit: Yes (3) Fatty liver SNOMED Code(s): 869538884 Code(s): K76.0 - FATTY (CHANGE OF) LIVER, NOT ELSEWHERE CLASSIFIED Status: Chronic Priority: Medium Current Visit: Yes (4) Inadequate social support SNOMED Code(s): 517222185 Code(s): Z65.8 - OTH PROBLEMS RELATED TO PSYCHOSOCIAL CIRCUMSTANCES Status : Chronic Priority: Medium Current Visit: Yes (5) Medical non-compliance SNOMED Code(s): 445481179 Code(s): Z91.19 - PATIENT'S NONCOMPLIANCE W OTH MEDICAL TREATMENT AND REGIMEN Status: Chronic Priority: Medium Current Visit: Yes (6) Problems related to education and literacy, unspecified SNOMED Code(s): 3335440 Code(s): Z55.9 - PROBLEMS RELATED TO EDUCATION AND LITERACY, UNSPECIFIED Status: Chronic Priority: Medium Current Visit: Yes (7) Abdominal pain SNOMED Code(s): 32104406 Code(s): R10.9 - UNSPECIFIED ABDOMINAL PAIN Status: Chronic Priority: Medium Current Visit: No Qualifiers: Abdominal location: upper abdomen, unspecified Qualified Code(s): R10.10 - Upper abdominal pain, unspecified (8) Alcohol abuse SNOMED Code(s): 59724169 Code(s): F10.10 - ALCOHOL ABUSE, UNCOMPLICATED Status: Chronic Priority: High Current Visit: Yes - Problem List Review Problem List Initiated/Reviewed/Updated: Yes - Plan Plan:: Altered mental status associated with accidental Valium overdose, Resolved Accidental Valium overdose CT head in ED reported negative Patient somnolent but arousable, oriented PLAN - Monitor mental status - No central acting medications for now Abdominal pain 2/2 Right sided colitis, improved CT with colitis Abdominal pain comes and goes - has been chronic for many years PLAN - Transition flagyl to PO Flagyl 500mg IV q8h x 5 days. - completed treatment - Monitor temperature - Panculture if febrile - Evaluate need for stool studies if symptoms do not improve Alcohol abuse with physiological dependence With multiple complications including bone marrow suppression, chronic pancreatitis and fatty liver disease PLAN - Supplementation with Thiamine, folic acid and vitamin C supplementation - Will discuss with social work if it is possible to get naltrexone for her as an outpatient Major depressive disorder No active suicidal ideation Has been treated with fluoxetine in the past PLAN - Continue Fluoxetine for now Multifactorial fatty liver disease Patient is obese, is an alcohol abuser and has dyslipidemia Will order labs needed to calculate MELD score in AM for prognosis PLAN - Switch atorvastatin for rosuvastatin and Vitamin C - Evaluate initiation of vitamin E Hypothyroidism She has been prescribed levothyroxine previously She is non-compliant 2/2 economic hardship PLAN - Social work consult in place for financial services specialist Pancytopenia Likely 2/2 chronic alcohol abuse bone marrow suppression No signs of acute bleeding or immunosuppression for now No need to transfuse, goal Hb>7 PLAN - Vitamin supplementation [id number] kidney injury, resolved Present since previous admission PLAN - Renally dosed medications - Monitor urine output - Repeat labs as needed and replace as indicated Electrolyte abnormalities No acute issues PLAN - F/U results - Supplement magnesium daily Dyslipidemia (high LDL; low HDL) Qualifies for statin as per ASCVD risk calculation Likely worsening fatty liver disease Atorvastatin not available PLAN -Start Rosuvastatin 40mg QD Economic hardship affecting care/Inadequate social support/Problems related to education and literacy Patient with multiple factors influencing her medical care "compliance" I have consulted social contact worker and am working with them for the best solution to improve control on acute problems as well as slow progression of chronic conditions PLAN - F/U child protective services social worker PROPHYLAXIS DVT- Contraindicated 2/2 thrombocytopenia and anemia GI- not indicated CODE STATUS: FULL CODE DISPOSITION: Patient will be admitted under observation for monitorization of mental status and pending placement once stable. [facility] has screened her. <Arely Heart - Last Filed: 05/19/19 05:19> - Patient Data Vitals - Most Recent: Last Vital Signs Temp 36.7 C 05/19/19 04:21 Pulse 90 05/19/19 04:21 Resp 18 05/19/19 04:21 BP 102/73 05/19/19 04:21 Pulse Ox 94 L 05/19/19 04:21 I&O - Last 24 Hours: Intake & Output 05/18/19 05/18/19 05/19/19 14:59 22:59 06:59 Intake Total 360 520 400 Output Total 400 300 Balance 360 120 100 Lab Results Last 24 Hours: Laboratory Results - last 24 hr 05/18/19 05/18/19 Range/Units 05:50 05:50 WBC 3.23 L (3.98-10.04) K/mm3 RBC 3.17 L (3.98-5.22) M/mm3 Hgb 9.8 L (11.2-15.7) gm/dl Hct 30.2 L (34.1-44.9) % MCV 95.3 H (79.4-94.8) fl MCH 30.9 (25.6-32.2) pg MCHC 32.5 (32.2-35.5) g/dl RDW Std Deviation 56.7 H (36.4-46.3) fL Plt Count 99 L (182-369) K/mm3 MPV 10.5 (9.4-12.3) fl Neut % (Auto) 51.1 (34.0-71.1) % Lymph % (Auto) 31.3 (19.3-51.7) % [place] % (Auto) 15.2 H (4.7-12.5) % Eos % (Auto) 0.9 (0.7-5.8) Baso % (Auto) 0.3 (0.1-1.2) % Neut # (Auto) 1.65 (1.56-6.13) K/mm3 Lymph # (Auto) 1.01 L (1.18-3.74) K/mm3 [place] # (Auto) 0.49 H (0.24-0.36) K/mm3 Eos # (Auto) 0.03 L (0.04-0.36) K/mm3 Baso # (Auto) 0.01 (0.01-0.08) K/mm3 Manual Slide Review Abnormal smear Sodium 139 (136-145) mEq/L Potassium 3.5 (3.5-5.1) mEq/L Chloride 104 (98-107) mEq/L Carbon Dioxide 25 (21-32) mEq/L Anion Gap 13.5 (5-15) BUN 7 (7-18) mg/dL Creatinine 0.9 (0.55-1.02) mg/dL Est Cr Clr Drug Dosing 57.30 mL/min Estimated GFR (MDRD) > 60 (>60) mL/min BUN/Creatinine Ratio 7.8 L (14-18) Glucose 97 (74-106) mg/dL Calcium 8.6 (8.5-10.1) mg/dL Phosphorus 3.5 (2.6-4.7) mg/dL Magnesium 1.6 L (1.8-2.4) mg/dl Total Bilirubin 0.7 (0.2-1.0) mg/dL AST 78 H (15-37) U/L ALT 25 (14-59) U/L Alkaline Phosphatase 131 H (46-116) U/L Total Protein 7.5 (6.4-8.2) g/dl Albumin 3.4 (3.4-5.0) g/dl Globulin 4.1 gm/dL Albumin/Globulin Ratio 0.8 L (1-2) Med Orders - Current: Current Medications Ascorbic Acid (Vitamin C) 500 mg PO DAILY [facility] Last Admin: 05/18/19 09:12 Dose: 500 mg Fluoxetine HCl (Prozac) 20 mg PO DAILY [facility] Last Admin: 05/18/19 09:13 Dose: 20 mg Folic Acid (Folic Acid) 1 mg PO DAILY [facility] Last Admin: 05/18/19 09:12 Dose: 1 mg Hydrocortisone (Hydrocortisone 1% Crm) 0 gm TOP TID [facility] Last Admin: 05/18/19 22:04 Dose: 1 applic Ketorolac Tromethamine (Toradol) 30 mg IV Q6H PRN PRN Reason: Pain (moderate 4-6) Last Admin: 05/16/19 00:50 Dose: 30 mg Levothyroxine Sodium (Levothyroxine) 125 mcg PO ACBREAKFAST [facility] Last Admin: 05/18/19 05:45 Dose: 125 mcg Magnesium Oxide (Magnesium Oxide) 400 mg PO BID [facility] Last Admin: 05/18/19 22:03 Dose: 400 mg Ondansetron HCl (Zofran Odt) 4 mg PO Q6H PRN PRN Reason: nausea, able to take PO Last Admin: 05/18/19 12:44 Dose: 4 mg Ondansetron HCl (Zofran) 4 mg IV Q6H PRN PRN Reason: Nausea/Vomiting Rosuvastatin Calcium (Crestor) 10 mg PO BEDTIME [facility] Last Admin: 05/18/19 22:04 Dose: 10 mg Sodium Phosphate (Neutra-Phos) 250 mg PO QID [facility] Last Admin: 05/18/19 22:03 Dose: 250 mg Thiamine HCl (Vitamin B-1) 100 mg PO BID [facility] Last Admin: 05/18/19 22:03 Dose: 100 mg Discontinued Medications Acetaminophen (Tylenol) 325 mg PO ONETIME ONE Stop: 05/18/19 12:46 Diphenhydramine HCl (Benadryl) 25 mg PO BID [facility] Stop: 05/16/19 09:01 Last Admin: 05/16/19 09:30 Dose: 25 mg Enoxaparin Sodium (Lovenox) 40 mg SUBCUT DAILY [facility] Last Admin: 05/14/19 22:22 Dose: Not Given Famotidine (Pepcid) 20 mg PO DAILY [facility] Stop: 05/16/19 09:01 Last Admin: 05/16/19 09:31 Dose: 20 mg Sodium Chloride (Normal Saline) 1,000 mls @ 150 mls/hr IV ASDIRECTED [facility] Last Admin: 05/14/19 12:32 Dose: 150 mls/hr Metronidazole 500 mg/ Premix 100 mls @ 100 mls/hr IV ONETIME STA Stop: 05/14/19 15:09 Last Admin: 05/14/19 14:36 Dose: 100 mls/hr Lactated Ringer's (Ringers, Lactated) 1,000 mls @ 125 mls/hr IV ASDIRECTED [facility] Last Admin: 05/15/19 08:18 Dose: 125 mls/hr Metronidazole 500 mg/ Premix 100 mls @ 100 mls/hr IV Q8H [facility] Stop: 05/17/19 22:01 Last Admin: 05/15/19 15:33 Dose: 100 mls/hr Magnesium Sulfate 4 gm/ Premix 50 mls @ 12.5 mls/hr IV ONETIME ONE Stop: 05/15/19 23:27 Last Admin: 05/15/19 19:41 Dose: 12.5 mls/hr Iopamidol (Isovue-300 (61%)) 100 ml IVPUSH ONETIME ONE Stop: 05/14/19 11:35 Last Admin: 05/14/19 11:57 Dose: 100 ml Ketorolac Tromethamine (Toradol) 10 mg PO ONETIME ONE Stop: 05/18/19 12:51 Last Admin: 05/18/19 12:43 Dose: 10 mg Lactulose (Cephulac) 20 gm PO Q6H [facility] Last Admin: 05/18/19 17:19 Dose: Not Given Loratadine (Claritin) 10 mg PO DAILY [facility] Stop: 05/16/19 09:01 Last Admin: 05/16/19 09:30 Dose: 10 mg Magnesium Oxide (Magnesium Oxide) 400 mg PO ONETIME ONE Stop: 05/15/19 21:01 Magnesium Oxide (Magnesium Oxide) 800 mg PO ONETIME ONE Stop: 05/17/19 19:54 Last Admin: 05/17/19 21:30 Dose: 800 mg Metronidazole (Flagyl) 500 mg PO Q8H [facility] Last Admin: 05/18/19 05:45 Dose: 500 mg Potassium Chloride (Klor-Con M20) 40 meq PO BID [facility] Stop: 05/16/19 09:00 Last Admin: 05/16/19 09:31 Dose: 40 meq Potassium Chloride (Klor-Con M20) 40 meq PO ONETIME ONE Stop: 05/15/19 21:01 Sodium Chloride (Saline Flush) 10 ml FLUSH ONETIME ONE Stop: 05/14/19 11:35 Last Admin: 05/14/19 11:57 Dose: 10 ml - Problem List & Annotations (1) [id number] kidney injury SNOMED Code(s): 358862725 Code(s): N17.9 - ACUTE KIDNEY FAILURE, UNSPECIFIED; N18.9 - CHRONIC KIDNEY DISEASE, UNSPECIFIED Status: Acute Current Visit: Yes (2) Dyslipidemia (high LDL; low HDL) SNOMED Code(s): 144794887, 989287674 Code(s): E78.5 - HYPERLIPIDEMIA, UNSPECIFIED Status: Acute Current Visit : Yes (3) Economic hardship Status: Acute Current Visit: Yes (4) Hypomagnesemia SNOMED Code(s): 824262225 Code(s): E83.42 - HYPOMAGNESEMIA Status: Acute Current Visit: Yes (5) Hypophosphatemia SNOMED Code(s): 3505612 Code(s): E83.39 - OTHER DISORDERS OF PHOSPHORUS METABOLISM Status: Acute Current Visit: Yes (6) Hypothyroidism SNOMED Code(s): 08415524 Code(s): E03.9 - HYPOTHYROIDISM, UNSPECIFIED Status: Acute Current Visit : Yes (7) Major depressive disorder SNOMED Code(s): 145579946 Code(s): F32.9 - MAJOR DEPRESSIVE DISORDER, SINGLE EPISODE, UNSPECIFIED Status: Acute Current Visit: Yes (8) Pancytopenia SNOMED Code(s): 899962679 Code(s): D61.818 - OTHER PANCYTOPENIA Status: Acute Current Visit: Yes (9) Right sided colitis SNOMED Code(s): 32784407 Code(s): K52.9 - NONINFECTIVE GASTROENTERITIS AND COLITIS, UNSPECIFIED Status: Acute Current Visit: Yes (10) Valium overdose SNOMED Code(s): 097891914 Code(s): T42.4X1A - POISONING BY BENZODIAZEPINES, ACCIDENTAL, INIT Status: Acute Current Visit: Yes (11) Alcohol abuse SNOMED Code(s): 37606264 Code(s): F10.10 - ALCOHOL ABUSE, UNCOMPLICATED Status: Chronic Priority: High Current Visit: Yes (12) Economic circumstance affecting care SNOMED Code(s): 866907250 Code(s): Z59.9 - PROBLEM RELATED TO HOUSING AND ECONOMIC CIRCUMSTANCES, UNSP Status: Chronic Priority: Medium Current Visit: Yes (13) Fatty liver SNOMED Code(s): 399489240 Code(s): K76.0 - FATTY (CHANGE OF) LIVER, NOT ELSEWHERE CLASSIFIED Status: Chronic Priority: Medium Current Visit: Yes (14) Inadequate social support SNOMED Code(s): 583758357 Code(s): Z65.8 - OTH PROBLEMS RELATED TO PSYCHOSOCIAL CIRCUMSTANCES Status : Chronic Priority: Medium Current Visit: Yes (15) Problems related to education and literacy, unspecified SNOMED Code(s): 5917891 Code(s): Z55.9 - PROBLEMS RELATED TO EDUCATION AND LITERACY, UNSPECIFIED Status: Chronic Priority: Medium Current Visit: Yes (16) Altered mental status associated with intoxication SNOMED Code(s): 776768695, 910774774 Code(s): F10.959 - ALCOHOL USE, UNSP W ALCOHOL-INDUCED PSYCHOTIC DISORDER, UNSP Status: Resolved Priority: High Current Visit: Yes (17) Abdominal pain SNOMED Code(s): 71882205 Code(s): R10.9 - UNSPECIFIED ABDOMINAL PAIN Status: Acute Priority: Medium Current Visit: No Qualifiers: Abdominal location: left lower quadrant Qualified Code(s): R10.32 - Left lower quadrant pain - My Orders Last 24 Hours: My Active Orders 05/18/19 11:00 Magnesium Oxide 400 mg PO BID - Plan Plan:: Patient seen and evaluate by me at bedside. Case discussed in detail with Gregorio Romero PA-C Agree with the assessment and plan above.
[2019-05-18] MEDS: Rosuvastatin 10 MG Tab PO SCH (22:04)
[2019-05-19] MEDS: Ketorolac 30 MG/ML SDV IV PRN (06:27)
[2019-05-19] MEDS: Levothyroxine 125 MCG Tab PO SCH (06:27)
[2019-05-19 08:42] VITALS: BP 105/73; PULSE 86
[2019-05-19] MEDS: Folic Acid 1 MG Tab PO SCH (08:53)
[2019-05-19] MEDS: Hydrocortisone 1% Crm 30 GM Tube TOP SCH (08:53)
[2019-05-19] MEDS: Ascorbic Acid 500 MG Tab PO SCH (08:54)
[2019-05-19] MEDS: FLUoxetine 20 MG Cap PO SCH (08:54)
[2019-05-19] MEDS: Magnesium Oxide 400 MG Tab PO SCH (08:54)
[2019-05-19] MEDS: Phosphorus #1 250 MG Tab PO SCH ×2 (08:54→12:42)
[2019-05-19] MEDS: Thiamine 100 MG Tab PO SCH (08:54)
--- NOTE | 2019-05-19 13:46 | PCM.DCSUM1 ---
Discharge Summary - Hospital Course HPI Initial Comments: This is a 43-year-old woman with a past medical history significant for chronic daily alcoholism and polysubstance abuse who was brought to the ED by [facility] staff with somnolence and decreased responsiveness. As per staff she was evaluated after being increasingly somnolent and apparent altered mental status. Of note patient was admitted to this facility from 05/09 until yesterday. At that time she came in with complaints of RUQ pain, worked up for pancreatitis due to history earlier in the year. Was treated for alcohol withdrawal. Evaluated by [facility] during that admission who accepted patient for inpatient rehab. She was discharged and transferred to them on 05/13. She was given a prescription for a short Valium taper. Day after discharge patient was given Valium and later found to have decreased responsiveness for which she was transferred here for further evaluation. Diagnosis: Stroke: No - Discharge Data Discharge Date: 05/19/19 (Admit date: 05/14/19) Discharge Disposition: Home, Self-Care 01 Condition: Good - Referral to Home Health Primary Care Physician: Enrique Brower Jr, MD - Discharge Diagnosis/Problem(s) (1) Altered mental status associated with intoxication SNOMED Code(s): 397817059, 660446646 ICD Code: F10.959 - ALCOHOL USE, UNSP W ALCOHOL-INDUCED PSYCHOTIC DISORDER, UNSP Status: Resolved Priority: High Current Visit: Yes (2) Economic circumstance affecting care SNOMED Code(s): 975698437 ICD Code: Z59.9 - PROBLEM RELATED TO HOUSING AND ECONOMIC CIRCUMSTANCES, UNSP Status: Chronic Priority: Medium Current Visit: Yes (3) Fatty liver SNOMED Code(s): 168683745 ICD Code: K76.0 - FATTY (CHANGE OF) LIVER, NOT ELSEWHERE CLASSIFIED Status : Chronic Priority: Medium Current Visit: Yes (4) Inadequate social support SNOMED Code(s): 109800918 ICD Code: Z65.8 - OTH PROBLEMS RELATED TO PSYCHOSOCIAL CIRCUMSTANCES Status : Chronic Priority: Medium Current Visit: Yes (5) Medical non-compliance SNOMED Code(s): 809396368 ICD Code: Z91.19 - PATIENT'S NONCOMPLIANCE W OTH MEDICAL TREATMENT AND REGIMEN Status: Chronic Priority: Medium Current Visit: Yes (6) Problems related to education and literacy, unspecified SNOMED Code(s): 4326456 ICD Code: Z55.9 - PROBLEMS RELATED TO EDUCATION AND LITERACY, UNSPECIFIED Status: Chronic Priority: Medium Current Visit: Yes (7) Abdominal pain SNOMED Code(s): 38334132 ICD Code: R10.9 - UNSPECIFIED ABDOMINAL PAIN Status: Chronic Priority: Medium Current Visit: No Qualifiers: Abdominal location: upper abdomen, unspecified Qualified Code(s): R10.10 - Upper abdominal pain, unspecified (8) Alcohol abuse SNOMED Code(s): 24838782 ICD Code: F10.10 - ALCOHOL ABUSE, UNCOMPLICATED Status: Chronic Priority : High Current Visit: Yes (9) Hypomagnesemia SNOMED Code(s): 268124726 ICD Code: E83.42 - HYPOMAGNESEMIA Status: Acute Priority: High Current Visit: Yes - Patient Summary/Data Consults: Consultations 05/14/19 16:37 Consult to Case Management/Sqe [CONS] Routine Labs Pending at D/C: None Recommended Follow-up Testing/Procedures: Follow-up with primary care provider within 5-7 days of discharge, sooner if needed . -Recommend re-check BMP and magnesium at that time. Consider GI follow-up should symptoms continue. Hospital Course: Lissa was admitted to the hospital floor after being seen in the ED for questionable strokelike symptoms. Once evaluated it was determined that she was indeed not having a stroke but it sounds like she may have taken too much of her Valium, which was provided BiPAP lanced. It appears they gave her all of her Valium and 1 dose and did not follow prescribing directions. Patient was followed at an sleepy while in the ED. CT scan was obtained of the head which was negative for anything acute. She is very well-known to this service and has been hospitalized multiple times. She is known to frequently abuse alcohol and per family report has gone so far has to drink rubbing alcohol. She is also well known to have drug-seeking behaviors, often complaining of abdominal pain and nausea. This has been ongoing for some time and is chronic. In the ED her TSH was noted to be very high and free T4 was noted to be low. This is been worked up in the pastshe has had a thyroidectomy secondary to thyroid cancer and chronic hypothyroidism. Patient and her family openly admit that she has not been taking her medication for quite some time as she cannot afford it. Original plan in the ED was to discharge her back to the [facility] and have follow-up in a few days with her primary care provider. The [facility] reportedly informed our social worker clinical that Lissa is not welcome back as they feel she is too complicated. They report our best option is possible placement in [place] for addiction services. Our social worker clinical then attempted to contact [place] and were told that they had already been contacted by [facility] and essentially told that this patient is too complicated and they do not believe she would be a good fit for transfer. Of note per the ED report there was never an evaluation by a physician or advance practice provider made to determine this. CT scan was obtained in the ED and showed simple colitis within the right colon and diffuse fatty infiltration within the liver. No additional abnormality is noted. White count is actually depressed at 3.89. She was started on IV Flagyl for the possible colitis and subsequently admitted to the hospital floor while an attempt was made for placement. Throughout her stay her abdominal pain did wax and wane. She reports that this has been ongoing for some time and she has been worked up multiple times with no solution found. Anemia was noted be chronically low and she was started on twice a day supplementation. She was also restarted on her levothyroxine. On her prior visit she was found to have hyperlipidemia with triglycerides 158, total cholesterol 193, LDL of 124, and HDL of 26.0. She was therefore started on 10 mg of Crestor by mouth at bedtime. [facility] social service director was in to reevaluate the patient and again reiterated that they do not think she is appropriate for their facility. The [facility] in [place] also refuses transfer. There was substantial difficulty coming up with a discharge plan as the patient has significant economic and social hardships. Ultimately she was given a list of resources for possible prescription medication assistance. She was also given assistance by staff here for obtaining her discharge medications. She was instructed to follow-up with her primary care provider within 5-7 days of discharge and consider GI should her symptoms continue. She is given prescriptions for magnesium, levothyroxine refill, and Crestor as noted above. She was discharged today without incident. - Patient Instructions Diet: Heart Healthy Diet, No Alcoholic Beverages Activity: As Tolerated Driving: Do Not Drive Showering/Bathing: May Shower Notify Provider of: Fever, Increased Pain, Nausea and/or Vomiting Other/Special Instructions: Follow-up with PCP within 5-7 days of discharge. Resume home medications as instructed. Begin magnesium supplementation as prescribed. Avoid alcohol. Should symtpoms return or worsen contact primary care provider, walk-in clinic, or return to the Emergency Department. - Discharge Plan *PRESCRIPTION DRUG MONITORING PROGRAM REVIEWED*: Not Applicable *COPY OF PRESCRIPTION DRUG MONITORING REPORT IN PATIENT HELENA: Not Applicable Prescriptions/Med Rec: Levothyroxine 125 mcg PO ACBREAKFAST #30 tablet Magnesium Oxide 400 mg PO BID #10 tablet Rosuvastatin [Crestor] 10 mg PO BEDTIME #30 tablet Home Medications: Home Meds Ascorbic Acid [Vitamin C] 500 mg PO DAILY 30 Days #30 capsule.er 05/13/19 [Rx] FLUoxetine [PROzac] 20 mg PO DAILY 30 Days cap 05/13/19 [Rx] Folic Acid 1 mg PO DAILY 30 Days tablet 05/13/19 [Rx] Hydrocortisone [Hydrocortisone 1% Crm] 0 gm TOP TID #4 tube 05/13/19 [Rx] Thiamine [Vitamin B-1] 100 mg PO BID 14 Days #28 tab 05/13/19 [Rx] Levothyroxine 125 mcg PO ACBREAKFAST #30 tablet 05/19/19 [Rx] Magnesium Oxide 400 mg PO BID #10 tablet 05/19/19 [Rx] Rosuvastatin [Crestor] 10 mg PO BEDTIME #30 tablet 05/19/19 [Rx] Oxygen Therapy Mode: Room Air Patient Handouts: Colitis Forms: ED Department Discharge Referrals: Enrique Brower Jr, MD [Primary Care Provider] - 05/26/19 11:15 am (Please follow up with Dr. Brower on at 1115. ) - Discharge Summary/Plan Comment DC Time >30 min.: Yes (45 mins ) - General Info Date of Service: 05/19/19 Admission Dx/Problem (Free Text: Admission Diagnosis/Problem Admission Diagnosis/Problem Accidental overdose Functional Status: Reports: Pain Controlled, Tolerating Diet, Ambulating, Urinating. Denies: New Symptoms - Review of Systems General: Reports: No Symptoms. Denies: Fever, Weakness, Fatigue, Malaise, Chills HEENT: Reports: No Symptoms. Denies: Headaches, Sore Throat Pulmonary: Reports: No Symptoms. Denies: Shortness of Breath, Cough, Sputum, Wheezing Cardiovascular: Reports: No Symptoms. Denies: Chest Pain, Palpitations, Dyspnea on Exertion Gastrointestinal: Reports: Abdominal Pain (Chronic - currently better than baseline ). Denies: Constipation, Diarrhea, Nausea, Vomiting Genitourinary: Reports: No Symptoms. Denies: Pain Musculoskeletal: Reports: No Symptoms Skin: Reports: No Symptoms Neurological: Reports: No Symptoms. Denies: Confusion, Difficulty Walking, Gait Disturbance Psychiatric: Reports: No Symptoms - Patient Data Vitals - Most Recent: Last Vital Signs Temp 97.7 F 05/19/19 08:37 Pulse 86 05/19/19 08:37 Resp 16 05/19/19 08:37 BP 105/73 05/19/19 08:37 Pulse Ox 91 L 05/19/19 08:37 Weight - Most Recent: 183 lb 14.4 oz I&O - Last 24 hours: Intake & Output 05/18/19 05/19/19 05/19/19 22:59 06:59 14:59 Intake Total 520 400 240 Output Total 400 300 Balance 120 100 240 Lab Results - Last 24 hrs: Laboratory Results - last 24 hr 05/19/19 05/19/19 Range/Units 09:25 09:25 WBC 4.07 (3.98-10.04) K/mm3 RBC 3.40 L (3.98-5.22) M/mm3 Hgb 10.4 L (11.2-15.7) gm/dl Hct 32.4 L (34.1-44.9) % MCV 95.3 H (79.4-94.8) fl MCH 30.6 (25.6-32.2) pg MCHC 32.1 L (32.2-35.5) g/dl RDW Std Deviation 57.7 H (36.4-46.3) fL Plt Count 142 L (182-369) K/mm3 MPV 10.1 (9.4-12.3) fl Neut % (Auto) 50.7 (34.0-71.1) % Lymph % (Auto) 30.2 (19.3-51.7) % [place] % (Auto) 16.2 H (4.7-12.5) % Eos % (Auto) 0.2 L (0.7-5.8) Baso % (Auto) 1.0 (0.1-1.2) % Neut # (Auto) 2.06 (1.56-6.13) K/mm3 Lymph # (Auto) 1.23 (1.18-3.74) K/mm3 [place] # (Auto) 0.66 H (0.24-0.36) K/mm3 Eos # (Auto) 0.01 L (0.04-0.36) K/mm3 Baso # (Auto) 0.04 (0.01-0.08) K/mm3 Manual Slide Review Abnormal smear Sodium 140 (136-145) mEq/L Potassium 3.8 (3.5-5.1) mEq/L Chloride 106 (98-107) mEq/L Carbon Dioxide 25 (21-32) mEq/L Anion Gap 12.8 (5-15) BUN 11 (7-18) mg/dL Creatinine 0.8 (0.55-1.02) mg/dL Est Cr Clr Drug Dosing 64.46 mL/min Estimated GFR (MDRD) > 60 (>60) mL/min BUN/Creatinine Ratio 13.8 L (14-18) Glucose 88 (74-106) mg/dL Calcium 8.6 (8.5-10.1) mg/dL Magnesium 1.8 (1.8-2.4) mg/dl Total Bilirubin 0.7 (0.2-1.0) mg/dL AST 109 H (15-37) U/L ALT 32 (14-59) U/L Alkaline Phosphatase 133 H (46-116) U/L Total Protein 8.2 (6.4-8.2) g/dl Albumin 3.6 (3.4-5.0) g/dl Globulin 4.6 gm/dL Albumin/Globulin Ratio 0.8 L (1-2) Med Orders - Current: Current Medications Ascorbic Acid (Vitamin C) 500 mg PO DAILY [facility] Last Admin: 05/19/19 08:54 Dose: 500 mg Fluoxetine HCl (Prozac) 20 mg PO DAILY [facility] Last Admin: 05/19/19 08:54 Dose: 20 mg Folic Acid (Folic Acid) 1 mg PO DAILY [facility] Last Admin: 05/19/19 08:53 Dose: 1 mg Hydrocortisone (Hydrocortisone 1% Crm) 0 gm TOP TID [facility] Last Admin: 05/19/19 08:53 Dose: 1 applic Ketorolac Tromethamine (Toradol) 30 mg IV Q6H PRN PRN Reason: Pain (moderate 4-6) Last Admin: 05/19/19 06:27 Dose: 30 mg Levothyroxine Sodium (Levothyroxine) 125 mcg PO ACBREAKFAST [facility] Last Admin: 05/19/19 06:27 Dose: 125 mcg Magnesium Oxide (Magnesium Oxide) 400 mg PO BID [facility] Last Admin: 05/19/19 08:54 Dose: 400 mg Ondansetron HCl (Zofran Odt) 4 mg PO Q6H PRN PRN Reason: nausea, able to take PO Last Admin: 05/18/19 12:44 Dose: 4 mg Ondansetron HCl (Zofran) 4 mg IV Q6H PRN PRN Reason: Nausea/Vomiting Rosuvastatin Calcium (Crestor) 10 mg PO BEDTIME [facility] Last Admin: 05/18/19 22:04 Dose: 10 mg Sodium Phosphate (Neutra-Phos) 250 mg PO QID [facility] Last Admin: 05/19/19 12:42 Dose: 250 mg Thiamine HCl (Vitamin B-1) 100 mg PO BID [facility] Last Admin: 05/19/19 08:54 Dose: 100 mg Discontinued Medications Acetaminophen (Tylenol) 325 mg PO ONETIME ONE Stop: 05/18/19 12:46 Diphenhydramine HCl (Benadryl) 25 mg PO BID [facility] Stop: 05/16/19 09:01 Last Admin: 05/16/19 09:30 Dose: 25 mg Enoxaparin Sodium (Lovenox) 40 mg SUBCUT DAILY [facility] Last Admin: 05/14/19 22:22 Dose: Not Given Famotidine (Pepcid) 20 mg PO DAILY [facility] Stop: 05/16/19 09:01 Last Admin: 05/16/19 09:31 Dose: 20 mg Sodium Chloride (Normal Saline) 1,000 mls @ 150 mls/hr IV ASDIRECTED [facility] Last Admin: 05/14/19 12:32 Dose: 150 mls/hr Metronidazole 500 mg/ Premix 100 mls @ 100 mls/hr IV ONETIME STA Stop: 05/14/19 15:09 Last Admin: 05/14/19 14:36 Dose: 100 mls/hr Lactated Ringer's (Ringers, Lactated) 1,000 mls @ 125 mls/hr IV ASDIRECTED [facility] Last Admin: 05/15/19 08:18 Dose: 125 mls/hr Metronidazole 500 mg/ Premix 100 mls @ 100 mls/hr IV Q8H [facility] Stop: 05/17/19 22:01 Last Admin: 05/15/19 15:33 Dose: 100 mls/hr Magnesium Sulfate 4 gm/ Premix 50 mls @ 12.5 mls/hr IV ONETIME ONE Stop: 05/15/19 23:27 Last Admin: 05/15/19 19:41 Dose: 12.5 mls/hr Iopamidol (Isovue-300 (61%)) 100 ml IVPUSH ONETIME ONE Stop: 05/14/19 11:35 Last Admin: 05/14/19 11:57 Dose: 100 ml Ketorolac Tromethamine (Toradol) 10 mg PO ONETIME ONE Stop: 05/18/19 12:51 Last Admin: 05/18/19 12:43 Dose: 10 mg Lactulose (Cephulac) 20 gm PO Q6H [facility] Last Admin: 05/18/19 17:19 Dose: Not Given Loratadine (Claritin) 10 mg PO DAILY [facility] Stop: 05/16/19 09:01 Last Admin: 05/16/19 09:30 Dose: 10 mg Magnesium Oxide (Magnesium Oxide) 400 mg PO ONETIME ONE Stop: 05/15/19 21:01 Magnesium Oxide (Magnesium Oxide) 800 mg PO ONETIME ONE Stop: 05/17/19 19:54 Last Admin: 05/17/19 21:30 Dose: 800 mg Metronidazole (Flagyl) 500 mg PO Q8H [facility] Last Admin: 05/18/19 05:45 Dose: 500 mg Potassium Chloride (Klor-Con M20) 40 meq PO BID [facility] Stop: 05/16/19 09:00 Last Admin: 05/16/19 09:31 Dose: 40 meq Potassium Chloride (Klor-Con M20) 40 meq PO ONETIME ONE Stop: 05/15/19 21:01 Sodium Chloride (Saline Flush) 10 ml FLUSH ONETIME ONE Stop: 05/14/19 11:35 Last Admin: 05/14/19 11:57 Dose: 10 ml - Exam Quality Assessment: Reports: DVT Prophylaxis General: Reports: Alert, Oriented, Cooperative, No Acute Distress HEENT: Reports: Pupils Equal, Pupils Reactive, EOMI, Mucous Membr. Moist/[place] Neck: Reports: Supple, Trachea Midline Lungs: Reports: Clear to Auscultation, Normal Respiratory Effort Cardiovascular: Reports: Regular Rate, Regular Rhythm GI/Abdominal Exam: Normal Bowel Sounds, Soft, No Organomegaly, No Distention, No Abnormal Bruit, No Mass, Tender (MIld chronic tenderness on RUQ - reports it waxes and wanes. ) (Female) Exam: Deferred Rectal (Female) Exam: Deferred Back Exam: Reports: Normal Inspection, Full Range of Motion Extremities: Normal Inspection, Normal Range of Motion, Non-Tender, No Pedal Edema, Normal Capillary Refill Skin: Reports: Warm, Dry, Intact Neurological: Reports: No New Focal Deficit Psy/Mental Status: Reports: Alert, Normal Affect, Normal Mood
--- NOTE | 2019-05-21 03:28 | PCM.PN ---
- General Info Date of Service: 05/17/19 Subjective Update: Patient evaluated by me at bedside No overnight events reported by nursing staff Patient slept ok, tolerating diet Ambulating to and from restroom Has not had a BM - Patient Data Vitals - Most Recent: Last Vital Signs Temp 36.5 C 05/19/19 08:37 Pulse 86 05/19/19 08:37 Resp 16 05/19/19 08:37 BP 105/73 05/19/19 08:37 Pulse Ox 91 L 05/19/19 08:37 Weight - Most Recent: 83.416 kg Med Orders - Current: Current Medications Discontinued Medications Acetaminophen (Tylenol) 325 mg PO ONETIME ONE Stop: 05/18/19 12:46 Ascorbic Acid (Vitamin C) 500 mg PO DAILY [facility] Last Admin: 05/19/19 08:54 Dose: 500 mg Diphenhydramine HCl (Benadryl) 25 mg PO BID [facility] Stop: 05/16/19 09:01 Last Admin: 05/16/19 09:30 Dose: 25 mg Enoxaparin Sodium (Lovenox) 40 mg SUBCUT DAILY [facility] Last Admin: 05/14/19 22:22 Dose: Not Given Famotidine (Pepcid) 20 mg PO DAILY [facility] Stop: 05/16/19 09:01 Last Admin: 05/16/19 09:31 Dose: 20 mg Fluoxetine HCl (Prozac) 20 mg PO DAILY [facility] Last Admin: 05/19/19 08:54 Dose: 20 mg Folic Acid (Folic Acid) 1 mg PO DAILY [facility] Last Admin: 05/19/19 08:53 Dose: 1 mg Hydrocortisone (Hydrocortisone 1% Crm) 0 gm TOP TID [facility] Last Admin: 05/19/19 08:53 Dose: 1 applic Sodium Chloride (Normal Saline) 1,000 mls @ 150 mls/hr IV ASDIRECTED [facility] Last Admin: 05/14/19 12:32 Dose: 150 mls/hr Metronidazole 500 mg/ Premix 100 mls @ 100 mls/hr IV ONETIME STA Stop: 05/14/19 15:09 Last Admin: 05/14/19 14:36 Dose: 100 mls/hr Lactated Ringer's (Ringers, Lactated) 1,000 mls @ 125 mls/hr IV ASDIRECTED [facility] Last Admin: 05/15/19 08:18 Dose: 125 mls/hr Metronidazole 500 mg/ Premix 100 mls @ 100 mls/hr IV Q8H [facility] Stop: 05/17/19 22:01 Last Admin: 05/15/19 15:33 Dose: 100 mls/hr Magnesium Sulfate 4 gm/ Premix 50 mls @ 12.5 mls/hr IV ONETIME ONE Stop: 05/15/19 23:27 Last Admin: 05/15/19 19:41 Dose: 12.5 mls/hr Iopamidol (Isovue-300 (61%)) 100 ml IVPUSH ONETIME ONE Stop: 05/14/19 11:35 Last Admin: 05/14/19 11:57 Dose: 100 ml Ketorolac Tromethamine (Toradol) 30 mg IV Q6H PRN PRN Reason: Pain (moderate 4-6) Last Admin: 05/19/19 06:27 Dose: 30 mg Ketorolac Tromethamine (Toradol) 10 mg PO ONETIME ONE Stop: 05/18/19 12:51 Last Admin: 05/18/19 12:43 Dose: 10 mg Lactulose (Cephulac) 20 gm PO Q6H [facility] Last Admin: 05/18/19 17:19 Dose: Not Given Levothyroxine Sodium (Levothyroxine) 125 mcg PO ACBREAKFAST [facility] Last Admin: 05/19/19 06:27 Dose: 125 mcg Loratadine (Claritin) 10 mg PO DAILY [facility] Stop: 05/16/19 09:01 Last Admin: 05/16/19 09:30 Dose: 10 mg Magnesium Oxide (Magnesium Oxide) 400 mg PO ONETIME ONE Stop: 05/15/19 21:01 Magnesium Oxide (Magnesium Oxide) 800 mg PO ONETIME ONE Stop: 05/17/19 19:54 Last Admin: 05/17/19 21:30 Dose: 800 mg Magnesium Oxide (Magnesium Oxide) 400 mg PO BID [facility] Last Admin: 05/19/19 08:54 Dose: 400 mg Metronidazole (Flagyl) 500 mg PO Q8H [facility] Last Admin: 05/18/19 05:45 Dose: 500 mg Ondansetron HCl (Zofran Odt) 4 mg PO Q6H PRN PRN Reason: nausea, able to take PO Last Admin: 05/18/19 12:44 Dose: 4 mg Ondansetron HCl (Zofran) 4 mg IV Q6H PRN PRN Reason: Nausea/Vomiting Potassium Chloride (Klor-Con M20) 40 meq PO BID [facility] Stop: 05/16/19 09:00 Last Admin: 05/16/19 09:31 Dose: 40 meq Potassium Chloride (Klor-Con M20) 40 meq PO ONETIME ONE Stop: 05/15/19 21:01 Rosuvastatin Calcium (Crestor) 10 mg PO BEDTIME [facility] Last Admin: 05/18/19 22:04 Dose: 10 mg Sodium Chloride (Saline Flush) 10 ml FLUSH ONETIME ONE Stop: 05/14/19 11:35 Last Admin: 05/14/19 11:57 Dose: 10 ml Sodium Phosphate (Neutra-Phos) 250 mg PO QID [facility] Last Admin: 05/19/19 12:42 Dose: 250 mg Thiamine HCl (Vitamin B-1) 100 mg PO BID [facility] Last Admin: 05/19/19 08:54 Dose: 100 mg - Problem List & Annotations (1) Cycer-iu-gyttssa kidney injury SNOMED Code(s): 612141740 Code(s): N17.9 - ACUTE KIDNEY FAILURE, UNSPECIFIED; N18.9 - CHRONIC KIDNEY DISEASE, UNSPECIFIED Status: Acute (2) Dyslipidemia (high LDL; low HDL) SNOMED Code(s): 165571975, 355961323 Code(s): E78.5 - HYPERLIPIDEMIA, UNSPECIFIED Status: Acute (3) Economic hardship Status: Acute (4) Hypomagnesemia SNOMED Code(s): 386180938 Code(s): E83.42 - HYPOMAGNESEMIA Status: Acute Priority: High (5) Hypophosphatemia SNOMED Code(s): 2693643 Code(s): E83.39 - OTHER DISORDERS OF PHOSPHORUS METABOLISM Status: Acute (6) Hypothyroidism SNOMED Code(s): 15828473 Code(s): E03.9 - HYPOTHYROIDISM, UNSPECIFIED Status: Acute (7) Major depressive disorder SNOMED Code(s): 796544329 Code(s): F32.9 - MAJOR DEPRESSIVE DISORDER, SINGLE EPISODE, UNSPECIFIED Status: Acute (8) Pancytopenia SNOMED Code(s): 825767866 Code(s): D61.818 - OTHER PANCYTOPENIA Status: Acute (9) Right sided colitis SNOMED Code(s): 82191920 Code(s): K52.9 - NONINFECTIVE GASTROENTERITIS AND COLITIS, UNSPECIFIED Status: Acute (10) Valium overdose SNOMED Code(s): 963283737 Code(s): T42.4X1A - POISONING BY BENZODIAZEPINES, ACCIDENTAL, INIT Status: Acute (11) Alcohol abuse SNOMED Code(s): 19125280 Code(s): F10.10 - ALCOHOL ABUSE, UNCOMPLICATED Status: Chronic Priority: High (12) Economic circumstance affecting care SNOMED Code(s): 624091290 Code(s): Z59.9 - PROBLEM RELATED TO HOUSING AND ECONOMIC CIRCUMSTANCES, UNSP Status: Chronic Priority: Medium (13) Fatty liver SNOMED Code(s): 461903289 Code(s): K76.0 - FATTY (CHANGE OF) LIVER, NOT ELSEWHERE CLASSIFIED Status: Chronic Priority: Medium (14) Inadequate social support SNOMED Code(s): 161859143 Code(s): Z65.8 - OTH PROBLEMS RELATED TO PSYCHOSOCIAL CIRCUMSTANCES Status : Chronic Priority: Medium (15) Problems related to education and literacy, unspecified SNOMED Code(s): 6190191 Code(s): Z55.9 - PROBLEMS RELATED TO EDUCATION AND LITERACY, UNSPECIFIED Status: Chronic Priority: Medium (16) Altered mental status associated with intoxication SNOMED Code(s): 356288807, 362901069 Code(s): F10.959 - ALCOHOL USE, UNSP W ALCOHOL-INDUCED PSYCHOTIC DISORDER, UNSP Status: Resolved Priority: High (17) Abdominal pain SNOMED Code(s): 00459848 Code(s): R10.9 - UNSPECIFIED ABDOMINAL PAIN Status: Acute Priority: Medium Qualifiers: Abdominal location: left lower quadrant Qualified Code(s): R10.32 - Left lower quadrant pain - Problem List Review Problem List Initiated/Reviewed/Updated: Yes - Plan Plan:: Abdominal pain 2/2 Right sided colitis, improved CT with colitis Abdominal pain resolved Flagyl day 4 PLAN - Monitor temperature - Panculture if febrile - Evaluate need for stool studies if symptoms do not improve Alcohol abuse with physiological dependence With multiple complications including bone marrow suppression, chronic pancreatitis and fatty liver disease PLAN - Supplementation with Thiamine, folic acid and vitamin C supplementation - Will discuss with social work if it is possible to get naltrexone for her as an outpatient Major depressive disorder No active suicidal ideation Has been treated with fluoxetine in the past PLAN - Continue Fluoxetine for now Multifactorial fatty liver disease Patient is obese, is an alcohol abuser and has dyslipidemia Will order labs needed to calculate MELD score in AM for prognosis PLAN - Switch atorvastatin for rosuvastatin and Vitamin C - Evaluate initiation of vitamin E Hypothyroidism She has been prescribed levothyroxine previously She is non-compliant 2/2 economic hardship PLAN - Social work consult in place for financial investment manager Pancytopenia Likely 2/2 chronic alcohol abuse bone marrow suppression No signs of acute bleeding or immunosuppression for now No need to transfuse, goal Hb>7 PLAN - Vitamin supplementation Wrzrv-gr-ipjvsmq kidney injury, improving Present since previous admission PLAN - Renally dosed medications - Monitor urine output - Repeat labs as needed and replace as indicated Electrolyte abnormalities No acute issues PLAN - F/U results Dyslipidemia (high LDL; low HDL) Qualifies for statin as per ASCVD risk calculation Likely worsening fatty liver disease Atorvastatin not available PLAN -Start Rosuvastatin 40mg QD Economic hardship affecting care/Inadequate social support/Problems related to education and literacy Patient with multiple factors influencing her medical care "compliance" I have consulted director of social media marketing and am working with them for the best solution to improve control on acute problems as well as slow progression of chronic conditions PLAN - F/U social economist Altered mental status associated with accidental Valium overdose, resolved PROPHYLAXIS DVT- Contraindicated 2/2 thrombocytopenia and anemia GI- not indicated CODE STATUS: FULL CODE DISPOSITION: Patient will be admitted under observation for monitorization of mental status, AMS resolved, pending placement.
--- NOTE | 2019-05-21 03:35 | PCM.DCSUM1 ---
Discharge Summary - Hospital Course Diagnosis: Stroke: No - Discharge Data Discharge Date: 05/13/19 Discharge Disposition: Home, Self-Care 01 Condition: Good - Referral to Home Health Primary Care Physician: Enrique Brower Jr, MD - Discharge Diagnosis/Problem(s) (1) Gzpsh-hm-lwcjdai kidney injury SNOMED Code(s): 723648694 ICD Code: N17.9 - ACUTE KIDNEY FAILURE, UNSPECIFIED; N18.9 - CHRONIC KIDNEY DISEASE, UNSPECIFIED Status: Acute (2) Dyslipidemia (high LDL; low HDL) SNOMED Code(s): 526155895, 216041673 ICD Code: E78.5 - HYPERLIPIDEMIA, UNSPECIFIED Status: Acute (3) Economic hardship Status: Acute (4) Hypomagnesemia SNOMED Code(s): 556965210 ICD Code: E83.42 - HYPOMAGNESEMIA Status: Acute Priority: High (5) Hypophosphatemia SNOMED Code(s): 2296130 ICD Code: E83.39 - OTHER DISORDERS OF PHOSPHORUS METABOLISM Status: Acute (6) Hypothyroidism SNOMED Code(s): 21444055 ICD Code: E03.9 - HYPOTHYROIDISM, UNSPECIFIED Status: Acute (7) Major depressive disorder SNOMED Code(s): 255740373 ICD Code: F32.9 - MAJOR DEPRESSIVE DISORDER, SINGLE EPISODE, UNSPECIFIED Status: Acute (8) Pancytopenia SNOMED Code(s): 298312411 ICD Code: D61.818 - OTHER PANCYTOPENIA Status: Acute (9) Right sided colitis SNOMED Code(s): 93913814 ICD Code: K52.9 - NONINFECTIVE GASTROENTERITIS AND COLITIS, UNSPECIFIED Status: Acute (10) Valium overdose SNOMED Code(s): 070138801 ICD Code: T42.4X1A - POISONING BY BENZODIAZEPINES, ACCIDENTAL, INIT Status : Acute (11) Alcohol abuse SNOMED Code(s): 90352067 ICD Code: F10.10 - ALCOHOL ABUSE, UNCOMPLICATED Status: Chronic Priority : High (12) Economic circumstance affecting care SNOMED Code(s): 792017877 ICD Code: Z59.9 - PROBLEM RELATED TO HOUSING AND ECONOMIC CIRCUMSTANCES, UNSP Status: Chronic Priority: Medium (13) Fatty liver SNOMED Code(s): 258728442 ICD Code: K76.0 - FATTY (CHANGE OF) LIVER, NOT ELSEWHERE CLASSIFIED Status : Chronic Priority: Medium (14) Inadequate social support SNOMED Code(s): 115117010 ICD Code: Z65.8 - OTH PROBLEMS RELATED TO PSYCHOSOCIAL CIRCUMSTANCES Status : Chronic Priority: Medium (15) Problems related to education and literacy, unspecified SNOMED Code(s): 9100841 ICD Code: Z55.9 - PROBLEMS RELATED TO EDUCATION AND LITERACY, UNSPECIFIED Status: Chronic Priority: Medium (16) Abdominal pain SNOMED Code(s): 67258396 ICD Code: R10.9 - UNSPECIFIED ABDOMINAL PAIN Status: Acute Priority: Medium Qualifiers: Abdominal location: left lower quadrant Qualified Code(s): R10.32 - Left lower quadrant pain - Patient Summary/Data Consults: Consultations 05/14/19 16:37 Consult to Case Management/Real Estate Developer [CONS] Routine - Patient Instructions Diet: Heart Healthy Diet, No Alcoholic Beverages Activity: As Tolerated Driving: Do Not Drive Showering/Bathing: May Shower Notify Provider of: Fever, Increased Pain, Nausea and/or Vomiting Other/Special Instructions: Follow-up with PCP within 5-7 days of discharge. Resume home medications as instructed. Begin magnesium supplementation as prescribed. Avoid alcohol. Should symtpoms return or worsen contact primary care provider, walk-in clinic, or return to the Emergency Department. - Discharge Plan *PRESCRIPTION DRUG MONITORING PROGRAM REVIEWED*: Not Applicable *COPY OF PRESCRIPTION DRUG MONITORING REPORT IN PATIENT [facility]: Not Applicable Prescriptions/Med Rec: Levothyroxine 125 mcg PO ACBREAKFAST #30 tablet Magnesium Oxide 400 mg PO BID #10 tablet Rosuvastatin [Crestor] 10 mg PO BEDTIME #30 tablet Home Medications: Home Meds Ascorbic Acid [Vitamin C] 500 mg PO DAILY 30 Days #30 capsule.er 05/13/19 [Rx] FLUoxetine [PROzac] 20 mg PO DAILY 30 Days cap 05/13/19 [Rx] Folic Acid 1 mg PO DAILY 30 Days tablet 05/13/19 [Rx] Hydrocortisone [Hydrocortisone 1% Crm] 0 gm TOP TID #4 tube 05/13/19 [Rx] Thiamine [Vitamin B-1] 100 mg PO BID 14 Days #28 tab 05/13/19 [Rx] Levothyroxine 125 mcg PO ACBREAKFAST #30 tablet 05/19/19 [Rx] Magnesium Oxide 400 mg PO BID #10 tablet 05/19/19 [Rx] Rosuvastatin [Crestor] 10 mg PO BEDTIME #30 tablet 05/19/19 [Rx] Oxygen Therapy Mode: Room Air Patient Handouts: Colitis Forms: ED Department Discharge Referrals: Enrique Brower Jr, MD [Primary Care Provider] - 05/26/19 11:15 am (Please follow up with Dr. Brower on at 1115. ) - Patient Data Vitals - Most Recent: Last Vital Signs Temp 36.5 C 05/19/19 08:37 Pulse 86 05/19/19 08:37 Resp 16 05/19/19 08:37 BP 105/73 05/19/19 08:37 Pulse Ox 91 L 05/19/19 08:37 Weight - Most Recent: 83.416 kg Med Orders - Current: Current Medications Discontinued Medications Acetaminophen (Tylenol) 325 mg PO ONETIME ONE Stop: 05/18/19 12:46 Ascorbic Acid (Vitamin C) 500 mg PO DAILY [facility] Last Admin: 05/19/19 08:54 Dose: 500 mg Diphenhydramine HCl (Benadryl) 25 mg PO BID [facility] Stop: 05/16/19 09:01 Last Admin: 05/16/19 09:30 Dose: 25 mg Enoxaparin Sodium (Lovenox) 40 mg SUBCUT DAILY [facility] Last Admin: 05/14/19 22:22 Dose: Not Given Famotidine (Pepcid) 20 mg PO DAILY [facility] Stop: 05/16/19 09:01 Last Admin: 05/16/19 09:31 Dose: 20 mg Fluoxetine HCl (Prozac) 20 mg PO DAILY [facility] Last Admin: 05/19/19 08:54 Dose: 20 mg Folic Acid (Folic Acid) 1 mg PO DAILY [facility] Last Admin: 05/19/19 08:53 Dose: 1 mg Hydrocortisone (Hydrocortisone 1% Crm) 0 gm TOP TID [facility] Last Admin: 05/19/19 08:53 Dose: 1 applic Sodium Chloride (Normal Saline) 1,000 mls @ 150 mls/hr IV ASDIRECTED [facility] Last Admin: 05/14/19 12:32 Dose: 150 mls/hr Metronidazole 500 mg/ Premix 100 mls @ 100 mls/hr IV ONETIME STA Stop: 05/14/19 15:09 Last Admin: 05/14/19 14:36 Dose: 100 mls/hr Lactated Ringer's (Ringers, Lactated) 1,000 mls @ 125 mls/hr IV ASDIRECTED [facility] Last Admin: 05/15/19 08:18 Dose: 125 mls/hr Metronidazole 500 mg/ Premix 100 mls @ 100 mls/hr IV Q8H [facility] Stop: 05/17/19 22:01 Last Admin: 05/15/19 15:33 Dose: 100 mls/hr Magnesium Sulfate 4 gm/ Premix 50 mls @ 12.5 mls/hr IV ONETIME ONE Stop: 05/15/19 23:27 Last Admin: 05/15/19 19:41 Dose: 12.5 mls/hr Iopamidol (Isovue-300 (61%)) 100 ml IVPUSH ONETIME ONE Stop: 05/14/19 11:35 Last Admin: 05/14/19 11:57 Dose: 100 ml Ketorolac Tromethamine (Toradol) 30 mg IV Q6H PRN PRN Reason: Pain (moderate 4-6) Last Admin: 05/19/19 06:27 Dose: 30 mg Ketorolac Tromethamine (Toradol) 10 mg PO ONETIME ONE Stop: 05/18/19 12:51 Last Admin: 05/18/19 12:43 Dose: 10 mg Lactulose (Cephulac) 20 gm PO Q6H [facility] Last Admin: 05/18/19 17:19 Dose: Not Given Levothyroxine Sodium (Levothyroxine) 125 mcg PO ACBREAKFAST [facility] Last Admin: 05/19/19 06:27 Dose: 125 mcg Loratadine (Claritin) 10 mg PO DAILY [facility] Stop: 05/16/19 09:01 Last Admin: 05/16/19 09:30 Dose: 10 mg Magnesium Oxide (Magnesium Oxide) 400 mg PO ONETIME ONE Stop: 05/15/19 21:01 Magnesium Oxide (Magnesium Oxide) 800 mg PO ONETIME ONE Stop: 05/17/19 19:54 Last Admin: 05/17/19 21:30 Dose: 800 mg Magnesium Oxide (Magnesium Oxide) 400 mg PO BID [facility] Last Admin: 05/19/19 08:54 Dose: 400 mg Metronidazole (Flagyl) 500 mg PO Q8H [facility] Last Admin: 05/18/19 05:45 Dose: 500 mg Ondansetron HCl (Zofran Odt) 4 mg PO Q6H PRN PRN Reason: nausea, able to take PO Last Admin: 05/18/19 12:44 Dose: 4 mg Ondansetron HCl (Zofran) 4 mg IV Q6H PRN PRN Reason: Nausea/Vomiting Potassium Chloride (Klor-Con M20) 40 meq PO BID [facility] Stop: 05/16/19 09:00 Last Admin: 05/16/19 09:31 Dose: 40 meq Potassium Chloride (Klor-Con M20) 40 meq PO ONETIME ONE Stop: 05/15/19 21:01 Rosuvastatin Calcium (Crestor) 10 mg PO BEDTIME [facility] Last Admin: 05/18/19 22:04 Dose: 10 mg Sodium Chloride (Saline Flush) 10 ml FLUSH ONETIME ONE Stop: 05/14/19 11:35 Last Admin: 05/14/19 11:57 Dose: 10 ml Sodium Phosphate (Neutra-Phos) 250 mg PO QID [facility] Last Admin: 05/19/19 12:42 Dose: 250 mg Thiamine HCl (Vitamin B-1) 100 mg PO BID [facility] Last Admin: 05/19/19 08:54 Dose: 100 mg
== END 2019-05-19 15:58 | disposition home or self-care (01) | DRG 918 ==
LOC: JD.ED 10:13 → JD.MS 16:31
PROVIDERS: ADMIT Internal Medicine; ATTEND Internal Medicine
DX: T42.4X1A Poisoning by benzodiazepines, accidental (unintentional), initial encounter (principal); D61.818 Other pancytopenia; N17.9 Acute kidney failure, unspecified; K86.0 Alcohol-induced chronic pancreatitis; F10.288 Alcohol dependence with other alcohol-induced disorder; F10.259 Alcohol dependence with alcohol-induced psychotic disorder, unspecified; R41.82 Altered mental status, unspecified; K52.9 Noninfective gastroenteritis and colitis, unspecified; F32.9 Major depressive disorder, single episode, unspecified; E03.9 Hypothyroidism, unspecified; N18.9 Chronic kidney disease, unspecified; E83.42 Hypomagnesemia; E78.5 Hyperlipidemia, unspecified; K59.00 Constipation, unspecified; K21.9 Gastro-esophageal reflux disease without esophagitis; E78.00 Pure hypercholesterolemia, unspecified; M19.90 Unspecified osteoarthritis, unspecified site; I12.9 Hypertensive chronic kidney disease with stage 1 through stage 4 chronic kidney disease, or unspecified chronic kidney disease; D50.9 Iron deficiency anemia, unspecified; E83.39 Other disorders of phosphorus metabolism; K70.0 Alcoholic fatty liver; E87.8 Other disorders of electrolyte and fluid balance, not elsewhere classified; Z65.8 Other specified problems related to psychosocial circumstances; Z91.19 Patient's noncompliance with other medical treatment and regimen; Z59.9 Problem related to housing and economic circumstances, unspecified; Z88.0 Allergy status to penicillin; Z88.2 Allergy status to sulfonamides; Z79.890 Hormone replacement therapy; Z79.899 Other long term (current) drug therapy; Z85.850 Personal history of malignant neoplasm of thyroid; Z90.49 Acquired absence of other specified parts of digestive tract; Z90.710 Acquired absence of both cervix and uterus; Z76.5 Malingerer [conscious simulation]
CPT/HCPCS: 36415; 70450; 70450-26; 74177; 74177-26; 80048; 80053; 80306; 81001; 83690; 83735; 84100; 84443; 85007; 85025; 85027; 85610; 96361; 96365; 99285; 99285-25; A9270-GY; G0480; J1885; J3475; J3490; J7040; J7120; Q9967